=== PATIENT | female | born 1930 | race Caucasian/White ===

== ENCOUNTER 2017-01-15 18:01 | Emergency (ER) | payer BC ==
[~2017-01-15] VITALS: Ht 152.4 cm; Wt 57.6 kg
[~2017-01-15 18:01] MED LIST: ASPI-461 PO; ASTN NAE; BIMA0.01 OPB; CALC-20 PO; CHOL1000 PO; EPGI10M INJ; FERR325T5 PO; FLUT0.15 NAE; GABA-113 PO; LACT10CA3 PO; LAMO1TAB21 PO; LEVAAER2 PO; LEVO50TA6 PO; LISI-791 PO; LORA-741 PO; LPT/40 PO; METO1TAB31 PO; MOME100A INH; MOME50SP5; NTRGSL/4 UT; OMEP20CA9 PO; QUET1TAB7 PO; VENL150C PO; VENL75CA PO; XPNIN INH
[2017-01-15 18:12] VITALS: TEMP 36.3; Ht 152.4 cm; Wt 57.6 kg
[2017-01-15] MEDS ORDERED: SODIUM CHLORIDE 0.9% 1000ML 1,000 ML IV STA (19:33)
[2017-01-15] MEDS ORDERED: ONDANSETRON INJ 2 MG/ML 2 ML VIAL IV STA (19:33)
--- NOTE | 2017-01-15 19:35 | EMERGENCY ROOM VISIT NOTE ---
History Report prepared by Jacky: Tia Kruger Under the Supervision of: Dr. Amadou Garcia D.O. First contact with patient: 19:26 Chief Complaint: ABDOMINAL PAIN Stated Complaint: INGUINAL HERNIA Nursing Triage Summary: pt dx with right inguinal hernia with bowel. last week saw dr wick. had u/s yesterday. sent here for further eval History of Present Illness The patient is a 86 year old female who presents to the Emergency Room with complaints of a right inguinal hernia. She reports that she saw Dr. Wick 3 days ago and was referred here. The patient states that she had an US done yesterday that showed bowel in the hernia. The patient reports having nausea and back pain. The patient denies having diarrhea and vomiting. The patient reports having history of CLL, but denies a history of breast cancer. She reports taking medication for hypertension. Source of History: patient Position: other (right inguinal region) Quality: other (hernia) Timing: constant Associated Symptoms: + nausea, + back pain, No vomiting, No diarrhea Review of Systems See HPI for pertinent positives & negatives. A total of 10 systems reviewed and were otherwise negative. Past Medical & Surgical Medical Problems: (1) Acute Lyme disease (2) Arthritis (3) CAD (coronary artery disease) (4) CLL (chronic lymphocytic leukemia) (5) Degenerative disc disease (6) Depression (7) Non-allergic rhinitis Surgical Problems: (1) History of tonsillectomy Family History No pertinent family history Social History Smoking Status: Never Smoker Alcohol Use: none Drug Use: none Marital Status: Housing Status: lives with significant other Occupation Status: retired Current/Historical Medications Scheduled Aspirin (Aspirin), 81 MG PO QPM Atorvastatin (Lipitor), 40 MG PO QPM Azelastine Hcl (Astelin Nasal [place]), 1 SPRAY DERIAN BID Bimatoprost (Lumigan), 1 DROP OPB HS Calcium Carbonate-Vitamin D (Calcium 600 + D), 1 TABS PO QPM Cholecalciferol (Vitamin D3), 1 TAB PO BID Epoetin Iraj (Procrit), 1 ML INJ WK Ferrous Sulfate (Ferrous Sulfate), 325 MG PO BID Fluticasone Propionate (Nasal) (Flonase Allergy Relief), 2 SPRAYS DERIAN DAILY AFTERNOON Gabapentin (Neurontin), 300 MG PO HS Lactobacillus-Inulin (Culturelle), 1 CAP PO QPM Lamotrigine (Lamotrigine), 100 MG PO BID Levothyroxine Sodium (Levothyroxine Sodium), 50 MCG PO QAM Lisinopril (Zestril), 10 MG PO QPM Lorazepam (Ativan), 0.25 MG PO HS Metoprolol Succinate (Toprol Xl), 25 MG PO QPM Mometasone Furoate-Formoterol (Dulera 100/5 Mcg), 2 PUFFS INH Q12 Omeprazole (Prilosec), 20 MG PO QPM Quetiapine Fumarate (Seroquel), 25 MG PO HS Venlafaxine Hcl (Effexor Xr), 75 MG PO QPM Venlafaxine Hcl (Effexor Xr), 150 MG PO QPM Scheduled PRN Levalbuterol Tartrate (Xopenex Hfa), 2 PUFFS INH Q4H PRN for SOB/Wheezing/Cough Nitroglycerin (Nitrostat), 0.4 MG UT UD PRN for Chest Pain Allergies Coded Allergies: Adhesives (Verified Allergy, Intermediate, if on for a while, 01/15/17) Bacitracin (Verified Allergy, Mild, ALLERGY, 01/15/17) Neomycin (Verified Allergy, Mild, ALLERGY, 01/15/17) Polymyxin B (Verified Allergy, Mild, ALLERGY, 01/15/17) Physical Exam Vital Signs Date Time Temp Pulse Resp B/P (MAP) Pulse Ox O2 Delivery O2 Flow Rate FiO2 01/15/17 23:06 86 18 156/75 98 Room Air 01/15/17 21:16 79 18 151/72 97 Room Air 01/15/17 18:12 36.3 109 18 151/76 99 Room Air Physical Exam GENERAL: Patient is awake, alert, and in no acute distress. Patient is resting comfortably and showing no signs of anxiety EYES: The conjunctivae are clear. The pupils are round and reactive. EARS, NOSE, MOUTH AND THROAT: The nose is without any evidence of any deformity. Mucous membranes are moist tongue is midline NECK: The neck is nontender and supple. RESPIRATORY: Normal respiratory effort is noted there is no evidence of wheezing rhonchi or rales CARDIOVASCULAR: Regular rate and rhythm noted there no murmurs rubs or gallops normal S1 normal S2 GASTROINTESTINAL: Abdomen mildly distended with right lower quadrant tenderness to palpation. No guarding or rigidity. No definite inguinal mass noted with tenderness to palpation. BACK: No midline tenderness or or step-off noted range of motion in flexion extension as well as rotation no signs of muscle spasm noted MUSCULOSKELETAL/EXTREMITIES: There is no evidence of gross deformity full range of motion is noted in the hips and shoulders SKIN: There is no obvious evidence of any rash. There are no petechiae, pallor or cyanosis noted. NEUROLOGIC: Patient is awake alert and oriented x3 Medical Decision & Procedures ER Provider Diagnostic Interpretation: Radiology results as stated below per my review and radiologist interpretation: CHEST ONE VIEW PORTABLE CLINICAL HISTORY: Pain, radiating to the abdomen COMPARISON STUDY: 10/10/2015 FINDINGS: The cardiac and sternal contours remain stable. There is mild elevation/eventration right hemidiaphragm unchanged the prior study. There is no focal pulmonary consolidation. There is no failure. There are no pleural effusions. There is minor thickening of interstitial markings unchanged the prior study. There is no free intraperitoneal air.[ IMPRESSION: No active disease in the chest. Electronically signed by: Eric Lay M.D. 01/15/2017 8:08 PM Dictated Date/Time: 01/15/2017 8:[address] SCAN OF THE ABDOMEN AND PELVIS WITHOUT CONTRAST CLINICAL HISTORY: right flank pain COMPARISON STUDY: 10/19/2009 TECHNIQUE: CT scan of the abdomen and pelvis was performed from the lung bases to the proximal femurs. Images are reviewed in the axial, sagittal, and coronal planes. IV contrast was not administered for this examination. A dose lowering technique was utilized adhering to the principles of ALARA. CT DOSE: 252.89 mGy.cm FINDINGS: Lower chest: There is a moderate hiatal hernia, with a para esophageal component. There is bilateral subpleural reticulation. There is no lobar consolidation. Liver: The unenhanced liver is normal in size, contour, and attenuation. There is no intrahepatic biliary ductal dilatation. Gallbladder: Mildly distended. No calculi identified. Spleen: Normal in size and attenuation. Pancreas: Unremarkable. Adrenal glands: Unremarkable. Kidneys: No renal, ureteral, or bladder calculi are visualized. Bowel: There are no transition zones indicate bowel obstruction. There is no acute diverticulitis. There is a right inguinal hernia which contains small bowel loops. This is not currently resulting in obstruction. Peritoneum: There is no intraperitoneal free air or abdominal ascites. Vasculature: The abdominal aorta is normal in course and caliber. Adenopathy: None. Pelvic viscera: There is an indwelling pessary. Skeletal structures: No destructive osseous lesions are seen. IMPRESSION: 1. No evidence of bowel obstruction. No evidence of free air 2. Containing right inguinal hernia 3. Mild gallbladder distention. No calculi visualized on CT scanning 4. Hiatal hernia with a para esophageal component 5. No renal, ureteral, or bladder calculi identified. 6. Normal appendix Electronically signed by: Eric Lay M.D. 01/15/2017 8:40 PM Dictated Date/Time: 01/15/2017 8:36 PM Laboratory Results 01/15/17 21:02 Red Blood Count 4.48, Mean Corpuscular Volume 92.2, Mean Corpuscular Hemoglobin 29.5, Mean Corpuscular Hemoglobin Concent 32.0, Mean Platelet Volume 9.2, Neutrophils (%) (Auto) 13.0, Lymphocytes (%) (Auto) 82.5, Monocytes (%) (Auto) 2.5, Eosinophils (%) (Auto) 1.5, Basophils (%) (Auto) 0.2, Neutrophils # (Auto) 4.93, Lymphocytes # (Auto) 31.39, Monocytes # (Auto) 0.97, Eosinophils # (Auto) 0.57, Basophils # (Auto) 0.08 01/15/17 21:02 Test 01/15/17 21:02 White Blood Count 38.04 K/uL (4.8-10.8) Red Blood Count 4.48 M/uL (4.2-5.4) Hemoglobin 13.2 g/dL (12.0-16.0) Hematocrit 41.3 % (37-47) Mean Corpuscular Volume 92.2 fL (80-100) Mean Corpuscular Hemoglobin 29.5 pg (25-34) Mean Corpuscular Hemoglobin Concent 32.0 g/dl (32-36) Platelet Count 220 K/uL (130-400) Mean Platelet Volume 9.2 fL (7.4-10.4) Neutrophils (%) (Auto) 13.0 % Lymphocytes (%) (Auto) 82.5 % Monocytes (%) (Auto) 2.5 % Eosinophils (%) (Auto) 1.5 % Basophils (%) (Auto) 0.2 % Neutrophils # (Auto) 4.93 K/uL (1.4-6.5) Lymphocytes # (Auto) 31.39 K/uL (1.2-3.4) Monocytes # (Auto) 0.97 K/uL (0.11-0.59) Eosinophils # (Auto) 0.57 K/uL (0-0.5) Basophils # (Auto) 0.08 K/uL (0-0.2) RDW Standard Deviation 45.5 fL (36.4-46.3) RDW Coefficient of Variation 13.6 % (11.5-14.5) Immature Granulocyte % (Auto) 0.3 % Immature Granulocyte # (Auto) 0.10 K/uL (0.00-0.02) Smudge Cells PRESENT Prothrombin Time 11.2 SECONDS (9.0-12.0) Prothromb Time International Ratio 1.0 (0.9-1.1) Activated Partial Thromboplast Time 22.6 SECONDS (21.0-31.0) Partial Thromboplastin Ratio 0.9 Anion Gap 7.0 mmol/L (3-11) Est Creatinine Clear Calc Drug Dose 24.7 ml/min Estimated GFR () 43.0 Estimated GFR (Non- 37.1 BUN/Creatinine Ratio 12.2 (10-20) Calcium Level 9.4 mg/dl (8.5-10.1) Total Bilirubin 0.5 mg/dl (0.2-1) Direct Bilirubin mg/dl (0-0.2) Aspartate Amino Transf (AST/SGOT) U/L (15-37) Alanine Aminotransferase (ALT/SGPT) 18 U/L (12-78) Alkaline Phosphatase 115 U/L (45-117) Total Creatine Kinase U/L (26-192) Creatine Kinase MB 1.7 ng/ml (0.5-3.6) Creatine Kinase MB Ratio (0-3.0) Troponin I < 0.015 ng/ml (0-0.045) Total Protein 7.5 gm/dl (6.4-8.2) Albumin 3.8 gm/dl (3.4-5.0) Lipase 142 U/L (73-393) Laboratory results per my review. Medications Administered Medications (Trade) Dose Ordered Sig/Boyd Route Start Time Stop Time Status Last Admin Dose Admin Sodium Chloride 1,000 ml @ 999 mls/hr Q1H1M STAT IV 01/15/17 19:33 01/15/17 20:33 DC 01/15/17 21:12 999 MLS/HR Ondansetron HCl (Zofran Inj) 4 mg NOW STAT IV 01/15/17 19:33 01/15/17 19:34 DC 01/15/17 21:11 4 MG ECG Indication: abdominal pain Rate (beats per minute): 79 Rhythm: normal sinus Findings: no ectopy, other (no ST segment abnormalities) Change: no significant change (from October 09, 2015) ED Course 1926: The patient was evaluated in room A3. A complete history and physical examination were performed. 1932: Ordered Zofran Inj 4 mg IV, Sodium Chloride 1,000 ml @ 999 mls/hr IV. 2124: I discussed the patient's case with Dr. Chirinos. The patient will be evaluated for further management. 2239: I updated the patient on her results. 0: Upon reevaluation, the patient is resting. I discussed the results and treatment plan with her. She verbalized agreement of the treatment plan. She was discharged home. Medical Decision Differential diagnosis: Etiologies such as appendicitis, diverticulitis, PUD, biliary pathology, UTI, pancreatitis, obstruction, mesenteric ischemia, aortic pathology, infections, inflammatory bowel disease, renal colic, as well as others were entertained. Nursing notes reviewed. The patient is an 86-year-old female who presented to the emergency department for an evaluation of right lower abdominal pain. The patient had reproducible right lower quadrant abdominal pain. She has a history of a right inguinal hernia which was noted but did not appear to be incarcerated. The patient's CAT scan only showed signs of the hernia. It did not show any definite signs of appendicitis or any other intra-abdominal pathology. I discussed the patient's laboratory radiographic studies with her. She was found have an elevated white blood cell count but this is likely more consistent with her underlying leukemia. I discussed his case with the on-call general surgeon. He has agreed to evaluate the patient in the emergency department and felt that she could be managed as an outpatient and I agree. The patient was encouraged to avoid any strenuous activity or heavy lifting. She was encouraged to call the general surgeon in the morning to schedule a follow-up appointment. She was also encouraged return to the emergency department immediately if symptoms change worsen or the need arises. Medication Reconcilliation Current Medication List: was personally reviewed by me Blood Pressure Screening Patient's blood pressure: Elevated blood pressure Blood pressure disposition: Elevated BP felt to be situational Consults Time Called: 2114 Consulting Physician: Dr. Cheng Returned Call: 2124 I discussed the patient's case with Dr. Chirinos. The patient will be evaluated for further management. Impression Primary Impression: Right inguinal hernia Additional Impression: Abdominal pain Scribe Attestation The scribe's documentation has been prepared under my direction and personally reviewed by me in its entirety. I confirm that the note above accurately reflects all work, treatment, procedures, and medical decision making performed by me. Departure Information Dispostion Home / Self-Care Referrals Walter Wick D.O. (PCP) Romina Licona MD Forms HOME CARE DOCUMENTATION FORM, IMPORTANT VISIT INFORMATION Patient Instructions ED Hernia Inguinal, [facility] Additional Instructions Call the surgeon in the morning to schedule a follow-up appointment. Avoid any strenuous activity or heavy lifting. Return to the emergency department immediately if symptoms change worsen or the need arises. Problem Qualifiers Additional Impression: Abdominal pain Abdominal location: right lower quadrant Qualified Codes: R10.31 - Right lower quadrant pain
--- NOTE | 2017-01-15 20:10 | DIAGNOSTIC IMAGING REPORT ---
CHEST ONE VIEW PORTABLE CLINICAL HISTORY: Pain, radiating to the abdomen COMPARISON STUDY: 10/10/2015 FINDINGS: The cardiac and sternal contours remain stable. There is mild elevation/eventration right hemidiaphragm unchanged the prior study. There is no focal pulmonary consolidation. There is no failure. There are no pleural effusions. There is minor thickening of interstitial markings unchanged the prior study. There is no free intraperitoneal air.[ IMPRESSION: No active disease in the chest. Electronically signed by: Eric Lay M.D. 01/15/2017 8:08 PM Dictated Date/Time: 01/15/2017 8:07 PM
--- NOTE | 2017-01-15 20:42 | DIAGNOSTIC IMAGING REPORT ---
CT SCAN OF THE ABDOMEN AND PELVIS WITHOUT CONTRAST CLINICAL HISTORY: right flank pain COMPARISON STUDY: 10/19/2009 TECHNIQUE: CT scan of the abdomen and pelvis was performed from the lung bases to the proximal femurs. Images are reviewed in the axial, sagittal, and coronal planes. IV contrast was not administered for this examination. A dose lowering technique was utilized adhering to the principles of ALARA. CT DOSE: 252.89 mGy.cm FINDINGS: Lower chest: There is a moderate hiatal hernia, with a para esophageal component. There is bilateral subpleural reticulation. There is no lobar consolidation. Liver: The unenhanced liver is normal in size, contour, and attenuation. There is no intrahepatic biliary ductal dilatation. Gallbladder: Mildly distended. No calculi identified. Spleen: Normal in size and attenuation. Pancreas: Unremarkable. Adrenal glands: Unremarkable. Kidneys: No renal, ureteral, or bladder calculi are visualized. Bowel: There are no transition zones indicate bowel obstruction. There is no acute diverticulitis. There is a right inguinal hernia which contains small bowel loops. This is not currently resulting in obstruction. Peritoneum: There is no intraperitoneal free air or abdominal ascites. Vasculature: The abdominal aorta is normal in course and caliber. Adenopathy: None. Pelvic viscera: There is an indwelling pessary. Skeletal structures: No destructive osseous lesions are seen. IMPRESSION: 1. No evidence of bowel obstruction. No evidence of free air 2. Containing right inguinal hernia 3. Mild gallbladder distention. No calculi visualized on CT scanning 4. Hiatal hernia with a para esophageal component 5. No renal, ureteral, or bladder calculi identified. 6. Normal appendix Electronically signed by: Eric Lay M.D. 01/15/2017 8:40 PM Dictated Date/Time: 01/15/2017 8:36 PM
[2017-01-15 21:21] LABS: PARTIAL THROMBOPLASTIN RATIO 0.9; PROTHROMBIN TIME (PATIENT) 11.2 SECONDS (9.0-12.0)
[2017-01-15 21:34] LABS: HEMATOCRIT 41.3 % (37-47); MEAN CELL VOLUME 92.2 fL (80-100); MEAN CORPUSCULAR HEMOGLOBIN 29.5 pg (25-34); MEAN PLATELET VOLUME 9.2 fL (7.4-10.4); PLATELET COUNT 220 K/uL (130-400); RED BLOOD COUNT 4.48 M/uL (4.2-5.4); WHITE BLOOD COUNT 38.04 K/uL (4.8-10.8)
[2017-01-15 21:45] LABS: ALKALINE PHOSPHATASE 115 U/L (45-117); ALT/SGPT 18 U/L (12-78); BLOOD UREA NITROGEN 16 mg/dl (7-18); BUN/CREATININE RATIO 12.2 (10-20); CALCIUM 9.4 mg/dl (8.5-10.1); CARBON DIOXIDE 25 mmol/L (21-32); CHLORIDE 106 mmol/L (98-107); GLUCOSE 83 mg/dl (70-99); SODIUM 138 mmol/L (136-145)
[2017-01-15 21:57] LABS: BASO % 0.2 %; BASO ABS # 0.08 K/uL (0-0.2); COMPLETE YES; EOS % 1.5 %; IG% 0.3 %; LYMPH % 82.5 %; LYMPH ABS # 31.39 K/uL (1.2-3.4); MONO % 2.5 %; SMUDGE CELLS PRESENT
[2017-01-15 23:06] VITALS: BP 156/75; PULSE 86; O2SAT 98
--- NOTE | 2017-01-16 00:32 | Surgery Consultation ---
Consultation Date of Consultation: Jan 16, 2017. Attending Physician: History of Present Illness The patient is a 86 year old female who presents to the Emergency Room with complaints of a right inguinal hernia. She reports that she saw Dr. Wick 3 days ago and was referred here. The patient states that she had an US done yesterday that showed bowel in the hernia. The patient reports having nausea and back pain. The patient denies having diarrhea and vomiting. The patient reports having history of CLL, but denies a history of breast cancer. She reports taking medication for hypertension. I saw pt at ER, now, pt denies any pain on right inguinal area, no bulging, most likely the hernia is reducible, pt wants to go home, Past Medical/Surgical History Medical Problems: (1) Abdominal pain Status: Acute (2) Asthma exacerbation Status: Acute (3) Bronchitis Status: Acute (4) Right inguinal hernia Status: Acute (5) Sepsis Status: Acute Family History No pertinent family history Social History Smoking Status: Never Smoker Smokeless Tobacco Use: No Alcohol Use: occasionally Drug Use: none Marital Status: Housing Status: lives with significant other Occupation Status: retired Allergies Coded Allergies: Adhesives (Verified Allergy, Intermediate, if on for a while, 01/15/17) Bacitracin (Verified Allergy, Mild, ALLERGY, 01/15/17) Neomycin (Verified Allergy, Mild, ALLERGY, 01/15/17) Polymyxin B (Verified Allergy, Mild, ALLERGY, 01/15/17) Home Medications Scheduled Aspirin (Aspirin), 81 MG PO QPM Atorvastatin (Lipitor), 40 MG PO QPM Azelastine Hcl (Astelin Nasal [place]), 1 SPRAY DERIAN BID Bimatoprost ([place]), 1 DROP OPB HS Calcium Carbonate-Vitamin D (Calcium 600 + D), 1 TABS PO QPM Cholecalciferol (Vitamin D3), 1 TAB PO BID Epoetin Iraj (Procrit), 1 ML INJ WK Ferrous Sulfate (Ferrous Sulfate), 325 MG PO BID Fluticasone Propionate (Nasal) (Flonase Allergy Relief), 2 SPRAYS DERIAN DAILY AFTERNOON Gabapentin (Neurontin), 300 MG PO HS Lactobacillus-Inulin (Culturelle), 1 CAP PO QPM Lamotrigine (Lamotrigine), 100 MG PO BID Levothyroxine Sodium (Levothyroxine Sodium), 50 MCG PO QAM Lisinopril (Zestril), 10 MG PO QPM Lorazepam (Ativan), 0.25 MG PO HS Metoprolol Succinate (Toprol Xl), 25 MG PO QPM Mometasone Furoate-Formoterol (Dulera 100/5 Mcg), 2 PUFFS INH Q12 Omeprazole (Prilosec), 20 MG PO QPM Quetiapine Fumarate (Seroquel), 25 MG PO HS Venlafaxine Hcl (Effexor Xr), 75 MG PO QPM Venlafaxine Hcl (Effexor Xr), 150 MG PO QPM Scheduled PRN Levalbuterol Tartrate (Xopenex Hfa), 2 PUFFS INH Q4H PRN for SOB/Wheezing/Cough Nitroglycerin (Nitrostat), 0.4 MG UT UD PRN for Chest Pain Review of Systems Constitutional: No fever, No chills, No sweats, No weight loss, No weakness, No fatigue, No problem reported Eyes: No worsening of vision, No eye pain, No redness, No discharge, No diplopia, No problem reported ENT: No hearing loss, No unusual epistaxis, No nasal symptoms, No sore throat, No tinnitus, No dental problems, No trouble swallowing, No problem reported Respiratory: No cough, No sputum, No wheezing, No shortness of breath, No dyspnea on exertion, No dyspnea at rest, No hemoptysis, No problem reported Cardiovascular: No chest pain, No orthopnea, No PND, No edema, No claudication , No palpitations, No problem reported Abdomen: No pain, No nausea, No vomiting, No diarrhea, No constipation, No GI bleeding, No problem reported Neurologic: No memory loss, No paralysis, No weakness, No numbness/tingling, No vertigo, No balance problems, No problem reported Psychiatric: No depression symptoms, No anhedonism, No anxiety, No insomnia, No substance abuse, No problem reported Endocrine: No fatigue, No excessive thirst, No excessive urination, No problem reported Hematologic / Lymphatic: No abnormal bleeding/bruising, No clotting problems, No swollen lymph nodes, No night sweats, No problem reported Physical Exam Date Time Temp Pulse Resp B/P (MAP) Pulse Ox O2 Delivery O2 Flow Rate FiO2 01/15/17 23:06 86 18 156/75 98 Room Air 01/15/17 21:16 79 18 151/72 97 Room Air 01/15/17 18:12 36.3 109 18 151/76 99 Room Air General Appearance: WD/WN, no apparent distress Head: normocephalic Eyes: normal inspection ENT: normal ENT inspection Neck: supple, no JVD Respiratory/Chest: chest non-tender, lungs clear Cardiovascular: regular rate, rhythm, no edema, no gallop, no JVD, no murmur Abdomen/GI: soft, no organomegaly (no mass on right inguinal area, ), no pulsatile mass Extremities/Musculoskelatal: normal inspection, no calf tenderness, normal capillary refill Neurologic/Psych: no motor/sensory deficits, alert, normal mood/affect Skin: normal color, warm/dry Laboratory Results Last 24 Hours Test 01/15/17 21:02 White Blood Count 38.04 K/uL Red Blood Count 4.48 M/uL Hemoglobin 13.2 g/dL Hematocrit 41.3 % Mean Corpuscular Volume 92.2 fL Mean Corpuscular Hemoglobin 29.5 pg Mean Corpuscular Hemoglobin Concent 32.0 g/dl Platelet Count 220 K/uL Mean Platelet Volume 9.2 fL Neutrophils (%) (Auto) 13.0 % Lymphocytes (%) (Auto) 82.5 % Monocytes (%) (Auto) 2.5 % Eosinophils (%) (Auto) 1.5 % Basophils (%) (Auto) 0.2 % Neutrophils # (Auto) 4.93 K/uL Lymphocytes # (Auto) 31.39 K/uL Monocytes # (Auto) 0.97 K/uL Eosinophils # (Auto) 0.57 K/uL Basophils # (Auto) 0.08 K/uL RDW Standard Deviation 45.5 fL RDW Coefficient of Variation 13.6 % Immature Granulocyte % (Auto) 0.3 % Immature Granulocyte # (Auto) 0.10 K/uL Smudge Cells PRESENT Prothrombin Time 11.2 SECONDS Prothromb Time International Ratio 1.0 Activated Partial Thromboplast Time 22.6 SECONDS Partial Thromboplastin Ratio 0.9 Sodium Level 138 mmol/L Potassium Level mmol/L Chloride Level 106 mmol/L Carbon Dioxide Level 25 mmol/L Anion Gap 7.0 mmol/L Blood Urea Nitrogen 16 mg/dl Creatinine 1.30 mg/dl Est Creatinine Clear Calc Drug Dose 24.7 ml/min Estimated GFR () 43.0 Estimated GFR (Non- 37.1 BUN/Creatinine Ratio 12.2 Random Glucose 83 mg/dl Calcium Level 9.4 mg/dl Total Bilirubin 0.5 mg/dl Direct Bilirubin mg/dl Aspartate Amino Transf (AST/SGOT) U/L Alanine Aminotransferase (ALT/SGPT) 18 U/L Alkaline Phosphatase 115 U/L Total Creatine Kinase U/L Creatine Kinase MB 1.7 ng/ml Creatine Kinase MB Ratio Troponin I < 0.015 ng/ml Total Protein 7.5 gm/dl Albumin 3.8 gm/dl Lipase 142 U/L Assessment & Plan Assement: pt is a 86 year old female who presents to ER with right inguinal pain , now pt has no right inguinal pain, IMP: right inguinal hernia, I recommend that, pt can be discharged home today, pt will see me next week for elective hernia repair, I instructed pt , she should come to ER if she develops abdominal pain, nausea. vomiting, pt understood, I answered all questions, D/W ER attending,
== END 2017-01-15 23:15 | disposition home or self-care (01) ==
LOC: C.EDB 18:03 → C.EDA 23:15
DX: K40.90 Unilateral inguinal hernia, without obstruction or gangrene, not specified as recurrent (principal); R10.31 Right lower quadrant pain; M19.90 Unspecified osteoarthritis, unspecified site; I25.10 Atherosclerotic heart disease of native coronary artery without angina pectoris; C91.11 Chronic lymphocytic leukemia of B-cell type in remission; F32.9 Major depressive disorder, single episode, unspecified; Z79.82 Long term (current) use of aspirin

== ENCOUNTER → 2017-01-22 | Day surgery (SDC) | payer BC ==
[2017-01-21 13:07] VITALS: BMI 26.0
[~2017-01-22] VITALS: Ht 149.9 cm; Wt 59.1 kg
[~2017-01-22] MED LIST changes: +ACET-749 PO; +ASPI-391 PO; +ATROPINE SULFATE 0.1 MG/ML 5ML SYR IV PRN; +BACITRACIN OINT 15 GM TUBE ONE; +BUPIVACAINE 0.5 % 5 MG/1 ML MPF 30ML VIAL ONE; +CEFAZOLIN 2000 MG/60 ML D5W 60 ML IV SCH; +CEFAZOLIN SOD 2000MG/10 ML IV PUSH IV ONE; -EPGI10M INJ; +ESTROGEN TOP; +EpHEDrine SULFATE INJ 50 MG/ML AMP IV PRN; +FENTANYL CITRATE INJ 50 MCG/1 ML 2 ML VIAL ONE; +HYDROmorphone INJ 1 MG/ML SYR IV PRN; +LACTATED RINGER'S 1000ML 1,000 ML IV SCH; +LAMO100T16 PO; +LEVA45AE INH; -LEVAAER2 PO; -LEVO50TA6 PO; +LEVO75TA5 PO; +LIDOCAINE HCL 1% 20 ML VIAL ONE; +LIDOCAINE HCL 2% 2 ML VIAL (20MG/ML) ONE; +MIDAZOLAM HCL 1 MG/ML 2ML VIAL ONE; -MOME50SP5; +MoRPHine SULFATE 2 MG/ML CARP IV PRN; +MoRPHine SULFATE 4 MG/ML 1 ML CARP\\VIAL IV PRN; -OMEP20CA9 PO; +ONDANSETRON INJ 2 MG/ML 2 ML VIAL IV PRN; +ONDANSETRON INJ 2 MG/ML 2 ML VIAL ONE; +OXYC-57 PO; +OXYCODONE/ACETAMINOPHEN 5-325 TAB PO PRN; +PHENYLEPHRINE 100MCG/ML 5ML SYR IV PRN; +PROPOFOL IV EMULSION 10 MG/ML 20 ML VIAL IV ONE; -VENL150C PO; -XPNIN INH
--- NOTE | 2017-01-22 08:22 | History & Physical Bridge Note ---
H&P Re-Evaluation Bridge Note: I have examined the patient, reviewed the History & Physical and in the interval since the performance of the History & Physical I have noted the following changes of clinical significance: No changes noted
[2017-01-22 08:32] VITALS: BP 127/59; PULSE 54; TEMP 36.7; O2SAT 97; Ht 149.9 cm; Wt 59.1 kg
--- NOTE | 2017-01-22 10:13 | [facility] Post Operative Brief Note ---
Immediate Operative Summary Operative Date Jan 22, 2017. Pre-Operative Diagnosis Symptomatic Right Inguinal Hernia Post-Operative Diagnosis Symptomatic Right Inguinal Hernia Procedure(s) Performed Right Open Inguinal Hernia Repair with Mesh Surgeon Dr. Martinez Licona [employer] Surgeon(s) Nasim Lemos PA-C Estimated Blood Loss 5mL Findings right direct inguinal hernia Fluids (cc crystalloids) 800ml Specimens none per surgeon Drains none Anesthesia sedation + local Complication(s) None Disposition Recovery Room / PACU
--- NOTE | 2017-01-22 10:32 | Discharge Instructions ---
Discharge Instructions Date of Service Jan 22, 2017. Admission Reason for Admission: Right Inguinal Hernia Discharge Discharge Diagnosis / Problem: same Discharge Goals Goal(s): Decrease discomfort, Improve function Activity Recommendations Activity Limitations: as noted below No heavy lifting over 10 pounds for 4-6 weeks no strenuous activity until cleared by surgeon No submerging incision underwater for 2 weeks or until completely healed (no bathing, swimming, or hot tubs) No driving while taking narcotic pain medication or until you are pain free . Instructions / Follow-Up Instructions / Follow-Up You may shower in 4 days, sponge bath and wash hair in meantime. You can let shower water hit your back but keep the dressing dry and clean. Remove dressing in 4 days and then shower Please keep a dressing on the incision as we did not use steri strips or surgical glue because of your adhesive allergy. Walking and light activity is encouraged to prevent blood clots from forming Follow-up with Dr. Licona in 1 week, please call office at [phone] if you do not already have an appointment Current Hospital Diet Patient's current hospital diet: Discharge Diet Recommended Diet: Regular Diet Procedures Procedures Performed: Right Open Inguinal Hernia Repair with Mesh Pending Studies Studies pending at discharge: no Medical Emergencies . Who to Call and When: Medical Emergencies: If at any time you feel your situation is an emergency, please call 911 immediately. . Non-Emergent Contact Non-Emergency issues call your: Primary Care Provider, Surgeon Call Non-Emergent contact if: you have a fever, temperature is above 101.5, your pain is not controlled, your pain is worsening, your pain is unusual for you, wound has increased drainage, wound has increased redness, wound has increased pain . "Provider Documentation" section prepared by Peggy Lemos. . VTE Core Measure Inpt VTE Proph given/why not?: SCD's [place] Drug Monitoring Program Search Results: patient reviewed within database, no issues identified
[2017-01-22] MEDS: FENTANYL CITRATE INJ 50 MCG/1 ML 2 ML VIAL IV PRN ×2 (10:53→11:00)
--- NOTE | 2017-01-22 11:14 | Anesthesiology Progress Note ---
Anesthesia Post Op Note Date & Time Jan 22, 2017 at 11:13 Vital Signs Pain Intensity: 2 Vital Signs Past 12 Hours Date Time Temp Pulse Resp B/P (MAP) Pulse Ox O2 Delivery O2 Flow Rate FiO2 01/22/17 11:05 37.1 71 14 115/51 95 Room Air 01/22/17 10:55 71 16 133/54 96 Room Air 01/22/17 10:45 71 16 136/44 97 Oxymask 10 01/22/17 10:35 71 16 140/56 100 Oxymask 10 01/22/17 10:25 36.7 71 16 134/61 100 Oxymask 10 01/22/17 08:32 36.7 54 20 127/59 (81) 97 Room Air Notes Mental Status: alert / awake / arousable, participated in evaluation Pt Amnestic to Procedure: Yes Nausea / Vomiting: adequately controlled Pain: adequately controlled Airway Patency, RR, SpO2: stable & adequate BP & HR: stable & adequate Hydration State: stable & adequate Anesthetic Complications: no major complications apparent
[2017-01-22 11:25] VITALS: BP 117/56; PULSE 68; TEMP 36.8; O2SAT 97
--- NOTE | 2017-01-22 11:53 | OPERATIVE REPORT ---
DATE OF OPERATION: 01/22/2017 PREOPERATIVE DIAGNOSIS: Symptomatic right inguinal hernia. POSTOPERATIVE DIAGNOSIS: Same. OPERATION: Open repair, right inguinal hernia with mesh. SURGEON: Romina Licona M.D. TUBE TRAILER FILLER: Peggy Lemos PA-C. ANESTHESIA: Conscious sedation plus local. ESTIMATED BLOOD LOSS: About 5 mL. IV FLUIDS: 800 mL. FINDINGS: Right direct inguinal hernia. COMPLICATIONS: None. INDICATIONS FOR THE PROCEDURE: This is an 86-year-old female who presented symptomatic right inguinal hernia and patient was diagnosed with right inguinal hernia and patient will be required to do open repair, right inguinal hernia with mesh. I did talk to the patient and the patient's about the benefit and risk, alternate procedure. I indicated the risks may include but not limited such as bleeding, infection, hernia recurrence, chronic incision pain, myocardial infarction, DVT, stroke, even . The patient understands. She signed informed consent and I answered all questions. DETAILS OF PROCEDURE: We brought the patient to the OR, put the patient in the supine position. The patient received SCD on bilateral legs to prevent DVT. Also, patient received 2 grams Ancef IV for prophylactic antibiotic. The patient received conscious sedation by the anesthesiology. The right lower abdomen was prepped and draped in routine sterile fashion. After time out, I injected the local anesthesia by using 1% lidocaine mixed with 0.5% Marcaine around the right inguinal area and then I made about a 4 cm incision on the right inguinal area, opened the skin and opened the subcutaneous layer and opened the external oblique fascia and mobilized the round ligament. Then we found the patient had a direct hernia. We mobilized the hernia sac and reduced the hernia sac to the abdominal cavity. Then I used a large plug blockage the hernia sac, then I used 2-0 Prolene to fix the plug on the abdominal wall. Then I chose 3 x 5 cm Prolene mesh to reinforce the posterior wall. I used 2-0 Prolene suture mesh to the right inguinal ligament and another 2-0 Prolene suture mesh to the conjoined tendon, 2 sutures meeting together, tied and also we identified the ilioinguinal nerves and iliohypogastric nerves all times to protection nerve at all times. Hemostasis obtained then we closed. Once we put the mesh in we checked the mesh and seated nicely, no tension. Then I closed the external oblique fascia by using 2-0 Vicryl continuous running, closed subcutaneous layer by using 2-0 Vicryl continuous running, closed skin by using 4-0 Vicryl continuous running. We put the dressing on. The patient tolerated the procedure well. All the instrument, needle and sponge count correct x2 at the end of case. The patient transferred to recovery room in stable condition. After the procedure, I did talk to the patient and family member about OR findings and procedure we did. Also, before and after the procedure, I gave patient and patient's family member about the postop care instruction, they understand. I attest to the content of the Intraoperative Record and any orders documented therein. Any exceptions are noted below. MTDD
[2017-01-22 11:54] VITALS: BP 127/61; PULSE 71; TEMP 36.8; O2SAT 98
[2017-01-22 12:30] VITALS: BP 135/65; PULSE 68; O2SAT 97
== END | disposition home or self-care (01) ==
LOC: C.ACU 07:52
PROVIDERS: ATTEND Surgery
DX: K40.90 Unilateral inguinal hernia, without obstruction or gangrene, not specified as recurrent (principal); C91.10 Chronic lymphocytic leukemia of B-cell type not having achieved remission; M76.899 Other specified enthesopathies of unspecified lower limb, excluding foot; N62 Hypertrophy of breast; M15.9 Polyosteoarthritis, unspecified; F32.9 Major depressive disorder, single episode, unspecified; E03.9 Hypothyroidism, unspecified; E78.5 Hyperlipidemia, unspecified; I25.10 Atherosclerotic heart disease of native coronary artery without angina pectoris; J45.30 Mild persistent asthma, uncomplicated; K21.9 Gastro-esophageal reflux disease without esophagitis; N18.3 Chronic kidney disease, stage 3 (moderate); I12.9 Hypertensive chronic kidney disease with stage 1 through stage 4 chronic kidney disease, or unspecified chronic kidney disease; Z82.49 Family history of ischemic heart disease and other diseases of the circulatory system

== ENCOUNTER 2017-02-24 19:14 | Inpatient (IN) | payer BC, OTHER ==
[~2017-02-24] VITALS: Ht 149.9 cm; Wt 56.5 kg
[~2017-02-24 19:14] MED LIST changes: -ATROPINE SULFATE 0.1 MG/ML 5ML SYR IV PRN; -BACITRACIN OINT 15 GM TUBE ONE; -BUPIVACAINE 0.5 % 5 MG/1 ML MPF 30ML VIAL ONE; -CEFAZOLIN 2000 MG/60 ML D5W 60 ML IV SCH; -CEFAZOLIN SOD 2000MG/10 ML IV PUSH IV ONE; -EpHEDrine SULFATE INJ 50 MG/ML AMP IV PRN; -FENTANYL CITRATE INJ 50 MCG/1 ML 2 ML VIAL ONE; -HYDROmorphone INJ 1 MG/ML SYR IV PRN; -LACTATED RINGER'S 1000ML 1,000 ML IV SCH; -LAMO1TAB21 PO; -LIDOCAINE HCL 1% 20 ML VIAL ONE; -LIDOCAINE HCL 2% 2 ML VIAL (20MG/ML) ONE; +METO-478 PO; -METO1TAB31 PO; -MIDAZOLAM HCL 1 MG/ML 2ML VIAL ONE; -MoRPHine SULFATE 2 MG/ML CARP IV PRN; -MoRPHine SULFATE 4 MG/ML 1 ML CARP\\VIAL IV PRN; -ONDANSETRON INJ 2 MG/ML 2 ML VIAL IV PRN; -ONDANSETRON INJ 2 MG/ML 2 ML VIAL ONE; -OXYCODONE/ACETAMINOPHEN 5-325 TAB PO PRN; -PHENYLEPHRINE 100MCG/ML 5ML SYR IV PRN; -PROPOFOL IV EMULSION 10 MG/ML 20 ML VIAL IV ONE
[2017-02-24] MEDS ORDERED: ONDANSETRON INJ 2 MG/ML 2 ML VIAL IV STA (19:39)
[2017-02-24] MEDS ORDERED: MoRPHine SULFATE 4 MG/ML 1 ML CARP\\VIAL IV STA (19:39)
[2017-02-24 20:14] LABS: INR 1.1 (0.9-1.1); PARTIAL THROMBOPLASTIN RATIO 0.9; PROTHROMBIN TIME (PATIENT) 11.3 SECONDS (9.0-12.0)
[2017-02-24] MEDS ORDERED: LEVO50TA PO (20:14)
[2017-02-24] MEDS ORDERED: EPGI40M SC (20:17)
[2017-02-24 20:19] LABS: ALT/SGPT 24 U/L (12-78); BLOOD UREA NITROGEN 14 mg/dl (7-18); BUN/CREATININE RATIO 13.2 (10-20); CALCIUM 9.1 mg/dl (8.5-10.1); CARBON DIOXIDE 24 mmol/L (21-32); CHLORIDE 103 mmol/L (98-107); CREATININE 1.04 mg/dl (0.60-1.20); GLUCOSE 91 mg/dl (70-99); SODIUM 138 mmol/L (136-145)
[2017-02-24 20:24] LABS: ALKALINE PHOSPHATASE 83 U/L (45-117); AST/SGOT 20 U/L (15-37)
[2017-02-24 20:30] LABS: HEMATOCRIT 38.2 % (37-47); MEAN CELL VOLUME 92.5 fL (80-100); MEAN CORPUSCULAR HEMOGLOBIN 29.3 pg (25-34); MEAN CORPUSCULAR HGB CONC 31.7 g/dl (32-36); MEAN PLATELET VOLUME 9.9 fL (7.4-10.4); PLATELET COUNT 189 K/uL (130-400); RED BLOOD COUNT 4.13 M/uL (4.2-5.4); WHITE BLOOD COUNT 32.09 K/uL (4.8-10.8)
[2017-02-24] MEDS ORDERED: OPTIRAY 320 IV PRN (20:30)
[2017-02-24 21:03] LABS: URINE APPEARANCE CLEAR (CLEAR); URINE BILIRUBIN NEG (NEG); URINE COLOR YELLOW; URINE NITRITE NEG (NEG); URINE SPECIFIC GRAVITY 1.006 (1.000-1.030); UROBILINOGEN NEG (NEG)
[2017-02-24 21:08] LABS: MANUAL MICROSCOPIC REQUIRED? NO; REVIEW REQ? NO
[2017-02-24 21:38] LABS: BASO % 0.3 %; BASO ABS # 0.09 K/uL (0-0.2); COMPLETE YES; EOS % 2.2 %; IG% 0.2 %; LYMPH % 80.1 %; MONO % 4.3 %; NEUT % 12.9 %
[2017-02-24 22:11] LABS: SMUDGE CELLS PRESENT
--- NOTE | 2017-02-24 22:55 | DIAGNOSTIC IMAGING REPORT ---
ABDOMEN AND PELVIS CT WITH IV AND ORAL CONTRAST CT DOSE: 236.20 mGy.cm HISTORY: lower abd pain eval for divertic TECHNIQUE: Multiaxial CT images of the abdomen and pelvis were performed following the use of intravenous and oral contrast. A dose lowering technique was utilized adhering to the principles of ALARA. COMPARISON STUDY: Abdomen and pelvis CT 01/15/2017. FINDINGS: Mild interstitial thickening at the lung bases which is likely chronic. Moderate hiatus hernia, unchanged. The liver, spleen, adrenal glands, pancreas, and kidneys are unremarkable. No gallbladder wall thickening. Calcified mediastinal lymph nodes. The bladder is unremarkable. Small fat and fluid containing right inguinal hernia. A pessary device is noted. No bowel obstruction. Colonic diverticulosis. No retroperitoneal lymphadenopathy. Adjacent to the cecal base there is a small focal hypodensity best seen on image 263 measuring 3 cm. This was not present on the prior study one month earlier. This is adjacent to the normal caliber appendix. This is of uncertain clinical significance and could represent a small focus of fluid or fluid-filled bowel. IMPRESSION: 1. No definite bowel wall thickening or obstruction. 2. Small fat and fluid containing right femoral hernia. 3. A 3 cm focal low density structure adjacent to the cecal base and normal appendix. This was not present on the prior study and is of uncertain clinical significance. This could represent a small focus of fluid or fluid-filled bowel. 4. Colonic diverticulosis. 5. Moderate hiatus hernia, unchanged. Electronically signed by: Tomy Owen M.D. 02/24/2017 10:54 PM Dictated Date/Time: 02/24/2017 10:29 PM
[2017-02-24] MEDS ORDERED: MoRPHine SULFATE 2 MG/ML CARP IV STA (23:12)
[2017-02-24] MEDS ORDERED: ACETAMINOPHEN 325 MG TAB PO PRN (23:45)
[2017-02-24] MEDS ORDERED: MAGNESIUM HYDROXIDE SUSP 30 ML UDC PO PRN (23:45)
[2017-02-24] MEDS ORDERED: LEValbuterol HFA 15GM INHALER INH PRN (23:45)
[2017-02-24] MEDS ORDERED: MoRPHine SULFATE 2 MG/ML CARP IV PRN (23:45)
[2017-02-24] MEDS ORDERED: ALUMINUM/MAGNESIUM/SIMETH (MAALOX MAX) 30 ML UDC PO PRN (23:45)
[2017-02-25] VITALS (8 sets, daily range): BP systolic 108–169; BP diastolic 52–90; PULSE 75–86; TEMP 36.7–37.6; O2SAT 92–100; Ht 149.9 cm; Wt 56.5 kg
[2017-02-25] MEDS ORDERED: IV FLUIDS COMPLETED PRN (00:15)
--- NOTE | 2017-02-25 00:16 | History and Physical ---
History & Physical Date & Time of Service: Feb 25, 2017 at 00:04 Chief Complaint: Ab Pain Primary Care Physician: Walter Wick D.O. History of Present Illness Source: patient, clinic records This is an 86 year old female with a PMH of CLL, CAD, HTN, CKD stage 3, asthma - presents to the hospital due to suprapubic pain that radiated to her bilateral ribs. She states that she has chronic back pain and takes tylenol #3 for it - she states that the back pain was worsening the past few days and she had to use a massager for it. She then developed this abdominal pain that began in her suprapubic region. Denied urinary symptoms. The pain then shifted over to her lateral ribs on both sides. She did not have difficulty breathing; but states the pain seemed similar to when she fractured her ribs in the past. When she got to the ER, the pain was at her epigastric region. Denies n/v/d/ constipation, denies dysuria/frequency, denies fevers/chills, denies chest pain/ shortness of breath. Received IV morphine in the ED with some relief of the pain. Family History No pertinent family history Social History Smoking Status: Never Smoker Drug Use: none Marital Status: Occupational Status: retired Immunizations History of Influenza Vaccine: Yes Influenza Vaccine Date: Jan 07, 2015 History of Tetanus Vaccine?: Unknown History of Pneumococcal: Unknown History of Hepatitis B Vaccine: Unknown Multi-Drug Resistant Organisms History of MDRO: No Allergies Coded Allergies: Adhesives (Verified Allergy, Intermediate, if on for a while-red blisters , 02/24/17) Bacitracin (Verified Allergy, Mild, ALLERGY-IRRITATION, 02/24/17) Neomycin (Verified Allergy, Mild, ALLERGY, 02/24/17) Polymyxin B (Verified Allergy, Mild, ALLERGY, 02/24/17) Home Medications Scheduled Aspirin (Aspirin), 81 MG PO QPM Atorvastatin (Lipitor), 40 MG PO QPM Azelastine Hcl (Astelin Nasal [place]), 1 SPRAY DERIAN BID Bimatoprost (Lumigan), 1 DROP OPB HS Calcium Carbonate-Vitamin D (Calcium 600 + D), 1 TABS PO QPM Cholecalciferol (Vitamin D3), 2 TABS PO DAILY Ferrous Sulfate (Ferrous Sulfate), 325 MG PO BID Fluticasone Propionate (Nasal) (Flonase Allergy Relief), 2 SPRAYS DERIAN DAILY AFTERNOON Gabapentin (Neurontin), 300 MG PO HS Lactobacillus-Inulin (Culturelle), 1 CAP PO QPM Lamotrigine (Lamictal), 100 MG PO BID Levothyroxine Sodium (Synthroid), 50 MCG PO DAILY Lisinopril (Zestril), 10 MG PO QPM Lorazepam (Ativan), 0.25 MG PO HS Metoprolol Succinate (Toprol Xl), 25 MG PO QPM Mometasone Furoate-Formoterol (Dulera 100/5 Mcg), 2 PUFFS INH Q12 Quetiapine Fumarate (Seroquel), 25 MG PO HS Venlafaxine Hcl (Effexor Xr), 262.5 MG PO QAM Scheduled PRN Acetaminophen/Codeine (Tylenol W/Codeine #3), 1 TAB PO BID PRN for Pain Epoetin Iraj (Procrit), 1 DOSE SC WK PRN for HEMOGLOBIN LEVEL < 12 Levalbuterol Tartrate (Levalbuterol Tartrate Hfa), 2 PUFFS INH Q4H PRN for PRN Nitroglycerin (Nitrostat), 0.4 MG UT UD PRN for Chest Pain Review of Systems Constitutional: No fever, No chills, No sweats, No weight loss, No weakness, No fatigue Eyes: No worsening of vision Respiratory: No cough, No sputum, No wheezing, No shortness of breath, No dyspnea on exertion Cardiovascular: No chest pain, No edema, No palpitations Abdomen: + pain, No nausea, No vomiting, No diarrhea, No constipation, No GI bleeding Musculoskeletal: + joint pain (chronic back pain, rib pain) Genitourinary - Female: No dysuria, No urinary frequency, No urinary urgency, No urinary incontinence, No urinary retention, No hematuria Neurologic: No memory loss Psychiatric: No depression symptoms Hematologic / Lymphatic: No abnormal bleeding/bruising Integumentary: No rash Allergic / Immunologic: No environmental allergies, No seasonal allergies Physical Exam Vital Signs Date Time Temp Pulse Resp B/P (MAP) Pulse Ox O2 Delivery O2 Flow Rate FiO2 02/24/17 23:58 80 16 151/70 97 Room Air 02/24/17 23:06 83 02/24/17 22:30 82 18 154/97 99 Room Air 02/24/17 21:12 84 18 158/66 100 Room Air 02/24/17 19:28 75 02/24/17 19:20 37.2 85 18 181/79 95 Room Air General Appearance: no apparent distress Head: normocephalic, atraumatic Eyes: normal inspection ENT: hearing grossly normal Neck: supple Respiratory/Chest: lungs clear, normal breath sounds, no respiratory distress, no accessory muscle use, + pertinent finding (+lateral rib tenderness) Cardiovascular: regular rate, rhythm, no edema, no murmur Abdomen/GI: normal bowel sounds, soft, + tenderness (epigastric tenderness to palpation) Extremities/Musculoskelatal: normal inspection, no calf tenderness, normal capillary refill, no pedal edema, normal range of motion Neurologic/Psych: inspector mechanical II-XII nml as tested, no motor/sensory deficits, alert, normal mood/affect, oriented x 3 Skin: normal color Lymphatic: no adenopathy Diagnostics Laboratory Results Results Past 24 Hours Test 02/24/17 19:44 02/24/17 20:50 Range/Units White Blood Count 32.09 4.8-10.8 K/uL Red Blood Count 4.13 4.2-5.4 M/uL Hemoglobin 12.1 12.0-16.0 g/dL Hematocrit 38.2 37-47 % Mean Corpuscular Volume 92.5 80-100 fL Mean Corpuscular Hemoglobin 29.3 25-34 pg Mean Corpuscular Hemoglobin Concent 31.7 32-36 g/dl Platelet Count 189 130-400 K/uL Mean Platelet Volume 9.9 7.4-10.4 fL Neutrophils (%) (Auto) 12.9 % Lymphocytes (%) (Auto) 80.1 % Monocytes (%) (Auto) 4.3 % Eosinophils (%) (Auto) 2.2 % Basophils (%) (Auto) 0.3 % Neutrophils # (Auto) 4.16 1.4-6.5 K/uL Lymphocytes # (Auto) 25.70 1.2-3.4 K/uL Monocytes # (Auto) 1.38 0.11-0.59 K/uL Eosinophils # (Auto) 0.69 0-0.5 K/uL Basophils # (Auto) 0.09 0-0.2 K/uL RDW Standard Deviation 45.6 36.4-46.3 fL RDW Coefficient of Variation 13.5 11.5-14.5 % Immature Granulocyte % (Auto) 0.2 % Immature Granulocyte # (Auto) 0.07 0.00-0.02 K/uL Smudge Cells PRESENT Prothrombin Time 11.3 9.0-12.0 SECONDS Prothromb Time International Ratio 1.1 0.9-1.1 Activated Partial Thromboplast Time 23.3 21.0-31.0 SECONDS Partial Thromboplastin Ratio 0.9 Sodium Level 138 136-145 mmol/L Potassium Level 4.0 3.5-5.1 mmol/L Chloride Level 103 98-107 mmol/L Carbon Dioxide Level 24 21-32 mmol/L Anion Gap 10.0 3-11 mmol/L Blood Urea Nitrogen 14 7-18 mg/dl Creatinine 1.04 0.60-1.20 mg/dl Est Creatinine Clear Calc Drug Dose 30.0 ml/min Estimated GFR () 56.3 Estimated GFR (Non- 48.6 BUN/Creatinine Ratio 13.2 10-20 Random Glucose 91 70-99 mg/dl Calcium Level 9.1 8.5-10.1 mg/dl Total Bilirubin 0.3 0.2-1 mg/dl Direct Bilirubin < 0.1 0-0.2 mg/dl Aspartate Amino Transf (AST/SGOT) 20 15-37 U/L Alanine Aminotransferase (ALT/SGPT) 24 12-78 U/L Alkaline Phosphatase 83 45-117 U/L Troponin I < 0.015 0-0.045 ng/ml Total Protein 6.9 6.4-8.2 gm/dl Albumin 3.8 3.4-5.0 gm/dl Lipase 469 73-393 U/L Urine Color YELLOW Urine Appearance CLEAR CLEAR Urine pH 8.0 4.5-7.5 Urine Specific [place] 1.006 1.000-1.030 Urine Protein NEG NEG Urine Glucose (UA) NEG NEG Urine Ketones NEG NEG Urine Occult Blood TRACE NEG Urine Nitrite NEG NEG Urine Bilirubin NEG NEG Urine Urobilinogen NEG NEG Urine Leukocyte Esterase LARGE NEG Urine WBC (Auto) >30 0-5 /hpf Urine RBC (Auto) 0-4 0-4 /hpf Urine Hyaline Casts (Auto) 0 0-5 /lpf Urine Epithelial Cells (Auto) 5-10 0-5 /lpf Urine Bacteria (Auto) NEG NEG Microbiology Results 02/24/17 Urine Culture, Received Pending Diagnostic Radiology ABDOMEN AND PELVIS CT WITH IV AND ORAL CONTRAST CT DOSE: 236.20 mGy.cm HISTORY: lower abd pain eval for divertic TECHNIQUE: Multiaxial CT images of the abdomen and pelvis were performed following the use of intravenous and oral contrast. A dose lowering technique was utilized adhering to the principles of ALARA. COMPARISON STUDY: Abdomen and pelvis CT 01/15/2017. FINDINGS: Mild interstitial thickening at the lung bases which is likely chronic. Moderate hiatus hernia, unchanged. The liver, spleen, adrenal glands, pancreas, and kidneys are unremarkable. No gallbladder wall thickening. Calcified mediastinal lymph nodes. The bladder is unremarkable. Small fat and fluid containing right inguinal hernia. A pessary device is noted. No bowel obstruction. Colonic diverticulosis. No retroperitoneal lymphadenopathy. Adjacent to the cecal base there is a small focal hypodensity best seen on image 263 measuring 3 cm. This was not present on the prior study one month earlier. This is adjacent to the normal caliber appendix. This is of uncertain clinical significance and could represent a small focus of fluid or fluid-filled bowel. IMPRESSION: 1. No definite bowel wall thickening or obstruction. 2. Small fat and fluid containing right femoral hernia. 3. A 3 cm focal low density structure adjacent to the cecal base and normal appendix. This was not present on the prior study and is of uncertain clinical significance. This could represent a small focus of fluid or fluid-filled bowel. 4. Colonic diverticulosis. 5. Moderate hiatus hernia, unchanged. Impression Assessment and Plan This is an 86 year old female with a PMH of CLL, CAD, HTN, CKD stage 3, asthma - presents to the hospital due to suprapubic pain that radiated to her bilateral ribs. Suprapubic Pain Epigastric Pain pain is diffuse, crampy type of pain UA with +leukocytes, no bacteria will start Rocephin x1, urine culture pending will alternate [place] and Morphine PRN for pain check a CXR recheck lipase in AM goal is to get her back to her Tylenol #3, which she takes for chronic back pain monitor in tele, trend cardiac enzymes CLL leukocytosis, 32k; improved from baseline Hgb 12 - receives Procrit as outpatient CAD no chest pain does have epigastric tenderness will monitor in tele, trend cardiac enzymes continue aspirin, statin, b-rabia, ADAM-I HTN continue b-rabia, ADAM-I, monitor BP as it is slightly elevated this evening CKD stage 3 monitor creat, it is at baseline, avoid nephrotoxic agents if able DVT ppx Lovenox DNR VTE Prophylaxis VTE Risk Assessment Done? Y/N: Yes Risk Level: Moderate
--- NOTE | 2017-02-25 01:01 | EMERGENCY ROOM VISIT NOTE ---
History Report prepared by Jacky: Loreto Cloud Under the Supervision of: Dr. Isaiah Blum M.D. First contact with patient: 19:34 Chief Complaint: ABDOMINAL PAIN Stated Complaint: AB PAIN Nursing Triage Summary: Pt c/o abdomonal pain throughout, since this morning with nausea. Denies vomiting. Pt did have hernia repair month ago, denies complications with it. History of Present Illness The patient is an 86 year old female who presents to the Emergency Room with complaints of constant abdominal pain starting this morning. The patient states that it started in her lower abdomen and started to "creep" up her body. She describes the pain as an aching pain. She denies any vomiting, but notes that she is nauseous. The patient complains of a low grade fever of 99 degrees Fahrenheit. She notes that she intermittently has diarrhea and constipation, but states that she had a good normal bowel movement yesterday. The patient denies urinary symptoms. She notes that she is being treated for her hypertension. Source of History: patient Onset: morning Position: abdomen Quality: ache, other (creeping) Timing: constant Associated Symptoms: + fevers, + nausea, + diarrhea, No vomiting, No urinary symptoms Note: The patient complains of constipation. Review of Systems See HPI for pertinent positives & negatives. A total of 10 systems reviewed and were otherwise negative. Past Medical & Surgical Medical Problems: (1) Acute Lyme disease (2) Arthritis (3) CAD (coronary artery disease) (4) CLL (chronic lymphocytic leukemia) (5) Degenerative disc disease (6) Depression (7) Epigastric abdominal pain (8) HTN (hypertension) (9) Non-allergic rhinitis (10) Rib pain Surgical Problems: (1) History of tonsillectomy Family History No pertinent family history Social History Smoking Status: Never Smoker Alcohol Use: none Drug Use: none Marital Status: Housing Status: lives with significant other Occupation Status: retired Current/Historical Medications Scheduled Aspirin (Aspirin), 81 MG PO QPM Atorvastatin (Lipitor), 40 MG PO QPM Azelastine Hcl (Astelin Nasal [place]), 1 SPRAY DERIAN BID Bimatoprost (Lumigan), 1 DROP OPB HS Calcium Carbonate-Vitamin D (Calcium 600 + D), 1 TABS PO QPM Cholecalciferol (Vitamin D3), 2 TABS PO DAILY Ferrous Sulfate (Ferrous Sulfate), 325 MG PO BID Fluticasone Propionate (Nasal) (Flonase Allergy Relief), 2 SPRAYS DERIAN DAILY AFTERNOON Gabapentin (Neurontin), 300 MG PO HS Lactobacillus-Inulin (Culturelle), 1 CAP PO QPM Lamotrigine (Lamictal), 100 MG PO BID Levothyroxine Sodium (Synthroid), 50 MCG PO DAILY Lisinopril (Zestril), 10 MG PO QPM Lorazepam (Ativan), 0.25 MG PO HS Metoprolol Succinate (Toprol Xl), 25 MG PO QPM Mometasone Furoate-Formoterol (Dulera 100/5 Mcg), 2 PUFFS INH Q12 Quetiapine Fumarate (Seroquel), 25 MG PO HS Venlafaxine Hcl (Effexor Xr), 262.5 MG PO QAM Scheduled PRN Acetaminophen/Codeine (Tylenol W/Codeine #3), 1 TAB PO BID PRN for Pain Epoetin Iraj (Procrit), 1 DOSE SC WK PRN for HEMOGLOBIN LEVEL < 12 Levalbuterol Tartrate (Levalbuterol Tartrate Hfa), 2 PUFFS INH Q4H PRN for PRN Nitroglycerin (Nitrostat), 0.4 MG UT UD PRN for Chest Pain Allergies Coded Allergies: Adhesives (Verified Allergy, Intermediate, if on for a while-red blisters , 02/24/17) Bacitracin (Verified Allergy, Mild, ALLERGY-IRRITATION, 02/24/17) Neomycin (Verified Allergy, Mild, ALLERGY, 02/24/17) Polymyxin B (Verified Allergy, Mild, ALLERGY, 02/24/17) Physical Exam Vital Signs Date Time Temp Pulse Resp B/P (MAP) Pulse Ox O2 Delivery O2 Flow Rate FiO2 02/24/17 23:06 83 02/24/17 22:30 82 18 154/97 99 Room Air 02/24/17 21:12 84 18 158/66 100 Room Air 02/24/17 19:28 75 02/24/17 19:20 37.2 85 18 181/79 95 Room Air Physical Exam Constitutional: Vital signs reviewed. Eyes: Pupils are equal round reactive to light. Conjunctiva are noninjected. ENT: Pharynx is clear without erythema or exudate. Mucous membranes are moist. Neck supple without meningeal signs. Respiratory: Clear to auscultation bilaterally. Breath sounds are equal bilaterally. Cardiovascular: Regular rate and rhythm. No rubs or gallops. GI: Soft, nondistended. Bowel sounds are present. Lower abdominal tenderness. No guarding. Musculoskeletal: No peripheral edema. No CVA tenderness. Integumentary: No cyanosis. Neurological: The patient is awake and alert. No focal deficits. Psychiatric: Normal affect. Medical Decision & Procedures ER Provider Diagnostic Interpretation: Radiology results as stated below per my review and the radiologist's interpretation: ABDOMEN AND PELVIS CT WITH IV AND ORAL CONTRAST CT DOSE: 236.20 mGy.cm HISTORY: lower abd pain eval for divertic TECHNIQUE: Multiaxial CT images of the abdomen and pelvis were performed following the use of intravenous and oral contrast. A dose lowering technique was utilized adhering to the principles of ALARA. COMPARISON STUDY: Abdomen and pelvis CT 01/15/2017. FINDINGS: Mild interstitial thickening at the lung bases which is likely chronic. Moderate hiatus hernia, unchanged. The liver, spleen, adrenal glands, pancreas, and kidneys are unremarkable. No gallbladder wall thickening. Calcified mediastinal lymph nodes. The bladder is unremarkable. Small fat and fluid containing right inguinal hernia. A pessary device is noted. No bowel obstruction. Colonic diverticulosis. No retroperitoneal lymphadenopathy. Adjacent to the cecal base there is a small focal hypodensity best seen on image 263 measuring 3 cm. This was not present on the prior study one month earlier. This is adjacent to the normal caliber appendix. This is of uncertain clinical significance and could represent a small focus of fluid or fluid-filled bowel. IMPRESSION: 1. No definite bowel wall thickening or obstruction. 2. Small fat and fluid containing right femoral hernia. 3. A 3 cm focal low density structure adjacent to the cecal base and normal appendix. This was not present on the prior study and is of uncertain clinical significance. This could represent a small focus of fluid or fluid-filled bowel. 4. Colonic diverticulosis. 5. Moderate hiatus hernia, unchanged. Electronically signed by: Tomy Owen M.D. 02/24/2017 10:54 PM Dictated Date/Time: 02/24/2017 10:29 PM Laboratory Results 02/24/17 19:44 Red Blood Count 4.13, Mean Corpuscular Volume 92.5, Mean Corpuscular Hemoglobin 29.3, Mean Corpuscular Hemoglobin Concent 31.7, Mean Platelet Volume 9.9, Neutrophils (%) (Auto) 12.9, Lymphocytes (%) (Auto) 80.1, Monocytes (%) (Auto) 4.3, Eosinophils (%) (Auto) 2.2, Basophils (%) (Auto) 0.3, Neutrophils # (Auto) 4.16, Lymphocytes # (Auto) 25.70, Monocytes # (Auto) 1.38, Eosinophils # (Auto) 0.69, Basophils # (Auto) 0.09 02/24/17 19:44 Test 02/24/17 19:44 02/24/17 20:50 White Blood Count 32.09 K/uL (4.8-10.8) Red Blood Count 4.13 M/uL (4.2-5.4) Hemoglobin 12.1 g/dL (12.0-16.0) Hematocrit 38.2 % (37-47) Mean Corpuscular Volume 92.5 fL (80-100) Mean Corpuscular Hemoglobin 29.3 pg (25-34) Mean Corpuscular Hemoglobin Concent 31.7 g/dl (32-36) Platelet Count 189 K/uL (130-400) Mean Platelet Volume 9.9 fL (7.4-10.4) Neutrophils (%) (Auto) 12.9 % Lymphocytes (%) (Auto) 80.1 % Monocytes (%) (Auto) 4.3 % Eosinophils (%) (Auto) 2.2 % Basophils (%) (Auto) 0.3 % Neutrophils # (Auto) 4.16 K/uL (1.4-6.5) Lymphocytes # (Auto) 25.70 K/uL (1.2-3.4) Monocytes # (Auto) 1.38 K/uL (0.11-0.59) Eosinophils # (Auto) 0.69 K/uL (0-0.5) Basophils # (Auto) 0.09 K/uL (0-0.2) RDW Standard Deviation 45.6 fL (36.4-46.3) RDW Coefficient of Variation 13.5 % (11.5-14.5) Immature Granulocyte % (Auto) 0.2 % Immature Granulocyte # (Auto) 0.07 K/uL (0.00-0.02) Smudge Cells PRESENT Prothrombin Time 11.3 SECONDS (9.0-12.0) Prothromb Time International Ratio 1.1 (0.9-1.1) Activated Partial Thromboplast Time 23.3 SECONDS (21.0-31.0) Partial Thromboplastin Ratio 0.9 Anion Gap 10.0 mmol/L (3-11) Est Creatinine Clear Calc Drug Dose 30.0 ml/min Estimated GFR () 56.3 Estimated GFR (Non- 48.6 BUN/Creatinine Ratio 13.2 (10-20) Calcium Level 9.1 mg/dl (8.5-10.1) Total Bilirubin 0.3 mg/dl (0.2-1) Direct Bilirubin < 0.1 mg/dl (0-0.2) Aspartate Amino Transf (AST/SGOT) 20 U/L (15-37) Alanine Aminotransferase (ALT/SGPT) 24 U/L (12-78) Alkaline Phosphatase 83 U/L (45-117) Troponin I < 0.015 ng/ml (0-0.045) Total Protein 6.9 gm/dl (6.4-8.2) Albumin 3.8 gm/dl (3.4-5.0) Lipase 469 U/L (73-393) Urine Color YELLOW Urine Appearance CLEAR (CLEAR) Urine pH 8.0 (4.5-7.5) Urine Specific [place] 1.006 (1.000-1.030) Urine Protein NEG (NEG) Urine Glucose (UA) NEG (NEG) Urine Ketones NEG (NEG) Urine Occult Blood TRACE (NEG) Urine Nitrite NEG (NEG) Urine Bilirubin NEG (NEG) Urine Urobilinogen NEG (NEG) Urine Leukocyte Esterase LARGE (NEG) Urine WBC (Auto) >30 /hpf (0-5) Urine RBC (Auto) 0-4 /hpf (0-4) Urine Hyaline Casts (Auto) 0 /lpf (0-5) Urine Epithelial Cells (Auto) 5-10 /lpf (0-5) Urine Bacteria (Auto) NEG (NEG) Laboratory results as reviewed by me. Medications Administered Medications (Trade) Dose Ordered Sig/Boyd Route Start Time Stop Time Status Last Admin Dose Admin Morphine Sulfate (MoRPHine SULFATE INJ) 4 mg ONE STAT IV 02/24/17 19:39 02/24/17 19:41 DC 02/24/17 21:13 4 MG Ondansetron HCl (Zofran Inj) 4 mg NOW STAT IV 02/24/17 19:39 02/24/17 19:41 DC 02/24/17 20:10 4 MG Morphine Sulfate (MoRPHine SULFATE INJ) 2 mg NOW STAT IV 02/24/17 23:12 02/24/17 23:14 DC 02/24/17 23:22 2 MG ECG Indication: abdominal pain Rate (beats per minute): 78 Rhythm: normal sinus Findings: Q waves (Inferior, V1), no ectopy Comparison ECG Date: Repeat Change: Repeat EKG: Normal sinus rhythm at a rate of 79. Persistent Q waves in V1 and Inferior leads. No ST segment elevations. No ectopy. No change from earlier today. ED Course 1934: The patient was evaluated in room A12B. A complete history and physical exam was performed. 1938: Ordered Zofran Inj 4 mg IV, Morphine Sulfate 4 mg IV. 2046: I reevaluated the patient and talked to her about her test results. She is feeling better. 2310: I reevaluated the patient and discussed her test results withe her. She is still having some pain around her ribs. 2311: Ordered Morphine Sulfate 2 mg IV. 2313: I spoke with Dr. Orona of [facility]. We discussed the patient and her results. The patient will be further evaluated by Dr. Orona. Medical Decision This is an 86-year-old female presents with abdominal pain. Differential diagnosis includes diverticulitis, perforation, abscess, appendicitis, UTI, irritable bowel syndrome, colitis. I did perform a limited focused review of portions of the patient's old chart on the electronic medical record. The patient had a right inguinal hernia repair January 22. I did evaluate the patient as noted above. She is presenting with lower abdominal pain now radiating into her lower chest. She has tenderness in her lower abdomen to palpation. No guarding. IV access was established. The patient was placed on a continuous monitoring tech. I did treat the patient with IV morphine and Zofran. I did order and personally review the patient's 12 -lead EKG as described above. I did order and review the patient's blood work as noted in the electronic medical record. She has significant elevation of her white blood cell count due to her CLL. Her lipase is slightly elevated. I did order a CT of the abdomen and pelvis. I did review the images myself as well as the radiology report as described above. She does have a right femoral hernia containing fat and fluid. There was a hypodensity his cecum as well which may be fluid or bowel. No appendicitis was noted. I did reevaluate the patient. She states that she feels better but her pain seems to be coming back. She states its radiating into her lower chest. I did repeat a twelve- lead EKG which did not show any acute ischemic changes. I did treat patient with additional morphine IV. I did discuss the case with the hospitalist and piano case maker for further care. Medication Reconcilliation Current Medication List: was personally reviewed by me Blood Pressure Screening Patient's blood pressure: Elevated blood pressure Blood pressure disposition: Referred to PCP Consults Time Called: 2312 Consulting Physician: Dr. Orona of [facility] Returned Call: [address] Orona of [facility]. We discussed the patient and her results. The patient will be further evaluated by Dr. Orona. Impression Primary Impression: Diffuse abdominal pain Additional Impressions: CLL (chronic lymphocytic leukemia) UTI (urinary tract infection) Scribe Attestation The scribe's documentation has been prepared under my direct and personally reviewed by me in its entirety. I confirm that the note above accurately reflects all work, treatment, procedures, and medical decision making performed by me. Departure Information Dispostion Being Evaluated By Hospitalist Referrals Walter Wick D.O. (PCP) Patient Instructions My [facility] Problem Qualifiers Additional Impressions: UTI (urinary tract infection) Urinary tract infection type: acute cystitis Hematuria presence: without hematuria Qualified Codes: N30.00 - Acute cystitis without hematuria
[2017-02-25] MEDS: CEFTRIAXONE SOD INJ 1 GM in DEXTROSE 5% ADD-VANTAGE 50ML 50 ML IV SCH (01:26)
[2017-02-25] MEDS: SODIUM CHLORIDE 0.9% 1000ML 1,000 ML IV SCH ×2 (01:26→14:00)
[2017-02-25] MEDS ORDERED: LISINOPRIL 20 MG TAB PO STA (01:42)
[2017-02-25] MEDS ORDERED: LORAZEPAM 0.5 MG TAB PO ONE (01:45)
[2017-02-25] MEDS ORDERED: QUETIAPINE FUMARATE 25 MG TAB PO ONE (01:45)
[2017-02-25] MEDS ORDERED: GABAPENTIN 600 MG TAB PO ONE (01:45)
[2017-02-25] MEDS: HYDROCODONE/ACETAMOPHEN 5/325MG TAB PO PRN ×3 (02:20→17:24)
[2017-02-25] MEDS: LEVOTHYROXINE 50 MCG TAB PO SCH (05:53)
[2017-02-25 06:17] LABS: HEMATOCRIT 33.9 % (37-47); MEAN CELL VOLUME 93.9 fL (80-100); MEAN CORPUSCULAR HEMOGLOBIN 29.1 pg (25-34); MEAN PLATELET VOLUME 9.3 fL (7.4-10.4); PLATELET COUNT 143 K/uL (130-400); RED BLOOD COUNT 3.61 M/uL (4.2-5.4); WHITE BLOOD COUNT 25.47 K/uL (4.8-10.8)
[2017-02-25 06:52] LABS: BUN/CREATININE RATIO 9.4 (10-20); CALCIUM 8.3 mg/dl (8.5-10.1); CREATININE 1.08 mg/dl (0.60-1.20); MAGNESIUM 2.1 mg/dl (1.8-2.4); POTASSIUM 4.3 mmol/L (3.5-5.1)
[2017-02-25 06:55] LABS: CKMB/CK RATIO 2.3 (0-3.0)
[2017-02-25 07:27] LABS: PREG INTERNAL NEGATIVE QC NEG CLEAR BACKGROUND; PREG INTERNAL POSITIVE QC POS CONTROL LINE
[2017-02-25] MEDS: FLUTICASONE PROPIONATE NA SPR 16 GM BTL NAE SCH (07:47)
[2017-02-25] MEDS: VENLAFAXINE HCL XR 150 MG CAPXR PO SCH (07:47)
[2017-02-25] MEDS: FERROUS SULFATE 325 MG TAB PO SCH ×2 (07:48→20:46)
[2017-02-25] MEDS: VENLAFAXINE HCL XR 37.5 MG CAPXR PO SCH (07:48)
[2017-02-25] MEDS: VENLAFAXINE HCL XR 75 MG CAPXR PO SCH (07:48)
[2017-02-25] MEDS: MOMETASONE/FORMOTEROL (DULERA) INH INH SCH ×2 (07:49→20:41)
--- NOTE | 2017-02-25 07:51 | DIAGNOSTIC IMAGING REPORT ---
CHEST ONE VIEW PORTABLE HISTORY: lateral rib pain COMPARISON: Chest 01/15/2017. FINDINGS: The lungs are clear. Persistent elevation/eventration of the right hemidiaphragm. Small hiatus hernia. Heart is normal in size. No pleural effusions. No pneumothorax. IMPRESSION: No significant change compared to the prior study. No acute process. Electronically signed by: Tomy Owen M.D. 02/25/2017 7:50 AM Dictated Date/Time: 02/25/2017 7:48 AM
[2017-02-25] MEDS ORDERED: DULERA~ORDER AWAITING ACTION SCH (08:00)
[2017-02-25] MEDS ORDERED: ENOXAPARIN 40 MG/0.4 ML SYR SC SCH (09:00)
--- NOTE | 2017-02-25 13:08 | DIAGNOSTIC IMAGING REPORT ---
LUMBAR SPINE 2 OR 3 VIEWS CLINICAL HISTORY: worsening back pain with radiation on lower ribs, h/o CLL COMPARISON STUDY: No previous studies for comparison. FINDINGS: There is contrast within nondilated colon. There is a thoracolumbar scoliosis. No acute fractures or rheumatic subluxations are visualized. There is a minimal grade 1 spondylolisthesis of L4 and L5. There are moderate multilevel degenerative changes with multilevel disc space narrowing most pronounced the L4-5 and L5-S1 levels. No destructive lesions are visualized on conventional radiographic imaging. There is elevation/eventration of the right hemidiaphragm. IMPRESSION: Moderate multilevel degenerative change. No acute fractures. Scoliosis. Electronically signed by: Eric Lay M.D. 02/25/2017 1:07 PM Dictated Date/Time: 02/25/2017 1:06 PM
--- NOTE | 2017-02-25 13:46 | DIAGNOSTIC IMAGING REPORT ---
THORACIC SPINE 2 VIEWS CLINICAL HISTORY: Chronic thoracic back pain. FINDINGS: AP and lateral views of the thoracic spine are correlated with chest radiographs dated 02/13/2015. The skeletal structures are osteopenic. There is no radiographic evidence of fracture or malalignment. Vertebral body height and alignment are maintained throughout the thoracic spine. There is moderate to severe levocurvature of the thoracolumbar junction. Hyperkyphosis is observed. Anterior and lateral marginal osteophytes are seen throughout. The transverse processes and pedicles are grossly intact as seen on the frontal view. Moderate multilevel degenerative disc space narrowing is noted. The visualized lung parenchyma appears clear noting chronic interstitial thickening. There is atherosclerotic calcification of the thoracic aorta. IMPRESSION: 1. No acute bony abnormality is seen involving the thoracic spine. 2. Osteopenia with spondylotic change and kyphoscoliosis as above. Dictated: 02/25/2017 1:38 PM Transcribed: 02/25/2017 1:46 PM JUAN RAMON_Aamir Electronically signed by: Maycol Poe M.D. 02/25/2017 1:49 PM Dictated Date/Time: 02/25/2017 1:38 PM
--- NOTE | 2017-02-25 14:16 | Progress Note ---
Medicine Progress Note Date & Time of Visit: Feb 25, 2017 at 11:01. Subjective 86 yo F with a h/o CLL who presents with acute worsening of her mid-back pain with radiation around the ribs posterior to anterior. She is also s/p herniorrhaphy one month ago and had some suprapubic discomfort when the rib pain was bothering her. Today she states that it is more controlled with narcotic pills but two nights ago she wasn't able to lie down comfortably because the pain was so intense. She also reports some intermittent nausea over the last two weeks. She has chronic incontinence but no new urinary symptoms. Based on her UA results, she was empirically placed on Rocephin pending urine culture results. She is able to ambulate and eat without issue. She admits to osteoporosis, however, DEXA scans were reviewed with no evidence of OP. -tolerating PO -pain controlled with PO narcotics -ambulatory Objective Last 8 Hrs Date Time Temp Pulse Resp B/P (MAP) Pulse Ox O2 Delivery O2 Flow Rate FiO2 02/25/17 08:00 97 Room Air 02/25/17 07:34 36.7 78 16 108/52 (70) 97 Room Air 02/25/17 05:12 37.0 80 18 141/80 (100) 97 Room Air 02/25/17 04:00 Room Air Physical Exam: GEN: WNWD, in no acute distress, alert and appropriate, able to stand up at bedside with ease HEENT: NC/AT, normal sclerae, MMM CARDIO: reg rate, S1/2 heard without m/g/r LUNGS: CTA bilaterally, no crackles, rales or wheezes, good diaphragmatic excursion CHEST WALL: no TTP POSTERIOR/LATERAL/ANTERIOR RIBS: no TTP along intercostal spaces except for some mild TTP on the R lower anterior ribs ABD: soft, non-tender, non-distended, no rebound or guarding, +BS. Upon standing RLQ hernia is present. Well healed incision in this area. No surrounding erythema. EXTREMITY: RP and DP palpable 2+ bilat, no LE swelling or edema, extremities are warm and well-perfused NEURO: CN 2-12 grossly intact, no gross focal deficits. MUSC: 5/5 strength throughout, no focal deficits SKIN: warm and dry Laboratory Results: 02/25/17 05:51 02/25/17 05:51 Test 02/24/17 19:44 02/24/17 20:50 02/25/17 05:51 02/25/17 06:05 Immature Granulocyte % (Auto) 0.2 % White Blood Count 32.09 K/uL (4.8-10.8) Red Blood Count 4.13 M/uL (4.2-5.4) 3.61 M/uL (4.2-5.4) Hemoglobin 12.1 g/dL (12.0-16.0) Hematocrit 38.2 % (37-47) Mean Corpuscular Volume 92.5 fL (80-100) 93.9 fL (80-100) Mean Corpuscular Hemoglobin 29.3 pg (25-34) 29.1 pg (25-34) Mean Corpuscular Hemoglobin Concent 31.7 g/dl (32-36) 31.0 g/dl (32-36) Platelet Count 189 K/uL (130-400) Mean Platelet Volume 9.9 fL (7.4-10.4) 9.3 fL (7.4-10.4) Neutrophils (%) (Auto) 12.9 % Lymphocytes (%) (Auto) 80.1 % Monocytes (%) (Auto) 4.3 % Eosinophils (%) (Auto) 2.2 % Basophils (%) (Auto) 0.3 % Neutrophils # (Auto) 4.16 K/uL (1.4-6.5) Lymphocytes # (Auto) 25.70 K/uL (1.2-3.4) Monocytes # (Auto) 1.38 K/uL (0.11-0.59) Eosinophils # (Auto) 0.69 K/uL (0-0.5) Basophils # (Auto) 0.09 K/uL (0-0.2) Immature Granulocyte # (Auto) 0.07 K/uL (0.00-0.02) Smudge Cells PRESENT Prothrombin Time 11.3 SECONDS (9.0-12.0) Prothromb Time International Ratio 1.1 (0.9-1.1) Activated Partial Thromboplast Time 23.3 SECONDS (21.0-31.0) Partial Thromboplastin Ratio 0.9 Total Bilirubin 0.3 mg/dl (0.2-1) Direct Bilirubin < 0.1 mg/dl (0-0.2) Aspartate Amino Transf (AST/SGOT) 20 U/L (15-37) Alanine Aminotransferase (ALT/SGPT) 24 U/L (12-78) Alkaline Phosphatase 83 U/L (45-117) Total Protein 6.9 gm/dl (6.4-8.2) Albumin 3.8 gm/dl (3.4-5.0) Urine Color YELLOW Urine Appearance CLEAR (CLEAR) Urine pH 8.0 (4.5-7.5) Urine Specific [place] 1.006 (1.000-1.030) Urine Protein NEG (NEG) Urine Glucose (UA) NEG (NEG) Urine Ketones NEG (NEG) Urine Occult Blood TRACE (NEG) Urine Nitrite NEG (NEG) Urine Bilirubin NEG (NEG) Urine Urobilinogen NEG (NEG) Urine Leukocyte Esterase LARGE (NEG) Urine WBC (Auto) >30 /hpf (0-5) Urine RBC (Auto) 0-4 /hpf (0-4) Urine Hyaline Casts (Auto) 0 /lpf (0-5) Urine Epithelial Cells (Auto) 5-10 /lpf (0-5) Urine Bacteria (Auto) NEG (NEG) RDW Standard Deviation 47.6 fL (36.4-46.3) RDW Coefficient of Variation 13.8 % (11.5-14.5) Anion Gap 8.0 mmol/L (3-11) Est Creatinine Clear Calc Drug Dose 28.8 ml/min Estimated GFR () 53.8 Estimated GFR (Non- 46.4 BUN/Creatinine Ratio 9.4 (10-20) Calcium Level 8.3 mg/dl (8.5-10.1) Magnesium Level 2.1 mg/dl (1.8-2.4) Lipase 230 U/L (73-393) Urine Test NEG (NEG) Test 02/25/17 13:39 Total Creatine Kinase 60 U/L (26-192) Creatine Kinase MB 1.6 ng/ml (0.5-3.6) Creatine Kinase MB Ratio 2.7 (0-3.0) Troponin I < 0.015 ng/ml (0-0.045) Date/Time Source Procedure Growth Status 02/24/17 20:50 Urine , Clean Catch Urine Culture Pending Received Last 24 Hours Test 02/24/17 19:44 02/24/17 20:50 02/25/17 05:51 02/25/17 06:05 White Blood Count 32.09 K/uL 25.47 K/uL Red Blood Count 4.13 M/uL 3.61 M/uL Hemoglobin 12.1 g/dL 10.5 g/dL Hematocrit 38.2 % 33.9 % Mean Corpuscular Volume 92.5 fL 93.9 fL Mean Corpuscular Hemoglobin 29.3 pg 29.1 pg Mean Corpuscular Hemoglobin Concent 31.7 g/dl 31.0 g/dl Platelet Count 189 K/uL 143 K/uL Mean Platelet Volume 9.9 fL 9.3 fL Neutrophils (%) (Auto) 12.9 % Lymphocytes (%) (Auto) 80.1 % Monocytes (%) (Auto) 4.3 % Eosinophils (%) (Auto) 2.2 % Basophils (%) (Auto) 0.3 % Neutrophils # (Auto) 4.16 K/uL Lymphocytes # (Auto) 25.70 K/uL Monocytes # (Auto) 1.38 K/uL Eosinophils # (Auto) 0.69 K/uL Basophils # (Auto) 0.09 K/uL RDW Standard Deviation 45.6 fL 47.6 fL RDW Coefficient of Variation 13.5 % 13.8 % Immature Granulocyte % (Auto) 0.2 % Immature Granulocyte # (Auto) 0.07 K/uL Smudge Cells PRESENT Prothrombin Time 11.3 SECONDS Prothromb Time International Ratio 1.1 Activated Partial Thromboplast Time 23.3 SECONDS Partial Thromboplastin Ratio 0.9 Sodium Level 138 mmol/L 139 mmol/L Potassium Level 4.0 mmol/L 4.3 mmol/L Chloride Level 103 mmol/L 103 mmol/L Carbon Dioxide Level 24 mmol/L 27 mmol/L Anion Gap 10.0 mmol/L 8.0 mmol/L Blood Urea Nitrogen 14 mg/dl 10 mg/dl Creatinine 1.04 mg/dl 1.08 mg/dl Est Creatinine Clear Calc Drug Dose 30.0 ml/min 28.8 ml/min Estimated GFR () 56.3 53.8 Estimated GFR (Non- 48.6 46.4 BUN/Creatinine Ratio 13.2 9.4 Random Glucose 91 mg/dl 97 mg/dl Calcium Level 9.1 mg/dl 8.3 mg/dl Total Bilirubin 0.3 mg/dl Direct Bilirubin < 0.1 mg/dl Aspartate Amino Transf (AST/SGOT) 20 U/L Alanine Aminotransferase (ALT/SGPT) 24 U/L Alkaline Phosphatase 83 U/L Troponin I < 0.015 ng/ml < 0.015 ng/ml Total Protein 6.9 gm/dl Albumin 3.8 gm/dl Lipase 469 U/L 230 U/L Urine Color YELLOW Urine Appearance CLEAR Urine pH 8.0 Urine Specific [place] 1.006 Urine Protein NEG Urine Glucose (UA) NEG Urine Ketones NEG Urine Occult Blood TRACE Urine Nitrite NEG Urine Bilirubin NEG Urine Urobilinogen NEG Urine Leukocyte Esterase LARGE Urine WBC (Auto) >30 /hpf Urine RBC (Auto) 0-4 /hpf Urine Hyaline Casts (Auto) 0 /lpf Urine Epithelial Cells (Auto) 5-10 /lpf Urine Bacteria (Auto) NEG Magnesium Level 2.1 mg/dl Total Creatine Kinase 56 U/L Creatine Kinase MB 1.3 ng/ml Creatine Kinase MB Ratio 2.3 Urine Test NEG Date/Time Source Procedure Growth Status 02/24/17 20:50 Urine , Clean Catch Urine Culture Pending Received Diagnostic Imaging: LUMBAR SPINE 2 OR 3 VIEWS CLINICAL HISTORY: worsening back pain with radiation on lower ribs, h/o CLL COMPARISON STUDY: No previous studies for comparison. FINDINGS: There is contrast within nondilated colon. There is a thoracolumbar scoliosis. No acute fractures or rheumatic subluxations are visualized. There is a minimal grade 1 spondylolisthesis of L4 and L5. There are moderate multilevel degenerative changes with multilevel disc space narrowing most pronounced the L4-5 and L5-S1 levels. No destructive lesions are visualized on conventional radiographic imaging. There is elevation/eventration of the right hemidiaphragm. IMPRESSION: Moderate multilevel degenerative change. No acute fractures. Scoliosis. THORACIC SPINE 2 VIEWS CLINICAL HISTORY: Chronic thoracic back pain. FINDINGS: AP and lateral views of the thoracic spine are correlated with chest radiographs dated 02/13/2015. The skeletal structures are osteopenic. There is no radiographic evidence of fracture or malalignment. Vertebral body height and alignment are maintained throughout the thoracic spine. There is moderate to severe levocurvature of the thoracolumbar junction. Hyperkyphosis is observed. Anterior and lateral marginal osteophytes are seen throughout. The transverse processes and pedicles are grossly intact as seen on the frontal view. Moderate multilevel degenerative disc space narrowing is noted. The visualized lung parenchyma appears clear noting chronic interstitial thickening. There is atherosclerotic calcification of the thoracic aorta. IMPRESSION: 1. No acute bony abnormality is seen involving the thoracic spine. 2. Osteopenia with spondylotic change and kyphoscoliosis as above. Assessment & Plan 86 yo F with a h/o CLL who presents with acute worsening of her mid-back pain with radiation around the ribs posterior to anterior. She is also s/p herniorrhapy one month ago and had some suprapubic discomfort when the rib pain was bothering her. Today she states that it is more controlled with narcotic pills but two nights ago she wasn't able to lie down comfortably because the pain was so intense. She also reports some intermittent nausea over the last two weeks. She has chronic incontinence but no new urinary symptoms. Based on her UA results, she was empirically placed on Rocephin pending urine culture results. She is able to ambulate and eat without issue. She admits to osteoporosis, however, DEXA scans were reviewed with no evidence of OP. 1. Worsening back and rib pain with radiation anteriorly. Clinical picture is not consistent with ACS and serial cardiac enzymes and EKG did not reveal ischemia. Her pain is controlled with PO narcotics. I was concerned about her h/o cancer and her inability to lie flat with worsening back pain. Thoracic and lumbar images were obtained and did not show any acute findings. The etiology of her pain is still unclear but she is ambulatory and appears to be improving. May want to consider a trial of outpatient physical therapy. Cont pain meds as needed. 2. Suprapubic discomfort-although her UA had some appearance of a possible UTI , she denies any acute UTI symptoms. She has had a recent herniorrhaphy one month ago and appears to still have a hernia present-possible mesh in the wrong place? I discussed the abnormality on CT scan with Dr. Owen from Radiology and he confirmed that this was consistent with post-op changes. There is no bowel in the hernia. From the way it is described by the patient, it appears that her back pain causes the lower abdominal discomfort because of her recent surgery. They appear to be separate issues that are connected. Cont Rocephin empirically until culture results return tomorrow. 3. CLL-her WBC is at baseline with no new constitutional symptoms reported. Cont per Oncology. 4. CAD-stable, no chest pain, symptoms not consistent with ACS. Cont ASA, Statin, BBlocker and ACEI for medical management of CAD 5. HTN-controlled, cont home meds 6. CKD III-creatinine at baseline. 7. Anemia-chronic disease, no indication for transfusion at this time. DVT prophy: Lovenox DNR Dispo-likely to home in am as long as pain controlled. Consider outpatient PT for back pain Radha Isaac DO [facility] Hospitalist Current Inpatient Medications: Current Inpatient Medications Medications (Trade) Dose Ordered Sig/Boyd Route Start Time Stop Time Status Last Admin Dose Admin Ioversol (Optiray 320) 100 ml UD PRN IV 02/24/17 20:30 02/28/17 20:29 Aspirin (Ecotrin Tab) 81 mg QPM PO 02/25/17 21:00 03/27/17 20:59 Atorvastatin Calcium (Lipitor Tab) 40 mg QPM PO 02/25/17 21:00 03/27/17 20:59 Ferrous Sulfate (Feosol Tab) 325 mg BID PO 02/25/17 09:00 03/27/17 08:59 02/25/17 07:48 325 MG Fluticasone Propionate (Flonase Nasal [place]) 2 sprays DAILY DERIAN 02/25/17 09:00 03/27/17 08:59 02/25/17 07:47 2 SPRAYS Gabapentin (Neurontin Cap) 300 mg HS PO 02/25/17 21:00 03/27/17 20:59 Lamotrigine (Lamictal Tab) 100 mg BID PO 02/25/17 09:00 03/27/17 08:59 02/25/17 07:48 100 MG Levalbuterol (Xopenex Hfa Inhaler) 2 puffs Q4H PRN INH 02/24/17 23:45 03/26/17 23:44 Levothyroxine Sodium (Synthroid Tab) 50 mcg DAILYBB PO 02/25/17 06:30 03/27/17 06:29 02/25/17 05:53 50 MCG Lisinopril (Zestril Tab) 10 mg QPM PO 02/25/17 21:00 03/27/17 20:59 Lorazepam (Ativan Tab) 0.25 mg HS PO 02/25/17 21:00 03/27/17 20:59 Metoprolol Succinate (Toprol Xl Tab) 25 mg QPM PO 02/25/17 21:00 03/27/17 20:59 Quetiapine Fumarate (seroQUEL TAB) 25 mg HS PO 02/25/17 21:00 03/27/17 20:59 Venlafaxine HCl (effeXOR EXTENDED REL CAP) 75 mg QAM PO 02/25/17 09:00 03/27/17 08:59 02/25/17 07:48 75 MG Miscellaneous Information (Order Awaiting Action) 1 ea QS N/A 02/25/17 08:00 03/27/17 07:59 Bimatoprost (Lumigan 0.01%) 1 drops HS OPB 02/25/17 21:00 03/27/17 20:59 Calcium/Vitamin D (Caltrate Plus Tab) 1 tab QPM PO 02/25/17 21:00 03/27/17 20:59 Lactobacillus Acidophilus (Floranex Tab) 1 tab QPM PO 02/25/17 21:00 03/27/17 20:59 Morphine Sulfate (MoRPHine SULFATE INJ) 2 mg Q4 PRN IV 02/24/17 23:45 03/10/17 23:44 Acetaminophen/ Hydrocodone Bitart ([place] 5/325 Tab) 1 tab Q4 PRN PO 02/24/17 23:45 03/10/17 23:44 02/25/17 02:20 1 TAB Ceftriaxone Sodium 1 gm/ Dextrose 50 ml @ 100 mls/hr Q24H IV 02/25/17 01:00 03/02/17 00:59 02/25/17 01:26 100 MLS/HR Enoxaparin Sodium (Lovenox Inj) 40 mg Q24H SC 02/25/17 09:00 03/27/17 08:59 Sodium Chloride 1,000 ml @ 80 mls/hr [id number] IV 02/25/17 01:00 03/27/17 00:59 02/25/17 01:26 80 MLS/HR Acetaminophen (Tylenol Tab) 650 mg Q4H PRN PO 02/24/17 23:45 03/26/17 23:44 Al Hydrox/Mg Hydrox/Simethicone (Maalox Max Susp) 15 ml Q4H PRN PO 02/24/17 23:45 03/26/17 23:44 Magnesium Hydroxide (Milk Of Magnesia Susp) 30 ml Q12H PRN PO 02/24/17 23:45 03/26/17 23:44 Miscellaneous (Iv Fluids Completed) 1 ea PRN PRN N/A 02/25/17 00:15 02/25/18 00:14 Venlafaxine HCl (effeXOR EXTENDED REL CAP) 150 mg QAM PO 02/25/17 09:00 03/27/17 08:59 02/25/17 07:47 150 MG Venlafaxine HCl (effeXOR EXTENDED REL CAP) 37.5 mg QAM PO 02/25/17 09:00 03/27/17 08:59 02/25/17 07:48 37.5 MG Mometasone Furoate/ Formoterol Fumar (Dulera 100-5 Mcg/Act) 2 puffs BID INH 02/25/17 09:00 03/27/17 08:59 02/25/17 07:49 2 PUFFS
[2017-02-25 14:35] LABS: CKMB/CK RATIO 2.7 (0-3.0)
[2017-02-25] MEDS ORDERED: LACTOBACILLUS ACIDOPHILUS (FLORANEX) TAB PO SCH (21:00)
[2017-02-25] MEDS ORDERED: CALCIUM 600MG + VIT D 400 IU TAB PO SCH (21:00)
[2017-02-25] MEDS ORDERED: ASPIRIN 81 MG ECTAB PO SCH (21:00)
[2017-02-25] MEDS ORDERED: QUETIAPINE FUMARATE 25 MG TAB PO SCH (21:00)
[2017-02-25] MEDS ORDERED: METOPROLOL SUCC 25MG EXT REL TAB PO SCH (21:00)
[2017-02-25] MEDS ORDERED: LISINOPRIL 10 MG TAB PO SCH (21:00)
[2017-02-25] MEDS ORDERED: GABAPENTIN 300 MG CAP PO SCH (21:00)
[2017-02-25] MEDS ORDERED: BIMATOPROST 0.01% OP SOLN 2.5 ML BTL OPB SCH (21:00)
[2017-02-25] MEDS ORDERED: LORAZEPAM 0.5 MG TAB PO SCH (21:00)
[2017-02-25] MEDS ORDERED: ATORVASTATIN 20 MG TAB PO SCH (21:00)
[2017-02-25] MEDS: TRAMADOL HCL 50 MG TAB PO SCH (21:38)
[2017-02-25] MEDS: ACETAMINOPHEN 500 MG TAB PO SCH (21:39)
[2017-02-26] VITALS (7 sets, daily range): BP systolic 115–158; BP diastolic 57–93; PULSE 58–81; TEMP 36.7–36.8; O2SAT 95–96
[2017-02-26] MEDS: CEFTRIAXONE SOD INJ 1 GM in DEXTROSE 5% ADD-VANTAGE 50ML 50 ML IV SCH (01:25)
[2017-02-26] MEDS: ACETAMINOPHEN 500 MG TAB PO SCH ×2 (06:00→13:57)
[2017-02-26] MEDS: LEVOTHYROXINE 50 MCG TAB PO SCH (06:00)
[2017-02-26] MEDS: TRAMADOL HCL 50 MG TAB PO SCH ×2 (06:01→13:57)
[2017-02-26 06:24] LABS: HEMATOCRIT 38.1 % (37-47); MEAN CELL VOLUME 93.8 fL (80-100); MEAN CORPUSCULAR HEMOGLOBIN 28.6 pg (25-34); MEAN CORPUSCULAR HGB CONC 30.4 g/dl (32-36); MEAN PLATELET VOLUME 9.3 fL (7.4-10.4); PLATELET COUNT 141 K/uL (130-400); RED BLOOD COUNT 4.06 M/uL (4.2-5.4); WHITE BLOOD COUNT 22.28 K/uL (4.8-10.8)
[2017-02-26 06:49] LABS: BUN/CREATININE RATIO 9.1 (10-20); CALCIUM 8.5 mg/dl (8.5-10.1); CREATININE 1.01 mg/dl (0.60-1.20); MAGNESIUM 2.3 mg/dl (1.8-2.4); POTASSIUM 4.1 mmol/L (3.5-5.1)
[2017-02-26] MEDS: VENLAFAXINE HCL XR 150 MG CAPXR PO SCH (07:55)
[2017-02-26] MEDS: FLUTICASONE PROPIONATE NA SPR 16 GM BTL NAE SCH (07:55)
[2017-02-26] MEDS: MOMETASONE/FORMOTEROL (DULERA) INH INH SCH (07:55)
[2017-02-26] MEDS: VENLAFAXINE HCL XR 37.5 MG CAPXR PO SCH (07:56)
[2017-02-26] MEDS: VENLAFAXINE HCL XR 75 MG CAPXR PO SCH (07:56)
[2017-02-26] MEDS: FERROUS SULFATE 325 MG TAB PO SCH (07:56)
[2017-02-26 08:03] LABS: BASO % 0.3 %; BASO ABS # 0.07 K/uL (0-0.2); COMPLETE YES; IG% 0.1 %; LYMPH % 84.2 %; LYMPH ABS # 18.76 K/uL (1.2-3.4); MONO % 4.1 %; NEUT % 8.3 %; SMUDGE CELLS PRESENT
[2017-02-26] MEDS ORDERED: ENOXAPARIN 30 MG/0.3 ML SYR SC SCH (09:00)
--- NOTE | 2017-02-26 13:18 | Clinical Documentation Query ---
CLINICAL DOCUMENTATION QUERY Dr. MAYORGA, In your clinical opinion is this patient being managed for: ( ) Degenerative disc disease likely causing back pain ( x ) Not Agree ( x ) Other explanation of clinical findings (Please Explain) UTI ( ) Unable to determine (Please Define) ( ) Need to Discuss The medical record reflects the following clinical findings, treatment, and risk factors. Clinical Indicators:86 yo female presenting with abdominal and worsening back pain. L spine showed Moderate multilevel degenerative change. Treatment: pain management, considering outpatient PT Risk Factors: age, degenerative disc disease Please clarify and document your clinical opinion in the progress notes and discharge summary. Terms such as "probable", "suspected", "likely", "questionable", "possible", or "still to be ruled out" are acceptable. IF IN AGREEMENT, YOU MUST DOCUMENT ABOVE DIAGNOSTIC STATEMENT IN DAILY PROGRESS NOTES AND DISCHARGE SUMMARY. This document is not part of the patient's record. Thank You, Radha Reich, ISAI [phone]
--- NOTE | 2017-02-26 15:58 | Progress Note ---
Medicine Progress Note Date & Time of Visit: Feb 26, 2017 at 15:58 . Subjective Doing well. No fever. No chest pain. No abdominal pain, nausea, vomiting, diarrhea. Back pain now = chronic baseline. No dysuria or hematuria. Ambulating. Ready to go home. . Objective Last 8 Hrs Date Time Temp Pulse Resp B/P (MAP) Pulse Ox O2 Delivery O2 Flow Rate FiO2 02/26/17 12:00 95 Room Air 02/26/17 11:26 36.8 75 20 158/67 (97) 95 Room Air Physical Exam: General- no distress Eyes- anicteric Neck- no JVD Lungs- clear Heart- RRR, no gallop Abdomen- + BS, soft, nontender Extremities- no pretibial edema or calf tenderness Neuro- alert . Laboratory Results: Last 24 Hours Test 02/26/17 06:04 White Blood Count 22.28 K/uL Red Blood Count 4.06 M/uL Hemoglobin 11.6 g/dL Hematocrit 38.1 % Mean Corpuscular Volume 93.8 fL Mean Corpuscular Hemoglobin 28.6 pg Mean Corpuscular Hemoglobin Concent 30.4 g/dl Platelet Count 141 K/uL Mean Platelet Volume 9.3 fL Neutrophils (%) (Auto) 8.3 % Lymphocytes (%) (Auto) 84.2 % Monocytes (%) (Auto) 4.1 % Eosinophils (%) (Auto) 3.0 % Basophils (%) (Auto) 0.3 % Neutrophils # (Auto) 1.84 K/uL Lymphocytes # (Auto) 18.76 K/uL Monocytes # (Auto) 0.92 K/uL Eosinophils # (Auto) 0.67 K/uL Basophils # (Auto) 0.07 K/uL RDW Standard Deviation 47.0 fL RDW Coefficient of Variation 13.7 % Immature Granulocyte % (Auto) 0.1 % Immature Granulocyte # (Auto) 0.02 K/uL Smudge Cells PRESENT Sodium Level 141 mmol/L Potassium Level 4.1 mmol/L Chloride Level 106 mmol/L Carbon Dioxide Level 28 mmol/L Anion Gap 7.0 mmol/L Blood Urea Nitrogen 9 mg/dl Creatinine 1.01 mg/dl Est Creatinine Clear Calc Drug Dose 30.8 ml/min Estimated GFR () 58.4 Estimated GFR (Non- 50.4 BUN/Creatinine Ratio 9.1 Random Glucose 115 mg/dl Calcium Level 8.5 mg/dl Magnesium Level 2.3 mg/dl Assessment & Plan PROBABLE UTI Presented with back / abdominal pain. UA showed leukocyte esterase, many WBC's, no bacteria. CT abdomen and pelvis did not show any urinary calculi. No dysuria. Had at least 1 low-grade temp. WBC chronically elevated due to CLL. Received IV ceftriaxone with improvement of back and abdominal pain. Urine culture growing gram negative bacilli. Discharge on cephalexin x 5 days to complete 7 day course of therapy. BACK / ABDOMINAL PAIN Plain films of spine showed degenerative disease. LFT's normal. Lipase slightly elevated, promptly improved. CT of abdomen + pelvis showed diverticulosis without diverticulitis or other acute findings. Treated for suspected UTI as discussed above with improvement. CLL WBC 31,090 at time of admission. WBC 22,280 day of discharge. Management per Heme / Onc. CAD No anginal symptoms. Cardiac markers negative. Continue ASA, metoprolol, statin. HYPERTENSION BP well-controlled. Continue metoprolol and lisinopril. HYPOTHYROIDISM Continue levothyroxine. CHRONIC BACK PAIN Continue usual analgesic regimen. VTE PROPHYLAXIS Received enoxaparin. Ambulating. DISPOSITION Discharge to home. Internal Medicine follow-up with Dr. Wick. . Current Inpatient Medications: Current Inpatient Medications Medications (Trade) Dose Ordered Sig/Boyd Route Start Time Stop Time Status Last Admin Dose Admin Ioversol (Optiray 320) 100 ml UD PRN IV 02/24/17 20:30 02/28/17 20:29 Aspirin (Ecotrin Tab) 81 mg QPM PO 02/25/17 21:00 03/27/17 20:59 02/25/17 20:47 81 MG Atorvastatin Calcium (Lipitor Tab) 40 mg QPM PO 02/25/17 21:00 03/27/17 20:59 02/25/17 20:46 40 MG Ferrous Sulfate (Feosol Tab) 325 mg BID PO 02/25/17 09:00 03/27/17 08:59 02/26/17 07:56 325 MG Fluticasone Propionate (Flonase Nasal [place]) 2 sprays DAILY DERIAN 02/25/17 09:00 03/27/17 08:59 02/26/17 07:55 2 SPRAYS Gabapentin (Neurontin Cap) 300 mg HS PO 02/25/17 21:00 03/27/17 20:59 02/25/17 20:47 300 MG Lamotrigine (Lamictal Tab) 100 mg BID PO 02/25/17 09:00 03/27/17 08:59 02/26/17 07:56 100 MG Levalbuterol (Xopenex Hfa Inhaler) 2 puffs Q4H PRN INH 02/24/17 23:45 03/26/17 23:44 Levothyroxine Sodium (Synthroid Tab) 50 mcg DAILYBB PO 02/25/17 06:30 03/27/17 06:29 02/26/17 06:00 50 MCG Lisinopril (Zestril Tab) 10 mg QPM PO 02/25/17 21:00 03/27/17 20:59 02/25/17 20:45 10 MG Lorazepam (Ativan Tab) 0.25 mg HS PO 02/25/17 21:00 03/27/17 20:59 02/25/17 20:43 0.25 MG Metoprolol Succinate (Toprol Xl Tab) 25 mg QPM PO 02/25/17 21:00 03/27/17 20:59 02/25/17 20:45 25 MG Quetiapine Fumarate (seroQUEL TAB) 25 mg HS PO 02/25/17 21:00 03/27/17 20:59 02/25/17 20:45 25 MG Venlafaxine HCl (effeXOR EXTENDED REL CAP) 75 mg QAM PO 02/25/17 09:00 03/27/17 08:59 02/26/17 07:56 75 MG Miscellaneous Information (Order Awaiting Action) 1 ea QS N/A 02/25/17 08:00 03/27/17 07:59 Bimatoprost (Lumigan 0.01%) 1 drops HS OPB 02/25/17 21:00 03/27/17 20:59 02/25/17 20:42 1 DROPS Calcium/Vitamin D (Caltrate Plus Tab) 1 tab QPM PO 02/25/17 21:00 03/27/17 20:59 02/25/17 20:47 1 TAB Lactobacillus Acidophilus (Floranex Tab) 1 tab QPM PO 02/25/17 21:00 03/27/17 20:59 02/25/17 20:46 1 TAB Morphine Sulfate (MoRPHine SULFATE INJ) 2 mg Q4 PRN IV 02/24/17 23:45 03/10/17 23:44 Acetaminophen/ Hydrocodone Bitart ([place] 5/325 Tab) 1 tab Q4 PRN PO 02/24/17 23:45 03/10/17 23:44 02/25/17 17:24 1 TAB Ceftriaxone Sodium 1 gm/ Dextrose 50 ml @ 100 mls/hr Q24H IV 02/25/17 01:00 03/02/17 00:59 02/26/17 01:25 100 MLS/HR Acetaminophen (Tylenol Tab) 650 mg Q4H PRN PO 02/24/17 23:45 03/26/17 23:44 Al Hydrox/Mg Hydrox/Simethicone (Maalox Max Susp) 15 ml Q4H PRN PO 02/24/17 23:45 03/26/17 23:44 Magnesium Hydroxide (Milk Of Magnesia Susp) 30 ml Q12H PRN PO 02/24/17 23:45 03/26/17 23:44 02/26/17 11:42 30 ML Miscellaneous (Iv Fluids Completed) 1 ea PRN PRN N/A 02/25/17 00:15 02/25/18 00:14 Venlafaxine HCl (effeXOR EXTENDED REL CAP) 150 mg QAM PO 02/25/17 09:00 03/27/17 08:59 02/26/17 07:55 150 MG Venlafaxine HCl (effeXOR EXTENDED REL CAP) 37.5 mg QAM PO 02/25/17 09:00 03/27/17 08:59 02/26/17 07:56 37.5 MG Mometasone Furoate/ Formoterol Fumar (Dulera 100-5 Mcg/Act) 2 puffs BID INH 02/25/17 09:00 03/27/17 08:59 02/26/17 07:55 2 PUFFS Enoxaparin Sodium (Lovenox Inj) 30 mg QAM SC 02/26/17 09:00 03/28/17 08:59 Acetaminophen (Tylenol Tab) 1,000 mg Q8 PO 02/25/17 22:00 03/27/17 21:59 02/26/17 06:00 1,000 MG Tramadol HCl (Ultram Tab) 50 mg Q8H PO 02/25/17 22:00 02/27/17 21:59 02/26/17 06:01 50 MG
[2017-02-26] MEDS ORDERED: VENL150C PO (16:08)
[2017-02-26] MEDS ORDERED: LEVO75TA5 PO (16:09)
[2017-02-26] MEDS ORDERED: KFL500 PO (16:11)
[2017-02-26] MEDS ORDERED: VENL1CAP92 PO (16:32)
--- NOTE | 2017-02-26 23:11 | Discharge Instructions ---
Discharge Instructions Date of Service Feb 26, 2017. Admission Reason for Admission: abdominal and back pain . Discharge Discharge Diagnosis / Problem: probable urinary tract infection Discharge Goals Goal(s): Decrease discomfort, Improve function, Improve disease control Activity Recommendations Activity Limitations: resume your previous activity . Instructions / Follow-Up Instructions / Follow-Up APPOINTMENTS: INTERNAL MEDICINE 03/04/2017 11:20 AM Walter Wick, DO OTHER INSTRUCTIONS: It appears that you have a urinary tract infection. Final from urine culture pending. Prescription for cephalexin (Keflex) 500 mg 3 times a day [facility]. Seek medical attention if you have: * temperature above 101 * chest pain or trouble breathing * abdominal pain, nausea, vomiting * diarrhea, dark stools or bloody stools * burning when you urinate or blood in your stools * any unanswered questions or concerns Call 911 if symptoms are severe. Call if you have any questions or problems. My cell # is [phone]. You can also reach a [facility] hospitalist on duty at [facility] 24 hours a day by calling [phone]. Please take good care of yourself. Jesus Taylor . Current Hospital Diet Patient's current hospital diet: AHA Diet (Heart Healthy) Discharge Diet Recommended Diet: AHA Diet (Heart Healthy) Procedures Procedures Performed: X-rays of spine showed arthritis. CT scan of abdomen and pelvis showed diverticulosis, but no diverticultitis. Pending Studies Studies pending at discharge: yes List of pending studies: final report on urine culture Medical Emergencies . Who to Call and When: Medical Emergencies: If at any time you feel your situation is an emergency, please call 911 immediately. . Non-Emergent Contact Non-Emergency issues call your: Primary Care Provider, Hospital Doctor . . "Provider Documentation" section prepared by Jesus Taylor. . VTE Core Measure Inpt VTE Proph given/why not?: Enoxaparin (Lovenox)SQ
--- NOTE | 2017-02-26 23:16 | Discharge Summary ---
Discharge Summary Date of Service Feb 26, 2017. Discharge Summary Admission Date: Feb 25, 2017 at 13:24 Discharge Date: Feb 26, 2017 Discharge Disposition: Home Principal Diagnosis: urinary tract infection (present on admission) OTHER ACUTE DIAGNOSES: abdominal pain back pain . Secondary Diagnoses/Problems: Chronic and Resolved Medical Problems: (1) Chronic lymphocytic leukemia Status: Chronic (2) Coronary artery disease Status: Chronic (3) Degenerative disc disease Status: Chronic (4) Depression Status: Chronic (5) Hypertension Status: Chronic (6) Hypothyroidism Status: Chronic Surgical Problems: (1) History of tonsillectomy Status: Chronic . Procedures: CT abdomen + pelvis IV meds . Pending Studies/Follow-Up: Urine culture obtained 02/24/17 pending at time of discharge. . Medication Reconciliation New Medications: Cephalexin Monohydrate (Cephalexin) 500 Mg Cap 500 MG PO TID, #15 CAP Continued Medications: Acetaminophen/Codeine (Tylenol W/Codeine #3) 300 Mg/30 Mg Tab 1 TAB PO BID PRN for Pain, TAB Aspirin (Aspirin) 81 Mg Tab 81 MG PO QPM Atorvastatin (Lipitor) 40 Mg Tab 40 MG PO QPM Azelastine Hcl (Astelin Nasal [place]) 200 Sprays/30 Ml [place] 1 SPRAY DERIAN BID Bimatoprost (Lumigan) 0.01 % Billie 1 DROP OPB HS, ML Calcium Carbonate-Vitamin D (Calcium 600 + D) 1 Tab Tab 1 TABS PO QPM Cholecalciferol (Vitamin D3) 1,000 Unit Tab 2 TABS PO DAILY Epoetin Iraj (Procrit) 40,000 Units Inj 1 DOSE SC WK PRN for HEMOGLOBIN LEVEL < 12 FOR HEMOGLOBIN LEVEL < 12 [NOT NEEDED FOR SEVERAL MONTHS] Ferrous Sulfate (Ferrous Sulfate) 325 Mg Tab 325 MG PO BID Fluticasone Propionate (Nasal) (Flonase Allergy Relief) 50 Mcg/Act Spr 2 SPRAYS DERIAN DAILY AFTERNOON Gabapentin (Neurontin) 300 Mg Cap 300 MG PO HS, 0 Refills Lactobacillus-Inulin (Culturelle) 1 Cap Cap 1 CAP PO QPM Lamotrigine (Lamictal) 100 Mg Tab 100 MG PO BID, TAB Levalbuterol Tartrate (Levalbuterol Tartrate Hfa) 45 Mcg/Act Aer 2 PUFFS INH Q4H PRN for PRN Levothyroxine Sodium (Levothyroxine Sodium) 75 Mcg Tab 75 MG PO DAILY Lisinopril (Zestril) 10 Mg Tab 10 MG PO QPM Lorazepam (Ativan) 0.5 Mg Tab 0.25 MG PO HS Metoprolol Succinate (Toprol Xl) 25 Mg Tab 25 MG PO QPM Mometasone Furoate-Formoterol (Dulera 100/5 Mcg) 1 Aer Aer 2 PUFFS INH Q12, 2 Refills Nitroglycerin (Nitrostat) 0.4 Mg Tab 0.4 MG UT UD PRN for Chest Pain, [address] ONE TABLET UNDER THE TONGUE EVERY 5 MINUTES FOR UP TO 3 DOSES IF NEEDED FOR CHEST PAIN. Quetiapine Fumarate (Seroquel) 25 Mg Tab 25 MG PO HS Venlafaxine Hcl (Effexor Xr) 75 Mg Cap 262.5 MG PO QAM TAKE 150 MG + 75 MG + 37.5 MG FOR TOTAL OF 262.5 MG EACH MORNING Venlafaxine Hcl (Effexor Xr) 150 Mg Cap 150 MG PO DAILY TAKE 150 MG + 75 MG + 37.5 MG FOR TOTAL OF 262.5 MG EACH MORNING Venlafaxine Hcl (Effexor Xr) 37.5 Mg Cap 37.5 MG PO DAILY TAKE 150 MG + 75 MG + 37.5 MG FOR TOTAL OF 262.5 MG EACH MORNING Admission Information HPI (per Admitting provider): This is an 86 year old female with a PMH of CLL, CAD, HTN, CKD stage 3, asthma - presents to the hospital due to suprapubic pain that radiated to her bilateral ribs. She states that she has chronic back pain and takes tylenol #3 for it - she states that the back pain was worsening the past few days and she had to use a massager for it. She then developed this abdominal pain that began in her suprapubic region. Denied urinary symptoms. The pain then shifted over to her lateral ribs on both sides. She did not have difficulty breathing; but states the pain seemed similar to when she fractured her ribs in the past. When she got to the ER, the pain was at her epigastric region. Denies n/v/d/ constipation, denies dysuria/frequency, denies fevers/chills, denies chest pain/ shortness of breath. Received IV morphine in the ED with some relief of the pain. . Physical Exam (per Admitting): General Appearance: no apparent distress Head: normocephalic, atraumatic Eyes: normal inspection ENT: hearing grossly normal Neck: supple Respiratory/Chest: lungs clear, normal breath sounds, no respiratory distress, no accessory muscle use, + pertinent finding (+lateral rib tenderness) Cardiovascular: regular rate, rhythm, no edema, no murmur Abdomen/GI: normal bowel sounds, soft, + tenderness (epigastric tenderness to palpation) Extremities/Musculoskelatal: normal inspection, no calf tenderness, normal capillary refill, no pedal edema, normal range of motion Neurologic/Psych: ordering box operator II-XII nml as tested, no motor/sensory deficits, alert , normal mood/affect, oriented x 3 Skin: normal color Lymphatic: no adenopathy Hospital Course PROBABLE UTI Presented with back / abdominal pain. UA showed leukocyte esterase, many WBC's, no bacteria. CT abdomen and pelvis did not show any urinary calculi. No dysuria. Had at least 1 low-grade temp. WBC chronically elevated due to CLL. Received IV ceftriaxone with improvement of back and abdominal pain. Urine culture growing gram negative bacilli. Discharge on cephalexin x 5 days to complete 7 day course of therapy. BACK / ABDOMINAL PAIN Plain films of spine showed degenerative disease. LFT's normal. Lipase slightly elevated, promptly improved. CT of abdomen + pelvis showed diverticulosis without diverticulitis or other acute findings. Treated for suspected UTI as discussed above with improvement. CLL WBC 31,090 at time of admission. WBC 22,280 day of discharge. Management per Heme / Onc. CAD No anginal symptoms. Cardiac markers negative. Continue ASA, metoprolol, statin. HYPERTENSION BP well-controlled. Continue metoprolol and lisinopril. HYPOTHYROIDISM Continue levothyroxine. CHRONIC BACK PAIN Continue usual analgesic regimen. VTE PROPHYLAXIS Received enoxaparin. Ambulating. DISPOSITION Discharge to home. Internal Medicine follow-up with Dr. Wick. . Total time spent on discharge = 40 min. This includes examination of the patient, discharge planning, medication reconciliation, and communication with other providers. . Discharge Instructions Date of Service Feb 26, 2017. Admission Reason for Admission: abdominal and back pain . Discharge Discharge Diagnosis / Problem: probable urinary tract infection Discharge Goals Goal(s): Decrease discomfort, Improve function, Improve disease control Activity Recommendations Activity Limitations: resume your previous activity . Instructions / Follow-Up Instructions / Follow-Up APPOINTMENTS: INTERNAL MEDICINE 03/04/2017 11:20 AM Walter Wcik, DO OTHER INSTRUCTIONS: It appears that you have a urinary tract infection. Final from urine culture pending. Prescription for cephalexin (Keflex) 500 mg 3 times a day sent to [facility]. Seek medical attention if you have: * temperature above 101 * chest pain or trouble breathing * abdominal pain, nausea, vomiting * diarrhea, dark stools or bloody stools * burning when you urinate or blood in your stools * any unanswered questions or concerns Call 911 if symptoms are severe. Call if you have any questions or problems. My cell # is [phone]. You can also reach a [facility] hospitalist on duty at [facility] 24 hours a day by calling [phone]. Please take good care of yourself. Jesus Taylor . Current Hospital Diet Patient's current hospital diet: AHA Diet (Heart Healthy) Discharge Diet Recommended Diet: AHA Diet (Heart Healthy) Procedures Procedures Performed: X-rays of spine showed arthritis. CT scan of abdomen and pelvis showed diverticulosis, but no diverticultitis. Pending Studies Studies pending at discharge: yes List of pending studies: final report on urine culture Medical Emergencies . Who to Call and When: Medical Emergencies: If at any time you feel your situation is an emergency, please call 911 immediately. . Non-Emergent Contact Non-Emergency issues call your: Primary Care Provider, Hospital Doctor . . "Provider Documentation" section prepared by Jesus Taylor. . VTE Core Measure Inpt VTE Proph given/why not?: Enoxaparin (Lovenox)SQ .
== END 2017-02-26 17:06 | disposition home or self-care (01) | DRG 690 ==
LOC: EDBD 19:14 → C.EDA 19:16 → C.MED 23:47 → ENRESERV 02-25 00:15 → OBSVTOIN 02-25 13:24
PROVIDERS: ADMIT Family Medicine; ATTEND Hospitalist
DX: N39.0 Urinary tract infection, site not specified (principal); C91.10 Chronic lymphocytic leukemia of B-cell type not having achieved remission; I25.10 Atherosclerotic heart disease of native coronary artery without angina pectoris; F32.9 Major depressive disorder, single episode, unspecified; I12.9 Hypertensive chronic kidney disease with stage 1 through stage 4 chronic kidney disease, or unspecified chronic kidney disease; E03.9 Hypothyroidism, unspecified; Z79.82 Long term (current) use of aspirin; N18.3 Chronic kidney disease, stage 3 (moderate); Z66 Do not resuscitate

== ENCOUNTER 2017-02-27 17:18 | Emergency (ER) | payer BC, OTHER ==
[~2017-02-27] VITALS: Ht 149.9 cm; Wt 56.8 kg
[~2017-02-27 17:18] MED LIST changes: -ASPI-391 PO; +EPGI40M SC; -ESTROGEN TOP; +KFL500 PO; -OXYC-57 PO; +VENL150C PO; +VENL1CAP92 PO
[2017-02-27 17:21] VITALS: BP 154/76; PULSE 99; TEMP 36.3; O2SAT 96; Ht 149.9 cm; Wt 56.8 kg
--- NOTE | 2017-02-27 17:45 | EMERGENCY ROOM VISIT NOTE ---
History Report prepared by Jacky: Nixon Thomas Under the Supervision of: Dr. Jhonatan Alba D.O. First contact with patient: 17:26 Chief Complaint: GI ASSESSMENT Stated Complaint: DARK STOOLS- REFERRED Nursing Triage Summary: Pt referred by PCP. recently discharged from [facility] for abd pain/back pain and UTI. E coli in urine per pt. Pt now reports loose, black, tarry stools last night and today. c/o bad discomfort. + nausea, denies vomiting History of Present Illness The patient is a 86 year old female who presents to the Emergency Room with complaints of persistent melena starting last night. The patient states that she was recently admitted in the hospital for two days and was discharged last night with Keflex for a UTI after getting IV antibiotics. She states that she saw her PCP today, and they told her to come to the ED for dark tarry stool. She states that she is not taking Pepto-Bismol, and she is currently taking iron supplements. The patient additionally notes that she has a history of C Diff. She additionally is complaining of nausea and abdominal discomfort. Source of History: patient Onset: last night Position: other (global) Quality: other (melena) Timing: other (persistent) Associated Symptoms: + nausea Review of Systems See HPI for pertinent positives & negatives. A total of 10 systems reviewed and were otherwise negative. Past Medical & Surgical Medical Problems: (1) Acute Lyme disease (2) Back pain (3) Chronic lymphocytic leukemia (4) Coronary artery disease (5) Degenerative disc disease (6) Depression (7) Epigastric abdominal pain (8) Hypertension (9) Hypothyroidism (10) Rib pain Surgical Problems: (1) History of tonsillectomy Family History No pertinent family history Social History Smoking Status: Never Smoker Alcohol Use: none Drug Use: none Marital Status: Housing Status: lives with significant other Occupation Status: retired Current/Historical Medications Scheduled Aspirin (Aspirin), 81 MG PO QPM Atorvastatin (Lipitor), 40 MG PO QPM Azelastine Hcl (Astelin Nasal [place]), 1 SPRAY DERIAN BID Bimatoprost (Lumigan), 1 DROP OPB HS Calcium Carbonate-Vitamin D (Calcium 600 + D), 1 TABS PO QPM Cephalexin Monohydrate (Cephalexin), 500 MG PO TID Cholecalciferol (Vitamin D3), 2 TABS PO DAILY Ferrous Sulfate (Ferrous Sulfate), 325 MG PO BID Fluticasone Propionate (Nasal) (Flonase Allergy Relief), 2 SPRAYS DERIAN DAILY AFTERNOON Gabapentin (Neurontin), 300 MG PO HS Lactobacillus-Inulin (Culturelle), 1 CAP PO QPM Lamotrigine (Lamictal), 100 MG PO BID Levothyroxine Sodium (Levothyroxine Sodium), 75 MG PO DAILY Lisinopril (Zestril), 10 MG PO QPM Lorazepam (Ativan), 0.25 MG PO HS Metoprolol Succinate (Toprol Xl), 25 MG PO QPM Mometasone Furoate-Formoterol (Dulera 100/5 Mcg), 2 PUFFS INH Q12 Quetiapine Fumarate (Seroquel), 25 MG PO HS Venlafaxine Hcl (Effexor Xr), 262.5 MG PO QAM Venlafaxine Hcl (Effexor Xr), 150 MG PO DAILY Venlafaxine Hcl (Effexor Xr), 37.5 MG PO DAILY Scheduled PRN Acetaminophen/Codeine (Tylenol W/Codeine #3), 1 TAB PO BID PRN for Pain Epoetin Iraj (Procrit), 1 DOSE SC WK PRN for HEMOGLOBIN LEVEL < 12 Levalbuterol Tartrate (Levalbuterol Tartrate Hfa), 2 PUFFS INH Q4H PRN for PRN Nitroglycerin (Nitrostat), 0.4 MG UT UD PRN for Chest Pain Allergies Coded Allergies: Adhesives (Verified Allergy, Intermediate, if on for a while-red blisters , 02/24/17) Bacitracin (Verified Allergy, Mild, ALLERGY-IRRITATION, 02/24/17) Neomycin (Verified Allergy, Mild, ALLERGY, 02/24/17) Polymyxin B (Verified Allergy, Mild, ALLERGY, 02/24/17) Physical Exam Vital Signs Date Time Temp Pulse Resp B/P (MAP) Pulse Ox O2 Delivery O2 Flow Rate FiO2 02/27/17 17:21 36.3 99 16 154/76 96 Room Air Physical Exam CONSTITUTIONAL/VITAL SIGNS: Reviewed / noted above. GENERAL: Non-toxic in appearance. INTEGUMENTARY: Warm, dry, and [place]. HEAD: Normocephalic. EYES: without scleral icterus or trauma. ENT/OROPHARYNX: clear and moist. LYMPHADENOPATHY/NECK: Is supple without lymphadenopathy or meningismus. RESPIRATORY: Lungs clear and equal. CARDIOVASCULAR: Regular rate and rhythm. GI/ABDOMEN: Soft and nontender. No organomegaly or pulsatile mass. No rebound or guarding. Normal bowel sounds. EXTREMITIES: Warm and well perfused. BACK: No CVA tenderness. RECTAL: Black stool. Guaiac negative. NEUROLOGICAL: Intact without focal deficits. PSYCHIATRIC: normal affect. MUSCULOSKELETAL: Normally developed with good muscle tone. Medical Decision & Procedures ED Course 1726: Previous medical records were reviewed. The patient was evaluated in room B6. A complete history and physical examination was performed. Medical Decision Differential includes black stools related to iron, diarrhea related to antibiotics, GI bleed, C. difficile. This is an 86-year-old female who was discharged from the hospital yesterday on Keflex for UTI. She reported to her doctor today that she has had laxatives and has had some diarrhea since yesterday. Patient was sent in for evaluation of this. She does currently take iron. The patient's exam was unremarkable. Stool is black and guaiac negative with a positive control. The patient reports that she has a history of C. difficile and states that her diarrhea did not smell like it. After evaluation of the patient, she was felt to be stable for discharge and outpatient follow-up. Impression Primary Impression: Black stools Additional Impression: Diarrhea Scribe Attestation The scribe's documentation has been prepared under my direction and personally reviewed by me in its entirety. I confirm that the note above accurately reflects all work, treatment, procedures, and medical decision making performed by me. Departure Information Dispostion Home / Self-Care Referrals Walter Wick D.O. (PCP) Patient Instructions My [facility] Additional Instructions Continue to follow instructions provided yesterday. Follow-up with your doctor as scheduled for next week if symptoms persist. Return here for worsening or other concerns. Problem Qualifiers
== END 2017-02-27 17:46 | disposition home or self-care (01) ==
LOC: C.EDB 17:20
DX: R19.7 Diarrhea, unspecified (principal); K92.1 Melena; Z85.6 Personal history of leukemia; I25.10 Atherosclerotic heart disease of native coronary artery without angina pectoris; F32.9 Major depressive disorder, single episode, unspecified; E03.9 Hypothyroidism, unspecified; I10 Essential (primary) hypertension; Z82.49 Family history of ischemic heart disease and other diseases of the circulatory system; Z79.899 Other long term (current) drug therapy

== ENCOUNTER 2017-06-23 19:40 | Inpatient (IN) | payer BC, OTHER ==
[~2017-06-23] VITALS: Ht 152.4 cm; Wt 61.5 kg
[~2017-06-23 19:40] MED LIST changes: -ASPI-461 PO; -ASTN NAE; -BIMA0.01 OPB; -CALC-20 PO; -CHOL1000 PO; -FERR325T5 PO; -FLUT0.15 NAE; -GABA-113 PO; -METO-478 PO; -QUET1TAB7 PO; -VENL75CA PO
[2017-06-23] MEDS ORDERED: MoRPHine SULFATE 2 MG/ML CARP IV STA (20:09)
[2017-06-23] MEDS ORDERED: ONDANSETRON INJ 2 MG/ML 2 ML VIAL IV STA (20:09)
--- NOTE | 2017-06-23 20:13 | EMERGENCY ROOM VISIT NOTE ---
History Report prepared by Jacky: Miranda Seay Under the Supervision of: Dr. Luca Gonzalez M.D. First contact with patient: 19:51 Chief Complaint: FALL Stated Complaint: FALL/ R SHOULDER & ELBOW PAIN History of Present Illness The patient is an 86 year old female who presents to the Emergency Room with complaints of an episodic fall 1 hour ago. She states that she went to help her neighbor who fell, though she was walking too fast and she fell. She reports injuring her right shoulder. She currently rates her pain an 8/10 in severity. She states that her right elbow feels uncomfortable, though the pain is coming from her right shoulder. She denies any LOC or head injuries. She states that she can hardly squeeze three of her fingers on her right hand due to weakness. She denies any numbness in her right hand. She has a history of HTN and CLL. She states that she often has low hemoglobin. She denies any neck pain, abdominal pain, chest pain, or shortness of breath. Source of History: patient, spouse/significant other Onset: one hour ago Position: shoulder (right) Symptom Intensity: 8/10 Quality: other (immobility) Timing: other (episodic) Associated Symptoms: + weakness (right hand), No LOC, No neck pain, No chest pain, No SOB, No abdominal pain, No numbness Note: She denies any head injuries. She notes right elbow discomfort. Review of Systems See HPI for pertinent positives & negatives. A total of 10 systems reviewed and were otherwise negative. Past Medical & Surgical Medical Problems: (1) Acute Lyme disease (2) Arthritis (3) Back pain (4) Bronchitis (5) C. difficile colitis (6) Chronic lymphocytic leukemia (7) Coronary artery disease (8) Degenerative disc disease (9) Depression (10) Epigastric abdominal pain (11) Hiatal hernia (12) Hypertension (13) Hypothyroidism (14) Lyme disease (15) Rib pain Surgical Problems: (1) H/O dilation and curettage (2) H/O hernia repair (3) History of breast mammoplasty (4) History of cataract surgery (5) History of tonsillectomy Old medical records were reviewed. Nurse's notes were reviewed and I agree with. Family History No pertinent family history Social History Smoking Status: Never Smoker Alcohol Use: none Drug Use: none Marital Status: Housing Status: lives with significant other Occupation Status: retired Current/Historical Medications Scheduled Aspirin (Aspirin), 81 MG PO QPM Atorvastatin (Lipitor), 40 MG PO QPM Azelastine Hcl (Astelin Nasal [place]), 1 SPRAY DERIAN BID Bimatoprost (Lumigan), 1 DROP OPB HS Calcium Carbonate-Vitamin D (Calcium 600 + D), 1 TABS PO QPM Cholecalciferol (Vitamin D3), 2 TABS PO DAILY Estrogens, Conjugated (Premarin), 1 APPLN PV 2-3xweek Ferrous Sulfate (Ferrous Sulfate), 325 MG PO BID Fluticasone Propionate (Nasal) (Flonase Allergy Relief), 2 SPRAYS DERIAN DAILY AFTERNOON Gabapentin (Neurontin), 300 MG PO HS Lactobacillus-Inulin (Culturelle), 1 CAP PO QPM Lamotrigine (Lamictal), 100 MG PO BID Levothyroxine Sodium (Levothyroxine Sodium), 75 MG PO DAILY Lisinopril (Zestril), 10 MG PO QPM Lorazepam (Ativan), 0.25 MG PO HS Metoprolol Succinate (Toprol Xl), 25 MG PO QPM Mometasone Furoate-Formoterol (Dulera 100/5 Mcg), 2 PUFFS INH Q12 Quetiapine Fumarate (Seroquel), 25 MG PO HS Venlafaxine Hcl (Effexor Xr), 262.5 MG PO QAM Venlafaxine Hcl (Effexor Xr), 150 MG PO DAILY Venlafaxine Hcl (Effexor Xr), 37.5 MG PO DAILY Scheduled PRN Acetaminophen/Codeine (Tylenol W/Codeine #3), 1 TAB PO BID PRN for Pain Levalbuterol Tartrate (Levalbuterol Tartrate Hfa), 2 PUFFS INH Q4H PRN for PRN Nitroglycerin (Nitrostat), 0.4 MG UT UD PRN for Chest Pain Allergies Coded Allergies: Adhesives (Verified Allergy, Intermediate, if on for a while-red blisters , 02/24/17) Bacitracin (Verified Allergy, Mild, ALLERGY-IRRITATION, 02/24/17) Neomycin (Verified Allergy, Mild, ALLERGY, 02/24/17) Polymyxin B (Verified Allergy, Mild, ALLERGY, 02/24/17) Physical Exam Vital Signs Date Time Temp Pulse Resp B/P (MAP) Pulse Ox O2 Delivery O2 Flow Rate FiO2 06/24/17 01:16 82 16 173/70 100 Nasal Cannula 06/24/17 01:11 80 15 175/86 06/24/17 01:10 36.8 84 18 98 Room Air 06/24/17 01:06 72 16 175/64 Nasal Cannula 06/24/17 01:01 79 18 144/83 97 06/24/17 00:56 76 24 148/73 96 Nasal Cannula 06/24/17 00:51 78 13 141/61 84 Nasal Cannula 06/24/17 00:49 155/86 06/24/17 00:47 100/60 06/24/17 00:46 90 29 91 06/24/17 00:41 80 19 149/72 82 Nasal Cannula 2.0 06/24/17 00:37 169/91 06/24/17 00:37 06/24/17 00:36 73 19 97 06/24/17 00:30 80 06/23/17 23:42 63 06/23/17 23:36 63 18 152/66 100 Room Air 06/23/17 22:08 82 18 137/57 98 Nasal Cannula 2.0 06/23/17 19:53 36.8 78 18 161/118 98 Room Air Physical Exam General: Well developed, well nourished older female in no acute distress, breathing comfortably on room air. Normal speech. Glascow coma score of 15. Wearing a sling. HEENT: Normal cephalic atraumatic. Pupils are equal round and reactive to light. Extraocular movements are intact. Oropharynx is pink with moist mucous membranes. No swelling of the mouth lips or tongue. No hyphema. No blood from the nose or septal hematoma. Mid face is stable. No dental trauma or malocclusion. Neck: Collared with a midline trachea. No meningeal signs or stiffness. No midline tenderness. No Stridor. Chest: Clear to auscultation bilaterally. No wheezes or rhonchi. No increased work of breathing. No rib or sternal tenderness. No subcutaneous air. No seat belt walker or external signs of trauma. Heart: Regular rate and rhythm without murmurs or gallops. Abdomen: Soft nontender, nondistended without rebound guarding or rigidity. No seatbelt walker or external signs of trauma Extremities: No cyanosis clubbing or edema. No calf tenderness or asymmetry. Complain of right shoulder pain. Abrasion to right elbow. Spine/Back. Non tender to palpation. No CVA tenderness. Skin: Good turgor without rashes. Neurologic exam: Cranial nerves two through 12 are intact. Motor and sensation are intact and symmetrical throughout. Normal level of consciousness. Complains of weakness in right 2nd, 4th, 5th fingers with squeezing. she has normal sensation in the axillary artery distribution. Medical Decision & Procedures ER Provider Diagnostic Interpretation: Radiology results as stated below per my review and radiologist interpretation: R SHOULDER MIN 2 VIEWS ROUTINE HISTORY: 86 years-old Female eval for trauma acute right shoulder pain status post trauma COMPARISON: Chest radiograph 02/25/2017 TECHNIQUE: 2 views of the right shoulder FINDINGS: There is an acute anteroinferior dislocation of the humeral head in relation to the glenoid fossa which is positioned within a subcoracoid location. There is a 3.3 x 1.6 cm bone fragment overlying the glenoid fossa without definite bony Bankart injury identified. Moderate degenerative changes of the AC joint. Bones appear mildly demineralized. IMPRESSION: Acute dislocation of the humeral head in relation to the glenoid fossa which is positioned within a subcoracoid location. 3.3 cm bone fragment overlying the glenoid fossa suggests fractured greater tuberosity fragment. The above report was generated using voice recognition software. It may contain grammatical, syntax or spelling errors. Electronically signed by: Adin Mohan M.D. 06/23/2017 9:35 PM Dictated Date/Time: 06/23/2017 9:33 PM Laboratory Results 06/24/17 01:54 Test 06/24/17 01:54 06/24/17 02:28 Prothrombin Time 11.0 SECONDS (9.0-12.0) Prothromb Time International Ratio 1.0 (0.9-1.1) Activated Partial Thromboplast Time 20.1 SECONDS (21.0-31.0) Partial Thromboplastin Ratio 0.8 Anion Gap 12.0 mmol/L (3-11) Est Creatinine Clear Calc Drug Dose 30.9 ml/min Estimated GFR () 54.4 Estimated GFR (Non- 47.0 BUN/Creatinine Ratio 13.5 (10-20) Calcium Level 8.4 mg/dl (8.5-10.1) Magnesium Level 2.0 mg/dl (1.8-2.4) Total Bilirubin 0.5 mg/dl (0.2-1) Direct Bilirubin 0.1 mg/dl (0-0.2) Aspartate Amino Transf (AST/SGOT) 26 U/L (15-37) Alanine Aminotransferase (ALT/SGPT) 29 U/L (12-78) Alkaline Phosphatase 84 U/L (45-117) Total Protein 6.6 gm/dl (6.4-8.2) Albumin 3.7 gm/dl (3.4-5.0) Thyroid Stimulating Hormone (TSH) 3.980 uIu/ml (0.300-4.500) Laboratory studies as stated above per my review. Medications Administered Medications (Trade) Dose Ordered Sig/Boyd Route Start Time Stop Time Status Last Admin Dose Admin Ondansetron HCl (Zofran Inj) 4 mg NOW STAT IV 06/23/17 20:09 06/23/17 20:11 DC 06/23/17 20:30 4 MG Morphine Sulfate (MoRPHine SULFATE INJ) 2 mg NOW STAT IV 06/23/17 20:09 06/23/17 20:11 DC 06/23/17 20:30 2 MG Diphenhydramine HCl (Benadryl Inj) 12.5 mg NOW STAT IV 06/23/17 20:47 06/23/17 20:49 DC 06/23/17 20:54 12.5 MG Fentanyl Citrate (Fentanyl Inj) 50 mcg NOW STAT IV 06/23/17 21:48 06/23/17 21:49 DC 06/23/17 21:48 25 MCG Fentanyl Citrate (Fentanyl Inj) 25 mcg NOW STAT IV 06/24/17 01:29 06/24/17 01:31 DC 06/24/17 02:01 25 MCG Procedure Procedural Sedation Indication right shoulder dislocation. Total time: 15 minutes. Written consent was obtained after the risks and benefits were explained to the patient, including, but not limited to aspiration, allergic reaction, breathing difficulties, cardiac complications, vomiting, pain, event recall, bleeding, and /or infection. Pre-sedation examination and paperwork completed. The patient was on 100% oxygen via NRB prior to the procedure. Continous end tidal CO2 monitoring, pulse oximetry, and cardiac monitoring were utilized. Suction, airway equipment, medications, respiratory equipment, and appropriate personnel were prepared prior to the initiation of the procedure. A time out was taken. Sedation was achieved utilizing a total of 70 mg of propofol in increments of 20 and 10 IV. After I observed the patient had reached the appropriate level of sedation the main procedure was performed without complication. Sedation was discontinued and the monitoring continued. The patient recovered quickly from the effects of the medication without complication or adverse event. Right anterior shoulder reduction: A gentle attempt was attempted with the Galvan method and was unsuccessful as the patient would not relax in light of this we did use sedation. Gregor Anderson PA-C performed the procedure under my supervision as I sedated the patient and monitored the airway and sedation. Gentle traction/countertraction was applied. There was movement felt and she felt better although still had pain. We got a postreduction film and the shoulder was still dislocated. The bony fragment that was there was even lateral as well. Further raising the concern that this could actually be from the glenoid fossa. This is likely the reason why the shoulder cannot be reduced. Following reduction attempt, the patient had improved feeling in her right hand and had no numbness or weakness. She also had no numbness weakness or axillary artery. With the exception of inability to reduce, the patient had no difficulties or complications. ED Course 1954: Past medical records reviewed. The patient was evaluated in room B4B, and a complete history and physical examination were performed. 2008: Ordered Morphine Sulfate 2 mg IV and Zofran 4 mg IV 7: Ordered Benadryl 12.5 mg IV 5: I reassessed the patient at this time. There is mild redness above her IV site. She was given Benadryl. 2143: I reassessed the patient at this time. The redness at her IV site has resolved. 8: Ordered Fentanyl 50 mcg IV 2148: Ordered Fentanyl 25 mcg IV 2218: I reassessed the patient at this time. She is still in pain. 5: I reassessed the patient at this time. Attempted to relocate the patient' s right shoulder, though the patient is in significant pain and unable to fully cooperate. 2330: The patient was moved to room B1 for conscious sedation. 2347: Ordered Propofol 70 mg IV 0024: I reassessed the patient. The patient's IV has not been established. 0030: I reassessed the patient. The patient's IV has been established. 0033: I reassessed the patient. I attempted a reduction of the right shoulder, though was unsuccessful. 0103: I spoke with Dr. Jalloh, orthopedic surgery. We discussed the patient's case. The patient will be further evaluated. 0114: I spoke with Dr. Jalloh, orthopedic surgery. He recommends the patient be further evaluated by the medical team. He recommends a CT scan. 0118: I spoke with Dr. Escobar[facility]. We discussed the patient' s case. The patient will be [facility] by [facility] for further management. 0129: Ordered Fentanyl 25 mcg IV Medical Decision Differentials include, but are not limited to: shoulder fracture, dislocation, musculoskeletal, and trauma. This patient comes in as described above she suffered a mechanical fall when trying to help a friend. She does have a history of CLL among other medical problems but is feeling well prior. She has deformed right shoulder x-rays were obtained and shows anterior dislocation. There is a fracture fragment which was thought to be off the humeral head initially. My concern was that she had some tingling in her third fourth and fifth fingers on that side initially although this improved with attempted reduction. We initially tried to gently use the Garnavillo maneuver and then gentle traction using the Galvan technique however the patient had too much resistance and pain even with several dosages of IV fentanyl. She then had conscious sedation as outlined above. She was n.p.o. for greater than 8 hours. She tolerated the sedation well however the shoulder cannot be reduced easily. On follow-up films, the fragment is there and more lateral raising the concern that it could be related to the glenoid fossa even I discussed case with Dr. Diaz. he recommends we admit her to medicine and get a shoulder CT and they will see her and keep her n.p.o. after midnight. They will likely take her to the operating room for reduction and possible operative repair as it is likely that the bony fragments and damages blocking the reduction. The patient was happy with the plan and Dr. Gomez saw in the ER as well. Medication Reconcilliation Current Medication List: was personally reviewed by me Blood Pressure Screening Patient's blood pressure: Elevated blood pressure Blood pressure disposition: Elevated BP felt to be situational Consults Time Called: 99 Consulting Physician: Dr. Jalloh, orthopedic surgery Returned Call: [address] Jalloh, orthopedic surgery. We discussed the patient's case. The patient will be further evaluated. 0114: I spoke with Dr. Jalloh, orthopedic surgery. He recommends the patient be further evaluated by the medical team. He recommends a CT scan. Additional Consults: Time Called: 0116 Consulted Phys[facility] Returned Call: 0118 Additional Comments: I spoke with Dr. Escobar [facility]. We discussed the patient's case. The patient will be evaluated by [facility] for further management. Impression Primary Impression: Closed fracture dislocation of right shoulder Scribe Attestation The scribe's documentation has been prepared under my direction and personally reviewed by me in its entirety. I confirm that the note above accurately reflects all work, treatment, procedures, and medical decision making performed by me. Departure Information Dispostion Being Evaluated By Hospitalist Referrals Walter Wick DAlfredaOAlfreda (PCP) Patient Instructions My [facility]
[2017-06-23] MEDS ORDERED: PRMVC PV (20:44)
[2017-06-23] MEDS ORDERED: ACET-749 PO (20:44)
[2017-06-23] MEDS ORDERED: MOME100A INH (20:44)
[2017-06-23] MEDS ORDERED: DiphenhydrAMINE HCL 50 MG/ML VIAL IV STA (20:47)
[2017-06-23] MEDS ORDERED: GABA-113 PO (21:09)
--- NOTE | 2017-06-23 21:36 | DIAGNOSTIC IMAGING REPORT ---
R SHOULDER MIN 2 VIEWS ROUTINE HISTORY: 86 years-old Female eval for trauma acute right shoulder pain status post trauma COMPARISON: Chest radiograph 02/25/2017 TECHNIQUE: 2 views of the right shoulder FINDINGS: There is an acute anteroinferior dislocation of the humeral head in relation to the glenoid fossa which is positioned within a subcoracoid location. There is a 3.3 x 1.6 cm bone fragment overlying the glenoid fossa without definite bony Bankart injury identified. Moderate degenerative changes of the AC joint. Bones appear mildly demineralized. IMPRESSION: Acute dislocation of the humeral head in relation to the glenoid fossa which is positioned within a subcoracoid location. 3.3 cm bone fragment overlying the glenoid fossa suggests fractured greater tuberosity fragment. The above report was generated using voice recognition software. It may contain grammatical, syntax or spelling errors. Electronically signed by: Adin Mohan M.D. 06/23/2017 9:35 PM Dictated Date/Time: 06/23/2017 9:33 PM
[2017-06-23] MEDS ORDERED: ASTN NAE (21:37)
[2017-06-23] MEDS ORDERED: ASPI-461 PO (21:37)
[2017-06-23] MEDS ORDERED: VENL75CA PO (21:37)
[2017-06-23] MEDS ORDERED: FLUT0.15 NAE (21:37)
[2017-06-23] MEDS ORDERED: FERR325T5 PO (21:37)
[2017-06-23] MEDS ORDERED: CALC-20 PO (21:37)
[2017-06-23] MEDS ORDERED: CHOL1000 PO (21:37)
[2017-06-23] MEDS ORDERED: BIMA0.01 OPB (21:37)
[2017-06-23] MEDS ORDERED: QUET1TAB7 PO (21:37)
[2017-06-23] MEDS ORDERED: METO-478 PO (21:37)
[2017-06-23] MEDS ORDERED: FENTANYL CITRATE INJ 50 MCG/1 ML 2 ML VIAL IV STA (21:48)
[2017-06-23] MEDS ORDERED: FENTANYL CITRATE INJ 50 MCG/1 ML 2 ML VIAL ONE (21:49)
[2017-06-23] MEDS ORDERED: PROPOFOL IV EMULSION 10 MG/ML 20 ML VIAL IV ONE (23:47)
[2017-06-24] VITALS (13 sets, daily range): BP systolic 90–179; BP diastolic 50–85; PULSE 79–95; TEMP 36.5–36.9; O2SAT 92–100; Ht 152.4 cm; Wt 61.5 kg
--- NOTE | 2017-06-24 00:23 | EMERGENCY ROOM VISIT NOTE ---
Pre-Mod Sedation Assessment General Date of Moderate Sedation: Jun 24, 2017. Vital Signs: Vital Signs Past 12 Hours Date Time Temp Pulse Resp B/P (MAP) Pulse Ox O2 Delivery O2 Flow Rate FiO2 06/23/17 23:42 63 06/23/17 23:36 63 18 152/66 100 Room Air 06/23/17 22:08 82 18 137/57 98 Nasal Cannula 2.0 06/23/17 19:53 36.8 78 18 161/118 98 Room Air Pre-Sedation Airway Assessment Oral Cavity: WNL Able to Visualize Vocal Cords: No Short Thick Neck: No Hx of Sleep Apnea: No Smoking Status: Never Smoker Mallampati Classification: Class II Procedure Planning Contraindications-for Mod Sed: None Notes The planned sedation has been discussed with the patient and consent obtained. I have identified the patient, determined the appropriateness of sedation and have assessed the patient immediately prior to the procedure. All medicine(s) and interventions are by my order.
[2017-06-24] MEDS ORDERED: FENTANYL CITRATE INJ 50 MCG/1 ML 2 ML VIAL IV STA (01:29)
[2017-06-24 02:17] LABS: PTT PATIENT 20.1 SECONDS (21.0-31.0)
[2017-06-24 02:22] LABS: ALBUMIN 3.7 gm/dl (3.4-5.0); CALCIUM 8.4 mg/dl (8.5-10.1); CREATININE 1.07 mg/dl (0.60-1.20); POTASSIUM 4.2 mmol/L (3.5-5.1)
[2017-06-24 02:30] LABS: TOTAL PROTEIN 6.6 gm/dl (6.4-8.2)
--- NOTE | 2017-06-24 02:41 | EMERGENCY ROOM VISIT NOTE ---
Post-Moderate Sedation Plan General Date of Moderate Sedation Jun 24, 2017. Vital Signs: Vital Signs Past 12 Hours Date Time Temp Pulse Resp B/P (MAP) Pulse Ox O2 Delivery O2 Flow Rate FiO2 06/24/17 01:16 82 16 173/70 100 Nasal Cannula 06/24/17 01:11 80 15 175/86 06/24/17 01:10 36.8 84 18 98 Room Air 06/24/17 01:06 72 16 175/64 Nasal Cannula 06/24/17 01:01 79 18 144/83 97 06/24/17 00:56 76 24 148/73 96 Nasal Cannula 06/24/17 00:51 78 13 141/61 84 Nasal Cannula 06/24/17 00:49 155/86 06/24/17 00:47 100/60 06/24/17 00:46 90 29 91 06/24/17 00:41 80 19 149/72 82 Nasal Cannula 2.0 06/24/17 00:37 169/91 06/24/17 00:37 06/24/17 00:36 73 19 97 06/24/17 00:30 80 06/23/17 23:42 63 06/23/17 23:36 63 18 152/66 100 Room Air 06/23/17 22:08 82 18 137/57 98 Nasal Cannula 2.0 06/23/17 19:53 36.8 78 18 161/118 98 Room Air Review - Discharge Plan Post Moderate Sedation Plan: On clinical assessment, the patient appears to have tolerated the conscious sedation without complications. Patient is recovering as anticipated. Patient will continue to be monitored by nursing and may be discharged when conscious sedation discharge criteria are met.
[2017-06-24] MEDS ORDERED: TRAMADOL HCL 50 MG TAB PO PRN (02:45)
[2017-06-24] MEDS ORDERED: PROCHLORPERAZINE INJ 5 MG in SYRINGE 4 ML IV PRN (02:45)
[2017-06-24] MEDS ORDERED: MoRPHine SULFATE 4 MG/ML 1 ML CARP\\VIAL IV PRN (02:45)
[2017-06-24] MEDS ORDERED: ACETAMINOPHEN 325 MG TAB PO PRN (02:45)
[2017-06-24] MEDS ORDERED: SODIUM CHLORIDE 0.9% 1000ML 1,000 ML IV SCH (03:15)
[2017-06-24 03:42] LABS: HEMATOCRIT 32.6 % (37-47); HEMOGLOBIN 10.4 g/dL (12.0-16.0); MEAN CELL VOLUME 92.4 fL (80-100); MEAN CORPUSCULAR HEMOGLOBIN 29.5 pg (25-34); MEAN CORPUSCULAR HGB CONC 31.9 g/dl (32-36); MEAN PLATELET VOLUME 9.2 fL (7.4-10.4); PLATELET COUNT 170 K/uL (130-400); RED CELL DISTRIBUTION WIDTH CV 13.9 % (11.5-14.5); RED CELL DISTRIBUTION WIDTH SD 46.7 fL (36.4-46.3)
[2017-06-24] MEDS ORDERED: CALCIUM GLUCONATE 10% 1,000 MG in SODIUM CHLORIDE 0.9% 50ML 50 ML IV ONE (03:45)
[2017-06-24] MEDS ORDERED: ATORVASTATIN 40 MG TAB PO ONE (04:00)
[2017-06-24] MEDS ORDERED: METOPROLOL SUCC 25MG EXT REL TAB PO ONE (04:00)
[2017-06-24] MEDS ORDERED: LISINOPRIL 10 MG TAB PO ONE (04:00)
[2017-06-24 04:03] LABS: BASO % 0.2 %; BASO ABS # 0.07 K/uL (0-0.2); EOS % 0.3 %; EOS ABS # 0.12 K/uL (0-0.5); IG# 0.22 K/uL (0.00-0.02); LYMPH ABS # 30.86 K/uL (1.2-3.4); MONO % 3.3 %; MONO ABS # 1.33 K/uL (0.11-0.59); NEUT % 19.7 %
[2017-06-24] MEDS ORDERED: D5W AND NSS 1,000 ML IV SCH (05:00)
[2017-06-24] MEDS ORDERED: LORAZEPAM 0.5 MG TAB PO ONE (06:00)
[2017-06-24] MEDS ORDERED: HYDROmorphone INJ 1 MG/ML SYR IV PRN (06:00)
[2017-06-24] MEDS: LEVOTHYROXINE 75 MCG TAB PO SCH (06:11)
--- NOTE | 2017-06-24 07:08 | HISTORY & PHYSICAL EXAMINATION ---
DATE OF ADMISSION: 06/24/2017 PRIMARY CARE DOCTOR: Dr. Wick. CHIEF COMPLAINT: Right shoulder pain, fall. HISTORY OF PRESENT ILLNESS: History obtained from the patient and records. Medical history significant for hypertension, hyperlipidemia, chronic lymphocytic leukemia, asthma, CAD, PVD as per records, hypothyroidism. Chronic anemia (baseline hemoglobin of 10 to 11) Recent confinement last February 2017 for UTI. Patient was helping out a neighbor who had a fall tonight. Running up the steps, she fell down on her right shoulder, excruciating pain. No chest pain. No shortness of breath. No syncope. No head trauma. At the Emergency Room, attempted closed reduction done under conscious sedation was unsuccessful. Medical history as above : Recent history of Lyme disease sp treatment. SURGERIES: Tonsillectomy, adenoidectomy, and breast reduction. HOME MEDICATIONS: Include aspirin, Lipitor, Astelin, Tylenol, Lumigan, calcium plus D, vitamin D3, Premarin, ferrous sulfate, Flonase, Neurontin, Culturelle, levothyroxine, Zestril, Ativan, Lamictal, albuterol, Toprol-XL, Dulera, Nitrostat, and Effexor. ALLERGIES: TO ADHESIVE, BACITRACIN, NEOMYCIN, AND POLYMYXIN. FAMILY HISTORY: Heart disease. PERSONAL AND SOCIAL HISTORY: Nonsmoker. No chronic ETOH intake. Retired nurse. REVIEW OF SYSTEMS: As per HPI, all 10 systems reviewed, all other ROS negative. PHYSICAL EXAMINATION: VITAL SIGNS: Blood pressure was noted to be 170/70, pulse rate 82, RR 18 T 37, sats 98 on room air. GENERAL: Noted to be slightly uncomfortable, anxious, no respiratory distress. SKIN: Pallor, warm. HEENT: Pale palpebral conjunctivae. No ptosis. Dry mucosa. NECK: Supple, nontender. CHEST: Poor effort. No tenderness. HEART: Regular rate and rhythm, systolic murmur. ABDOMEN: Some distention, nontender. EXTREMITIES: Sling on the right upper extremity with tenderness, ecchymosis to the right upper extremity. NEUROLOGIC: Coherent. No gross focality. LABORATORY DATA: Hemoglobin was noted to be 10.4, hematocrit 32.6, white blood cells 40, and platelets noted to be 170. Sodium noted to be 140, potassium 4.2, chloride 108, CO2 of 20, BUN 14, creatinine 1, glucose was noted to be 81. Shoulder CT initial read, anterior glenohumeral joint dislocation with humeral head and neck in subcoracoid position associated with fracture through the greater tuberosity of the humerus, greater tuberosity fragment measuring 2.2 cm remained located in the glenoid fossa, 4.2 cm of dislocated distal humerus, nondisplaced fracture through anterior glenoid rim, hemarthrosis, and soft tissue swelling. ASSESSMENT: 1. Traumatic right shoulder dislocation status post incomplete/unsuccessful reduction at the ER 2. Traumatic hemarthrosis 2 to fall injury hemoglobin stable 3. chronic lymphocytic leukemia, in remission as per records. 4. HTN urgency secondary to pain, missed PM meds 5. coronary artery disease, peripheral vascular disease as per records 6. chronic anemia, hemoglobin at baseline, 7. asthma stable 8. hx Lyme dse status post recent treatment. PLAN: F analgesia Orthopedics consult RE traumatic right shoulder dislocation (ER provider already in touch with Dr. Jalloh.) Trend HH RE hemarthrosis, hold home ASA until hemoglobin stable Facilitate nighttime BP meds DVT prophylaxis, SCDs RE hemarthrosis DNR. Patient's requesting for updates from providers, Justice Cravenener thru contact number [phone]. MINA
--- NOTE | 2017-06-24 07:12 | DIAGNOSTIC IMAGING REPORT ---
R SHOULDER 1 VIEW CLINICAL HISTORY: 86 years-old Female presenting with post reduction. TECHNIQUE: Single supine frontal view of the right shoulder was obtained. COMPARISON: 06/23/2017. FINDINGS: The right humeral head remains anteriorly dislocated in the subcoracoid region, unchanged from prior. The greater tuberosity fracture fragment remains displaced from the humeral head by over 2 cm. Alignment has not been restored. No new osseous abnormality. IMPRESSION: Persistent anterior dislocation of the right humeral head with significantly displaced greater tuberosity fracture fragment. Electronically signed by: Rojas Germain M.D. 06/24/2017 7:10 AM Dictated Date/Time: 06/24/2017 7:08 AM
[2017-06-24] MEDS: OXYCODONE/ACETAMINOPHEN 5-325 TAB PO PRN ×2 (07:15→18:04)
--- NOTE | 2017-06-24 07:20 | DIAGNOSTIC IMAGING REPORT ---
RIGHT SHOULDER CT CT DOSE: 467.62 mGy.cm HISTORY: Fall. Right shoulder pain. eval for fracture TECHNIQUE: Multiaxial CT images of the right shoulder were performed and reformatted in the sagittal and coronal plane without the use of contrast. A dose lowering technique was utilized adhering to the principles of ALARA. COMPARISON: Right shoulder 06/24/2017. FINDINGS: Anterior dislocation of the right humeral head in relation to the glenoid. There is a small slightly distracted Bankart fracture of the anterior-inferior glenoid. Slightly comminuted and displaced fracture at the greater tuberosity of the humeral head this demonstrates up to 3.6 cm of lateral displacement and is located within the glenoid fossa. Hemarthrosis. Small amount of hemorrhage within the infraclavicular and right axillary locations. There is also a small amount of right supraclavicular soft tissue hemorrhage. IMPRESSION: 1. Right anterior shoulder dislocation with a displaced fracture of the greater tuberosity of the humeral head and a slightly distracted Bankart fracture of the glenoid. 2. Hemarthrosis with surrounding soft tissue hematoma as described above Electronically signed by: Tomy Owen M.D. 06/24/2017 7:19 AM Dictated Date/Time: 06/24/2017 7:14 AM
[2017-06-24] MEDS: FERROUS SULFATE 325 MG TAB PO SCH ×2 (08:30→21:23)
[2017-06-24] MEDS: VENLAFAXINE HCL XR 75 MG CAPXR PO SCH (08:31)
[2017-06-24] MEDS: VENLAFAXINE HCL XR 150 MG CAPXR PO SCH (08:31)
[2017-06-24] MEDS: VENLAFAXINE HCL XR 37.5 MG CAPXR PO SCH (08:31)
--- NOTE | 2017-06-24 09:54 | CONSULTATION REPORT ---
DATE OF CONSULTATION: 06/24/2017 REASON FOR CONSULT: Dislocated right shoulder. HISTORY OF PRESENT ILLNESS: The patient is an 86-year-old white female who states that earlier in the day yesterday her neighbor's son was outside and she was talking to him. He ended up telling her that his mother had fallen and was not sure if she had broken her hip or not. She went over to see if she could assist and in the process of helping them out, she ended up losing her balance and falling onto her right shoulder. She had immediate pain in her right shoulder and had limited mobility. The patient also states that she has noticed that she has been having increased balance disturbances over the last couple of months. She denies any loss of consciousness, any lightheadedness, dizziness, shortness of breath or chest pain prior to the fall or after the fall. She had great difficulty trying to get up on her own and eventually an ambulance was called and she was brought to the Emergency Room. She was seen by the staff. X-rays were taken and it was found that she had a dislocated right shoulder. Attempts were made to do a closed reduction in the Emergency Room by Dr. Gonzalez which did not happen. The attempts failed and she was then admitted for further care. Dr. Jalloh was called and ordered a CT scan which found continued anterior shoulder dislocation with a displaced fracture of the greater tuberosity and a slightly distracted Bankart fracture of the glenoid. She currently states that most of the pain is in her shoulder and radiates down the arm somewhat and also across her shoulder to her neck. She denies any overt neck pain at this time. We have been asked to see her for this dislocation. PAST MEDICAL HISTORY: Hypertension, hyperlipidemia, CLL, asthma, CAD, PVD, hypothyroidism. PAST SURGICAL HISTORY: Tonsils and adenoids removed and breast reduction in the past. FAMILY HISTORY: Heart disease. SOCIAL HISTORY: The patient is nonsmoker, does not use alcohol and is a retired nurse. MEDICATIONS: Tylenol with codeine No. 3 1 tab p.o. b.i.d. p.r.n., aspirin 81 mg p.o. q.p.m., Lipitor 40 mg p.o. q.p.m., Astelin nasal spray 1 spray nasally b.i.d., Lumigan 1 drop OPB at bedtime, calcium 600 plus D 1 tab p.o. q.p.m., vitamin D3 two tabs p.o. daily, Premarin 1 application PV 2-3 times a week, ferrous sulfate 325 mg p.o. b.i.d., Flonase 2 sprays nasally daily in the afternoon, gabapentin 300 mg p.o. at bedtime, Culturelle 1 cap p.o. q.p.m., Lamictal 100 mg p.o. b.i.d., levalbuterol tartrate 2 puffs inhaled q. 4 hours p.r.n., levothyroxine 75 mcg p.o. daily, lisinopril 10 mg p.o. q.p.m., Ativan 0.25 mg at bedtime, Toprol-XL 25 mg p.o. q.p.m. Dulera 100/5 two puffs inhaled q. 12 hours, nitroglycerin 0.4 mg UD p.r.n., Seroquel 25 mg p.o. at bedtime, Effexor XR 262.5 mg p.o. q.a.m. ALLERGIES: ADHESIVES, BACITRACIN, NEOMYCIN, AND POLYMYXIN B. REVIEW OF SYSTEMS: As per admitting history and physical. PHYSICAL EXAMINATION: Focusing on her right shoulder, she is not in a sling at this time and is sitting in a chair at the bedside. She is awake and alert and oriented to person and place, and time. She is in mild pain due to her dislocation of her right shoulder. She has obvious deformity of the right shoulder with the anterior dislocation. She is mildly tender over the shoulder at this time on palpation and has some swelling. She has an abrasion noted over the right elbow that has been bandaged. She has no pain at the elbow and can move her elbow at this time but causes discomfort in her right shoulder. She has no pain in the right wrist. She has good hand strength of the right hand at this time compared to the left and they appear both equal. She is able to actively flex and extend all fingers of the hand and is able to do flexion and extension of the wrist, although she states it bothers her to do so with pain in her shoulder because she is moving her arm a little bit more. She has some slight pins and needles feelings in her fingers, but otherwise no other gross motor or sensory loss seen at this time. ASSESSMENT: Right anterior dislocation of the shoulder with a greater tuberosity fracture and a Bankart fracture of the glenoid per CT scan. PLAN: The patient will be kept n.p.o. and she will need to be taken down to the operating room for at the very minimum closed reduction of the anterior dislocation of the shoulder versus open reduction. X-rays and history will be discussed with Dr. Aragon who is here today. MINA
[2017-06-24] MEDS ORDERED: LIDOCAINE HCL 2% 2 ML VIAL (20MG/ML) ONE (15:52)
[2017-06-24] MEDS ORDERED: FENTANYL CITRATE INJ 50 MCG/1 ML 2 ML VIAL ONE (15:52)
[2017-06-24] MEDS ORDERED: PROPOFOL IV EMULSION 10 MG/ML 20 ML VIAL IV ONE (15:52)
[2017-06-24] MEDS ORDERED: MIDAZOLAM HCL 1 MG/ML 2ML VIAL ONE (15:52)
--- NOTE | 2017-06-24 16:19 | History & Physical Bridge Note ---
H&P Re-Evaluation Bridge Note: I have examined the patient, reviewed the History & Physical and in the interval since the performance of the History & Physical I have noted the following changes of clinical significance: Closed reduction right shoulder dislocation today.
--- NOTE | 2017-06-24 16:44 | [facility] Post Operative Brief Note ---
Immediate Operative Summary Operative Date Jun 24, 2017. Pre-Operative Diagnosis Right shoulder fracture dislocation; Fracture greater tuberosity Post-Operative Diagnosis Right shoulder fracture dislocation; Fracture greater tuberosity Procedure(s) Performed Closed reduction right shoulder dislocation with MAC anesthesia Surgeon B Chinmay MCGUIRE Notch Grinder Surgeon(s) Amy Parker PA-C Estimated Blood Loss 0cc Findings Consistent with Post-Op Diagnosis Specimens None Drains None Anesthesia Type MAC Complication(s) none Disposition Accompanied Pt To Recover: no Disposition: Recovery Room / PACU
--- NOTE | 2017-06-24 17:00 | DIAGNOSTIC IMAGING REPORT ---
FLUOROSCOPIC SPOT IMAGES OF THE RIGHT SHOULDER 2 VIEWS CLINICAL HISTORY: Closed reduction of a right shoulder dislocation COMPARISON STUDY: CT scan dated 06/24/2017 FINDINGS: 11 seconds of fluoroscopic time was utilized. 2 fluoroscopic spot images are provided for interpretation. There has been interval reduction of previously described dislocation. There is a mildly comminuted and distracted fracture of the greater tuberosity of the humerus. IMPRESSION: 1. Interval reduction of the previously identified dislocation 2. Greater tuberosity fracture Electronically signed by: Eric Lay M.D. 06/24/2017 4:58 PM Dictated Date/Time: 06/24/2017 4:57 PM
--- NOTE | 2017-06-24 17:01 | Progress Note ---
Medicine Progress Note Date & Time of Visit: Jun 24, 2017 at 10:23. Subjective Pt was seen and examined Lying in bed with no distress Pt said that right shoulder tender with movement She said that pain control Pt said that that she feels some tingling in the right fingers Pt said that she was very active before the fall yesterday Denies any chest pain, palpitation, dizziness and SOB Objective Last 8 Hrs Date Time Temp Pulse Resp B/P (MAP) Pulse Ox O2 Delivery O2 Flow Rate FiO2 06/24/17 11:44 36.9 80 18 90/54 (66) 93 Room Air Physical Exam: General- No acute distress Head- atraumatic Eyes- PERRL, EOMI ENT- oropharynx clear Neck- supple, no JVD Lungs- No wheezing Heart- regular rhythm Abdomen- normal bowel sounds, soft Extremities- no calf tenderness, RUE with sling on Neuro- alert, oriented x 3; PERRL, EOMI Skin- warm & dry Laboratory Results: Last 24 Hours Test 06/24/17 01:54 06/24/17 03:11 Prothrombin Time 11.0 SECONDS Prothromb Time International Ratio 1.0 Activated Partial Thromboplast Time 20.1 SECONDS Partial Thromboplastin Ratio 0.8 Sodium Level 140 mmol/L Potassium Level 4.2 mmol/L Chloride Level 108 mmol/L Carbon Dioxide Level 20 mmol/L Anion Gap 12.0 mmol/L Blood Urea Nitrogen 14 mg/dl Creatinine 1.07 mg/dl Est Creatinine Clear Calc Drug Dose 30.9 ml/min Estimated GFR () 54.4 Estimated GFR (Non- 47.0 BUN/Creatinine Ratio 13.5 Random Glucose 81 mg/dl Calcium Level 8.4 mg/dl Magnesium Level 2.0 mg/dl Total Bilirubin 0.5 mg/dl Direct Bilirubin 0.1 mg/dl Aspartate Amino Transf (AST/SGOT) 26 U/L Alanine Aminotransferase (ALT/SGPT) 29 U/L Alkaline Phosphatase 84 U/L Total Protein 6.6 gm/dl Albumin 3.7 gm/dl Thyroid Stimulating Hormone (TSH) 3.980 uIu/ml White Blood Count 40.60 K/uL Red Blood Count 3.53 M/uL Hemoglobin 10.4 g/dL Hematocrit 32.6 % Mean Corpuscular Volume 92.4 fL Mean Corpuscular Hemoglobin 29.5 pg Mean Corpuscular Hemoglobin Concent 31.9 g/dl Platelet Count 170 K/uL Mean Platelet Volume 9.2 fL Neutrophils (%) (Auto) 19.7 % Lymphocytes (%) (Auto) 76.0 % Monocytes (%) (Auto) 3.3 % Eosinophils (%) (Auto) 0.3 % Basophils (%) (Auto) 0.2 % Neutrophils # (Auto) 8.00 K/uL Lymphocytes # (Auto) 30.86 K/uL Monocytes # (Auto) 1.33 K/uL Eosinophils # (Auto) 0.12 K/uL Basophils # (Auto) 0.07 K/uL RDW Standard Deviation 46.7 fL RDW Coefficient of Variation 13.9 % Immature Granulocyte % (Auto) 0.5 % Immature Granulocyte # (Auto) 0.22 K/uL Smudge Cells PRESENT Red Blood Cell Morphology Unremarkable Assessment & Plan Right shoulder pain CT showed right anterior dislocation of the shoulder with greater tuberosity fracture and a Bankart fracture of the glenoid Case discussed with ortho team and plan to have a very minimum closed reduction of the anterior dislocation of the shoulder versus open reduction. Continue pain control Pt has a functional capacity with a Met greater than 4 before the incident Denies any chest pain, palpitation and SOB Pt is stable to proceed with the minimum closed reduction for the right shoulder dislocation Keep NPO for the procedure Might need rehab for PT/OT Traumatic hemarthrosis Secondary to fall injury of the right shoulder Continue monitor Hemoglobin CLL WBC 40K Stable HTN BP was very high on admission Mostly situational BP stable CAD Denies any symptoms Aspirin on hold due to surgery Will continue Statin and metoprolol Chronic anemia Hemoglobin stable Asthma Stable DVT px SCDs due to surgery CODE STATUS FULL CODE Consultants: Ortho Current Inpatient Medications: Current Inpatient Medications Medications (Trade) Dose Ordered Sig/Boyd Route Start Time Stop Time Status Last Admin Dose Admin Acetaminophen (Tylenol Tab) 650 mg Q4H PRN PO 06/24/17 02:45 07/24/17 02:44 Atorvastatin Calcium (Lipitor Tab) 40 mg QPM PO 06/24/17 21:00 07/24/17 20:59 Ferrous Sulfate (Feosol Tab) 325 mg BID PO 06/24/17 09:00 07/24/17 08:59 Fluticasone Propionate (Flonase Nasal [place]) 2 sprays QD@16 DERIAN 06/24/17 16:00 07/24/17 15:59 Gabapentin (Neurontin Cap) 300 mg HS PO 06/24/17 21:00 07/24/17 20:59 Lamotrigine (Lamictal Tab) 100 mg BID PO 06/24/17 09:00 07/24/17 08:59 Levothyroxine Sodium (Synthroid Tab) 75 mcg DAILYBB PO 06/24/17 06:00 07/24/17 06:59 06/24/17 06:11 75 MCG Lisinopril (Zestril Tab) 10 mg QPM PO 06/24/17 21:00 07/24/17 20:59 Lorazepam (Ativan Tab) 0.25 mg HS PO 06/24/17 21:00 07/24/17 20:59 Metoprolol Succinate (Toprol Xl Tab) 25 mg QPM PO 06/24/17 21:00 07/24/17 20:59 Quetiapine Fumarate (seroQUEL TAB) 25 mg HS PO 06/24/17 21:00 07/24/17 20:59 Venlafaxine HCl (effeXOR EXTENDED REL CAP) 37.5 mg DAILY PO 06/24/17 09:00 07/24/17 08:59 Venlafaxine HCl (effeXOR EXTENDED REL CAP) 75 mg QAM PO 06/24/17 09:00 07/24/17 08:59 Venlafaxine HCl (effeXOR EXTENDED REL CAP) 150 mg DAILY PO 06/24/17 09:00 07/24/17 08:59 Miscellaneous Information (Order Awaiting Action) 1 ea QS N/A 06/24/17 08:00 07/24/17 07:59 Bimatoprost (Lumigan 0.01%) 1 drops HS OPB 06/24/17 21:00 07/24/17 20:59 Lactobacillus Acidophilus (Floranex Tab) 1 tab QPM PO 06/24/17 21:00 07/24/17 20:59 Miscellaneous Information (Order Awaiting Action) 1 ea QS N/A 06/24/17 08:00 07/24/17 07:59 Prochlorperazine Edisylate 5 mg/ Syringe 5 ml @ 5 mls/min Q6H PRN IV 06/24/17 02:45 07/24/17 02:44 Tramadol HCl (Ultram Tab) not relieved by tylenol @ Q6H PRN PO 06/24/17 02:45 07/24/17 02:44 Dextrose/Sodium Chloride 1,000 ml @ 50 mls/hr Q20H IV 06/24/17 05:00 07/24/17 04:59 06/24/17 05:34 50 MLS/HR Hydromorphone HCl (Dilaudid Inj) 1 mg Q3H PRN IV 06/24/17 06:00 07/08/17 05:59 06/24/17 12:45 1 MG Oxycodone/ Acetaminophen (Percocet 5-325mg Tab) 1 tab Q6H PRN PO 06/24/17 06:00 07/08/17 05:59 06/24/17 07:15 1 TAB
--- NOTE | 2017-06-24 17:06 | Anesthesiology Progress Note ---
Anesthesia Post Op Note Date & Time Jun 24, 2017 at 17:05 Vital Signs Pain Intensity: 0 Vital Signs Past 12 Hours Date Time Temp Pulse Resp B/P (MAP) Pulse Ox O2 Delivery O2 Flow Rate FiO2 06/24/17 16:55 78 16 114/48 98 Room Air 06/24/17 16:47 36.5 80 16 97/49 100 Room Air 06/24/17 11:44 36.9 80 18 90/54 (66) 93 Room Air 06/24/17 08:14 97 Room Air 06/24/17 08:12 Room Air 06/24/17 08:04 36.8 86 20 144/66 (92) 97 Room Air 06/24/17 06:00 98 Room Air 2.0 Notes Mental Status: alert / awake / arousable, participated in evaluation Pt Amnestic to Procedure: Yes Nausea / Vomiting: adequately controlled Pain: adequately controlled Airway Patency, RR, SpO2: stable & adequate BP & HR: stable & adequate Hydration State: stable & adequate Anesthetic Complications: no major complications apparent Awake, doing well, no complaints. VSS.
[2017-06-24] MEDS ORDERED: FENTANYL CITRATE INJ 50 MCG/1 ML 2 ML VIAL IV PRN (17:15)
[2017-06-24] MEDS ORDERED: ONDANSETRON INJ 2 MG/ML 2 ML VIAL IV PRN (17:15)
[2017-06-24] MEDS ORDERED: EpHEDrine SULFATE INJ 50 MG/ML AMP IV PRN (17:15)
[2017-06-24] MEDS ORDERED: ATROPINE SULFATE 0.1 MG/ML 5ML SYR IV PRN (17:15)
--- NOTE | 2017-06-24 17:47 | OPERATIVE REPORT ---
DATE OF OPERATION: 06/24/2017 PREOPERATIVE DIAGNOSES: 1. Right shoulder fracture dislocation. 2. Fracture of the greater tuberosity of the humerus. POSTOPERATIVE DIAGNOSES: Same. PROCEDURE: 1. Right shoulder closed reduction with monitored anesthesia care sedation. 2. Closed treatment greater tuberosity fracture of the humerus. SURGEON: Dr. Moy. FISCAL MANAGER: Roel Parker PA-C who was present for patient positioning, sterile prep and drape, management of retractors and instruments. ANESTHESIA: General MAC. SPECIMENS: None. DRAINS: None. COMPLICATIONS: None. ESTIMATED BLOOD LOSS: Zero. PERTINENT HISTORY: This is an 86-year-old female who was attempting to help a friend who had had a fall. She stumbled and fell on her right upper extremity, producing a fracture dislocation of her right shoulder. She was seen in [facility] ER, they had attempted to reduce her shoulder, unable to do so and she was then admitted to the hospital for planned closed reduction with general anesthesia. The patient had no loss of consciousness or other associated injuries of substance. We discussed with the patient the possibility of potential complications, risks, benefits, rehab possibility of infection, bleeding, neurovascular injury, wound complications, DVT, PE, or skin breakdown or possibility for need of open reduction of the shoulder. The patient decided to proceed with the procedure as indicated. DESCRIPTION OF PROCEDURE: The patient was taken to operative suite, placed supine on the operating room table. After review of the consent and identification of proper operative site, patient anesthetized, and monitored anesthesia care was provided with chin lift and oxygenation. The counter traction was applied to the right 4/4 and torso by the physician kindergarten teacher assistant and then external rotation traction followed by internal rotation and manipulation of the humeral head back into the glenoid was performed with a gentle care and traction. A palpable clunk was palpated when the shoulder was then reduced into the glenohumeral joint. Next, multiple C-arm fluoroscopic views were obtained including AP, scapular Y, internal and external rotation views confirming concentric reduction within the glenohumeral joint. The greater tuberosity fracture had also reduced to a markedly improved location after reduction of the humerus and the glenoid. Next, a sling was applied with the arm held in a slight internal rotation. The patient was awakened and then taken to recovery in stable condition. I attest to the content of the Intraoperative Record and any orders documented therein. Any exception s are noted below.
[2017-06-24] MEDS: FLUTICASONE PROPIONATE NA SPR 16 GM BTL NAE SCH (18:03)
[2017-06-24] MEDS: LORAZEPAM 0.5 MG TAB PO SCH (21:00)
[2017-06-24] MEDS: METOPROLOL SUCC 25MG EXT REL TAB PO SCH (21:00)
[2017-06-24] MEDS: LISINOPRIL 10 MG TAB PO SCH (21:00)
[2017-06-24] MEDS ORDERED: ASPIRIN 81 MG ECTAB PO SCH (21:00)
[2017-06-24] MEDS: BIMATOPROST 0.01% OP SOLN 2.5 ML BTL OPB SCH (21:23)
[2017-06-24] MEDS: ATORVASTATIN 40 MG TAB PO SCH (21:23)
[2017-06-24] MEDS: LACTOBACILLUS ACIDOPHILUS (FLORANEX) TAB PO SCH (21:23)
[2017-06-24] MEDS: GABAPENTIN 300 MG CAP PO SCH (21:23)
[2017-06-24] MEDS: QUETIAPINE FUMARATE 25 MG TAB PO SCH (21:23)
[2017-06-25] VITALS (7 sets, daily range): BP systolic 89–119; BP diastolic 54–68; PULSE 72–83; TEMP 36.5–36.7; O2SAT 93–97
[2017-06-25] MEDS ORDERED: NURSING VERBAL MED ORDER ONE (01:30)
[2017-06-25] MEDS: OXYCODONE/ACETAMINOPHEN 5-325 TAB PO PRN ×3 (05:14→20:11)
[2017-06-25] MEDS: LEVOTHYROXINE 75 MCG TAB PO SCH (05:54)
[2017-06-25 07:22] LABS: HEMATOCRIT 30.2 % (37-47); HEMOGLOBIN 9.4 g/dL (12.0-16.0); MEAN CELL VOLUME 95.6 fL (80-100); MEAN CORPUSCULAR HEMOGLOBIN 29.7 pg (25-34); MEAN CORPUSCULAR HGB CONC 31.1 g/dl (32-36); MEAN PLATELET VOLUME 9.6 fL (7.4-10.4); PLATELET COUNT 156 K/uL (130-400); RED CELL DISTRIBUTION WIDTH CV 14.7 % (11.5-14.5); RED CELL DISTRIBUTION WIDTH SD 50.9 fL (36.4-46.3); WHITE BLOOD COUNT 33.44 K/uL (4.8-10.8)
[2017-06-25 07:34] LABS: CALCIUM 7.8 mg/dl (8.5-10.1); CREATININE 1.18 mg/dl (0.60-1.20); POTASSIUM 4.2 mmol/L (3.5-5.1)
--- NOTE | 2017-06-25 07:56 | Anesthesiology Progress Note ---
Anesthesia Post Op Note Date & Time Jun 25, 2017 at 07:56 Vital Signs Pain Intensity: 4.0 Vital Signs Past 12 Hours Date Time Temp Pulse Resp B/P (MAP) Pulse Ox O2 Delivery O2 Flow Rate FiO2 06/25/17 07:10 36.7 72 16 95/57 (70) 94 Room Air 06/25/17 05:15 36.6 78 20 116/68 (84) 95 Room Air 06/25/17 03:55 36.6 83 20 89/54 (66) 93 Room Air 06/24/17 23:50 98 Room Air 06/24/17 23:18 36.5 79 20 111/67 (82) 98 Room Air 06/24/17 21:17 81 101/62 (75) Notes Mental Status: alert / awake / arousable, participated in evaluation Pt Amnestic to Procedure: Yes Nausea / Vomiting: adequately controlled Pain: adequately controlled Airway Patency, RR, SpO2: stable & adequate BP & HR: stable & adequate Hydration State: stable & adequate Anesthetic Complications: no major complications apparent
--- NOTE | 2017-06-25 08:11 | Orthopedic Progress Note ---
Orthopedic Progress Note Date of Service Jun 25, 2017. Subjective Post OP Day: 1 Reports: feeling well, Denies: complaints Additional Notes: Awake, alert. No complaints this AM. Pain controlled. "Shoulder feels much better this AM." Objective A&O x3, CMS intact Sling readjusted. Good ROM of the right wrist/fingers. Mild swelling noted in fingers. Sensation intact. Date Time Temp Pulse Resp B/P (MAP) Pulse Ox O2 Delivery O2 Flow Rate FiO2 06/25/17 07:10 36.7 72 16 95/57 (70) 94 Room Air 06/25/17 05:15 36.6 78 20 116/68 (84) 95 Room Air 06/25/17 03:55 36.6 83 20 89/54 (66) 93 Room Air 06/24/17 23:50 98 Room Air 06/24/17 23:18 36.5 79 20 111/67 (82) 98 Room Air 06/24/17 21:17 81 101/62 (75) 06/24/17 19:15 Room Air 06/24/17 19:04 36.6 83 18 90/53 (65) 93 Room Air 06/24/17 17:45 36.6 95 16 102/55 (71) 92 Room Air 06/24/17 17:33 96 Room Air 06/24/17 17:30 Room Air 06/24/17 17:15 36.6 79 16 115/50 (71) 96 Room Air 06/24/17 17:05 36.4 79 16 114/52 98 Room Air 06/24/17 16:55 78 16 114/48 98 Room Air 06/24/17 16:47 36.5 80 16 97/49 100 Room Air 06/24/17 11:44 36.9 80 18 90/54 (66) 93 Room Air 06/24/17 08:14 97 Room Air 06/24/17 08:12 Room Air Laboratory Results 24 Hours: Test 06/25/17 06:06 White Blood Count 33.44 K/uL Red Blood Count 3.16 M/uL Hemoglobin 9.4 g/dL Hematocrit 30.2 % Mean Corpuscular Volume 95.6 fL Mean Corpuscular Hemoglobin 29.7 pg Mean Corpuscular Hemoglobin Concent 31.1 g/dl Platelet Count 156 K/uL Mean Platelet Volume 9.6 fL Assessment & Plan Assessment: POD 1 s/p c/r Right shoulder dislocation Plan: PT/OT today for ambulation and ADL's Maintain sling. No ROM of the right shoulder for now. Ortho will sign off. Please call with any questions. Inhouse Planning Pain Management: Tessie Constantino
--- NOTE | 2017-06-25 08:13 | Consultant Recommendations ---
Regulatory Affairs Assistant Recommendations Date of Service Jun 25, 2017. Regulatory Affairs Assistant Recommendations Maintain sling at all times unless showering/getting dressed Follow PT/OT instructions taught at hospital. No range of motion of the shoulder at this time until seen back in the office for follow up Follow up with Dr Moy in 2 weeks. Call for appointment. [phone]
[2017-06-25 08:15] LABS: BASO % 0.2 %; BASO ABS # 0.06 K/uL (0-0.2); EOS ABS # 0.34 K/uL (0-0.5); IG# 0.08 K/uL (0.00-0.02); LYMPH % 81.9 %; LYMPH ABS # 27.38 K/uL (1.2-3.4); MONO % 4.4 %; MONO ABS # 1.47 K/uL (0.11-0.59); NEUT % 12.3 %; NEUT ABS # 4.11 K/uL (1.4-6.5)
[2017-06-25] MEDS: VENLAFAXINE HCL XR 37.5 MG CAPXR PO SCH (08:50)
[2017-06-25] MEDS: FERROUS SULFATE 325 MG TAB PO SCH ×2 (08:50→22:00)
[2017-06-25] MEDS: VENLAFAXINE HCL XR 75 MG CAPXR PO SCH (08:50)
[2017-06-25] MEDS: VENLAFAXINE HCL XR 150 MG CAPXR PO SCH (08:50)
--- NOTE | 2017-06-25 15:42 | Progress Note ---
Internal Med Progress Note Date of Service: Jun 25, 2017. Provider Documentation: SUBJECTIVE: The patient was seen and examined. She is status post repair of right shoulder dislocation with fracture. She complained to have some dizziness this morning while doing physical therapy. He denies to have any significant pain at rest. She does not feel like going home today. OBJECTIVE: Vital Signs-as noted below Exam: General-no distress at rest Eyes-normal ENT-normal Neck-supple Lungs-clear to auscultation bilaterally Heart-regular, no murmur appreciated Abdomen-benign, soft,, bowel sounds present Extremities-no edema. Right shoulder and right upper extremity is in a sling. Neuro-alert awake oriented 3. Generally weak but no focal neuro deficit. Lab data as noted below. ASSESSMENT & PLAN: Right shoulder dislocation with Greater Tuberosity Fracture S/P Fall CT showed right anterior dislocation of the shoulder with greater tuberosity fracture and a Bankart fracture of the glenoid Denies any chest pain, palpitation and SOB Appreciate Ortho input S/P Closed reduction right shoulder dislocation with MAC anesthesia Clinically better Getting PT -felt a little dizzy at PT today Likely to go home tomorrow. Traumatic hemarthrosis Secondary to fall injury of the right shoulder Continue monitor Hemoglobin Remains stable CLL WBC 40K Stable HTN BP was very high on admission Mostly situational BP stable CAD Denies any symptoms Aspirin on hold due to surgery Will continue Statin and metoprolol Chronic anemia Hemoglobin stable Asthma Stable DVT px SCDs due to surgery CODE STATUS FULL CODE Consultants: Ortho DISPOSITION Likely discharge tomorrow Vital Signs: Date Time Temp Pulse Resp B/P (MAP) Pulse Ox O2 Delivery O2 Flow Rate FiO2 06/25/17 15:04 36.5 75 18 114/57 (76) 97 Room Air 06/25/17 11:00 36.6 81 16 103/56 (72) 93 Room Air 06/25/17 09:06 36.7 72 16 94 Room Air 06/25/17 08:12 Room Air 06/25/17 07:10 36.7 72 16 95/57 (70) 94 Room Air 06/25/17 05:15 36.6 78 20 116/68 (84) 95 Room Air 06/25/17 03:55 36.6 83 20 89/54 (66) 93 Room Air 06/24/17 23:50 98 Room Air 06/24/17 23:18 36.5 79 20 111/67 (82) 98 Room Air 06/24/17 21:17 81 101/62 (75) 06/24/17 19:15 Room Air 06/24/17 19:04 36.6 83 18 90/53 (65) 93 Room Air 06/24/17 17:45 36.6 95 16 102/55 (71) 92 Room Air 06/24/17 17:33 96 Room Air 06/24/17 17:30 Room Air 06/24/17 17:15 36.6 79 16 115/50 (71) 96 Room Air 06/24/17 17:05 36.4 79 16 114/52 98 Room Air 06/24/17 16:55 78 16 114/48 98 Room Air 06/24/17 16:47 36.5 80 16 97/49 100 Room Air Lab Results: Results Past 24 Hours Test 06/25/17 06:06 Range/Units White Blood Count 33.44 4.8-10.8 K/uL Red Blood Count 3.16 4.2-5.4 M/uL Hemoglobin 9.4 12.0-16.0 g/dL Hematocrit 30.2 37-47 % Mean Corpuscular Volume 95.6 80-100 fL Mean Corpuscular Hemoglobin 29.7 25-34 pg Mean Corpuscular Hemoglobin Concent 31.1 32-36 g/dl Platelet Count 156 130-400 K/uL Mean Platelet Volume 9.6 7.4-10.4 fL Neutrophils (%) (Auto) 12.3 % Lymphocytes (%) (Auto) 81.9 % Monocytes (%) (Auto) 4.4 % Eosinophils (%) (Auto) 1.0 % Basophils (%) (Auto) 0.2 % Neutrophils # (Auto) 4.11 1.4-6.5 K/uL Lymphocytes # (Auto) 27.38 1.2-3.4 K/uL Monocytes # (Auto) 1.47 0.11-0.59 K/uL Eosinophils # (Auto) 0.34 0-0.5 K/uL Basophils # (Auto) 0.06 0-0.2 K/uL RDW Standard Deviation 50.9 36.4-46.3 fL RDW Coefficient of Variation 14.7 11.5-14.5 % Immature Granulocyte % (Auto) 0.2 % Immature Granulocyte # (Auto) 0.08 0.00-0.02 K/uL Smudge Cells PRESENT Sodium Level 136 136-145 mmol/L Potassium Level 4.2 3.5-5.1 mmol/L Chloride Level 105 98-107 mmol/L Carbon Dioxide Level 23 21-32 mmol/L Anion Gap 8.0 3-11 mmol/L Blood Urea Nitrogen 17 7-18 mg/dl Creatinine 1.18 0.60-1.20 mg/dl Est Creatinine Clear Calc Drug Dose 28.0 ml/min Estimated GFR () 48.4 Estimated GFR (Non- 41.7 BUN/Creatinine Ratio 14.7 10-20 Random Glucose 105 70-99 mg/dl Calcium Level 7.8 8.5-10.1 mg/dl
[2017-06-25] MEDS: FLUTICASONE PROPIONATE NA SPR 16 GM BTL NAE SCH (15:50)
[2017-06-25] MEDS: BIMATOPROST 0.01% OP SOLN 2.5 ML BTL OPB SCH (22:00)
[2017-06-25] MEDS: LORAZEPAM 0.5 MG TAB PO SCH (22:00)
[2017-06-25] MEDS: LACTOBACILLUS ACIDOPHILUS (FLORANEX) TAB PO SCH (22:01)
[2017-06-25] MEDS: GABAPENTIN 300 MG CAP PO SCH (22:01)
[2017-06-25] MEDS: QUETIAPINE FUMARATE 25 MG TAB PO SCH (22:01)
[2017-06-25] MEDS: METOPROLOL SUCC 25MG EXT REL TAB PO SCH (22:01)
[2017-06-25] MEDS: ATORVASTATIN 40 MG TAB PO SCH (22:01)
[2017-06-25] MEDS: LISINOPRIL 10 MG TAB PO SCH (22:02)
[2017-06-26 00:10] VITALS: O2SAT 97
[2017-06-26 00:29] VITALS: BP 89/53; PULSE 74; TEMP 36.6; O2SAT 94
[2017-06-26 03:30] VITALS: BP 101/59; PULSE 86; TEMP 36.6; O2SAT 96
[2017-06-26] MEDS: LEVOTHYROXINE 75 MCG TAB PO SCH (06:17)
[2017-06-26] MEDS: OXYCODONE/ACETAMINOPHEN 5-325 TAB PO PRN (06:18)
[2017-06-26 07:15] LABS: HEMATOCRIT 30.6 % (37-47); HEMOGLOBIN 9.7 g/dL (12.0-16.0); MEAN CELL VOLUME 94.7 fL (80-100); MEAN CORPUSCULAR HGB CONC 31.7 g/dl (32-36); MEAN PLATELET VOLUME 9.3 fL (7.4-10.4); PLATELET COUNT 172 K/uL (130-400); RED CELL DISTRIBUTION WIDTH CV 14.5 % (11.5-14.5); RED CELL DISTRIBUTION WIDTH SD 49.8 fL (36.4-46.3); WHITE BLOOD COUNT 32.91 K/uL (4.8-10.8)
[2017-06-26 07:51] VITALS: BP 112/68; PULSE 71; TEMP 37; O2SAT 93
[2017-06-26 08:04] LABS: BASO % 0.1 %; BASO ABS # 0.04 K/uL (0-0.2); EOS ABS # 0.34 K/uL (0-0.5); IG# 0.09 K/uL (0.00-0.02); LYMPH % 80.4 %; LYMPH ABS # 26.47 K/uL (1.2-3.4); MONO % 4.3 %; MONO ABS # 1.41 K/uL (0.11-0.59); NEUT % 13.9 %; NEUT ABS # 4.56 K/uL (1.4-6.5)
[2017-06-26] MEDS: VENLAFAXINE HCL XR 150 MG CAPXR PO SCH (08:48)
[2017-06-26] MEDS: VENLAFAXINE HCL XR 37.5 MG CAPXR PO SCH (08:48)
[2017-06-26] MEDS: FERROUS SULFATE 325 MG TAB PO SCH (08:49)
[2017-06-26] MEDS: VENLAFAXINE HCL XR 75 MG CAPXR PO SCH (08:49)
[2017-06-26 09:17] VITALS: O2SAT 93
[2017-06-26 11:48] VITALS: BP 112/68; PULSE 77; TEMP 37; O2SAT 99
--- NOTE | 2017-06-26 12:02 | Progress Note ---
Internal Med Progress Note Date of Service: Jun 26, 2017. Provider Documentation: SUBJECTIVE: The patient was seen and examined. She is status post repair of right shoulder dislocation with fracture. No more dizziness and no other symptoms Ready to be discharged today OBJECTIVE: Vital Signs-as noted below Exam: General-no distress at rest Eyes-normal ENT-normal Neck-supple Lungs-clear to auscultation bilaterally Heart-regular, no murmur appreciated Abdomen-benign, soft,, bowel sounds present Extremities-no edema. Right shoulder and right upper extremity is in a sling. Neuro-alert awake oriented 3. Generally weak but no focal neuro deficit. Lab data as noted below. ASSESSMENT & PLAN: Right shoulder dislocation with Greater Tuberosity Fracture S/P Fall CT showed right anterior dislocation of the shoulder with greater tuberosity fracture and a Bankart fracture of the glenoid Denies any chest pain, palpitation and SOB Appreciate Ortho input S/P Closed reduction right shoulder dislocation with MAC anesthesia Clinically better Getting PT -felt a little dizzy at PT today Went for PT -did well and without any symptoms Can be discharged home today Traumatic hemarthrosis Secondary to fall injury of the right shoulder Continue monitor Hemoglobin Remains stable at 9.7 today CLL WBC 40K Stable HTN BP was very high on admission Mostly situational BP stable CAD Denies any symptoms Aspirin on hold due to surgery Will continue Statin and metoprolol Chronic anemia Hemoglobin stable Asthma Stable DVT px SCDs due to surgery CODE STATUS FULL CODE Consultants: Ortho DISPOSITION Discharge today Vital Signs: Date Time Temp Pulse Resp B/P (MAP) Pulse Ox O2 Delivery O2 Flow Rate FiO2 06/26/17 11:48 37.0 77 16 112/68 (83) 99 Room Air 06/26/17 09:17 93 Room Air 06/26/17 08:18 Room Air 06/26/17 07:51 37.0 71 18 112/68 (83) 93 Room Air 06/26/17 03:30 36.6 86 18 101/59 (73) 96 Room Air 06/26/17 00:29 36.6 74 18 89/53 (65) 94 Room Air 06/26/17 00:10 97 Room Air 2.0 06/25/17 21:56 81 119/61 (80) 06/25/17 20:06 Room Air 06/25/17 15:04 36.5 75 18 114/57 (76) 97 Room Air Lab Results: Results Past Hours Test 06/26/17 06:33 Range/Units White Blood Count 32.91 4.8-10.8 K/uL Red Blood Count 3.23 4.2-5.4 M/uL Hemoglobin 9.7 12.0-16.0 g/dL Hematocrit 30.6 37-47 % Mean Corpuscular Volume 94.7 80-100 fL Mean Corpuscular Hemoglobin 30.0 25-34 pg Mean Corpuscular Hemoglobin Concent 31.7 32-36 g/dl Platelet Count 172 130-400 K/uL Mean Platelet Volume 9.3 7.4-10.4 fL Neutrophils (%) (Auto) 13.9 % Lymphocytes (%) (Auto) 80.4 % Monocytes (%) (Auto) 4.3 % Eosinophils (%) (Auto) 1.0 % Basophils (%) (Auto) 0.1 % Neutrophils # (Auto) 4.56 1.4-6.5 K/uL Lymphocytes # (Auto) 26.47 1.2-3.4 K/uL Monocytes # (Auto) 1.41 0.11-0.59 K/uL Eosinophils # (Auto) 0.34 0-0.5 K/uL Basophils # (Auto) 0.04 0-0.2 K/uL RDW Standard Deviation 49.8 36.4-46.3 fL RDW Coefficient of Variation 14.5 11.5-14.5 % Immature Granulocyte % (Auto) 0.3 % Immature Granulocyte # (Auto) 0.09 0.00-0.02 K/uL Smudge Cells PRESENT
--- NOTE | 2017-06-26 12:07 | Discharge Instructions ---
Discharge Instructions Date of Service Jun 26, 2017. Admission Reason for Admission: Closed Fracture Dislocation Of Rt Shoulder Discharge Discharge Diagnosis / Problem: Rt Shoulder dislocation and fracture -correcter ,CAD-stable Discharge Goals Goal(s): Prevent Disease Progression Activity Recommendations Activity Limitations: resume your previous activity . Instructions / Follow-Up Instructions / Follow-Up Dr England on 07/03/17 at 11:05 AM ( Dr Wick is away) Current Hospital Diet Patient's current hospital diet: AHA Diet (Heart Healthy) Discharge Diet Recommended Diet: AHA Diet (Heart Healthy) Procedures Procedures Performed: Closed reduction right shoulder dislocation with MAC anesthesia Pending Studies Studies pending at discharge: no Medical Emergencies . Who to Call and When: Medical Emergencies: If at any time you feel your situation is an emergency, please call 911 immediately. . Non-Emergent Contact Non-Emergency issues call your: Primary Care Provider . Past History Medical & Surgical History: (1) Closed fracture dislocation of right shoulder (2) Hypothyroidism (3) Hypertension (4) Depression (5) Bronchitis (6) Coronary artery disease (7) Chronic lymphocytic leukemia (8) History of tonsillectomy (9) H/O dilation and curettage (10) History of breast mammoplasty (11) History of cataract surgery (12) H/O hernia repair . "Provider Documentation" section prepared by Juliette Ceballos. . Manufacturing Clerk Recommendations Manufacturing Clerk Recommendations: Maintain sling at all times unless showering/getting dressed Follow PT/OT instructions taught at hospital. No range of motion of the shoulder at this time until seen back in the office for follow up Follow up with Dr Moy in 2 weeks. Call for appointment. [phone]
[2017-06-26] MEDS ORDERED: OXYC-57 PO (12:41)
--- NOTE | 2017-06-26 18:01 | Discharge Summary ---
Discharge Summary Date of Service Jun 26, 2017. Discharge Summary Admission Date: Jun 24, 2017 at 03:11 Discharge Date: Jun 26, 2017 Discharge Disposition: Home Principal Diagnosis: Rt Shoulder dislocation and fracture -corrected ,CAD-stable Secondary Diagnoses/Problems: Please see H&P and Hospital Progress note Consultations: Ortho Medication Reconciliation New Medications: Oxycodone/Acetaminophen 5MG/325MG (Percocet 5MG/325MG) Tab 1 TAB PO Q8H PRN for Pain for 7 Days, #20 TAB PAIN Continued Medications: Acetaminophen/Codeine (Tylenol W/Codeine #3) 300 Mg/30 Mg Tab 1 TAB PO BID PRN for Pain, TAB Aspirin (Aspirin) 81 Mg Tab 81 MG PO QPM Atorvastatin (Lipitor) 40 Mg Tab 40 MG PO QPM Azelastine Hcl (Astelin Nasal [place]) 200 Sprays/30 Ml [place] 1 SPRAY DERIAN BID Bimatoprost (Lumigan) 0.01 % Billie 1 DROP OPB HS, ML Calcium Carbonate-Vitamin D (Calcium 600 + D) 1 Tab Tab 1 TABS PO QPM Cholecalciferol (Vitamin D3) 1,000 Unit Tab 2 TABS PO DAILY Estrogens, Conjugated (Premarin) 14 Appln/30 Gm Cr 1 APPLN PV 2-3xweek Ferrous Sulfate (Ferrous Sulfate) 325 Mg Tab 325 MG PO BID Fluticasone Propionate (Nasal) (Flonase Allergy Relief) 50 Mcg/Act Spr 2 SPRAYS DERIAN DAILY AFTERNOON Gabapentin (Neurontin) 300 Mg Cap 300 MG PO HS, 0 Refills Lactobacillus-Inulin (Culturelle) 1 Cap Cap 1 CAP PO QPM Lamotrigine (Lamictal) 100 Mg Tab 100 MG PO BID, TAB Levalbuterol Tartrate (Levalbuterol Tartrate Hfa) 45 Mcg/Act Aer 2 PUFFS INH Q4H PRN for PRN Levothyroxine Sodium (Levothyroxine Sodium) 75 Mcg Tab 75 MG PO DAILY Lisinopril (Zestril) 10 Mg Tab 10 MG PO QPM Lorazepam (Ativan) 0.5 Mg Tab 0.25 MG PO HS Metoprolol Succinate (Toprol Xl) 25 Mg Tab 25 MG PO QPM Mometasone Furoate-Formoterol (Dulera 100/5 Mcg) 1 Aer Aer 2 PUFFS INH Q12, 2 Refills Nitroglycerin (Nitrostat) 0.4 Mg Tab 0.4 MG UT UD PRN for Chest Pain, [address] ONE TABLET UNDER THE TONGUE EVERY 5 MINUTES FOR UP TO 3 DOSES IF NEEDED FOR CHEST PAIN. Quetiapine Fumarate (Seroquel) 25 Mg Tab 25 MG PO HS Venlafaxine Hcl (Effexor Xr) 75 Mg Cap 262.5 MG PO QAM TAKE 150 MG + 75 MG + 37.5 MG FOR TOTAL OF 262.5 MG EACH MORNING Venlafaxine Hcl (Effexor Xr) 150 Mg Cap 150 MG PO DAILY TAKE 150 MG + 75 MG + 37.5 MG FOR TOTAL OF 262.5 MG EACH MORNING Venlafaxine Hcl (Effexor Xr) 37.5 Mg Cap 37.5 MG PO DAILY TAKE 150 MG + 75 MG + 37.5 MG FOR TOTAL OF 262.5 MG EACH MORNING Admission Information HPI (per Admitting provider): DATE OF ADMISSION: 06/24/2017 PRIMARY CARE DOCTOR: Dr. Wick. CHIEF COMPLAINT: Right shoulder pain, fall. HISTORY OF PRESENT ILLNESS: History obtained from the patient and records. Medical history significant for hypertension, hyperlipidemia, chronic lymphocytic leukemia, asthma, CAD, PVD as per records, hypothyroidism. Chronic anemia (baseline hemoglobin of 10 to 11) Recent confinement last February 2017 for UTI. Patient was helping out a neighbor who had a fall tonight. Running up the steps, she fell down on her right shoulder, excruciating pain. No chest pain. No shortness of breath. No syncope. No head trauma. At the Emergency Room, attempted closed reduction done under conscious sedation was unsuccessful. Medical history as above : Recent history of Lyme disease sp treatment. SURGERIES: Tonsillectomy, adenoidectomy, and breast reduction. HOME MEDICATIONS: Include aspirin, Lipitor, Astelin, Tylenol, Lumigan, calcium plus D, vitamin D3, Premarin, ferrous sulfate, Flonase, Neurontin, Culturelle, levothyroxine, Zestril, Ativan, Lamictal, albuterol, Toprol-XL, Dulera, Nitrostat, and Effexor. ALLERGIES: TO ADHESIVE, BACITRACIN, NEOMYCIN, AND POLYMYXIN. FAMILY HISTORY: Heart disease. PERSONAL AND SOCIAL HISTORY: Nonsmoker. No chronic ETOH intake. Retired nurse. REVIEW OF SYSTEMS: As per HPI, all 10 systems reviewed, all other ROS negative. PHYSICAL EXAMINATION: VITAL SIGNS: Blood pressure was noted to be 170/70, pulse rate 82, RR 18 T 37, sats 98 on room air. GENERAL: Noted to be slightly uncomfortable, anxious, no respiratory distress. SKIN: Pallor, warm. HEENT: Pale palpebral conjunctivae. No ptosis. Dry mucosa. NECK: Supple, nontender. CHEST: Poor effort. No tenderness. HEART: Regular rate and rhythm, systolic murmur. ABDOMEN: Some distention, nontender. EXTREMITIES: Sling on the right upper extremity with tenderness, ecchymosis to the right upper extremity. NEUROLOGIC: Coherent. No gross focality. LABORATORY DATA: Hemoglobin was noted to be 10.4, hematocrit 32.6, white blood cells 40, and platelets noted to be 170. Sodium noted to be 140, potassium 4.2, chloride 108, CO2 of 20, BUN 14, creatinine 1, glucose was noted to be 81. Shoulder CT initial read, anterior glenohumeral joint dislocation with humeral head and neck in subcoracoid position associated with fracture through the greater tuberosity of the humerus, greater tuberosity fragment measuring 2.2 cm remained located in the glenoid fossa, 4.2 cm of dislocated distal humerus, nondisplaced fracture through anterior glenoid rim, hemarthrosis, and soft tissue swelling. ASSESSMENT: 1. Traumatic right shoulder dislocation status post incomplete/unsuccessful reduction at the ER 2. Traumatic hemarthrosis 2 to fall injury hemoglobin stable 3. chronic lymphocytic leukemia, in remission as per records. 4. HTN urgency secondary to pain, missed PM meds 5. coronary artery disease, peripheral vascular disease as per records 6. chronic anemia, hemoglobin at baseline, 7. asthma stable 8. hx Lyme dse status post recent treatment. PLAN: [facility] analgesia Orthopedics consult RE traumatic right shoulder dislocation (ER provider already in touch with Dr. Jalloh.) Trend HH RE hemarthrosis, hold home ASA until hemoglobin stable Facilitate nighttime BP meds DVT prophylaxis, SCDs RE hemarthrosis DNR. Patient's requesting for updates from providers, Mr. Justice Wright thru contact number [phone]. Hospital Course Right shoulder dislocation with Greater Tuberosity Fracture S/P Fall CT showed right anterior dislocation of the shoulder with greater tuberosity fracture and a Bankart fracture of the glenoid Denies any chest pain, palpitation and SOB Appreciate Ortho input S/P Closed reduction right shoulder dislocation with MAC anesthesia Clinically better Getting PT -felt a little dizzy at PT today Went for PT -did well and without any symptoms Can be discharged home today Traumatic hemarthrosis Secondary to fall injury of the right shoulder Continue monitor Hemoglobin Remains stable at 9.7 today CLL WBC 40K Stable HTN BP was very high on admission Mostly situational BP stable CAD Denies any symptoms Aspirin on hold due to surgery Will continue Statin and metoprolol Chronic anemia Hemoglobin stable Asthma Stable DVT px SCDs due to surgery CODE STATUS FULL CODE Consultants: Ortho DISPOSITION Discharge today Total time spent on discharge = 35 minutes This includes examination of the patient, discharge planning, medication reconciliation, and communication with other providers. Discharge Instructions Date of Service Jun 26, 2017. Admission Reason for Admission: Closed Fracture Dislocation Of Rt Shoulder Discharge Discharge Diagnosis / Problem: Rt Shoulder dislocation and fracture -corrected ,CAD-stable Discharge Goals Goal(s): Prevent Disease Progression Activity Recommendations Activity Limitations: resume your previous activity . Instructions / Follow-Up Instructions / Follow-Up Dr England on 07/03/17 at 11:05 AM ( Dr Wick is away) Current Hospital Diet Patient's current hospital diet: AHA Diet (Heart Healthy) Discharge Diet Recommended Diet: AHA Diet (Heart Healthy) Procedures Procedures Performed: Closed reduction right shoulder dislocation with MAC anesthesia Pending Studies Studies pending at discharge: no Medical Emergencies . Who to Call and When: Medical Emergencies: If at any time you feel your situation is an emergency, please call 911 immediately. . Non-Emergent Contact Non-Emergency issues call your: Primary Care Provider . Past History Medical & Surgical History: (1) Closed fracture dislocation of right shoulder (2) Hypothyroidism (3) Hypertension (4) Depression (5) Bronchitis (6) Coronary artery disease (7) Chronic lymphocytic leukemia (8) History of tonsillectomy (9) H/O dilation and curettage (10) History of breast mammoplasty (11) History of cataract surgery (12) H/O hernia repair . "Provider Documentation" section prepared by Juliette Ceballos. . Waiter/Waitress Economy Class Recommendations Waiter/Waitress Economy Class Recommendations: Maintain sling at all times unless showering/getting dressed Follow PT/OT instructions taught at hospital. No range of motion of the shoulder at this time until seen back in the office for follow up Follow up with Dr Moy in 2 weeks. Call for appointment. [phone] <Electronically signed by Juliette Ceballos M.D.> Signed: 06/26/17 1203 Additional Copies To Walter Wick D.O.
== END 2017-06-26 14:03 | disposition home health service (06) | DRG 563 ==
LOC: EDBD 19:40 → C.EDB 19:42 → C.3E 06-24 03:11 → ENRESERV 06-24 03:30
PROVIDERS: ADMIT Internal Medicine; ATTEND Internal Medicine
PROC: 0RSJXZZ Reposition Right Shoulder Joint, External Approach (ICD-10-PCS; 2017-06-24)
PROC: 0PSCXZZ Reposition Right Humeral Head, External Approach (ICD-10-PCS; principal; 2017-06-24 08:45)
PROC: 0RSJXZZ Reposition Right Shoulder Joint, External Approach (ICD-10-PCS; principal; 2017-06-24 08:45)
DX: S43.001A Unspecified subluxation of right shoulder joint, initial encounter (principal); S42.251A Displaced fracture of greater tuberosity of right humerus, initial encounter for closed fracture; C95.10 Chronic leukemia of unspecified cell type not having achieved remission; M25.011 Hemarthrosis, right shoulder; S42.141A Displaced fracture of glenoid cavity of scapula, right shoulder, initial encounter for closed fracture; I10 Essential (primary) hypertension; E03.9 Hypothyroidism, unspecified; Z79.82 Long term (current) use of aspirin; J45.909 Unspecified asthma, uncomplicated; I25.10 Atherosclerotic heart disease of native coronary artery without angina pectoris; I73.9 Peripheral vascular disease, unspecified; D64.9 Anemia, unspecified; Y93.01 Activity, walking, marching and hiking; Y92.89 Other specified places as the place of occurrence of the external cause; W18.39XA Other fall on same level, initial encounter; Z82.49 Family history of ischemic heart disease and other diseases of the circulatory system

== ENCOUNTER 2017-07-19 05:21 | Inpatient (IN) | payer BC, OTHER ==
[2017-07-12 15:38] VITALS: BMI 26.0
--- NOTE | 2017-07-18 21:56 | HISTORY & PHYSICAL EXAMINATION ---
DATE OF ADMISSION: 07/18/2017 CHIEF COMPLAINT: Right shoulder injury. HISTORY OF PRESENT ILLNESS: This is an 86-year-old female patient of Dr. Aragon'juan complaining of right shoulder injury on 06/24/2017. The patient apparently fell on her right shoulder. She did dislocate her shoulder. She reported to the Emergency Department where it was unable to be relocated without anesthesia. She was taken to the operating room where it was reduced. She has been diagnosed with a fracture of her greater tuberosities with a displaced fracture of her humeral head as a result of the dislocation. Patient wished to proceed with a right shoulder open reduction and internal fixation of greater tuberosity versus reversed total shoulder arthroplasty. PAST MEDICAL HISTORY: Hypertension, hypercholesterolemia, asthma, anxiety, anemia, chronic lymphocytic leukemia or CLL, osteoarthritis, neck problems, back problems, hiatal hernia, stage IV kidney failure. SOCIAL HISTORY: Nonsmoker, nondrinker. PAST SURGICAL HISTORY: Tonsillectomy, breast biopsy, colonoscopy, D&C, cataract surgery, multiple times hernia repair, oral surgery, right shoulder surgery. FAMILY HISTORY: Noncontributory. REVIEW OF SYSTEMS: Patient complains of chronic right shoulder pain and instability since her injury. Otherwise, denies any shortness of breath, chest pain, nausea, vomiting or any joint complaints. MEDICATIONS: 1. Ativan 0.25 mg daily. 2. Effexor 150 mg at bedtime. 3. Lamictal 100 mg q.a.m. and 100 mg q.p.m. 4. Seroquel 25 mg at bedtime. 5. Atorvastatin 40 mg daily. 6. Lisinopril 10 mg daily. 7. Metoprolol 25 mg daily. 8. Neurontin 300 mg daily. 9. NitroQuick 0.4 mg sublingual as needed for chest pain. 10. Iron tablet b.i.d. 11. Astelin, 1 squirt each nostril b.i.d. 12. Dulera inhalation 2 puffs every 12 hours. 13. Flonase 1 squirt each nostril daily. 14. Xopenex every 4 hours as needed for chest pain. 15. Tylenol with codeine b.i.d. p.r.n. 16. Aspirin 81 mg daily. 17. Calcium 600 plus D daily. 18. Levoxyl 75 mcg daily. 19. Lumigan 0.01% eye drops 1 in each eye at bedtime. 20. Procrit 40, 000 units weekly for hemoglobin less than 12. 21. Boost strips. ALLERGIES: TOPICAL NEOSPORIN, ADHESIVE TAPE. PHYSICAL EXAMINATION: GENERAL: Well-developed, well-nourished 86-year-old female in no acute distress. She is alert and oriented x3 and pleasant. HEENT: Normocephalic, atraumatic. Extraocular muscles are intact. Pupils are equal and reactive to light. HEART: Regular rate and rhythm, no murmurs appreciated. LUNGS: Clear. ABDOMEN: Soft, bowel sounds are present. EXTREMITIES: Right shoulder range of motion and strength were deferred. Range of motion of her elbow, wrist and hand were intact. NEUROLOGICAL: Neurovascularly she is intact in her right upper extremity. DIAGNOSES: Right shoulder greater tuberosity fractures status post dislocation. She has a history of hypertension, hypercholesterolemia, asthma, anxiety, anemia, chronic lymphocytic leukemia, osteoarthritis, neck problems, hiatal hernia, stage IV kidney failure. PLAN: Patient was advised of her diagnoses. Indications, risks, benefits, postop course have all been reviewed. Patient wished to proceed with a right shoulder open reduction and internal fixation of greater tuberosity fractures versus a reversed total shoulder arthroplasty. Necessary consent forms, preoperative testing and clearances will be obtained.
[2017-07-19] VITALS (12 sets, daily range): BP systolic 89–156; BP diastolic 52–75; PULSE 70–96; TEMP 36.5–36.9; O2SAT 96–100; Ht 152.4 cm; Wt 58.5 kg
[~2017-07-19] VITALS: Ht 152.4 cm; Wt 58.5 kg
[~2017-07-19 05:21] MED LIST changes: +ASPI-461 PO; +ASTN NAE; +BIMA0.01 OPB; +CALC-20 PO; +CHOL1000 PO; -EPGI40M SC; +FERR325T5 PO; +FLUT0.15 NAE; +GABA-113 PO; -KFL500 PO; +METO-478 PO; +OXYC2.5T3 PO; +POLYSOL OPB; +PRMVC PV; +QUET1TAB7 PO; +VENL75CA PO
[2017-07-19] MEDS ORDERED: CeleBREX 200 MG CAP PO SCH (06:00)
[2017-07-19] MEDS ORDERED: CEFAZOLIN 1000MG IV PUSH 7.5 ML IV SCH (06:00)
[2017-07-19] MEDS ORDERED: LACTATED RINGER'S 1000ML 1,000 ML IV SCH (06:00)
[2017-07-19] MEDS ORDERED: METOCLOPRAMIDE HCL 10 MG TAB PO SCH (06:00)
[2017-07-19] MEDS ORDERED: DEXAMETHASONE 4 MG TAB PO SCH (06:00)
[2017-07-19] MEDS ORDERED: FAMOTIDINE 20 MG TAB PO SCH (06:00)
[2017-07-19] MEDS ORDERED: GABAPENTIN 300 MG CAP PO SCH (06:00)
[2017-07-19] MEDS ORDERED: ACETAMINOPHEN 500 MG TAB PO SCH (06:00)
[2017-07-19] MEDS ORDERED: BUPIVACAINE 0.25% 30 ML VIAL ONE (06:18)
[2017-07-19] MEDS ORDERED: EpINEphrine INJ 1MG/ML AMP 1 MG/ML AMP ONE (06:19)
[2017-07-19] MEDS ORDERED: DEXAMETHASONE SOD INJ 4 MG/ML VIAL ONE ×2 (06:19→06:45)
[2017-07-19] MEDS: TRANEXAMIC ACID INJ 1,000 MG x 2 Bags IV SCH ×4 (06:30→06:59)
[2017-07-19] MEDS ORDERED: GLYCOPYRROLATE INJ 0.2 MG/ML VIAL ONE (06:45)
[2017-07-19] MEDS ORDERED: LIDOCAINE HCL 2% 2 ML VIAL (20MG/ML) ONE (06:45)
[2017-07-19] MEDS ORDERED: NEOSTIGMINE METHYLSULFATE 5 MG/5 ML SYR ONE (06:45)
[2017-07-19] MEDS ORDERED: FENTANYL CITRATE INJ 50 MCG/1 ML 2 ML VIAL ONE (06:45)
[2017-07-19] MEDS ORDERED: ONDANSETRON INJ 2 MG/ML 2 ML VIAL ONE (06:45)
[2017-07-19] MEDS ORDERED: MIDAZOLAM HCL 1 MG/ML 2ML VIAL ONE (06:45)
[2017-07-19] MEDS ORDERED: PROPOFOL IV EMULSION 10 MG/ML 20 ML VIAL IV ONE (06:45)
[2017-07-19] MEDS ORDERED: EpINEphrine HCL INJ 1 MG/ML 1ML SYRINGE ONE ×2 (07:02→08:13)
[2017-07-19] MEDS ORDERED: BACITRACIN 50000 UNIT VIAL ONE (07:03)
--- NOTE | 2017-07-19 07:07 | History & Physical Bridge Note ---
H&P Re-Evaluation Bridge Note: I have examined the patient, reviewed the History & Physical and in the interval since the performance of the History & Physical I have noted the following changes of clinical significance:shoulder anteriorly subluxed or dislocated neurovascular intact.
[2017-07-19] MEDS ORDERED: FENTANYL CITRATE INJ 50 MCG/1 ML 2 ML VIAL IV PRN (08:00)
[2017-07-19] MEDS ORDERED: ATROPINE SULFATE 0.1 MG/ML 5ML SYR IV PRN (08:00)
[2017-07-19] MEDS ORDERED: EpHEDrine SULFATE INJ 50 MG/ML AMP IV PRN (08:00)
[2017-07-19] MEDS ORDERED: ONDANSETRON INJ 2 MG/ML 2 ML VIAL IV PRN ×2 (08:00→11:00)
[2017-07-19] MEDS ORDERED: ROCURONIUM BROMIDE 10 MG/ML 5 ML VIAL IV ONE (08:21)
[2017-07-19] MEDS ORDERED: PHENYLEPHRINE 100MCG/ML 5ML SYR ONE (08:21)
[2017-07-19] MEDS ORDERED: EpHEDrine SULFATE 50MG/5ML SYR ONE (08:21)
[2017-07-19] MEDS ORDERED: EpHEDrine SULFATE INJ 50 MG/ML AMP ONE (09:16)
[2017-07-19] MEDS ORDERED: PHENYLEPHRINE HCL INJ 10 MG/ML VIAL ONE (09:16)
--- NOTE | 2017-07-19 10:32 | [facility] Post Operative Brief Note ---
Immediate Operative Summary Operative Date Jul 19, 2017. Pre-Operative Diagnosis Right Shoulder Anterior Fracture Dislocation with Displaced Greater Tuberosity Fracture, Recurrent Anterior Instability Post-Operative Diagnosis Right Shoulder Anterior Fracture Dislocation with Displaced Greater Tuberosity Fracture, Recurrent Anterior Instability,biceps tendinopathy Procedure(s) Performed Right [employer] Total Shoulder Arthroplasty, Repair of Greater Tuberosity Fracture Right Shoulder, Right Shoulder Biceps Tendonesis Surgeon Dr. Conrado Aragon Administrative Dietitian Surgeon(s) Deon Stark PA-C Estimated Blood Loss 150mL Findings Consistent with Post-Op Diagnosis Specimens Permanent Solution: A.) Right Humeral Head Drains 2 hemovac Anesthesia Type General Regional Complication(s) none Disposition Disposition: Recovery Room / PACU
[2017-07-19] MEDS ORDERED: NITROGLYCERIN 0.4 MG SL PER TAB CHARGE UT PRN (11:00)
[2017-07-19] MEDS ORDERED: BISACODYL 10 MG SUPP PR PRN (11:00)
[2017-07-19] MEDS ORDERED: ZOLPIDEM TARTRATE 5 MG TAB PO PRN (11:00)
[2017-07-19] MEDS ORDERED: NALOXONE HCL 0.4 MG/1 ML VIAL/CARP IV PRN (11:00)
[2017-07-19] MEDS ORDERED: SOD PHOSPHATE/SOD BIPHOSPHATE ENEMA 132 ML BTL PR PRN (11:00)
[2017-07-19] MEDS ORDERED: LEValbuterol HFA 15GM INHALER INH PRN (11:00)
[2017-07-19] MEDS ORDERED: MAGNESIUM HYDROXIDE SUSP 30 ML UDC PO PRN (11:00)
[2017-07-19] MEDS ORDERED: METOCLOPRAMIDE HCL INJ 5 MG/ML 2 ML VIAL IV PRN (11:00)
[2017-07-19] MEDS ORDERED: FLUTICASONE PROPIONATE NA SPR 16 GM BTL NAE PRN (11:00)
--- NOTE | 2017-07-19 11:24 | DIAGNOSTIC IMAGING REPORT ---
R SHOULDER MIN 2 VIEWS ROUTINE CLINICAL HISTORY: Post shoulder surgery COMPARISON: Right shoulder radiograph June 23, 2017. FINDINGS: Alignment of the reverse total right shoulder arthroplasty is anatomic. There is no fracture or unexpected radiopaque body. Drains and skin lb are present. IMPRESSION: Expected findings following right shoulder arthroplasty. Electronically signed by: Chandu Wilkinson M.D. 07/19/2017 11:22 AM Dictated Date/Time: 07/19/2017 11:21 AM
--- NOTE | 2017-07-19 11:34 | Anesthesiology Progress Note ---
Anesthesia Post Op Note Date & Time Jul 19, 2017 at 11:34 Vital Signs Pain Intensity: 0 Vital Signs Past 12 Hours Date Time Temp Pulse Resp B/P (MAP) Pulse Ox O2 Delivery O2 Flow Rate FiO2 07/19/17 11:30 36.5 78 20 122/54 99 Nasal Cannula 2 07/19/17 11:20 74 20 133/59 100 Oxymask 10 07/19/17 11:10 77 21 130/50 100 Oxymask 10 07/19/17 11:00 79 23 132/46 100 Oxymask 10 07/19/17 10:52 36.6 69 12 127/78 100 Oxymask 10 07/19/17 06:06 36.9 70 18 156/66 96 Room Air Notes Mental Status: alert / awake / arousable, participated in evaluation Pt Amnestic to Procedure: Yes Nausea / Vomiting: adequately controlled Pain: adequately controlled Airway Patency, RR, SpO2: stable & adequate BP & HR: stable & adequate Hydration State: stable & adequate Anesthetic Complications: no major complications apparent
[2017-07-19] MEDS: D5W AND 1/2NSS + 20MEQ KCL 1,000 ML IV SCH ×2 (13:26→22:23)
[2017-07-19] MEDS: ACETAMINOPHEN 500 MG TAB PO SCH ×2 (13:27→22:23)
--- NOTE | 2017-07-19 15:57 | OPERATIVE REPORT ---
DATE OF OPERATION: 07/19/2017 INDICATION FOR PROCEDURE: Patient is an 86-year-old female who suffered a traumatic anterior dislocation with fracture of greater tuberosity with large greater tuberosity fracture fragment. She had closed reduction by Dr. Moy. In followup 2-3 weeks later, she was noted to have displacement of the greater tuberosity fracture posteriorly, anterior/superior subluxation of the humerus, and clinically has some anterior superior instability. She has some minor osteoarthritic changes in the glenohumeral joint only. PREOPERATIVE DIAGNOSES: Right shoulder recurrent anterior instability, status post anterior fracture dislocation of the right shoulder with displaced greater tuberosity fracture. Possible rotator cuff tear involving subscapularis with recurrent instability. POSTOPERATIVE DIAGNOSES: Subscapularis tendon tear, nonrepairable, biceps tendinopathy, displaced greater tuberosity fracture, recurrent anterior instability with anterior superior escape right shoulder. PROCEDURES: Right shoulder reversed total shoulder arthroplasty, repair, greater tuberosity fracture, and biceps tenodesis. SURGEON: Dr. Aragon. PHARMACY RESOURCE TECH: Deon Stark PA-C. ANESTHESIA: Regional block and general. OPERATIVE PROCEDURE: Patient was taken to the operating room, anesthetized under regional block and general anesthetic. She was positioned on the operating table in a 40 degree beachchair position. A towel was placed in the medial border of scapula. She was transferred to the right side of the bed so that she could be manipulated off the bed as necessary. Her head was placed on foam headrest. She had protective eyewear. She had TEDs, SCDs, and a Davila catheter. Right shoulder was examined and demonstrated that she had anterior superior instability with subluxed or anterior dislocated shoulder and ecchymosis of the arm. Her right upper extremity was prepped and draped with ChloraPrep. Anterior deltopectoral incision was made. Skin was incised sharply. Subcutaneous flaps were elevated. The cephalic vein was dissected out laterally and retracted with the deltoid. The upper centimeter pectoralis was released for inferior exposure. There was marked biceps tendinopathy noted. The biceps tendon sheath was resected and biceps tenodesed to the pectoralis tendon and the proximal biceps resected. The subscapularis tendon was torn, and the greater tuberosity fracture was displaced way posterior behind the head. The greater tuberosity fracture had teres minor, infraspinatus, and some of the supraspinatus attached to it as it was a very large fragment. The subscapularis looked very tendinopathic and had retracted significantly medially and nonrepairable to this age. At this time, the circumflex vessels were tied off with silk ties and cauterized laterally. The inferior fibers of subscapularis muscle were split with Metzenbaum scissors down to the capsule. Kitner elevator was used to reflect the fibers of the subscapularis of the inferior capsule. We placed the blunt Hohmann retractor to protect the axillary nerve. Then, I did subperiosteal capsule release starting in the bicipital groove releasing any remaining capsule off the lesser tuberosity and some inferior remnants of subscapularis tendon as we gradually externally rotated the arm. We stayed with electrocautery on bone and then used the Mackey elevator to free up some of the inferior capsule off the neck for exposure. The humeral head demonstrated there was a large defect with the entire greater tuberosity being fractured off and displaced posteriorly. At this time, I made a provisional cut. I was considering the fracture stem, so I made the 155 degree cut, made it in appropriate retroversion, and then, I went ahead and placed retractors to expose the glenoid. Glenoid still had labrum and articular cartilage, and this was resected. I did release some of the upper rotator interval tissue and resect a small portion of the supraspinatus to get exposure of the glenoid. I did an anterior inferior/posterior inferior capsule release to fully visualize the glenoid. At this time, the bone was noted to be very hard in her proximal humerus, and the tension on the humerus demonstrated that a fracture stem would be too proud and tight, so I chose to go to an Ascend Flex PTC type stem which could make a steeper neck cut, and we could drop this and lower to resect more humeral bone and get better soft tissue tension and allow the prosthetic to be reduced. At this point, I placed some traction sutures around the greater tuberosity fragment and then placed the cutting guide for the Ascend Flex stem. A cut was made in 30 degrees retroversion because of the anterior instability. This revised the neck angle cut and removed some more bone so that we would have enough bone resection to allow reduction of the implant. At this time, the humeral shaft was prepared using a sounding awl followed by sequential broaches, and we chose size 3B long stem. Actually had very good press fit with the trial, so I felt we could press fit this instead of cement. A cup protector was placed, then humerus was retracted posterior to the glenoid, and then, I used the 25 mm baseplate because she had very petite sized arm and glenoid. The drill hole for the glenoid baseplate was placed to position the glenoid implant at the inferior aspect of the glenoid to help prevent notching, and this was placed in about 10 degrees of inferior tilt. After the drill hole was made, we used the reamer. It was noted that she had very hard solid bone for her age. I placed anterior/posterior compression screws 4.5 x 18 mm and superior and inferior locking screws 4.5 x 35 and 4.5 x 29 respectively. There was excellent fixation of the baseplate. A fan reamer was used. All bone debris was irrigated out with antibiotic solution with bacitracin, then the glenoid sphere 36/25 standard Aqualis sphere was impacted on to the baseplate. The screw was tightened, and the device as for stability was stable. Then attention was taken back to the humerus, and the low offset (1.5 mm offset) +0 humeral tray was used. This was dialed to get appropriate coverage and screwed tightly on to the trial and then we did a trial reduction with +6 insert. We were able to reduce this. It was tight, but there was no shuck and good stability, and I did not want to sacrifice any more bone, so we accepted the sizes based on the trials. At this time, the trials were removed, and the greater tuberosity was re-exposed, and two #5 FiberWire sutures were placed around the greater tuberosity. One #5 FiberWire suture was placed transosseously into the hard cortex just anterior to the bicipital groove and out through the defect in the greater tuberosity area, and the suture was then passed through the mid portion of the greater tuberosity fracture fragment pushing the needle through the bone. I placed 1 more suture in the anterior neck area to repair some of the capsule back at the end of the procedure. After all these, #5 FiberWire sutures were placed. The canal was copiously irrigated with antibiotic solution and bacitracin, then the final component was assembled, which was the 3b long stem Ascend Flex press fit stem assembled to the +0 low offset humeral tray, and then the humeral insert 36+6 was inserted. Then this implant was impacted into the humerus with a good press fit, and we checked stability, it was stable, so no cement was required. Then 2 of the sutures around the greater tuberosity were passed around the neck of the implant. The implant was reduced to the glenoid sphere. Then, the greater tuberosity was reduced anatomically with the traction sutures and then 2 sutures that went around the neck were tied pairing the greater tuberosity to the proximal humerus and the third suture that was placed through the bone of the proximal humerus was tied, with this suture going through the bone of the greater tuberosity getting anatomic suturing of the greater tuberosity to the proximal humerus. I checked the range of motion, and the repair was secure, then the last suture was placed with Kaveh-Juan Jose suture in some of the superior subscap and capsule that was still able to be brought to the neck, and we used this as a small sling to help with prevention of any recurrent instability. The wound was copiously irrigated. The pectoralis was repaired with [id number] #2 FiberWire suture, then we took the arm through range of motion, and with about 110-120 degrees forward elevation, 90 degrees of abduction, and 60-70 degrees of external rotation, there was no tension on any of the repair, and the shoulder was completely stable. The wound was copiously irrigated. Two drains were brought out laterally and placed deep to deltopectoral interval. Deltopectoral interval was then closed with interrupted [id number] #0 Vicryl sutures. The subcutaneous tissues were closed with 2-0 Vicryl. Skin was closed with lb. Sterile dressings were applied, and the patient was placed into a sling immobilizer. LAINE Harp was my fleet assistant who participated through the entire procedure. He assisted in patient positioning, prepping, draping, arm positioning, soft tissue retraction, instrument management, and performed the subcutaneous and skin closure and will participate in postoperative care of patient. I attest to the content of the Intraoperative Record and any orders documented therein. Any exception s are noted below.
[2017-07-19] MEDS: CEFAZOLIN IV 1,000 MG in SYRINGE 0 ML IV SCH (16:39)
--- NOTE | 2017-07-19 17:49 | Medical Consult ---
Consultation Date of Consultation: Jul 19, 2017. Attending Physician: Conrado Aragon M.D. Reason for Consultation: Postop medical management History of Present Illness 86-year-old female who is status post right TSH today by Dr. Aragon. Patient suffered a fall about 1 month ago and fractured her right shoulder. She presented for the planned procedure today. Postoperatively the patient is doing well. She reports her right upper extremity is still numb from the procedure. She reports her pain is well controlled. She denies chest pain, shortness of breath, palpitations. No lightheadedness or dizziness. She denies abdominal pain and nausea. She has not voided since surgery. Past Medical/Surgical History Medical Problems: (1) Asthma Status: Chronic (2) CAD (coronary artery disease) Permanent Comment: Chronic RCA occlusion Status: Chronic (3) Chronic anemia Status: Chronic (4) CKD (chronic kidney disease), stage III Status: Chronic (5) CLL (chronic lymphocytic leukemia) Status: Chronic (6) Depression Status: Chronic (7) Dyslipidemia Status: Chronic (8) GERD (gastroesophageal reflux disease) Status: Chronic (9) Hypertension Status: Chronic (10) Hypothyroidism Status: Chronic (11) Osteoarthritis Status: Chronic Surgical Problems: (1) H/O dilation and curettage Status: Resolved (2) H/O hernia repair Status: Resolved (3) History of breast mammoplasty Status: Resolved (4) History of cataract surgery Status: Resolved (5) History of tonsillectomy Status: Resolved Family History Noncontributory secondary to patient's advanced age Social History Smoking Status: Never Smoker Alcohol Use: occasionally Allergies Coded Allergies: Adhesives (Verified Allergy, Intermediate, if on for a while-red blisters , 07/19/17) Bacitracin (Verified Allergy, Mild, ALLERGY-IRRITATION, 07/19/17) Neomycin (Verified Allergy, Mild, ALLERGY, 07/19/17) Polymyxin B (Verified Allergy, Mild, ALLERGY, 07/19/17) Home Medications Percocet 2.5MG/325MG (Oxycodone/Acetaminophen) Tab 1 Tab PO Q8H PRN PAIN Refresh (Polyvinyl Alcohol-Povidone (Op) 1 Omer Omer 1 Drop OPB PRN Levalbuterol Tartrate Hfa (Levalbuterol Tartrate) 45 Mcg/Act Aer 1 Puff INH Q4H PRN Premarin (Estrogens, Conjugated) 14 Appln/30 Gm Cr 1 Appln PV 2-3XWEEK Tylenol W/Codeine #3 (Acetaminophen/Codeine Phosphate) 300 Mg/30 Mg Tab 1 Tab PO BID PRN Effexor Xr (Venlafaxine Hcl) 37.5 Mg Cap 37.5 Mg PO QAM TAKE 150 MG + 75 MG + 37.5 MG FOR TOTAL OF 262.5 MG EACH MORNING Levothyroxine Sodium 75 Mcg Tab 75 Mcg PO QAM Effexor Xr (Venlafaxine Hcl) 150 Mg Cap 150 Mg PO QAM TAKE 150 MG + 75 MG + 37.5 MG FOR TOTAL OF 262.5 MG EACH MORNING Lamictal (Lamotrigine) 100 Mg Tab 100 Mg PO BID Culturelle (Lactobacillus-Inulin) 1 Cap Cap 1 Cap PO QAM Dulera 100/5 Mcg (Mometasone Furoate-Formoterol) 1 Aer Aer 2 Puffs INH Q12 Effexor Xr (Venlafaxine Hcl) 75 Mg Cap 262.5 Mg PO QAM TAKE 150 MG + 75 MG + 37.5 MG FOR TOTAL OF 262.5 MG EACH MORNING Lumigan (Bimatoprost) 0.01 % Billie 1 Drop OPB HS Seroquel (Quetiapine Fumarate) 25 Mg Tab 25 Mg PO HS Ferrous Sulfate 325 Mg Tab 325 Mg PO BID Toprol Xl (Metoprolol Succinate) 25 Mg Tab 25 Mg PO HS Flonase Allergy Relief (Fluticasone Propionate (Nasal)) 50 Mcg/Act Spr 2 Sprays DERIAN PM PRN Vitamin D3 (Cholecalciferol) 1,000 Unit Tab 2 Tabs PO QAM Aspirin 81 Mg Tab 81 Mg PO HS PT WILL CHECK WITH SURGEON Calcium 600 + D (Calcium Carbonate-Vitamin D) 1 Tab Tab 1 Tabs PO QAM Astelin Nasal Isabella (Azelastine Hcl) 200 Sprays/30 Ml Isabella 1 Isabella DERIAN BID Ativan (Lorazepam) 0.5 Mg Tab 0.25 Mg PO HS Lipitor (Atorvastatin) 40 Mg Tab 40 Mg PO QPM Zestril (Lisinopril) 10 Mg Tab 10 Mg PO HS Nitrostat (Nitroglycerin) 0.4 Mg Tab 0.4 Mg UT UD PRN PLACE ONE TABLET UNDER THE TONGUE EVERY 5 MINUTES FOR UP TO 3 DOSES IF NEEDED FOR CHEST PAIN. Neurontin (Gabapentin) 300 Mg Cap 300 Mg PO HS Current Inpatient Medications Current Inpatient Medications Medications (Trade) Dose Ordered Sig/Boyd Route Start Time Stop Time Status Last Admin Dose Admin Aspirin (Ecotrin Tab) 81 mg HS PO 07/19/17 21:00 08/18/17 20:59 Atorvastatin Calcium (Lipitor Tab) 40 mg QPM PO 07/19/17 21:00 08/18/17 20:59 Cholecalciferol (Vitamin D Tab) 2,000 inter.unit QAM PO 07/20/17 09:00 08/19/17 08:59 Miscellaneous Information (Order Awaiting Action) 1 ea QS N/A 07/19/17 16:00 08/18/17 15:59 Ferrous Sulfate (Feosol Tab) 325 mg BID PO 07/19/17 21:00 08/18/17 20:59 Fluticasone Propionate (Flonase Nasal Isabella) 2 sprays PM PRN DERIAN 07/19/17 11:00 08/18/17 10:59 Gabapentin (Neurontin Cap) 300 mg HS PO 07/19/17 21:00 08/18/17 20:59 Lamotrigine (Lamictal Tab) 100 mg BID PO 07/19/17 21:00 08/18/17 20:59 Levalbuterol (Xopenex Hfa Inhaler) 1 puffs Q4H PRN INH 07/19/17 11:00 08/18/17 10:59 Levothyroxine Sodium (Synthroid Tab) 75 mcg DAILYBB PO 07/20/17 06:00 08/19/17 05:59 Lorazepam (Ativan Tab) 0.25 mg HS PO 07/19/17 21:00 08/18/17 20:59 Nitroglycerin (Nitrostat Tab) 0.4 mg UD PRN UT 07/19/17 11:00 08/18/17 10:59 Quetiapine Fumarate (seroQUEL TAB) 25 mg HS PO 07/19/17 21:00 08/18/17 20:59 Venlafaxine HCl (effeXOR EXTENDED REL CAP) 37.5 mg QAM PO 07/20/17 09:00 08/19/17 08:59 Venlafaxine HCl (effeXOR EXTENDED REL CAP) 75 mg QAM PO 07/20/17 09:00 08/19/17 08:59 Venlafaxine HCl (effeXOR EXTENDED REL CAP) 150 mg QAM PO 07/20/17 09:00 08/19/17 08:59 Bimatoprost (Lumigan 0.01%) 1 drops HS OPB 07/19/17 21:00 08/18/17 20:59 Calcium/Vitamin D (Caltrate Plus Tab) 1 tab QAM PO 07/20/17 09:00 08/19/17 08:59 Lactobacillus Acidophilus (Floranex Tab) 1 tab QAM PO 07/20/17 09:00 08/19/17 08:59 Miscellaneous Information (Order Awaiting Action) 1 ea QS N/A 07/19/17 16:00 08/18/17 15:59 Diphenhydramine HCl (Benadryl Cap) 25 mg Q8 PRN PO 07/19/17 11:00 08/18/17 10:59 Zolpidem Tartrate (Ambien Tab) 5 mg HSZ PRN PO 07/19/17 11:00 08/18/17 10:59 Metoclopramide HCl (Reglan Inj) 10 mg Q6H PRN IV 07/19/17 11:00 08/18/17 10:59 Ondansetron HCl (Zofran Inj) 4 mg Q6H PRN IV 07/19/17 11:00 08/18/17 10:59 Pantoprazole Sodium (Protonix Tab) 40 mg QAM PO 07/20/17 09:00 07/23/17 09:01 Potassium Chloride/Dextrose/ Sod Cl 1,000 ml @ 100 mls/hr Q10H IV 07/19/17 12:30 07/20/17 11:00 07/19/17 13:26 100 MLS/HR Oxycodone HCl (Roxicodone Immediate Rel Tab) `1-2 TABS FOR PAIN `1 TAB... Q4H PRN PO 07/19/17 11:00 08/02/17 10:59 Acetaminophen (Tylenol Tab) 1,000 mg Q8 PO 07/19/17 14:00 08/18/17 13:59 07/19/17 13:27 1,000 MG Morphine Sulfate (MoRPHine SULFATE INJ) 2 mg Q2H PRN IV 07/19/17 11:00 08/02/17 10:59 Naloxone HCl (Narcan Inj) 0.1 mg Q2M PRN IV 07/19/17 11:00 08/18/17 10:59 Magnesium Hydroxide (Milk Of Magnesia Susp) 30 ml Q6H PRN PO 07/19/17 11:00 08/18/17 10:59 Bisacodyl (Dulcolax Supp) 10 mg DAILY PRN IN 07/19/17 11:00 08/18/17 10:59 Sodium Biphosphate/ Sodium Phosphate (Fleet Enema) 132 ml DAILY PRN IN 07/19/17 11:00 08/18/17 10:59 Docusate Sodium (coLACE CAP) 100 mg BID PO 07/19/17 21:00 08/18/17 20:59 Multivitamins (Multivitamin Tab) 1 tab DAILY PO 07/20/17 09:00 08/19/17 08:59 Cefazolin Sodium 1000 mg/Syringe 7.5 ml @ 2.5 mls/min Q8H IV 07/19/17 16:00 07/20/17 00:02 07/19/17 16:39 2.5 MLS/MIN Metoprolol Succinate (Toprol Xl Tab) 25 mg DAILY PO 07/20/17 09:00 08/18/17 20:59 Mometasone Furoate/ Formoterol Fumar (Dulera 100-5 Mcg/Act) 2 puffs BID INH 07/19/17 21:00 08/18/17 20:59 Azelastine HCl (Astelin Nasal Isabella) 1 sprays BID NA 07/19/17 21:00 08/18/17 20:59 Review of Systems ROS per HPI, all other systems reviewed and negative Physical Exam Date Time Temp Pulse Resp B/P (MAP) Pulse Ox O2 Delivery O2 Flow Rate FiO2 07/19/17 14:53 36.6 88 16 111/58 (75) 98 Nasal Cannula 2.0 07/19/17 13:48 86 20 107/60 (76) 99 Nasal Cannula 2.0 07/19/17 12:45 79 17 106/52 (70) 100 Nasal Cannula 2.0 07/19/17 12:20 36.5 80 16 103/55 (71) 100 Nasal Cannula 2.0 07/19/17 12:18 Nasal Cannula 2.0 07/19/17 12:15 36.8 84 16 109/61 (77) 100 Nasal Cannula 2.0 07/19/17 12:13 100 Nasal Cannula 2.0 07/19/17 11:40 81 19 124/54 99 Nasal Cannula 2 07/19/17 11:30 36.5 78 20 122/54 99 Nasal Cannula 2 07/19/17 11:20 74 20 133/59 100 Oxymask 10 07/19/17 11:10 77 21 130/50 100 Oxymask 10 07/19/17 11:00 79 23 132/46 100 Oxymask 10 07/19/17 10:52 36.6 69 12 127/78 100 Oxymask 10 07/19/17 06:06 36.9 70 18 156/66 96 Room Air General Appearance: WD/WN, no apparent distress Head: normocephalic, atraumatic Eyes: normal inspection, EOMI, sclerae normal ENT: hearing grossly normal, + pertinent finding (Mucous membranes dry) Neck: supple, no JVD, no carotid bruits Respiratory/Chest: lungs clear, normal breath sounds, no respiratory distress Cardiovascular: regular rate, rhythm, no edema, normal peripheral pulses, + systolic murmur (II/) Abdomen/GI: normal bowel sounds, non tender, soft, no organomegaly Extremities/Musculoskelatal: + pertinent finding (S/P right shoulder surgery, surgical dressing dry and intact, right upper extremity in sling, drain in place draining bloody drainage, circulation intact however sensory and movement still impaired from surgery) Neurologic/Psych: no motor/sensory deficits, alert, normal mood/affect, oriented x 3 Assessment & Plan S/P RIGHT TSA - POD#0 - activity and wound care orders as per ortho - pain control with bowel regimen - PT/OT - monitor H/H for acute blood loss anemia and transfuse blood products PRN - EBL 150 cc HISTORY OF CAD -Stable, no reports chest pain -Continue aspirin, statin, beta-rabia HYPERTENSION -Blood pressures well controlled, will continue metoprolol -Will hold lisinopril for now until morning labs result DEPRESSION -Continue Effexor, Lamictal, and Seroquel HISTORY OF CLL -Stable, follows with [facility] oncology -Currently on observation -Baseline WBC around 40 K CKD STAGE III -Baseline creatinine runs in the low ones -Monitor kidney functions, avoid nephrotoxic agents when able CHRONIC ANEMIA -Baseline hemoglobin around 11.0 -Monitor H&H -Receives Procrit as needed ASTHMA -No signs of acute exacerbation -Continue home inhalers DVT PROPHYLAXIS -SCDs and teds as per orthopedics Thank you for this consultation. We will follow the patient with you during their hospital stay. You can reach a member of the [facility] via pager @ . ADDENDUM: I have seen and examined the patient and agree with the assessment and plan as above. Ms. Wright denies any post-operative pain or nausea. She states that she is doing well overall aside from some numbness/weakness in her L hand which is improving. Otherwise physical is WNL. Poncho, DO
[2017-07-19] MEDS: AZELASTINE HCL 0.1% SCH (20:46)
[2017-07-19] MEDS: MOMETASONE INH SCH (20:48)
[2017-07-19] MEDS: FORMOTEROL INH SCH (20:48)
[2017-07-19] MEDS: BIMATOPROST 0.01% OP SOLN 2.5 ML BTL OPB SCH (20:52)
[2017-07-19] MEDS: ASPIRIN 81 MG ECTAB PO SCH (20:54)
[2017-07-19] MEDS: DOCUSATE SODIUM 100 MG CAP PO SCH (20:54)
[2017-07-19] MEDS: FERROUS SULFATE 325 MG TAB PO SCH (20:55)
[2017-07-19] MEDS: GABAPENTIN 300 MG CAP PO SCH (20:56)
[2017-07-19] MEDS: ATORVASTATIN 40 MG TAB PO SCH (20:56)
[2017-07-19] MEDS ORDERED: LISINOPRIL 10 MG TAB PO SCH (21:00)
[2017-07-19] MEDS ORDERED: QUETIAPINE FUMARATE 25 MG TAB PO SCH (21:00)
[2017-07-19] MEDS ORDERED: METOPROLOL SUCC 25MG EXT REL TAB PO SCH (21:00)
[2017-07-19] MEDS ORDERED: LORAZEPAM 0.5 MG TAB PO SCH (21:00)
[2017-07-19] MEDS ORDERED: NURSING VERBAL MED ORDER ONE (21:15)
[2017-07-20] MEDS: CEFAZOLIN IV 1,000 MG in SYRINGE 0 ML IV SCH (00:02)
[2017-07-20] MEDS: QUETIAPINE FUMARATE 25 MG TAB PO SCH ×2 (00:02→22:26)
[2017-07-20] MEDS: LORAZEPAM 0.5 MG TAB PO SCH ×2 (00:02→22:26)
[2017-07-20 03:45] VITALS: BP 103/59; PULSE 87; TEMP 36.5; O2SAT 96
[2017-07-20] MEDS: OXYCODONE HCL IR 5 MG TAB (IMMEDIATE RELEASE) PO PRN ×2 (05:15→16:31)
[2017-07-20] MEDS: LEVOTHYROXINE 75 MCG TAB PO SCH (05:52)
[2017-07-20] MEDS: ACETAMINOPHEN 500 MG TAB PO SCH ×3 (05:52→21:29)
[2017-07-20 06:41] LABS: HEMATOCRIT 30.3 % (37-47); HEMOGLOBIN 9.4 g/dL (12.0-16.0); MEAN CELL VOLUME 97.4 fL (80-100); MEAN CORPUSCULAR HEMOGLOBIN 30.2 pg (25-34); MEAN PLATELET VOLUME 9.1 fL (7.4-10.4); PLATELET COUNT 175 K/uL (130-400); RED CELL DISTRIBUTION WIDTH CV 15.3 % (11.5-14.5); RED CELL DISTRIBUTION WIDTH SD 53.9 fL (36.4-46.3); WHITE BLOOD COUNT 34.58 K/uL (4.8-10.8)
[2017-07-20 06:54] LABS: CALCIUM 8.2 mg/dl (8.5-10.1); CREATININE 1.1 mg/dl (0.60-1.20); POTASSIUM 4.8 mmol/L (3.5-5.1)
[2017-07-20] MEDS: MoRPHine SULFATE 2 MG/ML CARP IV PRN ×5 (07:27→21:26)
--- NOTE | 2017-07-20 07:44 | Orthopedic Progress Note ---
Orthopedic Progress Note Date of Service Jul 20, 2017. Subjective Post OP Day: 1 Reports: feeling well, pain controlled w PO medications, Denies: complaints, chest pain, SOB, nausea / vomiting, light headedness, calf pain Objective N/V intact, capillary refill less than 2 sec., dressing C/D/I, A&O x3 Date Time Temp Pulse Resp B/P (MAP) Pulse Ox O2 Delivery O2 Flow Rate FiO2 07/20/17 03:45 36.5 87 18 103/59 (74) 96 Room Air 07/19/17 23:50 97 Room Air 2.0 07/19/17 23:04 36.7 93 17 113/54 (73) 97 Room Air 07/19/17 20:00 91 117/75 (89) 07/19/17 19:48 89/52 (64) 07/19/17 19:23 36.8 96 16 93/56 (68) 96 Nasal Cannula 2.0 07/19/17 16:30 98 Nasal Cannula 2.0 07/19/17 14:53 36.6 88 16 111/58 (75) 98 Nasal Cannula 2.0 07/19/17 13:48 86 20 107/60 (76) 99 Nasal Cannula 2.0 07/19/17 12:45 79 17 106/52 (70) 100 Nasal Cannula 2.0 07/19/17 12:20 36.5 80 16 103/55 (71) 100 Nasal Cannula 2.0 07/19/17 12:18 Nasal Cannula 2.0 07/19/17 12:15 36.8 84 16 109/61 (77) 100 Nasal Cannula 2.0 07/19/17 12:13 100 Nasal Cannula 2.0 07/19/17 11:40 81 19 124/54 99 Nasal Cannula 2 07/19/17 11:30 36.5 78 20 122/54 99 Nasal Cannula 2 07/19/17 11:20 74 20 133/59 100 Oxymask 10 07/19/17 11:10 77 21 130/50 100 Oxymask 10 07/19/17 11:00 79 23 132/46 100 Oxymask 10 07/19/17 10:52 36.6 69 12 127/78 100 Oxymask 10 Laboratory Results 24 Hours: Test 07/20/17 05:55 Hematocrit 30.3 % Hemoglobin 9.4 g/dL Assessment & Plan Assessment: POD #1 s/p Right shoulder reversed total shoulder arthroplasty, repair, greater tuberosity fracture, and biceps tenodesis. pt/ot pain control unsure if she wants to do OPPT or HHPT, will discuss w her family plan to keep her today for better pain control
[2017-07-20 07:50] VITALS: BP 135/65; PULSE 82; TEMP 36.8; O2SAT 95
[2017-07-20] MEDS: D5W AND 1/2NSS + 20MEQ KCL 1,000 ML IV SCH (08:53)
[2017-07-20] MEDS: MOMETASONE INH SCH ×2 (08:55→21:22)
[2017-07-20] MEDS: FORMOTEROL INH SCH ×2 (08:55→21:22)
[2017-07-20] MEDS: VENLAFAXINE HCL XR 75 MG CAPXR PO SCH (08:56)
[2017-07-20] MEDS: LACTOBACILLUS ACIDOPHILUS (FLORANEX) TAB PO SCH (08:56)
[2017-07-20] MEDS: AZELASTINE HCL 0.1% SCH ×2 (08:56→21:22)
[2017-07-20] MEDS: VENLAFAXINE HCL XR 150 MG CAPXR PO SCH (08:56)
[2017-07-20] MEDS: PANTOprazole SOD 40 MG TAB PO SCH (08:56)
[2017-07-20] MEDS: VENLAFAXINE HCL XR 37.5 MG CAPXR PO SCH (08:57)
[2017-07-20] MEDS: METOPROLOL SUCC 25MG EXT REL TAB PO SCH (08:57)
[2017-07-20] MEDS: FERROUS SULFATE 325 MG TAB PO SCH ×2 (08:57→21:24)
[2017-07-20] MEDS: MULTIVITAMIN TAB PO SCH (08:57)
[2017-07-20] MEDS: DOCUSATE SODIUM 100 MG CAP PO SCH ×2 (08:57→21:24)
[2017-07-20] MEDS: CALCIUM 600MG + VIT D 400 IU TAB PO SCH (08:57)
[2017-07-20] MEDS: CHOLECALCIFEROL 1000 INTER.UNIT TAB PO SCH (08:58)
[2017-07-20 11:30] VITALS: BP 107/66; PULSE 78; TEMP 36.9; O2SAT 96
[2017-07-20] MEDS ORDERED: NURSING VERBAL MED ORDER ONE ×2 (13:45→14:30)
[2017-07-20] MEDS ORDERED: OXYCODONE HCL 10 MG TABCR (OXYCONTIN) PO ONE (14:47)
[2017-07-20] MEDS ORDERED: OXYCODONE HCL 10 MG TABCR (OXYCONTIN) PO SCH (15:00)
[2017-07-20 15:18] VITALS: BP 106/65; PULSE 77; TEMP 36.7; O2SAT 95
--- NOTE | 2017-07-20 16:21 | Progress Note ---
Internal Med Progress Note Date of Service: Jul 20, 2017. Provider Documentation: SUBJECTIVE: complains of lot of pain at surgery site afebrile eating ok no sob or chest pain no nausea likes pain to be better before discharge OBJECTIVE: Vital Signs-as noted below Exam: General-alert and oriented. Not in distress ENT-normal hearing. Neck-No neck masses Lungs-CTA b/l no wheezing or crackles Heart-S1 and S2 heard regular rhythm no murmurs Abdomen-soft Bowels sounds present no tenderness present no distension Extremities-right shoulder in sling s/p rt shoulder surgery-dressing intact Neuro-alert and oriented moves extremities Lab data as noted below. ASSESSMENT & PLAN: S/P RIGHT TSA POD#1 management as per ortho HISTORY OF CAD stable On aspirin, statin, beta-rabia HYPERTENSION on metoprolol lisinopril on hold for now. will monitor DEPRESSION on Effexor, Lamictal, and Seroquel HISTORY OF CLL Stable, follows with [facility] oncology Baseline WBC around 40 K CKD STAGE III Baseline creatinine runs in the low ones will f/.u labs CHRONIC ANEMIA Baseline hemoglobin around 11.0 Receives Procrit as needed will f/u labs ASTHMA stable on home inhalers DVT PROPHYLAXIS SCDs and teds as per orthopedics DISPOSITION as per ortho Vital Signs: Date Time Temp Pulse Resp B/P (MAP) Pulse Ox O2 Delivery O2 Flow Rate FiO2 07/20/17 15:18 36.7 77 16 106/65 (79) 95 Room Air 07/20/17 11:30 36.9 78 16 107/66 (80) 96 Room Air 07/20/17 07:50 36.8 82 16 135/65 (88) 95 Room Air 07/20/17 07:20 Room Air 07/20/17 03:45 36.5 87 18 103/59 (74) 96 Room Air 07/19/17 23:50 97 Room Air 2.0 07/19/17 23:04 36.7 93 17 113/54 (73) 97 Room Air 07/19/17 20:00 91 117/75 (89) 07/19/17 19:48 89/52 (64) 07/19/17 19:23 36.8 96 16 93/56 (68) 96 Nasal Cannula 2.0 07/19/17 16:30 98 Nasal Cannula 2.0 Lab Results: Results Past 24 Hours Test 07/20/17 05:55 Range/Units White Blood Count 34.58 4.8-10.8 K/uL Red Blood Count 3.11 4.2-5.4 M/uL Hemoglobin 9.4 12.0-16.0 g/dL Hematocrit 30.3 37-47 % Mean Corpuscular Volume 97.4 80-100 fL Mean Corpuscular Hemoglobin 30.2 25-34 pg Mean Corpuscular Hemoglobin Concent 31.0 32-36 g/dl RDW Standard Deviation 53.9 36.4-46.3 fL RDW Coefficient of Variation 15.3 11.5-14.5 % Platelet Count 175 130-400 K/uL Mean Platelet Volume 9.1 7.4-10.4 fL Sodium Level 137 136-145 mmol/L Potassium Level 4.8 3.5-5.1 mmol/L Chloride Level 108 98-107 mmol/L Carbon Dioxide Level 24 21-32 mmol/L Anion Gap 5.0 3-11 mmol/L Blood Urea Nitrogen 18 7-18 mg/dl Creatinine 1.10 0.60-1.20 mg/dl Est Creatinine Clear Calc Drug Dose 29.4 ml/min Estimated GFR () 52.6 Estimated GFR (Non- 45.4 BUN/Creatinine Ratio 16.2 10-20 Random Glucose 130 70-99 mg/dl Calcium Level 8.2 8.5-10.1 mg/dl
[2017-07-20] MEDS: BIMATOPROST 0.01% OP SOLN 2.5 ML BTL OPB SCH (21:22)
[2017-07-20] MEDS: GABAPENTIN 300 MG CAP PO SCH (21:24)
[2017-07-20] MEDS: ASPIRIN 81 MG ECTAB PO SCH (21:25)
[2017-07-20] MEDS: ATORVASTATIN 40 MG TAB PO SCH (21:25)
[2017-07-20 23:05] VITALS: BP 117/67; PULSE 82; TEMP 36.8; O2SAT 94
[2017-07-21] MEDS: OXYCODONE HCL 10 MG TABCR (OXYCONTIN) PO SCH ×3 (01:29→21:48)
[2017-07-21] MEDS: LEVOTHYROXINE 75 MCG TAB PO SCH (05:44)
[2017-07-21] MEDS: ACETAMINOPHEN 500 MG TAB PO SCH ×3 (05:45→21:50)
[2017-07-21 06:01] LABS: HEMATOCRIT 26.5 % (37-47); HEMOGLOBIN 8.3 g/dL (12.0-16.0); MEAN CELL VOLUME 97.4 fL (80-100); MEAN CORPUSCULAR HEMOGLOBIN 30.5 pg (25-34); MEAN CORPUSCULAR HGB CONC 31.3 g/dl (32-36); MEAN PLATELET VOLUME 9.2 fL (7.4-10.4); PLATELET COUNT 144 K/uL (130-400); RED CELL DISTRIBUTION WIDTH CV 15.5 % (11.5-14.5); RED CELL DISTRIBUTION WIDTH SD 54.7 fL (36.4-46.3); WHITE BLOOD COUNT 27.54 K/uL (4.8-10.8)
[2017-07-21 06:28] LABS: CALCIUM 7.9 mg/dl (8.5-10.1); CREATININE 0.9 mg/dl (0.60-1.20); POTASSIUM 4.7 mmol/L (3.5-5.1)
--- NOTE | 2017-07-21 06:59 | Orthopedic Progress Note ---
Orthopedic Progress Note Date of Service Jul 21, 2017. Subjective Post OP Day: 2 Reports: feeling well, Denies: chest pain, SOB, nausea / vomiting, light headedness Additional Notes: moderate intermittent pain Objective N/V intact, dressing C/D/I, incision C/D/I, A&O x3 Date Time Temp Pulse Resp B/P (MAP) Pulse Ox O2 Delivery O2 Flow Rate FiO2 07/20/17 23:11 Room Air 07/20/17 23:05 36.8 82 16 117/67 (84) 94 Room Air 07/20/17 16:15 Room Air 07/20/17 15:18 36.7 77 16 106/65 (79) 95 Room Air 07/20/17 11:30 36.9 78 16 107/66 (80) 96 Room Air 07/20/17 07:50 36.8 82 16 135/65 (88) 95 Room Air 07/20/17 07:20 Room Air Laboratory Results 24 Hours: Test 07/21/17 05:20 Hematocrit 26.5 % Hemoglobin 8.3 g/dL Assessment & Plan Assessment: POD #2 s/p Right shoulder reversed total shoulder arthroplasty, repair, greater tuberosity fracture, and biceps tenodesis. H/H- 8.3/26.5 pt/ot pain control- increased pain last evening, is hesitant to be d/c due to pain level, will see if pain improves throughout the day would like to be d/c with HHPT when stable
[2017-07-21 07:35] VITALS: BP 112/69; PULSE 75; TEMP 36.9; O2SAT 97
[2017-07-21] MEDS: MOMETASONE INH SCH ×2 (08:26→21:46)
[2017-07-21] MEDS: FORMOTEROL INH SCH ×2 (08:26→21:46)
[2017-07-21] MEDS: VENLAFAXINE HCL XR 150 MG CAPXR PO SCH (08:29)
[2017-07-21] MEDS: VENLAFAXINE HCL XR 75 MG CAPXR PO SCH (08:29)
[2017-07-21] MEDS: METOPROLOL SUCC 25MG EXT REL TAB PO SCH (08:29)
[2017-07-21] MEDS: LACTOBACILLUS ACIDOPHILUS (FLORANEX) TAB PO SCH (08:29)
[2017-07-21] MEDS: MULTIVITAMIN TAB PO SCH (08:29)
[2017-07-21] MEDS: CHOLECALCIFEROL 1000 INTER.UNIT TAB PO SCH (08:30)
[2017-07-21] MEDS: AZELASTINE HCL 0.1% SCH ×2 (08:31→21:46)
[2017-07-21] MEDS: VENLAFAXINE HCL XR 37.5 MG CAPXR PO SCH (08:31)
[2017-07-21] MEDS: FERROUS SULFATE 325 MG TAB PO SCH ×2 (08:31→21:50)
[2017-07-21] MEDS: PANTOprazole SOD 40 MG TAB PO SCH (08:31)
[2017-07-21] MEDS: DOCUSATE SODIUM 100 MG CAP PO SCH ×2 (08:31→21:51)
[2017-07-21] MEDS: CALCIUM 600MG + VIT D 400 IU TAB PO SCH (08:31)
--- NOTE | 2017-07-21 15:31 | Progress Note ---
Internal Med Progress Note Date of Service: Jul 21, 2017. Provider Documentation: SUBJECTIVE: right shoulder pain much better than yesterday no chest pain or sob afebrile no cough no nausea in room OBJECTIVE: Vital Signs-as noted below Exam: General-alert and oriented. Not in distress ENT-normal hearing. Neck-No neck masses Lungs-CTA b/l no wheezing or crackles Heart-S1 and S2 heard regular rhythm no murmurs Abdomen-soft Bowels sounds present no tenderness present no distension Extremities-right shoulder in sling s/p rt shoulder surgery-dressing intact Neuro-alert and oriented moves extremities Lab data as noted below. ASSESSMENT & PLAN: S/P RIGHT TSA POD#2 pain improving management as per ortho HISTORY OF CAD stable On aspirin, statin, beta-rabia HYPERTENSION on metoprolol lisinopril on hold for now. BP ok will monitor DEPRESSION on Effexor, Lamictal, and Seroquel HISTORY OF CLL Stable, follows with [facility] oncology Baseline WBC around 40 K CKD STAGE III Baseline creatinine runs in the low ones cr 0.9 today will f/.u labs Acute on CHRONIC ANEMIA from blood loss? hb 8.3 today Baseline hemoglobin around 11.0 Receives Procrit as needed will f/u labs Hyponatremia na 134 today f./u labs in am ASTHMA stable on home inhalers DVT PROPHYLAXIS SCDs and teds as per orthopedics DISPOSITION as per ortho Vital Signs: Date Time Temp Pulse Resp B/P (MAP) Pulse Ox O2 Delivery O2 Flow Rate FiO2 07/21/17 16:15 Room Air 07/21/17 15:38 36.6 74 16 140/59 (86) 97 Room Air 07/21/17 08:30 Room Air 07/21/17 07:35 36.9 75 16 112/69 (83) 97 Room Air 07/20/17 23:11 Room Air 07/20/17 23:05 36.8 82 16 117/67 (84) 94 Room Air Lab Results: Results Past 24 Hours Test 07/21/17 05:20 Range/Units White Blood Count 27.54 4.8-10.8 K/uL Red Blood Count 2.72 4.2-5.4 M/uL Hemoglobin 8.3 12.0-16.0 g/dL Hematocrit 26.5 37-47 % Mean Corpuscular Volume 97.4 80-100 fL Mean Corpuscular Hemoglobin 30.5 25-34 pg Mean Corpuscular Hemoglobin Concent 31.3 32-36 g/dl RDW Standard Deviation 54.7 36.4-46.3 fL RDW Coefficient of Variation 15.5 11.5-14.5 % Platelet Count 144 130-400 K/uL Mean Platelet Volume 9.2 7.4-10.4 fL Sodium Level 134 136-145 mmol/L Potassium Level 4.7 3.5-5.1 mmol/L Chloride Level 104 98-107 mmol/L Carbon Dioxide Level 25 21-32 mmol/L Anion Gap 5.0 3-11 mmol/L Blood Urea Nitrogen 15 7-18 mg/dl Creatinine 0.90 0.60-1.20 mg/dl Est Creatinine Clear Calc Drug Dose 35.9 ml/min Estimated GFR () 67.1 Estimated GFR (Non- 57.9 BUN/Creatinine Ratio 16.4 10-20 Random Glucose 82 70-99 mg/dl Calcium Level 7.9 8.5-10.1 mg/dl
[2017-07-21 15:38] VITALS: BP 140/59; PULSE 74; TEMP 36.6; O2SAT 97
[2017-07-21] MEDS: MoRPHine SULFATE 2 MG/ML CARP IV PRN ×2 (17:00→21:48)
[2017-07-21] MEDS: BIMATOPROST 0.01% OP SOLN 2.5 ML BTL OPB SCH (21:47)
[2017-07-21] MEDS: ATORVASTATIN 40 MG TAB PO SCH (21:50)
[2017-07-21] MEDS: GABAPENTIN 300 MG CAP PO SCH (21:50)
[2017-07-21] MEDS: ASPIRIN 81 MG ECTAB PO SCH (21:51)
[2017-07-21 23:02] VITALS: BP 128/68; PULSE 79; TEMP 36.8; O2SAT 95
[2017-07-21] MEDS: QUETIAPINE FUMARATE 25 MG TAB PO SCH (23:53)
[2017-07-21] MEDS: LORAZEPAM 0.5 MG TAB PO SCH (23:53)
[2017-07-22] MEDS: LEVOTHYROXINE 75 MCG TAB PO SCH (06:03)
[2017-07-22] MEDS: ACETAMINOPHEN 500 MG TAB PO SCH ×2 (06:03→13:01)
[2017-07-22 07:04] VITALS: BP 133/77; PULSE 77; TEMP 36.8; O2SAT 95
[2017-07-22] MEDS: MOMETASONE INH SCH (08:19)
[2017-07-22] MEDS: FORMOTEROL INH SCH (08:19)
[2017-07-22] MEDS: VENLAFAXINE HCL XR 150 MG CAPXR PO SCH (08:19)
[2017-07-22] MEDS: AZELASTINE HCL 0.1% SCH (08:19)
[2017-07-22] MEDS: DOCUSATE SODIUM 100 MG CAP PO SCH (08:19)
[2017-07-22] MEDS: VENLAFAXINE HCL XR 75 MG CAPXR PO SCH (08:19)
[2017-07-22] MEDS: OXYCODONE HCL 10 MG TABCR (OXYCONTIN) PO SCH (08:19)
[2017-07-22] MEDS: FERROUS SULFATE 325 MG TAB PO SCH (08:19)
[2017-07-22] MEDS: PANTOprazole SOD 40 MG TAB PO SCH (08:20)
[2017-07-22] MEDS: CHOLECALCIFEROL 1000 INTER.UNIT TAB PO SCH (08:20)
[2017-07-22] MEDS: MULTIVITAMIN TAB PO SCH (08:20)
[2017-07-22] MEDS: METOPROLOL SUCC 25MG EXT REL TAB PO SCH (08:21)
[2017-07-22] MEDS: LACTOBACILLUS ACIDOPHILUS (FLORANEX) TAB PO SCH (08:22)
[2017-07-22] MEDS: VENLAFAXINE HCL XR 37.5 MG CAPXR PO SCH (08:22)
[2017-07-22] MEDS: CALCIUM 600MG + VIT D 400 IU TAB PO SCH (08:22)
--- NOTE | 2017-07-22 09:39 | Anesthesiology Progress Note ---
Anesthesia Post Op Note Date & Time Jul 22, 2017 at 09:38 Vital Signs Pain Intensity: 0.0 Vital Signs Past 12 Hours Date Time Temp Pulse Resp B/P (MAP) Pulse Ox O2 Delivery O2 Flow Rate FiO2 07/22/17 07:15 Room Air 07/22/17 07:04 36.8 77 17 133/77 (95) 95 Room Air 07/21/17 23:50 Room Air 07/21/17 23:02 36.8 79 20 128/68 (88) 95 Room Air Notes Mental Status: alert / awake / arousable, participated in evaluation Pt Amnestic to Procedure: Yes Nausea / Vomiting: adequately controlled Pain: adequately controlled Airway Patency, RR, SpO2: stable & adequate BP & HR: stable & adequate Hydration State: stable & adequate Anesthetic Complications: no major complications apparent
--- NOTE | 2017-07-22 10:18 | Orthopedic Progress Note ---
Orthopedic Progress Note Date of Service Jul 22, 2017. Subjective Post OP Day: 3 Reports: feeling well, pain controlled w PO medications, Denies: complaints, SOB , nausea / vomiting, light headedness Objective N/V intact, capillary refill less than 2 sec., incision C/D/I, A&O x3 Date Time Temp Pulse Resp B/P (MAP) Pulse Ox O2 Delivery O2 Flow Rate FiO2 07/22/17 07:15 Room Air 07/22/17 07:04 36.8 77 17 133/77 (95) 95 Room Air 07/21/17 23:50 Room Air 07/21/17 23:02 36.8 79 20 128/68 (88) 95 Room Air 07/21/17 16:15 Room Air 07/21/17 15:38 36.6 74 16 140/59 (86) 97 Room Air Assessment & Plan Assessment: POD #3 s/p Right shoulder reversed total shoulder arthroplasty, repair, greater tuberosity fracture, and biceps tenodesis. H/H- 8.3/26.5 pt/ot pain control- states doing well on current regimine and would like to go home on current pain meds. D/C home today w HH if Hgb stable
[2017-07-22] MEDS ORDERED: RXC5 PO (10:21)
[2017-07-22] MEDS ORDERED: ACET-24 PO (10:21)
[2017-07-22] MEDS ORDERED: OXYSR10 PO (10:21)
--- NOTE | 2017-07-22 10:23 | Discharge Instructions ---
Discharge Instructions Date of Service Jul 22, 2017. Admission Reason for Admission: Right Humerus Displaced Greater Tuberosity Fractur Discharge Discharge Diagnosis / Problem: Right reversed TSA, biceps tenodesis, repair tuberosity Discharge Goals Goal(s): Improve function Activity Recommendations Activity Limitations: as noted below . Instructions / Follow-Up Instructions / Follow-Up ACTIVITY RECOMMENDATIONS: SELF CARE INSTRUCTIONS AFTER TOTAL SHOULDER ARTHROPLASTY REVERSE A. You may do daily exercises as taught in physical therapy while in hospital. No lifting with the operative arm. B. You are to wear your sling/immobilizer at all times EXCEPT when performing your daily exercises and for hygiene purposes. C. You may perform dry, daily dressing changes. Please keep your incision covered. You may shower 48 hours after surgery. Do not apply soap or any ointment/ lotions directly over incision. Do not soak incision in bath tub/swimming pool. D. You may use ice as needed to operative shoulder. SPECIAL CARE INSTRUCTIONS: VERY IMPORTANT TO READ AND REVIEW A. There are a few signs you need to watch for after you are home. Call [facility] at [phone] if you experience any of the followin. Increased severe shoulder pain. Some pain is expected especially when you exercise. 2. Increased swelling in you shoulder or arm; pain or swelling in either upper extremity. 3. Any fluid drainage from the incision. 4. Shortness of breath or chest pain. B. Please call [facility] at [phone] if you have any questions or concerns about your operation or recovery. C. Call your physician if: 1. Temperature is greater than 101 degrees (F). 2. Pain is not relieved by prescribed pain medications. 3. Increase drainage or redness from incision. 4. Unanswered questions or concerns. FOLLOW UP VISIT: Please call [facility] at [phone] to schedule a follow up appointment with Dr. Aragon or his PA in 12-14 days from your surgery date. Current Hospital Diet Patient's current hospital diet: Regular Diet Discharge Diet Recommended Diet: Regular Diet Procedures Procedures Performed: Right [place] Total Shoulder Arthroplasty, Repair of Greater Tuberosity Fracture Right Shoulder, Right Shoulder Biceps Tendonesis Pending Studies Studies pending at discharge: no Medical Emergencies . Who to Call and When: Medical Emergencies: If at any time you feel your situation is an emergency, please call [phone] immediately. . Non-Emergent Contact Non-Emergency issues call your: Primary Care Provider . "Provider Documentation" section prepared by Deon Stark. . [place] Drug Monitoring Program Search Results: patient reviewed within database, no issues identified
[2017-07-22 11:11] VITALS: BP 133/77; PULSE 77; TEMP 36.8; O2SAT 95
[2017-07-22 11:16] LABS: HEMATOCRIT 31.2 % (37-47); HEMOGLOBIN 9.9 g/dL (12.0-16.0); MEAN CELL VOLUME 97.2 fL (80-100); MEAN CORPUSCULAR HEMOGLOBIN 30.8 pg (25-34); MEAN CORPUSCULAR HGB CONC 31.7 g/dl (32-36); MEAN PLATELET VOLUME 9.3 fL (7.4-10.4); PLATELET COUNT 210 K/uL (130-400); RED CELL DISTRIBUTION WIDTH SD 53.2 fL (36.4-46.3); WHITE BLOOD COUNT 35.52 K/uL (4.8-10.8)
[2017-07-22] MEDS: OXYCODONE HCL IR 5 MG TAB (IMMEDIATE RELEASE) PO PRN (12:59)
== END 2017-07-22 15:34 | disposition home health service (06) | DRG 483 ==
LOC: C.ACU 05:21 → C.3E 06:58 → ENRESERV 11:33
PROVIDERS: ADMIT Orthopaedic Surgery Sports Medicine; ATTEND Orthopaedic Surgery Sports Medicine
PROC: 0RRJ00Z Replacement of Right Shoulder Joint with Reverse Ball and Socket Synthetic Substitute, Open Approach (ICD-10-PCS; principal; 2017-07-19 07:15)
DX: S43.001A Unspecified subluxation of right shoulder joint, initial encounter (principal); S42.251A Displaced fracture of greater tuberosity of right humerus, initial encounter for closed fracture; C91.10 Chronic lymphocytic leukemia of B-cell type not having achieved remission; I12.9 Hypertensive chronic kidney disease with stage 1 through stage 4 chronic kidney disease, or unspecified chronic kidney disease; E78.00 Pure hypercholesterolemia, unspecified; F41.9 Anxiety disorder, unspecified; J45.909 Unspecified asthma, uncomplicated; M19.90 Unspecified osteoarthritis, unspecified site; N18.3 Chronic kidney disease, stage 3 (moderate); Z98.49 Cataract extraction status, unspecified eye; Z79.82 Long term (current) use of aspirin; X58.XXXA Exposure to other specified factors, initial encounter

== ENCOUNTER 2019-09-03 09:15 | Inpatient (IN) ==
[2019-09-03] MEDS ORDERED: SODIUM CHLORIDE 0.9% 1000ML 1,000 ML IV SCH (09:45)
--- NOTE | 2019-09-03 10:35 | XRay Report ---
XR chest 1V portable HISTORY: 89 years-old Female weakness acute weakness COMPARISON: Chest radiograph 02/25/2017 TECHNIQUE: Portable AP view of the chest FINDINGS: Cardiomegaly is unchanged. No overt pulmonary edema. Calcific plaque of the thoracic aorta arch. Unch anged right hemidiaphragmatic elevation. Moderate to large hiatal hernia. Medially apices are partial ly obscured by the patient's chin. No pneumothorax, pleural effusion, overt pulmonary edema or airspa ce consolidation typical for pneumonia. Multilevel degenerative changes of the spine. Right shoulder reverse total joint arthroplasty. IMPRESSION: 1. Cardiomegaly without acute process. 2. Unchanged right hemidiaphragmatic elevation. 3. Moderate to large hiatal hernia. ACT 112: Negative or not required by law. The above report was generated using voice recognition software. It may contain grammatical, syntax o r spelling errors. Electronically signed by: Adin Mohan M.D. 09/03/2019 10:34 AM
[2019-09-03 11:04] LABS: Appearance Urine Clear (Clear); Bacteria Urine Automated Negative (Negative); Blood Urine Negative (Negative); Color Urine Dark Yellow; Glucose Urine UA Negative (Negative); Ketones Urine Trace (Negative); Leukocyte Esterase Urine Trace (Negative); Nitrite Urine Positive (Negative); Protein Urine 1+ (Negative); RBC Urine Automated 0-4 /hpf (0-4); Specific Gravity Urine 1.021 (1.000-1.030); Urobilinogen Urine Negative (Negative)
[2019-09-03 11:10] LABS: Bilirubin Urine Negative (Negative); Ictotest Urine Negative (Negative)
--- NOTE | 2019-09-03 11:13 | CT Scan Report ---
CT head/brain wo con CLINICAL HISTORY: 89 years-old Female with weakness, falls. Acute weakness with fall TECHNIQUE: Multiple axial CT images of the head were obtained without contrast. A dose lowering tech nique was utilized adhering to the principles of ALARA. CT DOSE: 537.48 mGy.cm COMPARISON: Brain MRI 09/02/2015 FINDINGS: No acute intracranial hemorrhage, midline shift, intracranial mass, hydrocephalus, territorial ischem ia or abnormal extra-axial collection. Age-related involutional changes. Moderate patchy white matter hypodensities suggest chronic microvascular ischemic disease. Senescent calcifications of the lentif orm nuclei. Cerebral vascular calcifications. The calvarium is intact. Prior bilateral lens replacement. The paranasal sinuses, mastoid air cells, and middle ear cavities are clear. IMPRESSION: No acute intracranial abnormality or calvarial fracture. ACT 112: Negative or not required by law. The above report was generated using voice recognition software. It may contain grammatical, syntax o r spelling errors. Electronically signed by: Adin Mohan M.D. 09/03/2019 11:11 AM
[2019-09-03 11:16] LABS: Hematocrit (blood only) 39.8 % (37-47); Hemoglobin 12.7 g/dL (12.0-16.0); Mean Corpuscular Hemoglobin 29.7 pg (25-34); Mean Corpuscular Hgb Conc 31.9 g/dL (32-36); Mean Platelet Volume 9.1 fL (7.4-10.4); Platelet Count 339 K/uL (130-400); RDW Coefficient of Variation 14.3 % (11.5-14.5); RDW Standard Deviation 48.4 fL (36.4-46.3); Red Blood Count 4.28 M/uL (4.2-5.4); White Blood Count 79.36 K/uL (4.8-10.8)
[2019-09-03 11:19] LABS: Amorphous Sediment Urine Present (None Prsent)
[2019-09-03 11:24] LABS: Albumin Level 3.4 gm/dl (3.4-5.0); BUN Creatinine Ratio 17.5 (10-20); Calcium 8.4 mg/dl (8.5-10.1); Creatinine Clr Calc Pharmacy 9.4 ml/min; Est GFR (African American) 14.2; Est GFR (Non-African American) 12.2; Potassium 6.9 mmol/L (3.5-5.1)
[2019-09-03] MEDS ORDERED: DEXTROSE 50% 50 ML SYRINGE IV ONE (11:26)
[2019-09-03] MEDS ORDERED: CALCIUM GLUCONATE 10% 1,000 MG in SODIUM CHLORIDE 0.9% 50 ML IV STA (11:26)
[2019-09-03] MEDS ORDERED: NovoLIN-R INSULIN PER UNIT CHARGE IV STA (11:26)
[2019-09-03 11:33] LABS: ALC (manual) 71.82 K/uL (1.2-3.4); ANC (manual) 6.19 K/uL (1.4-6.5); Lymphocytes # (manual) 71.82 K/uL (1.2-3.4); Lymphocytes % (manual) 90.5 %; Monocytes # (manual) 1.35 K/uL (0.11-0.59); Monocytes % (manual) 1.7 %; Neutrophils # (manual) 6.19 K/uL (1.4-6.5); Neutrophils % (manual) 7.8 %; Smudge Cells Present
[2019-09-03 11:45] LABS: Albumin Globulin Ratio 0.8 (0.9-2); Bilirubin,Total 0.6 mg/dl (0.2-1); Globulin 4.2 gm/dl (2.5-4.0); Thyroid Stimulating Hormone 1.36 uIu/ml (0.300-4.500); Total Protein 7.6 gm/dl (6.4-8.2)
[2019-09-03] MEDS ORDERED: SODIUM CHLORIDE 0.9% 1000ML 500 ML IV ONE (11:59)
[2019-09-03 12:29] LABS: Magnesium 3.3 mg/dl (1.8-2.4); Phosphorus 5.2 mg/dl (2.5-4.9); Uric Acid 8.3 mg/dl (2.6-7.2)
--- NOTE | 2019-09-03 13:37 | CT Scan Report ---
CT chest wo con CT DOSE: 559.30 mGy.cm HISTORY: Lymph node lymphadenopathy, CLL, ARF TECHNIQUE: Multiaxial CT images of the chest were performed without contrast. A dose lowering techni que was utilized adhering to the principles of ALARA. COMPARISON: None. FINDINGS: Lungs are generally clear. Slight interstitial prominence considered statistically chronic. No focal infiltrate. Fixed hiatal hernia. Mediastinal and hilar regions show several small nodes measuring less than 1 cm. No significant or bu lky adenopathy is appreciated. Generalized degenerative disc changes throughout the entire thoracic region. IMPRESSION: 1. Fixed hiatal hernia. 2. Several small nodes within the hilar and mediastinal regions of doubtful significance. 3.. No evidence for significant or bulky adenopathy. ACT 112: Negative or not required by law. The above report was generated using voice recognition software. It may contain grammatical, syntax or spelling errors. Electronically signed by: Deon Odonnell M.D. 09/03/2019 1:36 PM
--- NOTE | 2019-09-03 13:52 | CT Scan Report ---
ABDOMEN AND PELVIS CT WITHOUT CONTRAST HISTORY: Subsequent treatment strategy. Follow-up study in a patient with acute renal failure and CLL . lymphadenopathy, CLL, ARF TECHNIQUE: Multiaxial CT images of the abdomen and pelvis were performed without contrast. A dose lo wering technique was utilized adhering to the principles of ALARA. COMPARISON STUDY: CT abdomen and pelvis 02/24/2007 FINDINGS: Respiratory motion artifact limits evaluation of the lung bases. Mild subpleural reticulation suggest atelectasis/fibrosis. Study is motion degraded. Imaged inferior cardiac chambers are mildly enlarged . Coronary artery, aortic and mitral annular calcifications. Prominent subcarinal/right hilar lymph n odes measure up to 7 mm. Spleen is normal in size measuring up to 11 cm. Limited evaluation of the solid abdominal organs with out the use of IV contrast. Moderate parenchymal atrophy of the pancreas. Unremarkable right adrenal gland. Nonspecific left adrenal gland thickening suggests hyperplasia. Moderate gallbladder distentio n. No cholelithiasis or biliary ductal dilation. Unremarkable appearance of the liver. There is mild bilateral cortical thinning of the kidneys. External renal pelvis on the right. No obstructive uropat hy. Partially decompressed urinary bladder with wall thickening. Vascular calcifications of the uteru s. No adnexal mass lesions. Calcified plaque the abdominal aorta without aneurysm. Nonspecific mildly prominent lymph nodes of the mesentery are noted measuring up to 7 mm. 2.4 cm mid mesenteric calcifi ed lesion is unchanged. No pathologically enlarged lymph nodes are identified. Moderate hiatal hernia. Trace fluid is noted on the hernia sac. Trace abdominal pelvic ascites. There is nonspecific wall thickening noted throughout the majority of the colon with colonic air-fluid lev els. Additionally, there are multiple scattered small bowel air-fluid levels noted. No bowel obstruct ion. Mild pericolonic stranding. Low-density structure within the region of the right inguinal canal 2.3 cm is suggestive of prior inguinal hernia repair. Soft tissues are unremarkable. Degenerative toan nges of the spine, pelvis and hips. No suspicious osseous lesions. Thoracolumbar sigmoidal scoliosis. IMPRESSION: 1. Air-fluid levels within nondilated large and small bowel is noted in conjunction with multifocal l arge bowel wall thickening suggestive of a nonspecific enterocolitis with diarrheal illness. 2. No bowel obstruction or pneumoperitoneum. 3. Moderate hiatal hernia. 4. No adenopathy. 5. Trace abdominal pelvic ascites. 6. Additional findings as above. ACT 112: Negative or not required by law. The above report was generated using voice recognition software. It may contain grammatical, syntax o r spelling errors. Electronically signed by: Adin Mohan M.D. 09/03/2019 1:51 PM
--- NOTE | 2019-09-03 15:07 | History & Physical Report ---
Date of Service September 03, 2019 Assessment & Plan (1) Metabolic encephalopathy: (2) Acute renal failure superimposed on stage 3 chronic kidney disease: (3) Hyperkalemia: This is an 89-year-old female who has significant past medical history of HTN, HLD, CAD, hypothyroidism, CKD stage III with baseline creatinine 1.1-1.3, CLL, depression who presents to [facility] ED 2/2 progressive weakness and falls x 2 days. In ED patient remained hemodynamically stable. Lab work notable for significant leukocytosis 79.36K with an absolute lymphocytosis, H&H stable at 12.7 and 39.8, platelet 339, BUN 56, creatinine 3.20, potassium 6.9, sodium 133, calcium 8.4, glucose 150, TSH WNL. UA with +1 protein, positive nitrates, trace leukocyte esterase, negative bacteria CXR: negative for acute cardiopulmonary normality. Head CT was negative for acute pathology, chronic microvascular small vessel disease noted with senescent changes. In ED she received 1 g calcium gluconate, 10 units IV regular insulin, D50 and IVF. Admit to PCU Consult nephrology -- Dr. Weeks Repeat BMP,mag and phos q4h starting at 2pm IVF 80cc/hr clear liquid diet pt may require urgent HD if no improvement of hyperkalemia - however no ekg changes (4) Enterocolitis: CT scan abd pelvis concern for: Air-fluid levels within nondilated large and small bowel is noted in conjunction with multifocal large bowel wall thickening suggestive of a nonspecific enterocolitis with diarrheal illness check stool for cdiff given recent antibiotic use stool culture start cipro/flagyl - renally dosed clear liquid diet (5) CAD (coronary artery disease): No chest pain/sob Continue ASA, Statin, Metoprolol Hold Lisinopril 2/2 to RUTH (6) Hypertension: Blood pressure controlled Continue metoprolol, hold ADAM 2/2 to RUTH (7) CLL (chronic lymphocytic leukemia): Follows Dr. Gurjit Castillo Oncology Has not received treatment/received remission WBC in past has been between 30-40k Discussed case with Dr. Cagle who recommends CT Chest, ABD/Pelvis to r/o lymphadenopathy or obstruction as well as markers to r/o tumor lysis syndrome If above unremarkable elevation in WBC likely not related to CLL but probable underlying source (8) Dyslipidemia: hold statin for now given RUTH resume when able (9) Hypothyroidism: TSH 1.36 Continue levothyroxine (10) Depression: (11) Bipolar disorder: Continue lamictal/venlafaxine/seroquel Pt takes 262.5mg of venlafaxine - given RUTH will reduce dosing by ~ 50% per uptodate guidelines when RUTH resolves return to normal dose (12) DVT prophylaxis: SQ Heparin Disposition: admit to Follow up: PCP Dr. Wick upon discharge Pt was seen and examined in collaboration with Dr. Chavez, please see addendum History of Present Illness Chief Complaint: Progressive weakness and falls x 2 days. Primary Care Provider: Walter Wick, DO This is an 89-year-old female who has significant past medical history of HTN, HLD, CAD, hypothyroidism, CKD stage III with baseline creatinine 1.1-1.3, CLL, depression who presents to [facility] ED 2/2 progressive weakness and falls x 2 days. She complains of diarrhea and abdominal pain for the past 2 days. She is unsure how many episodes of diarrhea and unable to tell if she had melena or hematochezia. Further complains of nausea, multiple episodes of emesis, weakness, and unable to get out of bed. She does elicit that she took amoxicillin starting on August 27 secondary to tooth infection. Her tooth feels significantly improved but feels diarrhea secondary to antibiotics. She denies any documented fever, chills, lightheadedness, dizziness, syncope, chest pain, shortness of breath, palpitations, hematemesis, hemoptysis. She states she still is urinating and denies any dysuria, increased urgency or frequency with urination, hematuria. Overall appetite and oral intake has been for the past 2 days. She is unsure if she has taken any of her medications. Her was slightly unreliable due to underlying cognition. She denies recent travel, respiratory symptoms, recent contact with Covid 19 + individual, loss or taste/smell. In ED patient remained hemodynamically stable. Lab work notable for significant leukocytosis 79.36K with an absolute lymphocytosis, H&H stable at 12.7 and 39.8, platelet 339, BUN 56, creatinine 3.20, potassium 6.9, sodium 133, calcium 8.4, glucose 150, TSH WNL. UA with +1 protein, positive nitrates, trace leukocyte esterase, negative bacteria CXR: negative for acute cardiopulmonary normality. Head CT was negative for acute pathology, chronic microvascular small vessel disease noted with senescent changes. In ED she received 1 g calcium gluconate, 10 units IV regular insulin, D50 and IVF. Allergies Allergy/AdvReac Type Severity Reaction Status Date / Time adhesive Allergy Intermediate if on for Verified 09/03/19 09:56 a while-red blisters bacitracin Allergy Mild ALLERGY-IRR Verified 09/03/19 09:56 ITATION neomycin Allergy Mild ALLERGY Verified 09/03/19 09:56 polymyxin B Allergy Mild ALLERGY Verified 09/03/19 09:56 Home Medications Home Medications Medication Instructions Recorded Confirmed Type Calcium 600 + D(3) 1 cap PO DAILY 07/14/18 09/03/19 History Dulera 1 puff INHALATION BID 07/14/18 09/03/19 History Lumigan 1 drp OPHTHALMIC (EYE) PM 07/14/18 09/03/19 History aspirin 81 mg PO DAILY 07/14/18 09/03/19 History atorvastatin 40 mg PO PM 07/14/18 09/03/19 History azelastine 1 spray INTRANASAL HS 07/14/18 09/03/19 History cholecalciferol (vitamin D3) 1,000 unit PO DAILY 07/14/18 09/03/19 History [Vitamin D3] cyanocobalamin (vitamin B-12) 1,000 mcg PO DAILY 07/14/18 09/03/19 History [Vitamin B-12] gabapentin [Neurontin] 300 mg PO HS 07/14/18 09/03/19 History lamotrigine [Lamictal] 100 mg PO BID 07/14/18 09/03/19 History levalbuterol tartrate [Xopenex HFA] 1 puff INHALATION Q6H PRN 07/14/18 09/03/19 History levothyroxine [Levoxyl] 75 mcg PO QAM 07/14/18 09/03/19 History lisinopril 10 mg PO QPM 07/14/18 09/03/19 History lorazepam [Ativan] 0.25 mg PO HS 07/14/18 09/03/19 History metoprolol succinate 12.5 mg PO DAILY 07/14/18 09/03/19 History venlafaxine [Effexor XR] 37.5 mg PO QAM 07/14/18 09/03/19 History venlafaxine [Effexor XR] 75 mg PO QAM 07/14/18 09/03/19 History venlafaxine [Effexor XR] 150 mg PO QAM 07/14/18 09/03/19 History Culturelle 1 cap PO DAILY 08/12/18 09/03/19 History acetaminophen-codeine 1 tab PO BID PRN 09/03/19 09/03/19 History ferrous sulfate [Feosol] 325 mg PO BID 09/03/19 09/03/19 History quetiapine 50 mg PO HS 09/03/19 09/03/19 History Past Med/Surg History Medical History Anxiety Bipolar disorder Chronic kidney disease, stage 3 FOLLOWS W/ DR. AZEVEDO CLL (chronic lymphocytic leukemia) Degenerative disc disease Difficult intravenous access Diverticular disease GERD (gastroesophageal reflux disease) Glaucoma Hiatal hernia History of migraine Hyperlipidemia Hypertension Hypothyroidism Lyme disease Nonallergic rhinitis Osteoarthritis Restless leg syndrome Surgical History History of breast biopsy History of breast mammoplasty History of cataract surgery History of colonoscopy History of colonoscopy with polypectomy History of esophagogastroduodenoscopy (EGD) History of hernia repair RT INGUINAL History of shoulder surgery RT History of tooth extraction Family History Father Cancer SKIN - basal cell Coronary heart disease Sister Cancer Ovarian Social History Preferred Language: Mongolian Communication Ability: Effective Deal Architect Required: No Beliefs That Will Affect Care: None Current Living Situation: Spouse Current Living Situation Comment: ranch Other Information That Helps Us Care for You: No Feels Safe at Home: Yes Safety Concerns: Feels Safe At This Time Smoking Status: Never smoker Second Hand Exposure: No ; Hx Alcohol Use: No Hx Substance Use: No Review of Systems Review of Systems: All systems reviewed & are unremarkable except as noted in HPI & below Physical Exam Physical Exam: Constitutional: Thin, petite, elderly female, vitals as above, NAD, sitting up in bed, answers questions appropriately Head: Normocephalic, Atraumatic Eyes: PERRL, conjunctivae normal, anicteric sclerae ENMT: external ear and nose normal, oropharynx normal dry mucous membranes Neck: trachea midline, no thyromegaly normal visual inspection Respiratory: normal respiratory effort, lungs clear to auscultation, no wheeze, rales, rhonchi. Normal insp/exp effort, no accessory muscle use Cardiovascular: RRR, no murmur, no edema Vessels: no JVD or carotid bruit Chest: normal inspection of chest Abdomen: normal bowel sounds, soft, diffusely tender to palpation, no hepatosplenomegaly Musculoskeletal: no cyanosis or clubbing, extremities motor strength 5/5 Skin: no rashes, warm and dry moderate turgor Neurologic: PERRL, EOMI, accommodation nl, no face palsy, no dysarthria CN's II-XI intact bilaterally and moves all extremities Psychiatric: A+Ox3 and to basics but with intermittent confusion, euthymic affect Lymphatic: no cervical or axillary lymphadenopathy : deferred Results & Data Results & Data ([facility]) Vital Signs (Past 12 Hours) Vital Signs Temp Pulse Resp BP Pulse Ox 09/03/19 14:07 87 24 120/52 L 100 09/03/19 13:00 89 24 107/46 L 100 09/03/19 12:30 89 22 112/46 L 98 09/03/19 12:00 84 24 114/48 L 100 09/03/19 11:30 71 24 120/49 L 100 09/03/19 11:12 71 26 H 114/47 L 99 09/03/19 10:48 71 20 99 09/03/19 10:42 73 22 117/52 L 100 09/03/19 10:30 71 22 97 09/03/19 10:00 71 29 H 100 09/03/19 09:30 71 28 H 99 09/03/19 09:26 71 28 H 99 09/03/19 09:25 36.5 C 73 20 112/60 100 09/03/19 09:20 71 26 H 112/60 100 Laboratory Results Short CBC 09/03/19 Range/Units 10:32 WBC 79.36 H* (4.8-10.8) K/uL Hgb 12.7 (12.0-16.0) g/dL Hct 39.8 (37-47) % Plt Count 339 (130-400) K/uL BMP 09/03/19 10:32 Sodium 133 L Potassium 6.9 H* Chloride 102 Carbon Dioxide 22 BUN 56 H Creatinine 3.20 H Glucose 150 H Calcium 8.4 L Liver Function 09/03/19 Range/Units 10:32 Total Bilirubin 0.6 (0.2-1) mg/dl AST 40 H (15-37) U/L ALT 34 (12-78) U/L Alkaline Phosphatase 83 (45-117) U/L Albumin 3.4 (3.4-5.0) gm/dl Urine 09/03/19 Range/Units 10:40 Urine Color Dark Yellow Urine Appearance Clear (Clear) Urine pH 5.0 (4.5-7.5) Ur Specific [place] 1.021 (1.000-1.030) Urine Protein 1+ H (Negative) Urine Glucose (UA) Negative (Negative) Diagnostic Findings CXR: IMPRESSION: 1. Cardiomegaly without acute process. 2. Unchanged right hemidiaphragmatic elevation. 3. Moderate to large hiatal hernia. Head CT: IMPRESSION: No acute intracranial abnormality or calvarial fracture. Abd/Pelvis CT: IMPRESSION: 1. Air-fluid levels within nondilated large and small bowel is noted in conjunction with multifocal large bowel wall thickening suggestive of a nonspecific enterocolitis with diarrheal illness. 2. No bowel obstruction or pneumoperitoneum. 3. Moderate hiatal hernia. 4. No adenopathy. 5. Trace abdominal pelvic ascites. 6. Additional findings as above. Chest CT: IMPRESSION: 1. Fixed hiatal hernia. 2. Several small nodes within the hilar and mediastinal regions of doubtful significance. 3.. No evidence for significant or bulky adenopathy. Medications Administered Sodium Chloride (Nss 1000ml) 1,000 mls @ 125 mls/hr IV .Q8H [facility] Stop: 10/03/19 09:44 Last Admin: 09/03/19 10:50 Dose: 125 mls/hr Documented by: [id number] Discontinued Medications Dextrose (Dextrose 50%) 50 ml IV NOW ONE Stop: 09/03/19 11:27 Last Admin: 09/03/19 12:09 Dose: 50 ml Documented by: [id number] Calcium Gluconate 1,000 mg/ (Sodium Chloride) 60 mls @ 240 mls/hr IV NOW STA Stop: 05/28/20 11:40 Last Infusion: 09/03/19 12:29 Dose: 0 mls/hr Documented by: [id number] Admin: 09/03/19 12:14 Dose: 240 mls/hr Documented by: [id number] Sodium Chloride (Nss 1000ml) 500 mls @ 999 mls/hr IV .Q31M ONE Stop: 09/03/19 12:29 Last Infusion: 09/03/19 12:58 Dose: 0 mls/hr Documented by: [id number] Admin: 09/03/19 12:14 Dose: 999 mls/hr Documented by: [id number] Insulin Human Regular (Novolin R U-100 Per Unit) 10 units IV NOW STA Stop: 09/03/19 11:27 Last Admin: 09/03/19 12:05 Dose: 10 units Documented by: [id number] Cosigned by: [id number] ECG Rate (beats per minute): 68 Rhythm: normal sinus Code Status & VTE Plan Code Status Full Code VTE Prophylaxis Plan VTE Prophylaxis will be ordered: Yes Supervising Physician Co-Signing Physician Notes I saw this patient with the physician dyer assistant, I participated in the history, physical, review of systems, and physical exam. I reviewed the medications with the patient and the physician dyer assistant and helped reconcile the medications. I helped take a detailed family and social history as well. I formulated the assessment and plan personally with the physician dyer assistant and went over it with the patient. ROS-No Headache, No Visual Changes, No Nausea, No Vomiting, No Fever, No Chills, No Neck Pain or Stiffness, No Chest Pain, No Palpitations, No SOB, No PEREZ, No Cough, No Sputum, No Wheezing, No Abdominal Pain, No Diarrhea, No Hematemesis, No Hemoptysis, No Unexpected Weight Loss, No Flank pain, No Melena, No Hemato chezia, No Frequency, No Urgency, No Burning, No Hematuria, No Rashes, No Diaphoresis. Appetite is Normal Physical Exam Gen-AAO x 3, NAD, Afebrile Head-NCAT, EOMI, PERRLA, Anicteric Sclera, No Posterior Pharyngeal Erythema Neck-Supple, No JVD, No Thyromegaly, No Masses, No LAD, No Bruits Lungs-Clear to Auscultation Bilaterally, No Rales, No Rhonchi, No Wheezing, No Crepitus Chest-No S4, +S1, +S2, No S3, No Murmurs, No Rubs, No Gallops, No Ectopy Abdomen-Soft, Bowel Sounds Present, Tender, Non Distended, No Hepatomegaly, No Splenomegaly, No Palpable Masses, No Rebound, No Rigidity, No Guarding Musculoskeletal-Full Range of Motion Bilaterally, No CVAT Extremities-No Cyanosis, No Clubbing, No Edema Nuero-Cranial Nerves II-XII grossly intact, Motor WNL, DTRs WNL, Strength WNL, Non Focal Psych-Normal Mood
--- NOTE | 2019-09-03 15:29 | Emergency Department Note ---
History of Present Illness General Chief complaint: Altered Mental Status Time Seen by Provider: 09/03/19 09:18 Source: patient, EMS and RN notes reviewed Mode of arrival: EMS Limitations: no limitations (Questionable reliability) History of Present Illness Provider complaint: Generalized weakness, falls, diarrhea Onset (ago): week(s) 3 This patient is an 89-year-old female who presents to the emergency department with complaints of generalized weakness. Patient's reported to nursing staff that she has had a consistent decline over the last 3 weeks. Patient was apparently started on amoxicillin 08/27 for a dental infection and has now developed diarrhea. Patient was unable to get up off of the toilet today with assist. also relates that the patient had a significant fall and may be a head injury within the last week. She has been sleeping and "unresponsive" more so than usual. She had a low-grade fever at approximately 100 degrees per report. Patient herself denies any chest pain, shortness of breath, headache, abdominal pain. History is somewhat limited by the patient's memory difficulties. Home Medications Home Medications Medication Instructions Recorded Confirmed Type Calcium 600 + D(3) 1 cap PO DAILY 07/14/18 09/03/19 History Dulera 1 puff INHALATION BID 07/14/18 09/03/19 History Lumigan 1 drp OPHTHALMIC (EYE) PM 07/14/18 09/03/19 History aspirin 81 mg PO DAILY 07/14/18 09/03/19 History atorvastatin 40 mg PO PM 07/14/18 09/03/19 History azelastine 1 spray INTRANASAL HS 07/14/18 09/03/19 History cholecalciferol (vitamin D3) 1,000 unit PO DAILY 07/14/18 09/03/19 History [Vitamin D3] cyanocobalamin (vitamin B-12) 1,000 mcg PO DAILY 07/14/18 09/03/19 History [Vitamin B-12] gabapentin [Neurontin] 300 mg PO HS 07/14/18 09/03/19 History lamotrigine [Lamictal] 100 mg PO BID 07/14/18 09/03/19 History levalbuterol tartrate [Xopenex HFA] 1 puff INHALATION Q6H PRN 07/14/18 09/03/19 History levothyroxine [Levoxyl] 75 mcg PO QAM 07/14/18 09/03/19 History lisinopril 10 mg PO QPM 07/14/18 09/03/19 History lorazepam [Ativan] 0.25 mg PO HS 07/14/18 09/03/19 History metoprolol succinate 12.5 mg PO DAILY 07/14/18 09/03/19 History venlafaxine [Effexor XR] 37.5 mg PO QAM 07/14/18 09/03/19 History venlafaxine [Effexor XR] 75 mg PO QAM 07/14/18 09/03/19 History venlafaxine [Effexor XR] 150 mg PO QAM 07/14/18 09/03/19 History Culturelle 1 cap PO DAILY 08/12/18 09/03/19 History acetaminophen-codeine 1 tab PO BID PRN 09/03/19 09/03/19 History ferrous sulfate [Feosol] 325 mg PO BID 09/03/19 09/03/19 History quetiapine 50 mg PO HS 09/03/19 09/03/19 History Allergies Allergy/AdvReac Type Severity Reaction Status Date / Time adhesive Allergy Intermediate if on for Verified 09/03/19 09:56 a while-red blisters bacitracin Allergy Mild ALLERGY-IRR Verified 09/03/19 09:56 ITATION neomycin Allergy Mild ALLERGY Verified 09/03/19 09:56 polymyxin B Allergy Mild ALLERGY Verified 09/03/19 09:56 Past Med/Surg History Medical History Anxiety Bipolar disorder Chronic kidney disease, stage 3 FOLLOWS W/ DR. ALVAREZU CLL (chronic lymphocytic leukemia) Degenerative disc disease Difficult intravenous access Diverticular disease GERD (gastroesophageal reflux disease) Glaucoma Hiatal hernia History of migraine Hyperlipidemia Hypertension Hypothyroidism Lyme disease Nonallergic rhinitis Osteoarthritis Restless leg syndrome Surgical History History of breast biopsy History of breast mammoplasty History of cataract surgery History of colonoscopy History of colonoscopy with polypectomy History of esophagogastroduodenoscopy (EGD) History of hernia repair RT INGUINAL History of shoulder surgery RT History of tooth extraction Family History Father Cancer SKIN - basal cell Coronary heart disease Sister Cancer Ovarian Social History Preferred Language: Senegalese Communication Ability: Effective Nursing Unit Coordinator Required: No Beliefs That Will Affect Care: None Current Living Situation: Spouse Current Living Situation Comment: ranch Other Information That Helps Us Care for You: No Feels Safe at Home: Yes Safety Concerns: Feels Safe At This Time Smoking Status: Never smoker Second Hand Exposure: No ; Hx Alcohol Use: No Hx Substance Use: No Review of Systems See HPI for pertinent positives & negatives. and A total of 10 systems reviewed and were otherwise negative Physical Exam Vital Signs Vital Signs - 24 hr 09/03/19 09:20 09/03/19 09:25 09/03/19 09:26 Temperature 36.5 C Temperature Source Oral Pulse Rate 71 73 71 Pulse Rate from SpO2 Sensor 71 70 Respiratory Rate 26 H 20 28 H Respiratory Effort / Characteristics Non-Labored Spontaneous Respiratory Depth Normal Respiratory Pattern Regular Blood Pressure 112/60 112/60 Blood Pressure Mean 65 77 Pulse Oximetry 100 100 99 Oxygen Delivery Method Room Air Sepsis Recent Fever Within 48 Hours No Sepsis Action Taken by Nursing No Action Required 09/03/19 09:30 09/03/19 10:00 09/03/19 10:30 Temperature Temperature Source Pulse Rate 71 71 71 Pulse Rate from SpO2 Sensor 72 71 70 Respiratory Rate 28 H 29 H 22 Respiratory Effort / Characteristics Respiratory Depth Respiratory Pattern Blood Pressure Blood Pressure Mean Pulse Oximetry 99 100 97 Oxygen Delivery Method Sepsis Recent Fever Within 48 Hours Sepsis Action Taken by Nursing 09/03/19 10:42 09/03/19 10:48 09/03/19 11:00 Temperature Temperature Source Pulse Rate 73 71 Pulse Rate from SpO2 Sensor 73 Respiratory Rate 22 20 Respiratory Effort / Characteristics Respiratory Depth Respiratory Pattern Blood Pressure 117/52 L Blood Pressure Mean 90 68 Pulse Oximetry 100 99 Oxygen Delivery Method Room Air Sepsis Recent Fever Within 48 Hours Sepsis Action Taken by Nursing 09/03/19 11:12 09/03/19 11:30 09/03/19 12:00 Temperature Temperature Source Pulse Rate 71 71 84 Pulse Rate from SpO2 Sensor 70 71 74 Respiratory Rate 26 H 24 24 Respiratory Effort / Characteristics Respiratory Depth Respiratory Pattern Blood Pressure 114/47 L 120/49 L 114/48 L Blood Pressure Mean 69 69 79 Pulse Oximetry 99 100 100 Oxygen Delivery Method Sepsis Recent Fever Within 48 Hours Sepsis Action Taken by Nursing 09/03/19 12:30 09/03/19 13:00 09/03/19 14:07 Temperature Temperature Source Pulse Rate 89 89 87 Pulse Rate from SpO2 Sensor 89 89 87 Respiratory Rate 22 24 24 Respiratory Effort / Characteristics Respiratory Depth Respiratory Pattern Blood Pressure 112/46 L 107/46 L 120/52 L Blood Pressure Mean 75 66 72 Pulse Oximetry 98 100 100 Oxygen Delivery Method Sepsis Recent Fever Within 48 Hours Sepsis Action Taken by Nursing 09/03/19 14:30 Temperature Temperature Source Pulse Rate 91 H Pulse Rate from SpO2 Sensor 92 H Respiratory Rate 24 Respiratory Effort / Characteristics Respiratory Depth Respiratory Pattern Blood Pressure 130/54 L Blood Pressure Mean 81 Pulse Oximetry 100 Oxygen Delivery Method Sepsis Recent Fever Within 48 Hours Sepsis Action Taken by Nursing Vital signs reviewed. General: Chronically ill/frail appearing 89 yo female, in no significant distress. HEENT: No scleral icterus, DMM Cardiovascular: Regular rate and rhythm, no extra sounds. Pulmonary: Clear to auscultation bilaterally, normal work of breathing. Abdomen: Soft, nontender, nondistended, positive bowel sounds. Musculoskeletal: Atraumatic, no peripheral edema. Neurologic: Patient awake alert and oriented x 3 Skin: Warm, dry, no rash Course Administered Medications Aspirin (Ecotrin Ectab) 81 mg PO DAILY [facility] Stop: 10/04/19 08:59 Last Admin: 09/04/19 08:37 Dose: 81 mg Documented by: [id number] Bimatoprost (Lumigan 0.01%) 1 drops OP PM DEANN Stop: 10/03/19 20:59 Last Admin: 09/04/19 20:35 Dose: 1 drops Documented by: [id number] Admin: 09/03/19 21:02 Dose: 1 drops Documented by: [id number] Ferrous Sulfate (Feosol) 325 mg PO BIDM DEANN Stop: 10/04/19 07:59 Last Admin: 09/04/19 18:23 Dose: 325 mg Documented by: [id number] Admin: 09/04/19 08:38 Dose: 325 mg Documented by: [id number] Fluticasone/Vilanterol (Breo Ellipta 100/25 Mcg Inh) 1 puffs INH DAILY [facility] Stop: 10/04/19 08:59 Last Admin: 09/04/19 08:38 Dose: 1 puffs Documented by: [id number] Gabapentin (Neurontin) 300 mg PO HS [facility]ANN Stop: 10/03/19 20:59 Last Admin: 09/04/19 20:35 Dose: 300 mg Documented by: [id number] Admin: 09/03/19 21:03 Dose: 300 mg Documented by: [id number] Heparin Sodium (Porcine) (Heparin Sodium (Porcine)) 5,000 units SQ Q8 [facility]ANN Stop: 10/03/19 21:59 Last Admin: 09/05/19 06:09 Dose: 5,000 units Documented by: [id number] Cosigned by: [id number] Admin: 09/04/19 20:34 Dose: 5,000 units Documented by: [id number] Cosigned by: [id number] Admin: 09/04/19 14:47 Dose: 5,000 units Documented by: [id number] Cosigned by: [id number] Admin: 09/04/19 05:44 Dose: 5,000 units Documented by: [id number] Cosigned by: [id number] Admin: 09/03/19 21:05 Dose: Not Given Documented by: [id number] Sodium Chloride (Nss 1000ml) 1,000 mls @ 75 mls/hr IV .[id number] [facility] Stop: 10/03/19 16:05 Last Admin: 09/04/19 18:24 Dose: 75 mls/hr Documented by: [id number] Infusion: 09/04/19 18:11 Dose: 75 mls/hr Documented by: [id number] Admin: 09/04/19 04:51 Dose: 75 mls/hr Documented by: [id number] Infusion: 09/04/19 04:51 Dose: 75 mls/hr Documented by: [id number] Admin: 09/03/19 17:14 Dose: 75 mls/hr Documented by: [id number] Metronidazole (Flagyl) 500 mg in 100 mls @ 100 mls/hr IV Q8H [facility] Stop: 09/13/19 15:59 Last Infusion: 09/05/19 01:53 Dose: 0 mls/hr Documented by: [id number] Admin: 09/04/19 23:48 Dose: 100 mls/hr Documented by: [id number] Infusion: 09/04/19 17:30 Dose: 100 mls/hr Documented by: [id number] Admin: 09/04/19 15:53 Dose: 100 mls/hr Documented by: [id number] Infusion: 09/04/19 09:40 Dose: 0 mls/hr Documented by: [id number] Admin: 09/04/19 08:37 Dose: 100 mls/hr Documented by: [id number] Infusion: 09/04/19 02:07 Dose: 0 mls/hr Documented by: [id number] Admin: 09/03/19 23:59 Dose: 100 mls/hr Documented by: [id number] Infusion: 09/03/19 18:38 Dose: 0 mls/hr Documented by: [id number] Admin: 09/03/19 17:31 Dose: 100 mls/hr Documented by: [id number] Ciprofloxacin (Cipro) 400 mg in 200 mls @ 100 mls/hr IV Q24H DEANN; Protocol Stop: 09/13/19 16:59 Last Infusion: 09/04/19 19:49 Dose: 0 mls/hr Documented by: [id number] Admin: 09/04/19 17:48 Dose: 100 mls/hr Documented by: [id number] Infusion: 09/03/19 21:29 Dose: 0 mls/hr Documented by: [id number] Admin: 09/03/19 18:38 Dose: 100 mls/hr Documented by: [id number] Lamotrigine (Lamictal) 100 mg PO BID [facility] Stop: 10/03/19 20:59 Last Admin: 09/04/19 20:35 Dose: 100 mg Documented by: [id number] Admin: 09/04/19 08:37 Dose: 100 mg Documented by: [id number] Admin: 09/03/19 21:03 Dose: 100 mg Documented by: [id number] Levothyroxine Sodium (Synthroid) 75 mcg PO DAILYBB [facility] Stop: 10/04/19 06:29 Last Admin: 09/05/19 06:10 Dose: 75 mcg Documented by: [id number] Admin: 09/04/19 05:44 Dose: 75 mcg Documented by: [id number] Lorazepam (Ativan) 0.25 mg PO HS [facility] Stop: 10/03/19 20:59 Last Admin: 09/04/19 20:33 Dose: Not Given Documented by: [id number] Admin: 09/03/19 21:03 Dose: Not Given Documented by: [id number] Metoprolol Succinate (Toprol Xl) 12.5 mg PO DAILY [facility] Stop: 10/04/19 08:59 Last Admin: 09/04/19 08:37 Dose: 12.5 mg Documented by: [id number] Quetiapine Fumarate (Seroquel) 50 mg PO HS [facility] Stop: 10/03/19 20:59 Last Admin: 09/04/19 20:35 Dose: 50 mg Documented by: [id number] Admin: 09/03/19 21:03 Dose: 50 mg Documented by: [id number] Venlafaxine HCl (Effexor Extended Release) 150 mg PO QAM [facility] Stop: 10/04/19 08:59 Last Admin: 09/04/19 08:38 Dose: 150 mg Documented by: [id number] Discontinued Medications Dextrose (Dextrose 50%) 50 ml IV NOW ONE Stop: 09/03/19 11:27 Last Admin: 09/03/19 12:09 Dose: 50 ml Documented by: [id number] Sodium Chloride (Nss 1000ml) 1,000 mls @ 125 mls/hr IV .Q8H [facility] Stop: 10/03/19 09:44 Last Infusion: 09/03/19 17:35 Dose: 0 mls/hr Documented by: [id number] Admin: 09/03/19 10:50 Dose: 125 mls/hr Documented by: [id number] Calcium Gluconate 1,000 mg/ (Sodium Chloride) 60 mls @ 240 mls/hr IV NOW STA Stop: 09/03/19 11:40 Last Infusion: 09/03/19 12:29 Dose: 0 mls/hr Documented by: [id number] Admin: 09/03/19 12:14 Dose: 240 mls/hr Documented by: [id number] Sodium Chloride (Nss 1000ml) 500 mls @ 999 mls/hr IV .Q31M ONE Stop: 09/03/19 12:29 Last Infusion: 09/03/19 12:58 Dose: 0 mls/hr Documented by: [id number] Admin: 09/03/19 12:14 Dose: 999 mls/hr Documented by: [id number] Insulin Human Regular (Novolin R U-100 Per Unit) 10 units IV NOW STA Stop: 09/03/19 11:27 Last Admin: 09/03/19 12:05 Dose: 10 units Documented by: [id number] Cosigned by: [id number] Sodium Polystyrene Sulfonate (Kayexalate) 20 gm PO NOW STA Stop: 09/04/19 00:18 Last Admin: 09/04/19 00:44 Dose: 20 gm Documented by: [id number] Critical Care Time Critical Care Time: Yes The high probability of a clinically significant, sudden or life threatening deterioration required my full and direct attention, intervention and personal management. The aggregate critical care time was 60 minutes. This time is in addition to time spent performing reported procedures but includes the following: [x] Data Review and interpretation [x] Patient assessment and monitoring of vital signs [x] Documentation [x] Medication orders and management Medical Decision Making Differential Diagnosis Differential includes acute coronary syndrome, myocardial infarction, CVA, TIA, anemia, infection, pneumonia, UTI, pyelonephritis, poor nutrition, dehydration, electrolyte disturbance,hypoglycemia. Medical Records Attestation: I reviewed the patient's medical records. Home Medications Current Medication List: was personally reviewed by me Laboratory Data Attestation: I reviewed the patient's lab results. Result diagrams: 09/04/19 05:59 09/04/19 14:20 Lab Results 09/03/19 09/03/19 09/03/19 Range/Units 10:32 10:32 10:32 WBC 79.36 H* (4.8-10.8) K/uL RBC 4.28 (4.2-5.4) M/uL Hgb 12.7 (12.0-16.0) g/dL Hct 39.8 (37-47) % MCV 93.0 (80-100) fL MCH 29.7 (25-34) pg MCHC 31.9 L (32-36) g/dL RDW Std Deviation 48.4 H (36.4-46.3) fL RDW Coeff of Diana 14.3 (11.5-14.5) % Plt Count 339 (130-400) K/uL MPV 9.1 (7.4-10.4) fL Neutrophils % (Manual) 7.8 % Lymphocytes % (Manual) 90.5 % Monocytes % (Manual) 1.7 % Neutrophils # (Manual) 6.19 (1.4-6.5) K/uL Total Absolute Neuts 6.19 (1.4-6.5) K/uL Lymphocytes # (Manual) 71.82 H (1.2-3.4) K/uL Total Abs Lymphocytes 71.82 H (1.2-3.4) K/uL Monocytes # (Manual) 1.35 H (0.11-0.59) K/uL Smudge Cells Present Sodium 133 L (136-145) mmol/L Potassium 6.9 H* (3.5-5.1) mmol/L Chloride 102 (98-107) mmol/L Carbon Dioxide 22 (21-32) mmol/L Anion Gap 8.0 (3-11) BUN 56 H (7-18) mg/dl Creatinine 3.20 H (0.6-1.2) mg/dl Est Cr Clr Drug Dosing 9.4 ml/min Est GFR ( Amer) 14.2 Est GFR (Non-Af Amer) 12.2 BUN/Creatinine Ratio 17.5 (10-20) Glucose 150 H (70-99) mg/dl POC Glucose (70-99) mg/dl Uric Acid 8.3 H (2.6-7.2) mg/dl Calcium 8.4 L (8.5-10.1) mg/dl Phosphorus 5.2 H (2.5-4.9) mg/dl Magnesium 3.3 H (1.8-2.4) mg/dl Total Bilirubin 0.6 (0.2-1) mg/dl AST 40 H (15-37) U/L ALT 34 (12-78) U/L Alkaline Phosphatase 83 (45-117) U/L Lactate Dehydrogenase (84-246) U/L Total Protein 7.6 (6.4-8.2) gm/dl Albumin 3.4 (3.4-5.0) gm/dl Globulin 4.2 H (2.5-4.0) gm/dl Albumin/Globulin Ratio 0.8 L (0.9-2) TSH 1.360 (0.300-4.500) uIu/ml Urine Color Urine Appearance (Clear) Urine pH (4.5-7.5) Ur Specific [place] (1.000-1.030) Urine Protein (Negative) Urine Glucose (UA) (Negative) Urine Ketones (Negative) Urine Blood (Negative) Urine Nitrite (Negative) Urine Bilirubin (Negative) Urine Urobilinogen (Negative) Ur Leukocyte Esterase (Negative) Urine WBC (Auto) (0-5) /hpf Urine RBC (Auto) (0-4) /hpf U Hyaline Cast (Auto) (0-5) /lpf U Epithel Cells (Auto) (0-5) /lpf Urine Bacteria (Auto) (Negative) Amorphous Sediment (None Prsent) 09/03/19 09/03/19 09/03/19 Range/Units 10:32 10:40 13:01 WBC (4.8-10.8) K/uL RBC (4.2-5.4) M/uL Hgb (12.0-16.0) g/dL Hct (37-47) % MCV (80-100) fL MCH (25-34) pg MCHC (32-36) g/dL RDW Std Deviation (36.4-46.3) fL RDW Coeff of Diana (11.5-14.5) % Plt Count (130-400) K/uL MPV (7.4-10.4) fL Neutrophils % (Manual) % Lymphocytes % (Manual) % Monocytes % (Manual) % Neutrophils # (Manual) (1.4-6.5) K/uL Total Absolute Neuts (1.4-6.5) K/uL Lymphocytes # (Manual) (1.2-3.4) K/uL Total Abs Lymphocytes (1.2-3.4) K/uL Monocytes # (Manual) (0.11-0.59) K/uL Smudge Cells Sodium (136-145) mmol/L Potassium (3.5-5.1) mmol/L Chloride (98-107) mmol/L Carbon Dioxide (21-32) mmol/L Anion Gap (3-11) BUN (7-18) mg/dl Creatinine (0.6-1.2) mg/dl Est Cr Clr Drug Dosing ml/min Est GFR ( Amer) Est GFR (Non-Af Amer) BUN/Creatinine Ratio (10-20) Glucose (70-99) mg/dl POC Glucose 174 H (70-99) mg/dl Uric Acid (2.6-7.2) mg/dl Calcium (8.5-10.1) mg/dl Phosphorus (2.5-4.9) mg/dl Magnesium (1.8-2.4) mg/dl Total Bilirubin (0.2-1) mg/dl AST (15-37) U/L ALT (12-78) U/L Alkaline Phosphatase (45-117) U/L Lactate Dehydrogenase 263 H (84-246) U/L Total Protein (6.4-8.2) gm/dl Albumin (3.4-5.0) gm/dl Globulin (2.5-4.0) gm/dl Albumin/Globulin Ratio (0.9-2) TSH (0.300-4.500) uIu/ml Urine Color Dark Yellow Urine Appearance Clear (Clear) Urine pH 5.0 (4.5-7.5) Ur Specific [place] 1.021 (1.000-1.030) Urine Protein 1+ H (Negative) Urine Glucose (UA) Negative (Negative) Urine Ketones Trace H (Negative) Urine Blood Negative (Negative) Urine Nitrite Positive A (Negative) Urine Bilirubin Negative (Negative) Urine Urobilinogen Negative (Negative) Ur Leukocyte Esterase Trace H (Negative) Urine WBC (Auto) 1-5 (0-5) /hpf Urine RBC (Auto) 0-4 (0-4) /hpf U Hyaline Cast (Auto) 1-5 (0-5) /lpf U Epithel Cells (Auto) 10-20 H (0-5) /lpf Urine Bacteria (Auto) Negative (Negative) Amorphous Sediment Present A (None Prsent) Imaging Data Radiologist's Impression: XR chest 1V portable HISTORY: 89 years-old Female weakness acute weakness COMPARISON: Chest radiograph 02/25/2017 TECHNIQUE: Portable AP view of the chest FINDINGS: Cardiomegaly is unchanged. No overt pulmonary edema. Calcific plaque of the thor acic aorta arch. Unchanged right hemidiaphragmatic elevation. Moderate to large hiatal hernia. Medially apices are partially obscured by the patient's chin. No pneumothorax, pleural effusion, overt pulmonary edema or airspace consolidation typical for pneumonia. Multilevel degenerative changes of the spine. Right shoulder reverse total joint arthroplasty. IMPRESSION: 1. Cardiomegaly without acute process. 2. Unchanged right hemidiaphragmatic elevation. 3. Moderate to large hiatal hernia. ACT 112: Negative or not required by law. The above report was generated using voice recognition software. It may contain grammatical, syntax or spelling errors. Electronically signed by: Adin Mohan M.D. 09/03/2019 10:34 AM Dictated: 09/03/19 1033 Transcribed: 09/03/[address] head/brain wo con CLINICAL HISTORY: 89 years-old Female with weakness, falls. Acute weakness with fall TECHNIQUE: Multiple axial CT images of the head were obtained without contrast. A dose lowering technique was utilized adhering to the principles of ALARA. CT DOSE: 537.48 mGy.cm COMPARISON: Brain MRI 09/02/2015 FINDINGS: No acute intracranial hemorrhage, midline shift, intracranial mass, hydrocepha nicole, territorial ischemia or abnormal extra-axial collection. Age-related involutional changes. Moderate patchy white matter hypodensities suggest chronic microvascular ischemic disease. Senescent calcifications of the lentiform nuclei. Cerebral vascular calcifications. The calvarium is intact. Prior bilateral lens replacement. The paranasal sinuses, mastoid air cells, and middle ear cavities are clear. IMPRESSION: No acute intracranial abnormality or calvarial fracture. ACT 112: Negative or not required by law. The above report was generated using voice recognition software. It may contain grammatical, syntax or spelling errors. Electronically signed by: Adin Mhoan M.D. 09/03/2019 11:11 AM Dictated: 09/03/19 1109 Transcribed: 09/03/[address] WITHOUT CONTRAST HISTORY: Subsequent treatment strategy. Follow-up study in a patient with acute renal failure and CLL. lymphadenopathy, CLL, ARF TECHNIQUE: Multiaxial CT images of the abdomen and pelvis were performed without contrast. A dose lowering technique was utilized adhering to the principles of ALARA. COMPARISON STUDY: CT abdomen and pelvis 02/24/2007 FINDINGS: Respiratory motion artifact limits evaluation of the lung bases. Mild subpleural reticulation suggest atelectasis/fibrosis. Study is motion degraded. Imaged inferior cardiac chambers are mildly enlarged. Coronary artery, aortic and mitral annular calcifications. Prominent subcarinal/right hilar lymph nodes measure up to 7 mm. Spleen is normal in size measuring up to 11 cm. Limited evaluation of the solid abdominal organs without the use of IV contrast. Moderate parenchymal atrophy of the pancreas. Unremarkable right adrenal gland. Nonspecific left adrenal gland thickening suggests hyperplasia. Moderate gallbladder distention. No cholelithiasis or biliary ductal dilation. Unremarkable appearance of the liver. There is mild bilateral cortical thinning of the kidneys. External renal pelvis on the right. No obstructive uropathy. Partially decompressed urinary bladder with wall thickening. Vascular calcifications of the uterus. No adnexal mass lesions. Calcified plaque the abdominal aorta without aneurysm. Nonspecific mildly prominent lymph nodes of the mesentery are noted measuring up to 7 mm. 2.4 cm mid mesenteric calcified lesion is unchanged. No pathologically enlarged lymph nodes are identified. Moderate hiatal hernia. Trace fluid is noted on the hernia sac. Trace abdominal pelvic ascites. There is nonspecific wall thickening noted throughout the majority of the colon with colonic air-fluid levels. Additionally, there are multiple scattered small bowel air-fluid levels noted. No bowel obstruction. Mi ld pericolonic stranding. Low-density structure within the region of the right inguinal canal 2.3 cm is suggestive of prior inguinal hernia repair. Soft tissues are unremarkable. Degenerative changes of the spine, pelvis and hips. No suspicious osseous lesions. Thoracolumbar sigmoidal scoliosis. IMPRESSION: 1. Air-fluid levels within nondilated large and small bowel is noted in conjunction with multifocal large bowel wall thickening suggestive of a nonspecific enterocolitis with diarrheal illness. 2. No bowel obstruction or pneumoperitoneum. 3. Moderate hiatal hernia. 4. No adenopathy. 5. Trace abdominal pelvic ascites. 6. Additional findings as above. ACT 112: Negative or not required by law. The above report was generated using voice recognition software. It may contain grammatical, syntax or spelling errors. Electronically signed by: Adin Mohan M.D. 09/03/2019 1:51 PM Dictated: 09/03/19 1336 Transcribed: 09/03/[address] chest wo con CT DOSE: 559.30 mGy.cm HISTORY: Lymph node lymphadenopathy, CLL, ARF TECHNIQUE: Multiaxial CT images of the chest were performed without contrast. A dose lowering technique was utilized adhering to the principles of ALARA. COMPARISON: None. FINDINGS: Lungs are generally clear. Slight interstitial prominence considered s tatistically chronic. No focal infiltrate. Fixed hiatal hernia. Mediastinal and hilar regions show several small nodes measuring less than 1 cm. No significant or bulky adenopathy is appreciated. Generalized degenerative disc changes throughout the entire thoracic region. IMPRESSION: 1. Fixed hiatal hernia. 2. Several small nodes within the hilar and mediastinal regions of doubtful significance. 3.. No evidence for significant or bulky adenopathy. ACT 112: Negative or not required by law. The above report was generated using voice recognition software. It may contain grammatical, syntax or spelling errors. Electronically signed by: Deon Odonnell M.D. 09/03/2019 1:36 PM Dictated: 09/03/19 1332 ECG Data Attestation: I personally reviewed and interpreted this ECG as follows: Indication: + other (hyperkalemia, weakness) Rate (beats per minute): 68 Rhythm: + normal sinus ECG Intervals/blocks: + Normal QT-c ECG ST segments: + Nonspecific ST abnormalities (lateral) ECG Findings: + Q waves (Anterior, inferior) Blood Pressure Blood Pressure Findings: Normal blood pressure Blood Pressure Disposition: did not require urgent referral MDM Narrative This pt was evaluated and appeared to be in no distress. An order for cardiac monitoring was placed and the pt was found to be in a NSR at 71 bpm. IV access was obtained and lab work was drawn. IVF were initiated. CXR reveals chronic change, no acute process. Lab work is concerning for markedly elevated WBC at almost 80,000 r/t h/o CLL, ARF with creat of 3.2 with K of 6.9. No EKG changes c/w hyperkalemis are noted. Pt was given additional IVF, IV calcium, insulin and glucose. UA is contaminated but considered neg for infection. Stool cx pending. Case was d/[facility] Pt will be evaluated for further management. Impression & Plan Acute renal failure (ARF), CLL (chronic lymphocytic leukemia), Diarrhea, Acute hyperkalemia Discharge Plan Visit Data *Final* Discharge Date/Time: 09/03/19 15:22 Chief Complaint: Altered Mental Status ED Provider: Nicole Bhatti Discharge Problem: Acute renal failure (ARF), CLL (chronic lymphocytic leukemia), Diarrhea, Acute hyperkalemia Patient Disposition: Admitted As Inpatient Discharge Instructions Interventions: ED Discharge Assessment Last Done: 09/03/19 15:22 Discharge Problem: Acute renal failure (ARF) Qualifiers: Acute renal failure type: unspecified Qualified Code(s): N17.9 - Acute kidney failure, unspecified Diarrhea Qualifiers: Diarrhea type: unspecified type Qualified Code(s): R19.7 - Diarrhea, unspecified
[2019-09-03] MEDS ORDERED: ACETAMINOPHEN 325 MG TAB PO PRN (16:06)
[2019-09-03 17:09] LABS: BUN Creatinine Ratio 21.1 (10-20); Calcium 8.4 mg/dl (8.5-10.1); Creatinine Clr Calc Pharmacy 10.9 ml/min; Est GFR (African American) 17.3; Magnesium 2.8 mg/dl (1.8-2.4); Phosphorus 3.8 mg/dl (2.5-4.9)
[2019-09-03] MEDS: SODIUM CHLORIDE 0.9% 1000ML 1,000 ML IV SCH (17:14)
[2019-09-03] MEDS: metroNIDAZOLE 500 MG/100 ML BAG IV SCH ×2 (17:31→23:59)
[2019-09-03 18:28] LABS: Potassium 5.1 mmol/L (3.5-5.1)
[2019-09-03] MEDS: CIPROFLOXACIN / D5W 400 MG/200 ML BAG IV SCH (18:38)
[2019-09-03 19:23] LABS: BUN Creatinine Ratio 23.5 (10-20); Calcium 8.1 mg/dl (8.5-10.1); Creatinine Clr Calc Pharmacy 12.1 ml/min; Est GFR (African American) 19.8; Est GFR (Non-African American) 17.1; Magnesium 2.7 mg/dl (1.8-2.4); Potassium 4.9 mmol/L (3.5-5.1)
[2019-09-03] MEDS: BIMATOPROST 0.01% OP SOLN 2.5 ML BTL OP SCH (21:02)
[2019-09-03] MEDS: QUETIAPINE FUMARATE 25 MG TABLET PO SCH (21:03)
[2019-09-03] MEDS: GABAPENTIN 300 MG CAP PO SCH (21:03)
[2019-09-03] MEDS: LORazepam 0.5 MG TAB PO SCH (21:03)
[2019-09-03] MEDS: lamoTRIgine 100 MG TAB PO SCH (21:03)
[2019-09-03] MEDS: HEPARIN SOD 5,000 UNIT/0.5 ML VIAL SQ SCH (21:05)
[2019-09-03 23:29] LABS: BUN Creatinine Ratio 24.5 (10-20); Calcium 8.2 mg/dl (8.5-10.1); Creatinine Clr Calc Pharmacy 12.5 ml/min; Est GFR (African American) 20.4; Est GFR (Non-African American) 17.6; Phosphorus 3.4 mg/dl (2.5-4.9); Potassium 5.4 mmol/L (3.5-5.1)
[2019-09-04 00:11] LABS: Magnesium 2.7 mg/dl (1.8-2.4)
[2019-09-04] MEDS ORDERED: SODIUM POLYSTYRENE 15 GM/60 ML 500ML BOTTLE PO STA (00:17)
[2019-09-04 02:33] LABS: BUN Creatinine Ratio 22.8 (10-20); Calcium 7.8 mg/dl (8.5-10.1); Creatinine Clr Calc Pharmacy 13.7 ml/min; Est GFR (African American) 22.9; Est GFR (Non-African American) 19.8; Potassium 4.5 mmol/L (3.5-5.1)
[2019-09-04] MEDS: SODIUM CHLORIDE 0.9% 1000ML 1,000 ML IV SCH ×2 (04:51→18:24)
[2019-09-04] MEDS: HEPARIN SOD 5,000 UNIT/0.5 ML VIAL SQ SCH ×3 (05:44→20:34)
[2019-09-04] MEDS: LEVOTHYROXINE SODIUM 75 MCG TABLET PO SCH (05:44)
--- NOTE | 2019-09-04 06:29 | Electrocardiogram Report ---
Test Reason : Blood Pressure : / mmHG Vent. Rate : 068 BPM Atrial Rate : 068 BPM P-R Int : 146 ms QRS Dur : 096 ms QT Int : 426 ms P-R-T Axes : 011 024 078 degrees QTc Int : 452 ms Normal sinus rhythm Septal infarct , age undetermined Possible Inferior infarct , age undetermined Abnormal ECG When compared with ECG of 26-FEB-2017 07:19, Premature ventricular complexes are no longer Present Septal infarct is now Present Borderline criteria for Inferior infarct are now Present Confirmed by Minh Fleming ([id number] on 09/04/2019 6:29:06 AM Referred By: REFERRED SELF Confirmed By:Minh Fleming
[2019-09-04 06:35] LABS: Hematocrit (blood only) 39.3 % (37-47); Hemoglobin 12.3 g/dL (12.0-16.0); Mean Corpuscular Hemoglobin 29.1 pg (25-34); Mean Corpuscular Hgb Conc 31.3 g/dL (32-36); Mean Corpuscular Volume 92.9 fL (80-100); Mean Platelet Volume 9.3 fL (7.4-10.4); Platelet Count 253 K/uL (130-400); RDW Coefficient of Variation 14.7 % (11.5-14.5); RDW Standard Deviation 49.6 fL (36.4-46.3); Red Blood Count 4.23 M/uL (4.2-5.4); White Blood Count 45.94 K/uL (4.8-10.8)
[2019-09-04 06:43] LABS: Estimated Average Glucose 128 mg/dl; Hemoglobin A1C 6.1 % (4.5-5.6)
[2019-09-04 07:13] LABS: Albumin Globulin Ratio 0.7 (0.9-2); Albumin Level 3.1 gm/dl (3.4-5.0); BUN Creatinine Ratio 23.1 (10-20); Bilirubin,Total 0.5 mg/dl (0.2-1); Creatinine Clr Calc Pharmacy 14.1 ml/min; Est GFR (African American) 24.3; Globulin 4.2 gm/dl (2.5-4.0); Magnesium 2.7 mg/dl (1.8-2.4); Potassium 4.3 mmol/L (3.5-5.1); Total Protein 7.3 gm/dl (6.4-8.2)
[2019-09-04 07:45] LABS: Basophils # (auto) 0.06 K/uL (0-0.2); Basophils % (auto) 0.1 %; Eosinophils # (auto) 0.01 K/uL (0-0.5); Immature Granulocytes % (auto) 0.2 %; Lymphocytes % (auto) 87.5 %; Monocytes # (auto) 1.54 K/uL (0.11-0.59); Monocytes % (auto) 3.4 %; Neutrophils # (auto) 4.03 K/uL (1.4-6.5); Neutrophils % (auto) 8.8 %; Smudge Cells Present
--- NOTE | 2019-09-04 08:03 | Hospitalist Progress Note ---
Date of Service September 04, 2019 Assessment & Plan (1) Metabolic encephalopathy: (2) Acute renal failure superimposed on stage 3 chronic kidney disease: (3) Hyperkalemia: This is an 89-year-old female who has significant past medical history of HTN, HLD, CAD, hypothyroidism, CKD stage III with baseline creatinine 1.1-1.3, CLL, depression who presents to [facility] ED 2/2 progressive weakness and falls x 2 days. In ED patient remained hemodynamically stable. Lab work notable for significant leukocytosis 79.36K with an absolute lymphocytosis, H&H stable at 12.7 and 39.8, platelet 339, BUN 56, creatinine 3.20, potassium 6.9, sodium 133, calcium 8.4, glucose 150, TSH WNL. UA with +1 protein, positive nitrates, trace leukocyte esterase, negative bacteria CXR: negative for acute cardiopulmonary normality. Head CT was negative for acute pathology, chronic microvascular small vessel disease noted with senescent changes. In ED she received 1 g calcium gluconate, 10 units IV regular insulin, D50 and IVF. Nephrology -- Dr. Weeks to see Monitor BMP,mag and phos IVF 80cc/hr Clear liquid diet K of 5.4 last night and given Kayexalate by my partner, today 4.3 (4) Enterocolitis: CT scan abd pelvis concern for: Air-fluid levels within nondilated large and small bowel is noted in conjunction with multifocal large bowel wall thickening suggestive of a nonspecific enterocolitis with diarrheal illness stool for cdiff was negative Cont cipro/flagyl - renally dosed clear liquid diet (5) CAD (coronary artery disease): No chest pain/sob Continue ASA, Statin, Metoprolol Hold Lisinopril 2/2 to RUTH (6) Hypertension: Blood pressure controlled Continue metoprolol, hold ADAM 2/2 to RUTH (7) CLL (chronic lymphocytic leukemia): Follows Dr. Gurjit Castillo Oncology Has not received treatment/received remission WBC in past has been between 30-40k Discussed case with Dr. Cagle who recommended CT Chest, ABD/Pelvis to r/o lymphadenopathy or obstruction which was negative as well as markers to r/o tumor lysis syndrome If above unremarkable elevation in WBC likely not related to CLL but probable underlying source, WBCs in the 40s now (8) Dyslipidemia: hold statin for now given RUTH resume when able (9) Hypothyroidism: TSH 1.36 Continue levothyroxine (10) Depression: (11) Bipolar disorder: Continue lamictal/venlafaxine/seroquel Pt takes 262.5mg of venlafaxine - given RUTH will reduce dosing by ~ 50% per uptodate guidelines when RUTH resolves return to normal dose (12) DVT prophylaxis: SQ Heparin Disposition: DC in 2-3 days Follow up: PCP Dr. Wick upon discharge Labs checked PT/OT ROS-No Headache, No Visual Changes, No Nausea, No Vomiting, No Fever, No Chills, No Neck Pain or Stiffness, No Chest Pain, No Palpitations, No SOB, No PEREZ, No Cough, No Sputum, No Wheezing, No Abdominal Pain, No Diarrhea, No Hematemesis, No Hemoptysis, No Unexpected Weight Loss, No Flank pain, No Melena, No He matochezia, No Frequency, No Urgency, No Burning, No Hematuria, No Rashes, No Diaphoresis. Appetite is Normal Physical Exam Gen-AAO x 3, NAD, Afebrile, Confused at times Head-NCAT, EOMI, PERRLA, Anicteric Sclera, No Posterior Pharyngeal Erythema Neck-Supple, No JVD, No Thyromegaly, No Masses, No LAD, No Bruits Lungs-Clear to Auscultation Bilaterally, No Rales, No Rhonchi, No Wheezing, No Crepitus Chest-No S4, +S1, +S2, No S3, No Murmurs, No Rubs, No Gallops, No Ectopy Abdomen-Soft, Bowel Sounds Present, Non Tender, Non Distended, No Hepatomegaly, No Splenomegaly, No Palpable Masses, No Rebound, No Rigidity, No Guarding Musculoskeletal-Full Range of Motion Bilaterally, No CVAT Extremities-No Cyanosis, No Clubbing, No Edema Nuero-Cranial Nerves II-XII grossly intact, Motor WNL, DTRs WNL, Strength WNL, Non Focal Psych-Normal Mood Admission and Anticipated Discharge Date Admission Date: September 03, 2019 Results & Data Results & Data ([facility]) Vital Signs (Past 12 Hours) Vital Signs Temp Pulse Pulse Resp BP Pulse Ox 09/04/19 07:06 36.8 C 99 H 16 116/48 L 92 09/04/19 04:22 36.8 C 92 H 18 126/68 95 09/04/19 03:00 93 H 09/03/19 23:16 36.9 C 94 H 16 111/64 95
[2019-09-04] MEDS: METOPROLOL SUCC 25MG EXT REL TAB PO SCH (08:37)
[2019-09-04] MEDS: lamoTRIgine 100 MG TAB PO SCH ×2 (08:37→20:35)
[2019-09-04] MEDS: metroNIDAZOLE 500 MG/100 ML BAG IV SCH ×3 (08:37→23:48)
[2019-09-04] MEDS: ASPIRIN 81 MG ECTAB PO SCH (08:37)
[2019-09-04] MEDS: VENLAFAXINE HCL XR 150 MG CAPXR PO SCH (08:38)
[2019-09-04] MEDS: FERROUS SULFATE 325 MG TAB PO SCH ×2 (08:38→18:23)
[2019-09-04] MEDS: FLUTICASONE/VILANTEROL 100/25MCG 14 PUFFS/INHALER INH SCH (08:38)
[2019-09-04] MEDS ORDERED: NON-FORMULARY MEDICATION (Lactobacillus Rhamnosus Gg [Culturelle] 1 CAP) PO SCH (09:00)
[2019-09-04 11:00] LABS: BUN Creatinine Ratio 23.8 (10-20); Calcium 7.8 mg/dl (8.5-10.1); Creatinine Clr Calc Pharmacy 14.9 ml/min; Est GFR (African American) 26.1; Est GFR (Non-African American) 22.5; Magnesium 2.4 mg/dl (1.8-2.4); Potassium 3.7 mmol/L (3.5-5.1)
--- NOTE | 2019-09-04 13:27 | Consultation Report ---
DATE OF CONSULTATION: 09/04/2019 REASON FOR CONSULT: Acute renal failure with hyperkalemia. HISTORY OF PRESENT ILLNESS: The patient is an 89-year-old female who presented to the hospital yesterday because of diarrhea, abdominal pain, progressive weakness and falls for the last few days. She was also complaining of nausea as well as vomiting and very poor oral intake. Workup done in the Emergency Department was significant for very elevated white count of 80,000 as well as acute renal failure with a BUN of 56 and creatinine of 3.2 and a potassium of 6.9. However, she did not have any EKG changes. Hyperkalemia was managed medically and now it is normal. Overnight, she received IV fluids and with that her renal failure has also started to improved fairly fast. She is making urine. Her vital signs shows blood pressure is still on the lower side, but not very low. She was taking lisinopril, which has been held for the time being. CT scan of the abdomen and pelvis was also done, which showed no hydronephrosis in the kidney. There were findings suggestive of enterocolitis. She is still getting IV fluid and she is being treated with antibiotics for enterocolitis. None of the cultures are back yet. The patient also feels she is stronger than yesterday. PAST MEDICAL AND SURGICAL HISTORY: Includes hypertension, hyperlipidemia, chronic lymphocytic leukemia followed by Hematology, chronic kidney disease with baseline creatinine of around 1.1-1.3, hypothyroidism, coronary artery disease, breast biopsy, breast mammoplasty, cataract surgery, colonoscopy, hernia surgery, tooth extraction, shoulder surgery. FAMILY HISTORY: Negative for renal disease or dialysis. SOCIAL HISTORY: No smoking, no alcohol. Lives with her spouse. REVIEW OF SYSTEMS: Twelve systems reviewed and is negative unless stated otherwise in the HPI. ALLERGIES: List was reviewed in detail and is as per the H and P. HOME MEDICATIONS: List was reviewed in full detail. Of her special interest, she was taking low dose lisinopril, but was not taking any NSAIDs or diuretics. PHYSICAL EXAMINATION: GENERAL: Elderly white female who appeared to be fairly awake and alert and was able to answer questions appropriately. HEENT: Normocephalic, atraumatic. Mucous membranes moist. NECK: Supple. No jugular venous distention. CHEST: Bilateral clear to auscultation. CARDIOVASCULAR: S1 and S2, regular. ABDOMEN: Soft, nontender. EXTREMITIES: Shows no edema. SKIN: Shows no rashes noted. NEUROLOGIC: Awake, alert, oriented x3, moving all 4 extremities. LABORATORY TESTS: From this morning shows WBC count of 46,000, hemoglobin 12.3, platelet count 253. Sodium 136, potassium 3.7, CO2 19, BUN 46, creatinine 1.93, calcium 7.8. At the time of admission yesterday, she had a potassium of 6.9, sodium was 133, BUN was 56 and creatinine was 3.20. So in a 24-hour time period, labs have improved significantly. ASSESSMENT AND PLAN: An 89-year-old female with CKD stage III with a baseline creatinine of 1.2, presented with acute renal failure and hyperkalemia in the setting of severe GI illness. 1. Acute renal failure, appears simple prerenal type in the setting of diarrhea, nausea, vomiting and poor oral intake. She is responding very appropriately with IV fluids and I will continue the same for at least 1 more day. Her appetite is still very poor, so she might need IV fluid for more than a day. Continue to hold the lisinopril for the time being given RUTH. 2. Hyperkalemia. She had potassium of 6.9 on admission, but now is normal. Even with 6.9, she did not really have any EKG changes and was able to come to normal with medical management alone. The patient clearly does not want dialysis if such need arise, but looks like she has avoided that anyway. Thank you very much. MINA
[2019-09-04 14:52] LABS: BUN Creatinine Ratio 24.8 (10-20); Calcium 7.8 mg/dl (8.5-10.1); Creatinine Clr Calc Pharmacy 16.8 ml/min; Est GFR (Non-African American) 25.9; Magnesium 2.3 mg/dl (1.8-2.4); Potassium 3.3 mmol/L (3.5-5.1)
[2019-09-04] MEDS: CIPROFLOXACIN / D5W 400 MG/200 ML BAG IV SCH (17:48)
[2019-09-04] MEDS: LORazepam 0.5 MG TAB PO SCH (20:33)
[2019-09-04] MEDS: BIMATOPROST 0.01% OP SOLN 2.5 ML BTL OP SCH (20:35)
[2019-09-04] MEDS: QUETIAPINE FUMARATE 25 MG TABLET PO SCH (20:35)
[2019-09-04] MEDS: GABAPENTIN 300 MG CAP PO SCH (20:35)
[2019-09-05] MEDS: HEPARIN SOD 5,000 UNIT/0.5 ML VIAL SQ SCH ×3 (06:09→21:21)
[2019-09-05] MEDS: LEVOTHYROXINE SODIUM 75 MCG TABLET PO SCH (06:10)
[2019-09-05 07:08] LABS: Hematocrit (blood only) 28.1 % (37-47); Hemoglobin 9.2 g/dL (12.0-16.0); Mean Corpuscular Hgb Conc 32.7 g/dL (32-36); Mean Corpuscular Volume 91.5 fL (80-100); Mean Platelet Volume 9.1 fL (7.4-10.4); Platelet Count 229 K/uL (130-400); RDW Coefficient of Variation 14.4 % (11.5-14.5); RDW Standard Deviation 47.7 fL (36.4-46.3); Red Blood Count 3.07 M/uL (4.2-5.4); White Blood Count 34.84 K/uL (4.8-10.8)
--- NOTE | 2019-09-05 07:16 | Hospitalist Progress Note ---
Date of Service September 05, 2019 Assessment & Plan (1) Metabolic encephalopathy: (2) Acute renal failure superimposed on stage 3 chronic kidney disease: (3) Hyperkalemia: This is an 89-year-old female who has significant past medical history of HTN, HLD, CAD, hypothyroidism, CKD stage III with baseline creatinine 1.1-1.3, CLL, depression who presents to [facility] ED 2/2 progressive weakness and falls x 2 days. In ED patient remained hemodynamically stable. Lab work notable for significant leukocytosis 79.36K with an absolute lymphocytosis, H&H stable at 12.7 and 39.8, platelet 339, BUN 56, creatinine 3.20, potassium 6.9, sodium 133, calcium 8.4, glucose 150, TSH WNL. UA with +1 protein, positive nitrates, trace leukocyte esterase, negative bacteria CXR: negative for acute cardiopulmonary normality. Head CT was negative for acute pathology, chronic microvascular small vessel disease noted with senescent changes. In ED she received 1 g calcium gluconate, 10 units IV regular insulin, D50 and IVF. Nephrology -- on continuous pillowcase cutter BMP,mag and phos IVF 80cc/hr Clear liquid diet (4) Enterocolitis: CT scan abd pelvis concern for: Air-fluid levels within nondilated large and small bowel is noted in conjunction with multifocal large bowel wall thickening suggestive of a nonspecific enterocolitis with diarrheal illness stool for cdiff was negative Cont cipro/flagyl - renally dosed clear liquid diet (5) CAD (coronary artery disease): No chest pain/sob Continue ASA, Statin, Metoprolol Hold Lisinopril 2/2 to RUTH (6) Hypertension: Blood pressure controlled Continue metoprolol, hold ADAM 2/2 to RUTH (7) CLL (chronic lymphocytic leukemia): Follows Dr. Gurjit Castillo Oncology Has not received treatment/received remission WBC in past has been between 30-40k Discussed case with Dr. Cagle who recommended CT Chest, ABD/Pelvis to r/o lymphadenopathy or obstruction which was negative as well as markers to r/o tumor lysis syndrome If above unremarkable elevation in WBC likely not related to CLL but probable underlying source, WBCs in the upper 30s (8) Dyslipidemia: hold statin for now given RUTH resume when able (9) Hypothyroidism: TSH 1.36 Continue levothyroxine (10) Depression: (11) Bipolar disorder: Continue lamictal/venlafaxine/seroquel Pt takes 262.5mg of venlafaxine - given RUTH will reduce dosing by ~ 50% per uptodate guidelines when RUTH resolves return to normal dose (12) DVT prophylaxis: SQ Heparin Disposition: DC in 2-3 days Daughter asking for placement, unsafe at home, PT/OT Follow up: PCP Dr. Wick upon discharge Labs checked PT/OT ROS-No Headache, No Visual Changes, No Nausea, No Vomiting, No Fever, No Chills, No Neck Pain or Stiffness, No Chest Pain, No Palpitations, No SOB, No PEREZ, No Cough, No Sputum, No Wheezing, No Abdominal Pain, No Diarrhea, No Hematemesis, No Hemoptysis, No Unexpected Weight Loss, No Flank pain, No Melena, No Hematochezia, No Frequency, No Urgency, No Burning, No Hematuria, No Rashes, No Diaphoresis. Appetite is Normal Physical Exam Gen-AAO x 3, NAD, Afebrile, Confused at times Head-NCAT, EOMI, PERRLA, Anicteric Sclera, No Posterior Pharyngeal Erythema Neck-Supple, No JVD, No Thyromegaly, No Masses, No LAD, No Bruits Lungs-Clear to Auscultation Bilaterally, No Rales, No Rhonchi, No Wheezing, No Crepitus Chest-No S4, +S1, +S2, No S3, No Murmurs, No Rubs, No Gallops, No Ectopy Abdomen-Soft, Bowel Sounds Present, Non Tender, Non Distended, No Hepatomegaly, No Splenomegaly, No Palpable Masses, No Rebound, No Rigidity, No Guarding Musculoskeletal-Full Range of Motion Bilaterally, No CVAT Extremities-No Cyanosis, No Clubbing, No Edema, +Davila-Dark Urine Nuero-Cranial Nerves II-XII grossly intact, Motor WNL, DTRs WNL, Strength WNL, Non Focal Psych-Normal Mood Admission and Anticipated Discharge Date Admission Date: September 03, 2019 Anticipated date of discharge: 09/07/19 Results & Data Results & Data ([facility]) Vital Signs (Past 12 Hours) Vital Signs Temp Pulse Pulse Resp BP Pulse Ox 09/05/19 03:36 37.2 C 86 16 113/68 96 09/05/19 00:07 36.9 C 98 H 18 108/66 97 09/04/19 23:04 82 09/04/19 19:45 37.0 C 91 H 18 115/67 94
[2019-09-05 07:24] LABS: Albumin Level 2.3 gm/dl (3.4-5.0); BUN Creatinine Ratio 22.8 (10-20); Calcium 7.5 mg/dl (8.5-10.1); Creatinine Clr Calc Pharmacy 22.5 ml/min; Est GFR (African American) 43.3; Est GFR (Non-African American) 37.4; Potassium 3.3 mmol/L (3.5-5.1)
[2019-09-05 07:34] LABS: Albumin Globulin Ratio 0.7 (0.9-2); Bilirubin,Total 0.4 mg/dl (0.2-1); Globulin 3.3 gm/dl (2.5-4.0); Total Protein 5.6 gm/dl (6.4-8.2)
[2019-09-05 08:06] LABS: Basophils # (auto) 0.04 K/uL (0-0.2); Basophils % (auto) 0.1 %; Eosinophils # (auto) 0.15 K/uL (0-0.5); Eosinophils % (auto) 0.4 %; Immature Granulocytes # (auto) 0.05 K/uL (0.00-0.02); Immature Granulocytes % (auto) 0.1 %; Lymphocytes # (auto) 30.73 K/uL (1.2-3.4); Lymphocytes % (auto) 88.2 %; Monocytes # (auto) 1.09 K/uL (0.11-0.59); Monocytes % (auto) 3.1 %; Neutrophils # (auto) 2.78 K/uL (1.4-6.5); Neutrophils % (auto) 8.1 %; Smudge Cells Present
[2019-09-05] MEDS: METOPROLOL SUCC 25MG EXT REL TAB PO SCH (08:24)
[2019-09-05] MEDS: BISMUTH SUBSALICYLATE 262 MG CHEW PO SCH ×4 (08:24→20:24)
[2019-09-05] MEDS: metroNIDAZOLE 500 MG/100 ML BAG IV SCH ×2 (08:24→16:11)
[2019-09-05] MEDS: FERROUS SULFATE 325 MG TAB PO SCH ×2 (08:24→17:33)
[2019-09-05] MEDS: VENLAFAXINE HCL XR 150 MG CAPXR PO SCH (08:26)
[2019-09-05] MEDS: FLUTICASONE/VILANTEROL 100/25MCG 14 PUFFS/INHALER INH SCH (08:27)
[2019-09-05] MEDS: ASPIRIN 81 MG ECTAB PO SCH (08:27)
[2019-09-05] MEDS: lamoTRIgine 100 MG TAB PO SCH ×2 (08:28→21:22)
[2019-09-05] MEDS: SODIUM CHLORIDE 0.9% 1000ML 1,000 ML IV SCH ×2 (08:34→21:27)
[2019-09-05] MEDS: CIPROFLOXACIN / D5W 400 MG/200 ML BAG IV SCH (17:10)
[2019-09-05] MEDS: ONDANSETRON INJ 2 MG/ML 2 ML VIAL IV PRN (20:24)
[2019-09-05] MEDS: LORazepam 0.5 MG TAB PO SCH (20:24)
[2019-09-05] MEDS: GABAPENTIN 300 MG CAP PO SCH (21:21)
[2019-09-05] MEDS: QUETIAPINE FUMARATE 25 MG TABLET PO SCH (21:21)
[2019-09-05] MEDS: BIMATOPROST 0.01% OP SOLN 2.5 ML BTL OP SCH (21:22)
[2019-09-06] MEDS: metroNIDAZOLE 500 MG/100 ML BAG IV SCH ×3 (00:08→17:00)
[2019-09-06] MEDS: HEPARIN SOD 5,000 UNIT/0.5 ML VIAL SQ SCH ×3 (05:54→21:27)
[2019-09-06] MEDS: LEVOTHYROXINE SODIUM 75 MCG TABLET PO SCH (05:54)
[2019-09-06 06:20] LABS: Hematocrit (blood only) 28.2 % (37-47); Hemoglobin 9.1 g/dL (12.0-16.0); Mean Corpuscular Hemoglobin 29.8 pg (25-34); Mean Corpuscular Hgb Conc 32.3 g/dL (32-36); Mean Corpuscular Volume 92.5 fL (80-100); Mean Platelet Volume 8.9 fL (7.4-10.4); Platelet Count 216 K/uL (130-400); RDW Coefficient of Variation 14.6 % (11.5-14.5); RDW Standard Deviation 48.7 fL (36.4-46.3); Red Blood Count 3.05 M/uL (4.2-5.4); White Blood Count 33.24 K/uL (4.8-10.8)
--- NOTE | 2019-09-06 06:48 | Hospitalist Progress Note ---
Date of Service September 06, 2019 Assessment & Plan (1) Metabolic encephalopathy: (2) Acute renal failure superimposed on stage 3 chronic kidney disease: (3) Hyperkalemia: This is an 89-year-old female who has significant past medical history of HTN, HLD, CAD, hypothyroidism, CKD stage III with baseline creatinine 1.1-1.3, CLL, depression who presents to [facility] ED 2/2 progressive weakness and falls x 2 days. In ED patient remained hemodynamically stable. Lab work notable for significant leukocytosis 79.36K with an absolute lymphocytosis, H&H stable at 12.7 and 39.8, platelet 339, BUN 56, creatinine 3.20, potassium 6.9, sodium 133, calcium 8.4, glucose 150, TSH WNL. UA with +1 protein, positive nitrates, trace leukocyte esterase, negative bacteria CXR: negative for acute cardiopulmonary normality. Head CT was negative for acute pathology, chronic microvascular small vessel disease noted with senescent changes. In ED she received 1 g calcium gluconate, 10 units IV regular insulin, D50 and IVF. Nephrology -- on case management manager BMP,mag and phos IVF 80cc/hr Clear liquid diet (4) Enterocolitis: CT scan abd pelvis concern for: Air-fluid levels within nondilated large and small bowel is noted in conjunction with multifocal large bowel wall thickening suggestive of a nonspecific enterocolitis with diarrheal illness stool for cdiff was negative Cont cipro/flagyl - renally dosed clear liquid diet (5) CAD (coronary artery disease): No chest pain/sob Continue ASA, Statin, Metoprolol Hold Lisinopril 2/2 to RUTH (6) Hypertension: Blood pressure controlled Continue metoprolol, hold ADAM 2/2 to RUTH (7) CLL (chronic lymphocytic leukemia): Follows Dr. Gurjit Castillo Oncology Has not received treatment/received remission WBC in past has been between 30-40k Discussed case with Dr. Cagle who recommended CT Chest, ABD/Pelvis to r/o lymphadenopathy or obstruction which was negative as well as markers to r/o tumor lysis syndrome If above unremarkable elevation in WBC likely not related to CLL but probable underlying source, WBCs in the upper 30s (8) Dyslipidemia: hold statin for now given RUTH resume when able (9) Hypothyroidism: TSH 1.36 Continue levothyroxine (10) Depression: (11) Bipolar disorder: Continue lamictal/venlafaxine/seroquel Pt takes 262.5mg of venlafaxine - given RUTH will reduce dosing by ~ 50% per uptodate guidelines when RUTH resolves return to normal dose (12) DVT prophylaxis: SQ Heparin SI last PM, Psych consulted Disposition: DC in 2-3 days Daughter asking for placement, unsafe at home, PT/OT Follow up: PCP Dr. Wick upon discharge Labs checked PT/OT, Add Florastor, Start Imodium, +Sitter ROS-No Headache, No Visual Changes, No Nausea, No Vomiting, No Fever, No Chills, No Neck Pain or Stiffness, No Chest Pain, No Palpitations, No SOB, No PEREZ, No Cough, No Sputum, No Wheezing, No Abdominal Pain, + Diarrhea, No Hematemesis, No Hemoptysis, No Unexpected Weight Loss, No Flank pain, No Melena, No Hematochezia, No Frequency, No Urgency, No Burning, No Hematuria, No Rashes, No Diaphoresis. Appetite is Normal Physical Exam Gen-AAO x 3, NAD, Afebrile, Confused at times Head-NCAT, EOMI, PERRLA, Anicteric Sclera, No Posterior Pharyngeal Erythema Neck-Supple, No JVD, No Thyromegaly, No Masses, No LAD, No Bruits Lungs-Clear to Auscultation Bilaterally, No Rales, No Rhonchi, No Wheezing, No Crepitus Chest-No S4, +S1, +S2, No S3, No Murmurs, No Rubs, No Gallops, No Ectopy Abdomen-Soft, Bowel Sounds Present, Non Tender, Non Distended, No Hepatomegaly, No Splenomegaly, No Palpable Masses, No Rebound, No Rigidity, No Guarding Musculoskeletal-Full Range of Motion Bilaterally, No CVAT Extremities-No Cyanosis, No Clubbing, No Edema, +Davila-Dark Urine Nuero-Cranial Nerves II-XII grossly intact, Motor WNL, DTRs WNL, Strength WNL, Non Focal Psych-Normal Mood Today Admission and Anticipated Discharge Date Admission Date: September 03, 2019 Anticipated date of discharge: 09/07/19 Results & Data Results & Data ([facility]) Vital Signs (Past 12 Hours) Vital Signs Temp Pulse Pulse Resp BP Pulse Ox 09/06/19 03:32 36.8 C 79 18 107/63 97 09/06/19 00:00 92 H 09/05/19 23:34 36.8 C 81 16 101/55 L 94 09/05/19 19:16 36.9 C 80 18 131/72 96
[2019-09-06 07:06] LABS: Albumin Globulin Ratio 0.6 (0.9-2); BUN Creatinine Ratio 16.8 (10-20); Bilirubin,Total 0.4 mg/dl (0.2-1); Calcium 7.1 mg/dl (8.5-10.1); Creatinine Clr Calc Pharmacy 28.7 ml/min; Est GFR (African American) 55.2; Est GFR (Non-African American) 47.6; Globulin 3.1 gm/dl (2.5-4.0); Potassium 2.9 mmol/L (3.5-5.1); Total Protein 5.1 gm/dl (6.4-8.2)
[2019-09-06 07:21] LABS: Basophils # (auto) 0.05 K/uL (0-0.2); Basophils % (auto) 0.2 %; Eosinophils # (auto) 0.32 K/uL (0-0.5); Immature Granulocytes # (auto) 0.05 K/uL (0.00-0.02); Immature Granulocytes % (auto) 0.2 %; Lymphocytes # (auto) 29.26 K/uL (1.2-3.4); Monocytes # (auto) 1.05 K/uL (0.11-0.59); Monocytes % (auto) 3.2 %; Neutrophils # (auto) 2.51 K/uL (1.4-6.5); Neutrophils % (auto) 7.4 %; Smudge Cells Present
--- NOTE | 2019-09-06 08:09 | Psychiatric Consultation ---
Date of Consultation September 06, 2019 Impression / Recommendations (1) Bipolar disorder: -Continue home doses of venlafaxine XR, quetiapine, gabapentin, and lamotrigine. -Mood destabilized with admission to the hospital, but had been stable for months prior, and is improved today. Denies recurrence of suicidal thoughts, which were brief and passive. -Care coordinated with Dr. Forde and therapist Jillian Galdamez;, next psychiatric appointment is 09/16/2019 at 11 AM, and sees her therapist that day at 2:30 PM. -Lorazepam was discontinued months ago, corrected admission med rec and discontinued the medication here, as it can contribute to confusion/delirium. Risk Factors Assessment Male: No : Yes Do You Have Access To A Gun?: No Health Problems: Yes Mental Health Diagnoses: Yes Substance Use Disorders: No Previous Attempt: No Family History of Suicide: No Previous Psychiatric Hospitalization: No Hopelessness: No Smoker: No Protective Factors Assessment : Yes Responsible for Young Children: No Employed: No Stable Relationships: Yes Supportive Family: Yes Good Rapport with Provider: Yes Absence of Any Risk Factors Above: Yes (Not in a mood episode, good support from ) Psych History Identifying Data 89 y/o F who lives with her , has a history of progressive weakness and multiple falls at home, hypertension, hyperlipidemia, CAD, hypothyroidism, chronic kidney disease and bipolar disorder, follows with Dr. Forde, and was admitted with ARF and metabolic encephalopathy; psychiatry is consulted for suicidality. Chief Complaint " I've been doing exceptional for what's been going on." History of Present Illness Patient presented to the ER 09/03/2019 and was admitted for progressive weakness and falls at home. She reported recent diarrhea, nausea, emesis, weakness, and inability to get out of bed. She had recently taken amoxicillin for dental infection. She had electrolyte disarray with hyperkalemia, leukocytosis, creatinine 3.2, BUN 56, + UA, head CT showed chronic microvascular small vessel disease, and she was diagnosed with metabolic encephalopathy, acute on chronic renal failure, hyperkalemia, and enterocolitis. C. difficile is negative. She was continued on her home psychotropic medications, although the admission med rec is incorrect and she was erroneously placed back on Lorazepam 0.25 mg at bedtime, which was discontinued months ago. Per outpatient records, she last saw Dr. Forde 07/14/2019, at which point mood was stable, and she was continued on venlafaxine XR 265 mg every morning, lamotrigine 100 mg twice daily, gabapentin 300 mg at bedtime, and quetiapine 50 mg nightly. Last evening she told her nurse that she was "having trouble dealing with her issues." When asked if she had suicidal thoughts, she stated "I'm not sure, I guess I am pr trish suicidal." She had difficulty explaining what this meant, and made a comment about jumping out of her window. On my assessment today, she reports that her mood had been good and stable until she was hospitalized, and that last evening she had some thoughts about ending her life, which occurred in the context of feeling "uptight, couldn't stand another minute of it, couldn't understand what was going on." She denies any plan or intent to harm herself, and states that thoughts have not recurred. She states she has had only very rare thoughts of , despite dealing with mental illness for many decades. She does not believe that she is depressed, and describes mood as "exceptional for what's been going on." She does endorse recent confusion, and is poorly able to describe events that led to her admission, stating she was having diarrhea and felt weak and unable to get out of bed, stating "my muscles wouldn't obey," and felt confused. She is able to review her psychotropic me dications, and states she has not been taking Ativan for months. 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 She reports poor appetite in the context of her recent GI symptoms, but denies significant changes in weight or more persistent appetite changes. She does report feeling overwhelmed by the pandemic and events in the news, but has been able to enjoy time with her , rail transportation operator, and flower gardening. States mood is better today, and she feels safe here. Past Psychiatric History Outpatient Services: Psychiatrist Dr. Forde at [facility] Therapist Jillian Galdamez Do You Have Access To A Gun?: No History of Previous Suicide Attempt: No Allergies Allergy/AdvReac Type Severity Reaction Status Date / Time adhesive Allergy Intermediate if on for Verified 09/03/19 09:56 a while-red blisters bacitracin Allergy Mild ALLERGY-IRR Verified 09/03/19 09:56 ITATION neomycin Allergy Mild ALLERGY Verified 09/03/19 09:56 polymyxin B Allergy Mild ALLERGY Verified 09/03/19 09:56 Home Medications Home Medications Medication Instructions Recorded Confirmed Type Calcium 600 + D(3) 1 cap PO DAILY 07/14/18 09/03/19 History Dulera 1 puff INHALATION BID 07/14/18 09/03/19 History Lumigan 1 drp OPHTHALMIC (EYE) PM 07/14/18 09/03/19 History aspirin 81 mg PO DAILY 07/14/18 09/03/19 History atorvastatin 40 mg PO PM 07/14/18 09/03/19 History azelastine 1 spray INTRANASAL HS 07/14/18 09/03/19 History cholecalciferol (vitamin D3) 1,000 unit PO DAILY 07/14/18 09/03/19 History [Vitamin D3] cyanocobalamin (vitamin B-12) 1,000 mcg PO DAILY 07/14/18 09/03/19 History [Vitamin B-12] gabapentin [Neurontin] 300 mg PO HS 07/14/18 09/03/19 History lamotrigine [Lamictal] 100 mg PO BID 07/14/18 09/03/19 History levalbuterol tartrate [Xopenex HFA] 1 puff INHALATION Q6H PRN 07/14/18 09/03/19 History levothyroxine [Levoxyl] 75 mcg PO QAM 07/14/18 09/03/19 History lisinopril 10 mg PO QPM 07/14/18 09/03/19 History metoprolol succinate 12.5 mg PO DAILY 07/14/18 09/03/19 History venlafaxine [Effexor XR] 37.5 mg PO QAM 07/14/18 09/03/19 History venlafaxine [Effexor XR] 75 mg PO QAM 07/14/18 09/03/19 History venlafaxine [Effexor XR] 150 mg PO QAM 07/14/18 09/03/19 History Culturelle 1 cap PO DAILY 08/12/18 09/03/19 History acetaminophen-codeine 1 tab PO BID PRN 09/03/19 09/03/19 History ferrous sulfate [Feosol] 325 mg PO BID 09/03/19 09/03/19 History quetiapine 50 mg PO HS 09/03/19 09/03/19 History Family History Mother, grandmother, sister, and niece with depression. Maternal grandmother attempted suicide. Substance Abuse History Denies Personal History Living Arrangements: Home Living Arrangements Comments: with Childhood: From [place]. Attended [email or web address] Highest Grade Completed: Some College Employment Status: Retired (Nurse, previously worked here and at [employer]) Marital Status: Number Of Children: 1 son and 2 daughters Beliefs That Will Affect Care: Sikh (Mennonite) History of Legal Problems: Denies Psychological Trauma History Comment: Denies Patient History Medical History Anxiety Bipolar disorder Chronic kidney disease, stage 3 FOLLOWS W/ DR. AZEVEDO CLL (chronic lymphocytic leukemia) Degenerative disc disease Difficult intravenous access Diverticular disease GERD (gastroesophageal reflux disease) Glaucoma Hiatal hernia History of migraine Hyperlipidemia Hypertension Hypothyroidism Lyme disease Nonallergic rhinitis Osteoarthritis Restless leg syndrome Surgical History History of breast biopsy History of breast mammoplasty History of cataract surgery History of colonoscopy History of colonoscopy with polypectomy History of esophagogastroduodenoscopy (EGD) History of hernia repair RT INGUINAL History of shoulder surgery RT History of tooth extraction Family History Father Cancer SKIN - basal cell Coronary heart disease Sister Cancer Ovarian Social History Preferred Language: Egyptian Communication Ability: Effective Manager Small Business Required: No Beliefs That Will Affect Care: None Current Living Situation: Spouse Current Living Situation Comment: ranch Other Information That Helps Us Care for You: No Feels Safe at Home: Yes Safety Concerns: Feels Safe At This Time Smoking Status: Never smoker Second Hand Exposure: No ; Hx Alcohol Use: No Hx Substance Use: No Physical Exam Mental Examination: Elderly female lying in her bed in no acute distress. Thin and frail. Calm, cooperative, and pleasant. Good eye contact and no abnormal movements. Mood is "exceptional for what's been going on." Affect is euthymic and mood congruent. Speech spontaneous, normal rate, volume and tone. Thoughts are linear and goal directed. Denies SI, HI, hallucinations, paranoia. No delusions evident. Memory impaired for events prior to admission. Language and attention grossly intact. Insight and judgment good. Vital Signs (Past 24 Hours): Last Vital Signs Temp 37.5 C 09/06/19 07:05 Pulse 84 09/06/19 07:05 Resp 19 09/06/19 07:05 BP 107/63 09/06/19 07:05 Pulse Ox 95 09/06/19 07:05 Review of Systems All systems reviewed & are unremarkable except as noted in HPI & below Diarrhea, weakness Results & Data (PSY) Medications Administered Aspirin (Ecotrin Ectab) 81 mg PO DAILY [facility] Stop: 10/04/19 08:59 Last Admin: 09/05/19 08:27 Dose: 81 mg Documented by: [id number] Admin: 09/04/19 08:37 Dose: 81 mg Documented by: [id number] Bimatoprost (Lumigan 0.01%) 1 drops OP PM [facility] Stop: 10/03/19 20:59 Last Admin: 09/05/19 21:22 Dose: 1 drops Documented by: [id number] Admin: 09/04/19 20:35 Dose: 1 drops Documented by: [id number] Admin: 09/03/19 21:02 Dose: 1 drops Documented by: [id number] Bismuth Subsalicylate (Pepto-Bismol) 1 tab PO Q4HWA [facility] Stop: 10/05/19 07:59 Last Admin: 09/05/19 20:24 Dose: 1 tab Documented by: [id number] Admin: 09/05/19 16:11 Dose: 1 tab Documented by: [id number] Admin: 09/05/19 13:21 Dose: 1 tab Documented by: [id number] Admin: 09/05/19 08:24 Dose: 1 tab Documented by: [id number] Ferrous Sulfate (Feosol) 325 mg PO BIDM [facility] Stop: 10/04/19 07:59 Last Admin: 09/05/19 17:33 Dose: 325 mg Documented by: [id number] Admin: 09/05/19 08:24 Dose: 325 mg Documented by: [id number] Admin: 09/04/19 18:23 Dose: 325 mg Documented by: [id number] Admin: 09/04/19 08:38 Dose: 325 mg Documented by: [id number] Fluticasone/Vilanterol (Breo Ellipta 100/25 Mcg Inh) 1 puffs INH DAILY [facility] Stop: 10/04/19 08:59 Last Admin: 09/05/19 08:27 Dose: 1 puffs Documented by: [id number] Admin: 09/04/19 08:38 Dose: 1 puffs Documented by: [id number] Gabapentin (Neurontin) 300 mg PO HS [facility] Stop: 10/03/19 20:59 Last Admin: 09/05/19 21:21 Dose: 300 mg Documented by: [id number] Admin: 09/04/19 20:35 Dose: 300 mg Documented by: [id number] Admin: 09/03/19 21:03 Dose: 300 mg Documented by: [id number] Heparin Sodium (Porcine) (Heparin Sodium (Porcine)) 5,000 units SQ Q8 [facility] Stop: 10/03/19 21:59 Last Admin: 09/06/19 05:54 Dose: 5,000 units Documented by: [id number] Cosigned by: [id number] Admin: 09/05/19 21:21 Dose: 5,000 units Documented by: [id number] Cosigned by: [id number] Admin: 09/05/19 15:02 Dose: 5,000 units Documented by: [id number] Cosigned by: [id number] Admin: 09/05/19 06:09 Dose: 5,000 units Documented by: [id number] Cosigned by: [id number] Admin: 09/04/19 20:34 Dose: 5,000 units Documented by: [id number] Cosigned by: [id number] Admin: 09/04/19 14:47 Dose: 5,000 units Documented by: [id number] Cosigned by: [id number] Admin: 09/04/19 05:44 Dose: 5,000 units Documented by: [id number] Cosigned by: [id number] Admin: 09/03/19 21:05 Dose: Not Given Documented by: [id number] Sodium Chloride (Nss 1000ml) 1,000 mls @ 75 mls/hr IV .[id number] [facility] Stop: 10/03/19 16:05 Last Admin: 09/05/19 21:27 Dose: 75 mls/hr Documented by: [id number] Infusion: 09/05/19 21:27 Dose: 75 mls/hr Documented by: [id number] Admin: 09/05/19 08:34 Dose: 75 mls/hr Documented by: [id number] Infusion: 09/05/19 07:44 Dose: 75 mls/hr Documented by: [id number] Admin: 09/04/19 18:24 Dose: 75 mls/hr Documented by: [id number] Infusion: 09/04/19 18:11 Dose: 75 mls/hr Documented by: [id number] Admin: 09/04/19 04:51 Dose: 75 mls/hr Documented by: [id number] Infusion: 09/04/19 04:51 Dose: 75 mls/hr Documented by: [id number] Admin: 09/03/19 17:14 Dose: 75 mls/hr Documented by: [id number] Metronidazole (Flagyl) 500 mg in 100 mls @ 100 mls/hr IV Q8H [facility] Stop: 09/13/19 15:59 Last Infusion: 09/06/19 01:49 Dose: 0 mls/hr Documented by: [id number] Admin: 09/06/19 00:08 Dose: 100 mls/hr Documented by: [id number] Infusion: 09/05/19 19:06 Dose: 0 mls/hr Documented by: [id number] Admin: 09/05/19 16:11 Dose: 100 mls/hr Documented by: [id number] Infusion: 09/05/19 09:53 Dose: 0 mls/hr Documented by: [id number] Admin: 09/05/19 08:24 Dose: 100 mls/hr Documented by: [id number] Infusion: 09/05/19 01:53 Dose: 0 mls/hr Documented by: [id number] Admin: 09/04/19 23:48 Dose: 100 mls/hr Documented by: [id number] Infusion: 09/04/19 17:30 Dose: 100 mls/hr Documented by: [id number] Admin: 09/04/19 15:53 Dose: 100 mls/hr Documented by: [id number] Infusion: 09/04/19 09:40 Dose: 0 mls/hr Documented by: [id number] Admin: 09/04/19 08:37 Dose: 100 mls/hr Documented by: [id number] Infusion: 09/04/19 02:07 Dose: 0 mls/hr Documented by: [id number] Admin: 09/03/19 23:59 Dose: 100 mls/hr Documented by: [id number] Infusion: 09/03/19 18:38 Dose: 0 mls/hr Documented by: [id number] Admin: 09/03/19 17:31 Dose: 100 mls/hr Documented by: [id number] Ciprofloxacin (Cipro) 400 mg in 200 mls @ 100 mls/hr IV Q24H DEANN; Protocol Stop: 09/13/19 16:59 Last Infusion: 09/05/19 19:37 Dose: 0 mls/hr Documented by: [id number] Admin: 09/05/19 17:10 Dose: 100 mls/hr Documented by: [id number] Infusion: 09/04/19 19:49 Dose: 0 mls/hr Documented by: [id number] Admin: 09/04/19 17:48 Dose: 100 mls/hr Documented by: [id number] Infusion: 09/03/19 21:29 Dose: 0 mls/hr Documented by: [id number] Admin: 09/03/19 18:38 Dose: 100 mls/hr Documented by: [id number] Lamotrigine (Lamictal) 100 mg PO BID [facility] Stop: 10/03/19 20:59 Last Admin: 09/05/19 21:22 Dose: 100 mg Documented by: [id number] Admin: 09/05/19 08:28 Dose: 100 mg Documented by: [id number] Admin: 09/04/19 20:35 Dose: 100 mg Documented by: [id number] Admin: 09/04/19 08:37 Dose: 100 mg Documented by: [id number] Admin: 09/03/19 21:03 Dose: 100 mg Documented by: [id number] Levothyroxine Sodium (Synthroid) 75 mcg PO DAILYBB [facility] Stop: 10/04/19 06:29 Last Admin: 09/06/19 05:54 Dose: 75 mcg Documented by: [id number] Admin: 09/05/19 06:10 Dose: 75 mcg Documented by: [id number] Admin: 09/04/19 05:44 Dose: 75 mcg Documented by: [id number] Lorazepam (Ativan) 0.25 mg PO HS [facility] Stop: 10/03/19 20:59 Last Admin: 09/05/19 20:24 Dose: 0.25 mg Documented by: [id number] Admin: 09/04/19 20:33 Dose: Not Given Documented by: [id number] Admin: 09/03/19 21:03 Dose: Not Given Documented by: [id number] Metoprolol Succinate (Toprol Xl) 12.5 mg PO DAILY [facility] Stop: 10/04/19 08:59 Last Admin: 09/05/19 08:24 Dose: 12.5 mg Documented by: [id number] Admin: 09/04/19 08:37 Dose: 12.5 mg Documented by: [id number] Ondansetron HCl (Zofran) 4 mg IV Q6H PRN PRN Reason: Nausea Stop: 10/03/19 16:05 Last Admin: 09/05/19 20:24 Dose: 4 mg Documented by: [id number] Quetiapine Fumarate (Seroquel) 50 mg PO HS [facility] Stop: 10/03/19 20:59 Last Admin: 09/05/19 21:21 Dose: 50 mg Documented by: [id number] Admin: 09/04/19 20:35 Dose: 50 mg Documented by: [id number] Admin: 09/03/19 21:03 Dose: 50 mg Documented by: [id number] Venlafaxine HCl (Effexor Extended Release) 150 mg PO QAM [facility] Stop: 10/04/19 08:59 Last Admin: 09/05/19 08:26 Dose: 150 mg Documented by: [id number] Admin: 09/04/19 08:38 Dose: 150 mg Documented by: [id number] Coding Level of Care Code 59111 [facility] Intl Hosp Care Lvl 3 Diagnoses Bipolar disorder F31.9
[2019-09-06] MEDS: METOPROLOL SUCC 25MG EXT REL TAB PO SCH (09:00)
[2019-09-06] MEDS: VENLAFAXINE HCL XR 150 MG CAPXR PO SCH (09:01)
[2019-09-06] MEDS: FLUTICASONE/VILANTEROL 100/25MCG 14 PUFFS/INHALER INH SCH (09:01)
[2019-09-06] MEDS: ASPIRIN 81 MG ECTAB PO SCH (09:01)
[2019-09-06] MEDS: SACCHAROMYCES BOULARDII 250 MG CAP PO SCH ×2 (09:02→21:28)
[2019-09-06] MEDS: lamoTRIgine 100 MG TAB PO SCH ×2 (09:02→21:26)
[2019-09-06] MEDS: BISMUTH SUBSALICYLATE 262 MG CHEW PO SCH ×4 (09:02→21:26)
[2019-09-06] MEDS: FERROUS SULFATE 325 MG TAB PO SCH ×2 (09:02→17:00)
[2019-09-06] MEDS: POTASSIUM CHLORIDE 20 MEQ/15 ML UDC PO SCH ×2 (10:05→21:26)
[2019-09-06] MEDS: SODIUM CHLORIDE 0.9% 1000ML 1,000 ML IV SCH (12:08)
[2019-09-06] MEDS: ACETAMINOPHEN W/CODEINE #3 1 TAB PO PRN (14:19)
[2019-09-06] MEDS: CIPROFLOXACIN / D5W 400 MG/200 ML BAG IV SCH (17:00)
[2019-09-06] MEDS: QUETIAPINE FUMARATE 25 MG TABLET PO SCH (21:26)
[2019-09-06] MEDS: GABAPENTIN 300 MG CAP PO SCH (21:27)
[2019-09-06] MEDS: BIMATOPROST 0.01% OP SOLN 2.5 ML BTL OP SCH (21:28)
[2019-09-06] MEDS: LORazepam 0.5 MG TAB PO SCH (21:32)
[2019-09-07] MEDS: metroNIDAZOLE 500 MG/100 ML BAG IV SCH ×4 (00:23→23:28)
[2019-09-07] MEDS: SODIUM CHLORIDE 0.9% 1000ML 1,000 ML IV SCH ×2 (00:23→13:16)
[2019-09-07] MEDS: HEPARIN SOD 5,000 UNIT/0.5 ML VIAL SQ SCH ×3 (05:19→20:33)
[2019-09-07] MEDS: LEVOTHYROXINE SODIUM 75 MCG TABLET PO SCH (05:20)
[2019-09-07 06:52] LABS: Hematocrit (blood only) 30.8 % (37-47); Hemoglobin 9.5 g/dL (12.0-16.0); Mean Corpuscular Hemoglobin 28.9 pg (25-34); Mean Corpuscular Hgb Conc 30.8 g/dL (32-36); Mean Corpuscular Volume 93.6 fL (80-100); Mean Platelet Volume 8.9 fL (7.4-10.4); Platelet Count 241 K/uL (130-400); RDW Coefficient of Variation 14.9 % (11.5-14.5); RDW Standard Deviation 51.2 fL (36.4-46.3); Red Blood Count 3.29 M/uL (4.2-5.4)
[2019-09-07 07:28] LABS: Albumin Globulin Ratio 0.7 (0.9-2); Albumin Level 2.1 gm/dl (3.4-5.0); BUN Creatinine Ratio 11.3 (10-20); Bilirubin,Total 0.2 mg/dl (0.2-1); Calcium 7.3 mg/dl (8.5-10.1); Est GFR (African American) 61.5; Est GFR (Non-African American) 53.1; Globulin 2.9 gm/dl (2.5-4.0); Potassium 3.3 mmol/L (3.5-5.1)
--- NOTE | 2019-09-07 07:51 | Hospitalist Progress Note ---
Date of Service September 07, 2019 Assessment & Plan (1) Metabolic encephalopathy: (2) Acute renal failure superimposed on stage 3 chronic kidney disease: (3) Hyperkalemia: This is an 89-year-old female who has significant past medical history of HTN, HLD, CAD, hypothyroidism, CKD stage III with baseline creatinine 1.1-1.3, CLL, depression who presents to [facility] ED 2/2 progressive weakness and falls x 2 days. In ED patient remained hemodynamically stable. Lab work notable for significant leukocytosis 79.36K with an absolute lymphocytosis, H&H stable at 12.7 and 39.8, platelet 339, BUN 56, creatinine 3.20, potassium 6.9, sodium 133, calcium 8.4, glucose 150, TSH WNL. UA with +1 protein, positive nitrates, trace leukocyte esterase, negative bacteria CXR: negative for acute cardiopulmonary normality. Head CT was negative for acute pathology, chronic microvascular small vessel disease noted with senescent changes. In ED she received 1 g calcium gluconate, 10 units IV regular insulin, D50 and IVF. Nephrology -- on case, now repleting K Monitor BMP,mag and phos IVF 80cc/hr, ARF resolved Adv diet (4) Enterocolitis: CT scan abd pelvis concern for: Air-fluid levels within nondilated large and small bowel is noted in conjunction with multifocal large bowel wall thickening suggestive of a nonspecific enterocolitis with diarrheal illness stool for cdiff was negative Cont cipro/flagyl - renally dosed (5) CAD (coronary artery disease): No chest pain/sob Continue ASA, Statin, Metoprolol Add back ADAM-I if renal agrees, Lisinopril (6) Hypertension: Blood pressure controlled Continue metoprolol, Resume ADAM? (7) CLL (chronic lymphocytic leukemia): Follows Dr. Gurjit Castillo Oncology Has not received treatment/received remission WBC in past has been between 30-40k Discussed case with Dr. Cagle who recommended CT Chest, ABD/Pelvis to r/o lymphadenopathy or obstruction which was negative as well as markers to r/o tumor lysis syndrome If above unremarkable elevation in WBC likely not related to CLL but probable underlying source, WBCs in the upper 30s (8) Dyslipidemia: Resume statin on DC (9) Hypothyroidism: TSH 1.36 Continue levothyroxine (10) Depression: (11) Bipolar disorder: Continue lamictal/venlafaxine/seroquel Pt takes 262.5mg of venlafaxine - given RUTH will reduce dosing by ~ 50% per uptodate guidelines return to normal dose (12) DVT prophylaxis: SQ Heparin SI last PM, Psych consulted Disposition: DC in 2-3 days Daughter asking for placement, unsafe at home, PT/OT Follow up: PCP Dr. Wick upon discharge Labs checked PT/OT, on Florastor, on Imodium, Sitter DCd PT wants to go home c [facility] ROS-No Headache, No Visual Changes, No Nausea, No Vomiting, No Fever, No Chills, No Neck Pain or Stiffness, No Chest Pain, No Palpitations, No SOB, No PEERZ, No Cough, No Sputum, No Wheezing, No Abdominal Pain, No Diarrhea, No Hematemesis, No Hemoptysis, No Unexpected Weight Loss, No Flank pain, No Melena, No Hematochezia, No Frequency, No Urgency, No Burning, No Hematuria, No Rashes, No Diaphoresis. Appetite is Normal, Feels a lot better Physical Exam Gen-AAO x 3, NAD, Afebrile Head-NCAT, EOMI, PERRLA, Anicteric Sclera, No Posterior Pharyngeal Erythema Neck-Supple, No JVD, No Thyromegaly, No Masses, No LAD, No Bruits Lungs-Clear to Auscultation Bilaterally, No Rales, No Rhonchi, No Wheezing, No Crepitus Chest-No S4, +S1, +S2, No S3, No Murmurs, No Rubs, No Gallops, No Ectopy Abdomen-Soft, Bowel Sounds Present, Non Tender, Non Distended, No Hepatomegaly, No Splenomegaly, No Palpable Masses, No Rebound, No Rigidity, No Guarding Musculoskeletal-Full Range of Motion Bilaterally, No CVAT Extremities-No Cyanosis, No Clubbing, No Edema, +Davila-Dark Urine Nuero-Cranial Nerves II-XII grossly intact, Motor WNL, DTRs WNL, Strength WNL, Non Focal Psych-Normal Mood Today Admission and Anticipated Discharge Date Admission Date: September 03, 2019 Anticipated date of discharge: 09/07/19 Results & Data Results & Data ([facility]) Vital Signs (Past 12 Hours) Vital Signs Temp Pulse Pulse Resp BP Pulse Ox 09/07/19 04:20 37.6 C H 87 16 126/71 94 09/07/19 00:14 36.6 C 81 16 120/73 96 09/06/19 23:42 82
[2019-09-07 07:56] LABS: Basophils # (auto) 0.04 K/uL (0-0.2); Basophils % (auto) 0.1 %; Eosinophils # (auto) 0.41 K/uL (0-0.5); Eosinophils % (auto) 1.2 %; Immature Granulocytes % (auto) 0.3 %; Lymphocytes # (auto) 30.64 K/uL (1.2-3.4); Lymphocytes % (auto) 87.8 %; Monocytes # (auto) 1.47 K/uL (0.11-0.59); Monocytes % (auto) 4.2 %; Neutrophils # (auto) 2.24 K/uL (1.4-6.5); Neutrophils % (auto) 6.4 %; Smudge Cells Present
[2019-09-07] MEDS: lamoTRIgine 100 MG TAB PO SCH ×2 (08:35→20:34)
[2019-09-07] MEDS: FERROUS SULFATE 325 MG TAB PO SCH ×2 (08:35→16:47)
[2019-09-07] MEDS: POTASSIUM CHLORIDE 20 MEQ/15 ML UDC PO SCH ×2 (08:36→20:32)
[2019-09-07] MEDS: SACCHAROMYCES BOULARDII 250 MG CAP PO SCH ×2 (08:36→20:33)
[2019-09-07] MEDS: VENLAFAXINE HCL XR 150 MG CAPXR PO SCH (08:37)
[2019-09-07] MEDS: METOPROLOL SUCC 25MG EXT REL TAB PO SCH (08:37)
[2019-09-07] MEDS: BISMUTH SUBSALICYLATE 262 MG CHEW PO SCH ×4 (08:38→20:31)
[2019-09-07] MEDS: FLUTICASONE/VILANTEROL 100/25MCG 14 PUFFS/INHALER INH SCH (08:38)
[2019-09-07] MEDS: ASPIRIN 81 MG ECTAB PO SCH (08:38)
[2019-09-07] MEDS: CIPROFLOXACIN / D5W 400 MG/200 ML BAG IV SCH (11:39)
[2019-09-07] MEDS: ONDANSETRON INJ 2 MG/ML 2 ML VIAL IV PRN ×2 (13:47→20:48)
[2019-09-07] MEDS: BIMATOPROST 0.01% OP SOLN 2.5 ML BTL OP SCH (20:32)
[2019-09-07] MEDS: QUETIAPINE FUMARATE 25 MG TABLET PO SCH (20:32)
[2019-09-07] MEDS: GABAPENTIN 300 MG CAP PO SCH (20:33)
[2019-09-07] MEDS: LOPERAMIDE HCL 2 MG CAP PO PRN (20:37)
[2019-09-08] MEDS: CIPROFLOXACIN / D5W 400 MG/200 ML BAG IV SCH ×2 (00:30→11:21)
[2019-09-08] MEDS: SODIUM CHLORIDE 0.9% 1000ML 1,000 ML IV SCH ×2 (04:20→17:08)
[2019-09-08] MEDS: HEPARIN SOD 5,000 UNIT/0.5 ML VIAL SQ SCH ×3 (06:09→21:07)
[2019-09-08] MEDS: LEVOTHYROXINE SODIUM 75 MCG TABLET PO SCH (06:09)
[2019-09-08 06:13] LABS: Hemoglobin 9.5 g/dL (12.0-16.0); Mean Corpuscular Hemoglobin 28.6 pg (25-34); Mean Corpuscular Hgb Conc 30.6 g/dL (32-36); Mean Corpuscular Volume 93.4 fL (80-100); Mean Platelet Volume 8.8 fL (7.4-10.4); Platelet Count 253 K/uL (130-400); RDW Coefficient of Variation 14.9 % (11.5-14.5); RDW Standard Deviation 50.7 fL (36.4-46.3); Red Blood Count 3.32 M/uL (4.2-5.4); White Blood Count 36.32 K/uL (4.8-10.8)
[2019-09-08] MEDS: ACETAMINOPHEN W/CODEINE #3 1 TAB PO PRN (06:27)
[2019-09-08 06:45] LABS: Albumin Level 2.1 gm/dl (3.4-5.0); BUN Creatinine Ratio 9.1 (10-20); Calcium 7.1 mg/dl (8.5-10.1); Creatinine Clr Calc Pharmacy 35.7 ml/min; Est GFR (African American) 70.4; Est GFR (Non-African American) 60.7; Potassium 3.6 mmol/L (3.5-5.1)
[2019-09-08] MEDS: metroNIDAZOLE 500 MG/100 ML BAG IV SCH ×2 (08:31→15:42)
[2019-09-08] MEDS: POTASSIUM CHLORIDE 20 MEQ/15 ML UDC PO SCH ×2 (08:31→21:08)
[2019-09-08] MEDS: METOPROLOL SUCC 25MG EXT REL TAB PO SCH (08:33)
[2019-09-08] MEDS: VENLAFAXINE HCL XR 150 MG CAPXR PO SCH (08:33)
[2019-09-08] MEDS: FERROUS SULFATE 325 MG TAB PO SCH ×2 (08:33→17:09)
[2019-09-08] MEDS: ASPIRIN 81 MG ECTAB PO SCH (08:33)
[2019-09-08] MEDS: FLUTICASONE/VILANTEROL 100/25MCG 14 PUFFS/INHALER INH SCH (08:34)
[2019-09-08] MEDS: BISMUTH SUBSALICYLATE 262 MG CHEW PO SCH ×4 (08:34→20:24)
[2019-09-08] MEDS: lamoTRIgine 100 MG TAB PO SCH ×2 (08:34→20:24)
[2019-09-08] MEDS: SACCHAROMYCES BOULARDII 250 MG CAP PO SCH ×2 (08:34→20:26)
--- NOTE | 2019-09-08 09:47 | Discharge Summary ---
Date of Service September 08, 2019 Admission HPI Per Admitting Provider This is an 89-year-old female who has significant past medical history of HTN, HLD, CAD, hypothyroidism, CKD stage III with baseline creatinine 1.1-1.3, CLL, depression who presents to [facility] ED 2/2 progressive weakness and falls x 2 days. She complains of diarrhea and abdominal pain for the past 2 days. She is unsure how many episodes of diarrhea and unable to tell if she had melena or hematochezia. Further complains of nausea, multiple episodes of emesis, weakness, and unable to get out of bed. She does elicit that she took amoxicillin starting on August 27 secondary to tooth infection. Her tooth feels significantly improved but feels diarrhea secondary to antibiotics. She denies any documented fever, chills, lightheadedness, dizziness, syncope, chest pain, shortness of breath, palpitations, hematemesis, hemoptysis. She states she still is urinating and denies any dysuria, increased urgency or frequency with urination, hematuria. Overall appetite and oral intake has been for the past 2 days. She is unsure if she has taken any of her medications. Her was slightly unreliable due to underlying cognition. She denies recent travel, respiratory symptoms, recent contact with Covid 19 + individual, loss or taste/smell. In ED patient remained hemodynamically stable. Lab work notable for significant leukocytosis 79.36K with an absolute lymphocytosis, H&H stable at 12.7 and 39.8, platelet 339, BUN 56, creatinine 3.20, potassium 6.9, sodium 133, calcium 8.4, glucose 150, TSH WNL. UA with +1 protein, positive nitrates, trace leukocyte esterase, negative bacteria CXR: negative for acute cardiopulmonary normality. Head CT was negative for acute pathology, chronic microvascular small vessel disease noted with senescent changes. In ED she received 1 g calcium gluconate, 10 units IV regular insulin, D50 and IVF. Admission Exam Per Admitting Provider Constitutional: Thin, petite, elderly female, vitals as above, NAD, sitting up in bed, answers questions appropriately Head: Normocephalic, Atraumatic Eyes: PERRL, conjunctivae normal, anicteric sclerae ENMT: external ear and nose normal, oropharynx normal dry mucous membranes Neck: trachea midline, no thyromegaly normal visual inspection Respiratory: normal respiratory effort, lungs clear to auscultation, no wheeze, rales, rhonchi. Normal insp/exp effort, no accessory muscle use Cardiovascular: RRR, no murmur, no edema Vessels: no JVD or carotid bruit Chest: normal inspection of chest Abdomen: normal bowel sounds, soft, diffusely tender to palpation, no hepatosplenomegaly Musculoskeletal: no cyanosis or clubbing, extremities motor strength 5/5 Skin: no rashes, warm and dry moderate turgor Neurologic: PERRL, EOMI, accommodation nl, no face palsy, no dysarthria CN's II-XI intact bilaterally and moves all extremities Psychiatric: A+Ox3 and to basics but with intermittent confusion, euthymic affect Lymphatic: no cervical or axillary lymphadenopathy : deferred Principal Diagnosis Metabolic encephalopathy: Acute renal failure superimposed on stage 3 chronic kidney disease: Hyperkalemia: Enterocolitis: CAD (coronary artery disease): Hypertension: CLL (chronic lymphocytic leukemia): Dyslipidemia: Hypothyroidism: Depression: Bipolar disorder: Discharge Exam Gen-AAO x 3, NAD, Afebrile, Confused at times Head-NCAT, EOMI, PERRLA, Anicteric Sclera, No Posterior Pharyngeal Erythema Neck-Supple, No JVD, No Thyromegaly, No Masses, No LAD, No Bruits Lungs-Clear to Auscultation Bilaterally, No Rales, No Rhonchi, No Wheezing, No Crepitus Chest-No S4, +S1, +S2, No S3, No Murmurs, No Rubs, No Gallops, No Ectopy Abdomen-Soft, Bowel Sounds Present, Non Tender, Non Distended, No Hepatomegaly, No Splenomegaly, No Palpable Masses, No Rebound, No Rigidity, No Guarding Musculoskeletal-Full Range of Motion Bilaterally, No CVAT Extremities-No Cyanosis, No Clubbing, No Edema, +Davila-Dark Urine Nuero-Cranial Nerves II-XII grossly intact, Motor WNL, DTRs WNL, Strength WNL, Non Focal Psych-Normal Mood Today Discharge Data Allergies Allergy/AdvReac Type Severity Reaction Status Date / Time adhesive Allergy Intermediate if on for Verified 09/03/19 09:56 a while-red blisters bacitracin Allergy Mild ALLERGY-IRR Verified 09/03/19 09:56 ITATION neomycin Allergy Mild ALLERGY Verified 09/03/19 09:56 polymyxin B Allergy Mild ALLERGY Verified 09/03/19 09:56 Consultations 09/03/19 13:50 ED Decision to Admit Stat 09/03/19 16:06 Consult Case Management - Discharge Planning Routine Consult Nephrology Routine 09/05/19 19:59 Consult Psychiatry Routine 09/07/19 07:54 Consult Case Management - Discharge Planning Routine Ordered Studies 09/03/19 09:42 CT head/brain wo con Stat 09/03/19 11:59 CT abd pelvis wo con Stat CT chest wo con Stat Current Diagnoses Lymphoid leukemia, unspecified not having achieved remission (09/03/19) Hypothyroidism, unspecified (09/03/19) Hyperlipidemia, unspecified (09/03/19) Hyperkalemia (09/03/19) Bipolar disorder, unspecified (09/03/19) Major depressive disorder, single episode, unspecified (09/03/19) Metabolic encephalopathy (09/03/19) Essential (primary) hypertension (09/03/19) Atherosclerotic heart disease of [place] coronary artery without angina pectoris (09/03/19) Noninfective gastroenteritis and colitis, unspecified (09/03/19) Acute kidney failure, unspecified (09/03/19) Chronic kidney disease, stage 3 (moderate) (09/03/19) Encounter for prophylactic measures, unspecified (09/03/19) Allergies adhesive Allergy (Intermediate, Verified 09/03/19 09:56) if on for a while-red blisters bacitracin Allergy (Mild, Verified 09/03/19 09:56) ALLERGY-IRRITATION neomycin Allergy (Mild, Verified 09/03/19 09:56) ALLERGY polymyxin B Allergy (Mild, Verified 09/03/19 09:56) ALLERGY Height/Weight/Isolation Height 4 ft 11.5 in Weight 59.4 kg Chemistry 09/07/19 09/08/19 06:26 05:48 Sodium 140 141 Potassium 3.3 L 3.6 Chloride 113 H 114 H Carbon Dioxide 21 21 Anion Gap 6.0 6.0 BUN 11 8 Creatinine 0.95 0.85 Glucose 91 99 Microbiology 09/03/19 14:47 Stool Escherichia coli Shiga Toxins Test - Final 09/03/19 14:47 Stool Stool Culture - Final No Salmonella isolated, No Shigella isolated, No Campylobacter jejuni isolated. Hospital Course (1) Metabolic encephalopathy: (2) Acute renal failure superimposed on stage 3 chronic kidney disease: (3) Hyperkalemia: This is an 89-year-old female who has significant past medical history of HTN, HLD, CAD, hypothyroidism, CKD stage III with baseline creatinine 1.1-1.3, CLL, depression who presents to [facility] ED 2/2 progressive weakness and falls x 2 days. In ED patient remained hemodynamically stable. Lab work notable for significant leukocytosis 79.36K with an absolute lymph ocytosis, H&H stable at 12.7 and 39.8, platelet 339, BUN 56, creatinine 3.20, potassium 6.9, sodium 133, calcium 8.4, glucose 150, TSH WNL. UA with +1 protein, positive nitrates, trace leukocyte esterase, negative bacteria CXR: negative for acute cardiopulmonary normality. Head CT was negative for acute pathology, chronic microvascular small vessel disease noted with senescent changes. In ED she received 1 g calcium gluconate, 10 units IV regular insulin, D50 and IVF. Nephrology -- on case Renal Function and Mental Status back to Baseline (4) Enterocolitis: CT scan abd pelvis concern for: Air-fluid levels within nondilated large and small bowel is noted in conjunction with multifocal large bowel wall thickening suggestive of a nonspecific enterocolitis with diarrheal illness stool for cdiff was negative DC on cipro/flagyl - Stop 09/09 (5) CAD (coronary artery disease): No chest pain/sob Continue ASA, Statin, Metoprolol Lisinopril (6) Hypertension: Blood pressure controlled Continue metoprolol, Resume ADAM? (7) CLL (chronic lymphocytic leukemia): Follows Dr. Cagle [facility] Oncology Has not received treatment/received remission WBC in past has been between 30-40k Discussed case with Dr. Cagle who recommended CT Chest, ABD/Pelvis to r/o lymphadenopathy or obstruction which was negative as well as markers to r/o tumor lysis syndrome If above unremarkable elevation in WBC likely not related to CLL but probable underlying source, WBCs in the upper 30s (8) Dyslipidemia: Resume statin on DC (9) Hypothyroidism: TSH 1.36 Continue levothyroxine (10) Depression: (11) Bipolar disorder: Continue lamictal/venlafaxine/seroquel Pt takes 262.5mg of venlafaxine - given RUTH will reduce dosing by ~ 50% per uptodate guidelines return to normal dose (12) DVT prophylaxis: SQ Heparin SI last PM, Psych consulted Disposition: DC to SNF today Follow up: PCP Dr. Wick upon discharge Labs checked Total Time Total Time Spent Total Time Spent (In Minutes): 45 mins Total Time Includes: Examination of the Patient, Discharge Planning, Medication Reconciliation and Communication With Other Providers Discharge Plan Discharge Items Patient Disposition: Transfer Residential Fac Reason For Visit: RUTH,METABOLIC ENCEPHALOTHY,ENTEROCOLITIS Discharge Diagnosis: Metabolic encephalopathy: Acute renal failure superimposed on stage 3 chronic kidney disease: Hyperkalemia: Enterocolitis: CAD (coronary artery disease): Hypertension: CLL (chronic lymphocytic leukemia): Dyslipidemia: Hypothyroidism: Depression: Bipolar disorder: Condition on Discharge: Good Activity: Resume your previous activity Lifting: None Bathing: No limitations Sexual Activity: When tolerated Driving/Machine Use: No limitations Weightbearing: Full weightbearing Non-emergency contact: Primary Care Provider Call non-emergency contact if: you have any medication questions Follow-up/Referrals: Walter Wick DO [Primary Care Provider] - Diet: Dialysis Renal and Heart Healthy Addtl Attending Provider Instructions: None Pending Studies at Discharge: No Stand-Alone Forms: [facility] Skilled Items Patient informed of condition?: Yes DNR: No Discharge Level of Care: Skilled Communicable Disease: No Discharge Prognosis: Stable Lines: None Urinary Catheter: No Medications and DC Order Prescriptions: New loperamide 2 mg Capsule 2 mg PO Q4H PRN (Reason: loose stool) Qty: 60 RF: 0 bismuth subsalicylate [Stomach Relief] 262 mg Tablet,Chewable 1 tab PO Q4HWA Qty: 30 RF: 0 Phospha 250 Neutral 250 mg Tablet 2 tab PO QID Qty: 24 RF: 0 Saccharomyces boulardii [Florastor] 250 mg Capsule 250 mg PO BID Qty: 30 RF: 0 Continued atorvastatin 40 mg Tablet 40 mg PO PM RF: 0 venlafaxine [Effexor XR] 75 mg Capsule,Extended Release 24hr 75 mg PO QAM RF: 0 cyanocobalamin (vitamin B-12) [Vitamin B-12] 1,000 mcg Tablet 1,000 mcg PO DAILY RF: 0 aspirin 81 mg Tablet,Delayed Release (Dr/Ec) 81 mg PO DAILY RF: 0 levothyroxine [Levoxyl] 75 mcg Tablet 75 mcg PO QAM RF: 0 lisinopril 10 mg Tablet 10 mg PO QPM RF: 0 gabapentin [Neurontin] 300 mg Capsule 300 mg PO HS RF: 0 metoprolol succinate 25 mg Tablet Extended Release 24 Hr 12.5 mg PO DAILY RF: 0 azelastine 137 mcg (0.1 %) Aerosol,[place] 1 spray INTRANASAL HS RF: 0 lamotrigine [Lamictal] 100 mg Tablet 100 mg PO BID RF: 0 cholecalciferol (vitamin D3) [Vitamin D3] 1,000 unit Capsule 1,000 unit PO DAILY RF: 0 levalbuterol tartrate [Xopenex HFA] 45 mcg/actuation Hfa Aerosol Inhaler 1 puff INHALATION Q6H PRN (Reason: Shortness Of Breath) RF: 0 Calcium 600 + D(3) 600 mg calcium- 200 unit Capsule 1 cap PO DAILY RF: 0 Dulera 100-5 mcg/actuation Hfa Aerosol Inhaler 1 puff INHALATION BID RF: 0 Lumigan 0.01 % Drops 1 drp OPHTHALMIC (EYE) PM RF: 0 Culturelle 10 billion cell Capsule 1 cap PO DAILY RF: 0 ferrous sulfate [Feosol] 325 mg (65 mg iron) Tablet 325 mg PO BID RF: 0 quetiapine 50 mg tablet 50 mg PO HS RF: 0 Discontinued venlafaxine [Effexor XR] 37.5 mg Capsule,Extended Release 24hr 37.5 mg PO QAM RF: 0 venlafaxine [Effexor XR] 150 mg Capsule,Extended Release 24hr 150 mg PO QAM RF: 0 acetaminophen-codeine 300-30 mg tablet 1 tab PO BID PRN (Reason: Pain) RF: 0 Admission Data Admit Date/Time: 09/03/19 14:33 Attending Provider: Bernardino Chavez Admit Provider: Bernardino Chavez Primary Care Provider: Walter Wick Other Providers: Bernardino Chavez ; Tom Weeks ; Oriana Green ; [facility] ; Kwaku Lynch [facility] Other Interventions: PSY Interdisciplinary Discharge Planning Last Done: 09/07/19 12:31
--- NOTE | 2019-09-08 10:12 | Hospitalist Progress Note ---
Date of Service September 08, 2019 Assessment & Plan (1) Metabolic encephalopathy: (2) Acute renal failure superimposed on stage 3 chronic kidney disease: (3) Hyperkalemia: This is an 89-year-old female who has significant past medical history of HTN, HLD, CAD, hypothyroidism, CKD stage III with baseline creatinine 1.1-1.3, CLL, depression who presents to [facility] ED 2/2 progressive weakness and falls x 2 days. In ED patient remained hemodynamically stable. Lab work notable for significant leukocytosis 79.36K with an absolute lymphocytosis, H&H stable at 12.7 and 39.8, platelet 339, BUN 56, creatinine 3.20, potassium 6.9, sodium 133, calcium 8.4, glucose 150, TSH WNL. UA with +1 protein, positive nitrates, trace leukocyte esterase, negative bacteria CXR: negative for acute cardiopulmonary normality. Head CT was negative for acute pathology, chronic microvascular small vessel disease noted with senescent changes. In ED she received 1 g calcium gluconate, 10 units IV regular insulin, D50 and IVF. Nephrology -- on case Renal Function and Mental Status back to Baseline (4) Enterocolitis: CT scan abd pelvis concern for: Air-fluid levels within nondilated large and small bowel is noted in conjunction with multifocal large bowel wall thickening suggestive of a nonspecific enterocolitis with diarrheal illness stool for cdiff was negative DC on cipro/flagyl - Stop 09/09 (5) CAD (coronary artery disease): No chest pain/sob Continue ASA, Statin, Metoprolol Lisinopril (6) Hypertension: Blood pressure controlled Continue metoprolol, Resume ADAM? (7) CLL (chronic lymphocytic leukemia): Follows Dr. Gurjit Castillo Oncology Has not received treatment/received remission WBC in past has been between 30-40k Discussed case with Dr. Cagle who recommended CT Chest, ABD/Pelvis to r/o lymphadenopathy or obstruction which was negative as well as markers to r/o tumor lysis syndrome If above unremarkable elevation in WBC likely not related to CLL but probable underlying source, WBCs in the upper 30s (8) Dyslipidemia: Resume statin on DC (9) Hypothyroidism: TSH 1.36 Continue levothyroxine (10) Depression: (11) Bipolar disorder: Continue lamictal/venlafaxine/seroquel (12) DVT prophylaxis: SQ Heparin Disposition: DC to SNF when COVID test back Follow up: PCP Dr. Wick upon discharge Labs checked Admission and Anticipated Discharge Date Admission Date: September 03, 2019 Anticipated date of discharge: 09/10/19 Results & Data Results & Data ([facility]) Vital Signs (Past 12 Hours) Vital Signs Temp Pulse Pulse Resp BP Pulse Ox 09/08/19 07:50 37.6 C H 65 18 101/56 L 94 09/08/19 07:00 83 09/08/19 03:05 37.6 C H 81 19 127/72 96 09/07/19 23:48 37.4 C 80 17 114/62 95 09/07/19 23:36 76
[2019-09-08] MEDS: POT PHOSPHATE MONOBASIC W/ SOD TAB PO SCH ×3 (12:52→20:26)
[2019-09-08] MEDS: ONDANSETRON INJ 2 MG/ML 2 ML VIAL IV PRN (14:13)
[2019-09-08] MEDS: BIMATOPROST 0.01% OP SOLN 2.5 ML BTL OP SCH (20:24)
[2019-09-08] MEDS: QUETIAPINE FUMARATE 25 MG TABLET PO SCH (20:25)
[2019-09-08] MEDS: GABAPENTIN 300 MG CAP PO SCH (20:25)
[2019-09-08] MEDS: LOPERAMIDE HCL 2 MG CAP PO PRN (22:22)
[2019-09-09] MEDS: ACETAMINOPHEN W/CODEINE #3 1 TAB PO PRN ×2 (00:20→07:58)
[2019-09-09] MEDS: metroNIDAZOLE 500 MG/100 ML BAG IV SCH ×4 (00:23→15:56)
[2019-09-09] MEDS: CIPROFLOXACIN / D5W 400 MG/200 ML BAG IV SCH ×2 (00:23→11:26)
[2019-09-09] MEDS ORDERED: LORazepam 0.5 MG TAB PO STA (02:27)
[2019-09-09] MEDS: SODIUM CHLORIDE 0.9% 1000ML 1,000 ML IV SCH (06:00)
[2019-09-09] MEDS: LEVOTHYROXINE SODIUM 75 MCG TABLET PO SCH (06:01)
[2019-09-09] MEDS: HEPARIN SOD 5,000 UNIT/0.5 ML VIAL SQ SCH ×2 (06:01→13:01)
[2019-09-09 07:41] LABS: BUN Creatinine Ratio 7.6 (10-20); Creatinine Clr Calc Pharmacy 39.3 ml/min; Est GFR (African American) 79.3; Est GFR (Non-African American) 68.5; Potassium 3.3 mmol/L (3.5-5.1)
[2019-09-09] MEDS: FERROUS SULFATE 325 MG TAB PO SCH ×2 (07:50→15:51)
[2019-09-09] MEDS: ASPIRIN 81 MG ECTAB PO SCH (07:51)
[2019-09-09] MEDS: VENLAFAXINE HCL XR 150 MG CAPXR PO SCH (07:51)
[2019-09-09] MEDS: METOPROLOL SUCC 25MG EXT REL TAB PO SCH (07:51)
[2019-09-09] MEDS: lamoTRIgine 100 MG TAB PO SCH (07:52)
[2019-09-09] MEDS: SACCHAROMYCES BOULARDII 250 MG CAP PO SCH (07:52)
[2019-09-09] MEDS: POT PHOSPHATE MONOBASIC W/ SOD TAB PO SCH ×3 (07:52→16:57)
[2019-09-09] MEDS: BISMUTH SUBSALICYLATE 262 MG CHEW PO SCH ×3 (07:53→15:50)
[2019-09-09] MEDS: POTASSIUM CHLORIDE 20 MEQ/15 ML UDC PO SCH (07:54)
[2019-09-09] MEDS: FLUTICASONE/VILANTEROL 100/25MCG 14 PUFFS/INHALER INH SCH (07:54)
[2019-09-09 07:59] LABS: Hemoglobin 9.6 g/dL (12.0-16.0); Mean Corpuscular Hemoglobin 29.1 pg (25-34); Mean Corpuscular Volume 93.9 fL (80-100); Mean Platelet Volume 8.8 fL (7.4-10.4); Platelet Count 257 K/uL (130-400); RDW Coefficient of Variation 15.4 % (11.5-14.5); RDW Standard Deviation 52.1 fL (36.4-46.3); White Blood Count 38.02 K/uL (4.8-10.8)
[2019-09-09] MEDS: ONDANSETRON INJ 2 MG/ML 2 ML VIAL IV PRN (08:33)
[2019-09-09] MEDS ORDERED: guaiFENesin 200 MG TAB PO SCH (11:15)
[2019-09-09] MEDS ORDERED: guaiFENesin SUGAR FREE 200 MG/10 ML UDC PO SCH (15:00)
--- NOTE | 2019-09-09 17:11 | Hospitalist Progress Note ---
Date of Service September 09, 2019 Assessment & Plan (1) Metabolic encephalopathy: (2) Generalized weakness: Present on admission with weakness and Fall CT head showed no acute intracranial abnormality or calvarial fracture. No focal neuro deficit fall precaution Continue physical and occupation therapy (3) Acute renal failure superimposed on stage 3 chronic kidney disease: Possible related to dehydration from diarrhea Creatinine on admission 3.2 Received IVF Nephrology on board Creatinine 0.7 Resolved (4) Hyperkalemia: Mostly due to diarrhea Potassium 3.3 today Continue K supplement Check BMP in 1 week (5) Enterocolitis: Diarrhea CT scan abd pelvis concern for: Air-fluid levels within nondilated large and small bowel is noted in conjunction with multifocal large bowel wall thickening suggestive of a nonspecific enterocolitis with diarrheal illness stool for cdiff was negative Continue Cipro and Flagyl for an additional 3 more days COVID 19 negative Advised pt to increase her fluid intake Monitor electrolytes (6) CAD (coronary artery disease): Continue ASA, Statin, Metoprolol Denies any chest pain (7) Hypertension: Blood pressure controlled Continue metoprolol, Resume Lisinopril (8) CLL (chronic lymphocytic leukemia): Follows Dr. Gurjit Castillo Oncology Has not received treatment/received remission WBC in past has been between 30-40k Discussed case with Dr. Cagle who recommended CT Chest, ABD/Pelvis to r/o lymphadenopathy or obstruction which was negative as well as markers to r/o tumor lysis syndrome If above unremarkable elevation in WBC likely not related to CLL but probable underlying source, WBCs in the upper 30s (9) Dyslipidemia: Resume statin on DC (10) Hypothyroidism: TSH 1.36 Continue levothyroxine (11) Depression: (12) Bipolar disorder: Psych on board Continue lamictal/venlafaxine/seroquel (13) Hypophosphatemia: Phosphate 2 today Continue phosphate supplement Monitor electrolytes (14) DVT prophylaxis: SQ Heparin CODE Status Full code Admission and Anticipated Discharge Date Admission Date: September 03, 2019 Anticipated date of discharge: 09/10/19 Subjective Pt was seen and examined Lying in bed with no distress Pt said that she has been coughing alot She said that she continues to have diarrhea, but frequency is less She said that the stool looks like a jello She is very anxious to go home today She does not want to stay in the hospital for tonight Denies any chest pain, palpitation, dizziness and SOB Physical Exam Physical Exam: General- No acute distress Head- atraumatic Eyes- PERRL, EOMI, ENT- oropharynx clear Neck- supple, no JVD Lungs- clear to auscultation Heart- regular rhythm; no murmur Abdomen- normal bowel sounds, soft, nontender Extremities- no calf tenderness Neuro- alert, oriented x 3; PERRL, EOMI; no facial palsy; no dysarthria Skin- warm & dry Results & Data Results & Data ([facility]) Vital Signs (Past 12 Hours) Vital Signs Temp Pulse Pulse Resp BP BP Pulse Ox 09/09/19 16:37 37.0 C 90 18 144/77 H 90 09/09/19 16:05 86 09/09/19 11:16 36.8 C 85 20 141/67 H 96 09/09/19 07:53 36.7 C 89 18 148/72 H 95 09/09/19 07:00 79
== END 2019-09-09 18:50 | disposition home health service (06) | DRG 682 ==
LOC: ED 09:15 → 2S 14:33 → SUATTDRO 14:33 → 2S 15:22